=== PATIENT | male | born 1940 | race Caucasian/White ===

== ENCOUNTER 2017-02-15 10:10 | Inpatient (IN) | payer OTHER ==
[2017-02-15] MEDS ORDERED: NS 1/2 1000 ML IV 1,000 ML IV ONE (11:58)
[2017-02-15] MEDS: DUONEB 0.5 MG/3 MG NEB SCH ×4 (12:08→20:52)
[2017-02-15 12:09] VITALS: BMI 29.1
[2017-02-15] MEDS: NS 1/2 1000 ML IV 1,000 ML IV SCH (12:34)
[2017-02-15] MEDS: CIPRO IV 400 MG PREMIX* 400 MG/200 ML IV.SOLN. IV SCH ×2 (12:37→22:18)
[2017-02-15 12:52] LABS: BASOPHILS # (AUTO) 0.1 X10^3/uL (0.0-0.1); BASOPHILS % (AUTO) 1.1 % (0.2-1.0); EOSINOPHILS # (AUTO) 0.3 x10^3/uL (0.0-0.2); EOSINOPHILS % (AUTO) 5.1 % (0.9-2.9); HEMOGLOBIN 12.4 g/dL (13.5-18.0); LYMPHOCYTES # (AUTO) 1.2 X10^3/uL (1.3-2.9); LYMPHOCYTES % (AUTO) 20.8 % (21.0-51.0); MEAN CORPUSCULAR HEMOGLOBIN 31.1 pg (27.0-34.0); MEAN CORPUSCULAR HGB CONC 34.4 g/dL (33.0-35.0); MEAN CORPUSCULAR VOLUME 90.7 fL (80.0-100.0); MEAN PLATELET VOLUME 10.2 fL (7.4-11.0); MONOCYTES # (AUTO) 0.5 x10^3/uL (0.3-0.8); MONOCYTES % (AUTO) 8.8 % (0.0-13.0); NEUTROPHILS # (AUTO) 3.8 x10^3/uL (2.2-4.8); NEUTROPHILS % (AUTO) 64.2 % (42.0-75.0); PLATELET COUNT 163 X10^3/uL (150.0-450.0); RED BLOOD COUNT 3.97 X10^6/uL (4.7-6.0); RED CELL DISTRIBUTION WIDTH 14.3 % (11.6-16.5); WHITE BLOOD COUNT 5.9 X10^3/uL (3.6-10.0)
[2017-02-15 13:03] LABS: ALANINE AMINOTRANSFERASE 18 Units/L (12-78); ALBUMIN 3.4 g/dL (3.4-5.0); ALKALINE PHOSPHATASE 154 Units/L (46-116); ASPARTATE AMINO TRANSFERASE 17 Units/L (15-37); BLOOD UREA NITROGEN 33 mg/dL (7-18); CALCIUM 8.9 mg/dL (8.5-10.1); CARBON DIOXIDE 25.6 mmol/L (21-32); CHLORIDE 107 mmol/L (98-107); COR NA(FOR HYPERGLY) 141 mmol/L (136-145); CREATININE 1.64 mg/dL (0.70-1.30); MAGNESIUM 1.9 mg/dL (1.7-2.9); SODIUM 141 mmol/L (136-145); TOTAL PROTEIN 6.8 g/dL (6.4-8.2); eGFR BLACK RACES 53 (>60); eGFR NON BLACK RACES 44 (>60)
[2017-02-15] MEDS: ROBITUSSIN DM PO SCH ×3 (13:20→22:21)
[2017-02-15] MEDS ORDERED: NS 100 ML IV 100 ML IV ONE ×2 (13:23→21:44)
--- NOTE | 2017-02-15 13:23 | RAD ---
Examination: Chest, PA and lateral views History: AFib, cough, SOB Comparison reference: 06/01/2015 Findings: Continued cardiomegaly. Widening of the mediastinum consistent with portable projection and vascular dilatation. There is chronic scarring at the right base which may be related to old trauma; rib fracture deformities are seen. There is no acute consolidation, pneumothorax or large pleural ef fusion. The retrocardiac left base is partly obscured by the enlarged heart. Impression: Probably no acute disease. Stable cardiomegaly and chronic pleural-parenchymal scar carlos es, right lower chest. Standard PA and lateral views suggested when condition permits. Reported By:
[2017-02-15] MEDS: ZOSYN VIAL 4.5 GM IV SCH ×2 (13:25→15:14)
[2017-02-15] MEDS: ZOSYN VIAL 2.25 GM 2.25 GM in NS 100 ML IV 100 ML IV SCH ×2 (15:14→22:21)
[2017-02-15] MEDS: NORCO 7.5/325 MG TAB PO PRN ×2 (16:03→22:21)
--- NOTE | 2017-02-15 20:09 | DR.UPDATE ---
H&P Update History and Physical Update: WAS SEEN IN THE OFFICE TODAY. A H&P WAS COMPLETED PRIOR TO ADMISSION. PATIENT HAS BEEN SEEN AND EXAMINED WITH NO CHANGES NOTED. Changes noted: NO Yes with the following:
[2017-02-15] MEDS: TUSSIONEX PENNKINETIC SUSP PO PRN (21:00)
[2017-02-15] MEDS ORDERED: ZESTRIL TAB 20 MG ONE (21:37)
[2017-02-15] MEDS: ZESTRIL TAB 20 MG PO SCH ×2 (22:19→22:20)
[2017-02-15] MEDS: LASIX PO SCH (22:19)
[2017-02-15] MEDS: MICRO K EXTEN CAP 10 MEQ PO SCH (22:19)
[2017-02-15] MEDS: NORMODYNE TAB 100 MG PO SCH (22:21)
[2017-02-16] MEDS: NORCO 7.5/325 MG TAB PO PRN ×2 (01:45→21:35)
[2017-02-16] MEDS ORDERED: NS 1/2 1000 ML IV 1,000 ML IV ONE (02:40)
[2017-02-16] MEDS: ZOSYN VIAL 2.25 GM 2.25 GM in NS 100 ML IV 100 ML IV SCH ×4 (02:42→22:30)
[2017-02-16] MEDS: NS 1/2 1000 ML IV 1,000 ML IV SCH ×3 (02:42→18:15)
[2017-02-16 06:08] LABS: BASOPHILS # (AUTO) 0.1 X10^3/uL (0.0-0.1); BASOPHILS % (AUTO) 1.1 % (0.2-1.0); EOSINOPHILS # (AUTO) 0.3 x10^3/uL (0.0-0.2); EOSINOPHILS % (AUTO) 4.6 % (0.9-2.9); HEMATOCRIT 34.3 % (42.0-54.0); HEMOGLOBIN 11.7 g/dL (13.5-18.0); LYMPHOCYTES # (AUTO) 1.4 X10^3/uL (1.3-2.9); MEAN CORPUSCULAR HEMOGLOBIN 30.9 pg (27.0-34.0); MEAN CORPUSCULAR HGB CONC 34.2 g/dL (33.0-35.0); MEAN CORPUSCULAR VOLUME 90.5 fL (80.0-100.0); MEAN PLATELET VOLUME 9.9 fL (7.4-11.0); MONOCYTES # (AUTO) 0.6 x10^3/uL (0.3-0.8); MONOCYTES % (AUTO) 10.2 % (0.0-13.0); NEUTROPHILS # (AUTO) 3.7 x10^3/uL (2.2-4.8); NEUTROPHILS % (AUTO) 61.1 % (42.0-75.0); PLATELET COUNT 177 X10^3/uL (150.0-450.0); RED BLOOD COUNT 3.79 X10^6/uL (4.7-6.0); WHITE BLOOD COUNT 6.1 X10^3/uL (3.6-10.0)
[2017-02-16 06:29] LABS: ALANINE AMINOTRANSFERASE 17 Units/L (12-78); ALBUMIN 3.1 g/dL (3.4-5.0); ALKALINE PHOSPHATASE 149 Units/L (46-116); ASPARTATE AMINO TRANSFERASE 18 Units/L (15-37); BLOOD UREA NITROGEN 26 mg/dL (7-18); CALCIUM 8.4 mg/dL (8.5-10.1); CARBON DIOXIDE 26.6 mmol/L (21-32); CHLORIDE 106 mmol/L (98-107); COR CA(FOR HYPOALB) 9.1 mg/dL (8.5-10.1); CREATININE 1.45 mg/dL (0.70-1.30); SODIUM 141 mmol/L (136-145); TOTAL PROTEIN 6.5 g/dL (6.4-8.2); eGFR BLACK RACES > 60 (>60); eGFR NON BLACK RACES 50 (>60)
[2017-02-16] MEDS ORDERED: ZESTRIL TAB 20 MG ONE ×2 (08:14→21:17)
[2017-02-16] MEDS: CIPRO IV 400 MG PREMIX* 400 MG/200 ML IV.SOLN. IV SCH ×2 (08:30→21:33)
[2017-02-16] MEDS: AMARYL TAB 4 MG PO SCH (08:31)
[2017-02-16] MEDS: ROBITUSSIN DM PO SCH ×4 (08:31→21:34)
[2017-02-16] MEDS: ZESTRIL TAB 20 MG PO SCH ×2 (08:32→21:34)
[2017-02-16] MEDS: MICRO K EXTEN CAP 10 MEQ PO SCH ×2 (08:32→21:34)
[2017-02-16] MEDS: NORVASC TAB 5 MG PO SCH (08:32)
[2017-02-16] MEDS: ASPIRIN PO SCH (08:32)
[2017-02-16] MEDS: LASIX PO SCH ×2 (08:32→21:34)
[2017-02-16] MEDS: DUONEB 0.5 MG/3 MG NEB SCH ×4 (09:50→21:05)
[2017-02-16] MEDS: NORMODYNE TAB 100 MG PO SCH ×2 (10:25→21:34)
[2017-02-16] MEDS ORDERED: ASTELIN NASAL SPRAY ENOSTRIL ONE (13:51)
[2017-02-16] MEDS: FLONASE NASAL SPRAY ENOSTRIL SCH (13:55)
[2017-02-16] MEDS: ASTELIN NASAL SPRAY ENOSTRIL SCH ×2 (13:56→21:33)
--- NOTE | 2017-02-16 16:46 | CT ---
History: Headache and bloody nasal discharge. Study: CT sinus without contrast. Comparison: None available. Technique: Multiple contiguous axial images of the sinuses without contrast. Coronal/sagittal reforma ts were obtained. Findings: There is complete opacification of the right sphenoid sinus and left posterior ethmoidal air cells wi th internal hyperdense material. This may represent fungal sinusitis. There is bowing of the septum b etween the sphenoid sinuses, which may represent partial dehiscence. Otherwise, the paranasal sinuses are well-developed and aerated. There is a mild right nasal septum deviation. There is question of o bstruction of the right sphenoethmoidal recess. The ostiomeatal units, left sphenoethmoidal recess, a nd frontoethmoidal recesses are patent. The lamina papyracea appear intact. The orbits are unremarkab le. The visualized bones and surrounding soft tissues are unremarkable. Impression: Sinus disease as above. Reported By:
[2017-02-16] MEDS: TUSSIONEX PENNKINETIC SUSP PO PRN (21:00)
[2017-02-17 05:44] LABS: EOSINOPHILS # (AUTO) 0.3 x10^3/uL (0.0-0.2); EOSINOPHILS % (AUTO) 5.4 % (0.9-2.9); HEMOGLOBIN 12.8 g/dL (13.5-18.0); LYMPHOCYTES # (AUTO) 1.2 X10^3/uL (1.3-2.9); MEAN CORPUSCULAR VOLUME 90.1 fL (80.0-100.0); NEUTROPHILS # (AUTO) 3.9 x10^3/uL (2.2-4.8); RED CELL DISTRIBUTION WIDTH 13.8 % (11.6-16.5)
[2017-02-17 05:47] LABS: BASOPHILS # (AUTO) 0.1 X10^3/uL (0.0-0.1); BASOPHILS % (AUTO) 1.2 % (0.2-1.0); HEMATOCRIT 37.3 % (42.0-54.0); LYMPHOCYTES % (AUTO) 19.2 % (21.0-51.0); MEAN CORPUSCULAR HEMOGLOBIN 30.8 pg (27.0-34.0); MEAN CORPUSCULAR HGB CONC 34.2 g/dL (33.0-35.0); MEAN PLATELET VOLUME 10.1 fL (7.4-11.0); MONOCYTES # (AUTO) 0.5 x10^3/uL (0.3-0.8); MONOCYTES % (AUTO) 8.9 % (0.0-13.0); NEUTROPHILS % (AUTO) 65.3 % (42.0-75.0); PLATELET COUNT 186 X10^3/uL (150.0-450.0); RED BLOOD COUNT 4.14 X10^6/uL (4.7-6.0)
[2017-02-17 06:03] LABS: ALBUMIN 3.3 g/dL (3.4-5.0); CARBON DIOXIDE 30.2 mmol/L (21-32); COR CA(FOR HYPOALB) 9.6 mg/dL (8.5-10.1); CREATININE 1.58 mg/dL (0.70-1.30)
[2017-02-17] MEDS ORDERED: NS 1/2 1000 ML IV 1,000 ML IV ONE ×2 (06:22→17:34)
[2017-02-17] MEDS: ZOSYN VIAL 2.25 GM 2.25 GM in NS 100 ML IV 100 ML IV SCH ×3 (06:34→21:06)
[2017-02-17] MEDS: NS 1/2 1000 ML IV 1,000 ML IV SCH ×3 (06:34→21:11)
[2017-02-17] MEDS ORDERED: ZESTRIL TAB 20 MG ONE ×2 (09:08→20:50)
[2017-02-17] MEDS: CIPRO IV 400 MG PREMIX* 400 MG/200 ML IV.SOLN. IV SCH ×2 (09:13→21:04)
[2017-02-17] MEDS: AMARYL TAB 4 MG PO SCH (09:14)
[2017-02-17] MEDS: NORVASC TAB 5 MG PO SCH (09:14)
[2017-02-17] MEDS: ROBITUSSIN DM PO SCH ×4 (09:14→21:09)
[2017-02-17] MEDS: LASIX PO SCH ×2 (09:14→21:07)
[2017-02-17] MEDS: ASTELIN NASAL SPRAY ENOSTRIL SCH ×2 (09:14→21:10)
[2017-02-17] MEDS: ZESTRIL TAB 20 MG PO SCH ×2 (09:14→21:09)
[2017-02-17] MEDS: ASPIRIN PO SCH (09:14)
[2017-02-17] MEDS: MICRO K EXTEN CAP 10 MEQ PO SCH ×2 (09:14→21:08)
[2017-02-17] MEDS: FLONASE NASAL SPRAY ENOSTRIL SCH (09:15)
[2017-02-17] MEDS: DUONEB 0.5 MG/3 MG NEB SCH ×4 (09:51→20:28)
[2017-02-17] MEDS: NORMODYNE TAB 100 MG PO SCH ×2 (13:58→21:10)
[2017-02-17] MEDS: NORCO 7.5/325 MG TAB PO PRN ×2 (13:59→21:09)
[2017-02-17] MEDS ORDERED: CHLORASEPTIC SPRAY MT PRN (15:00)
[2017-02-18 05:19] LABS: BASOPHILS # (AUTO) 0.1 X10^3/uL (0.0-0.1); BASOPHILS % (AUTO) 0.9 % (0.2-1.0); EOSINOPHILS # (AUTO) 0.3 x10^3/uL (0.0-0.2); EOSINOPHILS % (AUTO) 5.7 % (0.9-2.9); HEMATOCRIT 35.1 % (42.0-54.0); LYMPHOCYTES # (AUTO) 1.2 X10^3/uL (1.3-2.9); MEAN CORPUSCULAR HEMOGLOBIN 31.1 pg (27.0-34.0); MEAN CORPUSCULAR VOLUME 91.4 fL (80.0-100.0); MEAN PLATELET VOLUME 10.6 fL (7.4-11.0); MONOCYTES # (AUTO) 0.6 x10^3/uL (0.3-0.8); MONOCYTES % (AUTO) 10.3 % (0.0-13.0); NEUTROPHILS # (AUTO) 3.8 x10^3/uL (2.2-4.8); NEUTROPHILS % (AUTO) 63.1 % (42.0-75.0); PLATELET COUNT 131 X10^3/uL (150.0-450.0); RED BLOOD COUNT 3.84 X10^6/uL (4.7-6.0); RED CELL DISTRIBUTION WIDTH 14.1 % (11.6-16.5)
[2017-02-18 05:24] LABS: CALCIUM 8.9 mg/dL (8.5-10.1); CARBON DIOXIDE 29.4 mmol/L (21-32); COR CA(FOR HYPOALB) 9.7 mg/dL (8.5-10.1); CREATININE 1.76 mg/dL (0.70-1.30); TOTAL PROTEIN 6.5 g/dL (6.4-8.2)
[2017-02-18] MEDS ORDERED: NS 1/2 1000 ML IV 1,000 ML IV ONE ×2 (05:28→20:29)
[2017-02-18] MEDS: NS 1/2 1000 ML IV 1,000 ML IV SCH ×3 (05:56→20:38)
[2017-02-18] MEDS: NORMODYNE TAB 100 MG PO SCH (05:56)
[2017-02-18] MEDS: ZOSYN VIAL 2.25 GM 2.25 GM in NS 100 ML IV 100 ML IV SCH ×2 (06:00→13:21)
[2017-02-18] MEDS: DUONEB 0.5 MG/3 MG NEB SCH ×4 (08:03→20:27)
[2017-02-18] MEDS: SNACK - Diabetic Appropriate PO SCH ×2 (08:03→20:38)
[2017-02-18] MEDS ORDERED: ZESTRIL TAB 20 MG ONE ×2 (08:11→20:28)
[2017-02-18] MEDS: NORVASC TAB 5 MG PO SCH (08:15)
[2017-02-18] MEDS: AMARYL TAB 4 MG PO SCH (08:16)
[2017-02-18] MEDS: ASPIRIN PO SCH (08:16)
[2017-02-18] MEDS: MICRO K EXTEN CAP 10 MEQ PO SCH ×2 (08:16→20:39)
[2017-02-18] MEDS: ROBITUSSIN DM PO SCH ×4 (08:16→20:40)
[2017-02-18] MEDS: LASIX PO SCH ×2 (08:16→20:40)
[2017-02-18] MEDS: ZESTRIL TAB 20 MG PO SCH ×2 (08:17→20:39)
[2017-02-18] MEDS: NORCO 7.5/325 MG TAB PO PRN ×2 (08:17→20:39)
--- NOTE | 2017-02-18 08:52 | RAD ---
Examination: Chest, PA and lateral views History: Cough, SOB, lung cancer Comparison reference: 02/15/2017 Findings: Mild cardiac prominence, unchanged. Pleural-parenchymal scarring right lower chest. There i s no evidence for pneumothorax, acute consolidation or large pleural effusion. Impression: No acute process identified. Chronic findings again noted right lower chest. Upper normal heart size. Reported By:
[2017-02-18] MEDS: ASTELIN NASAL SPRAY ENOSTRIL SCH ×2 (08:56→20:38)
[2017-02-18] MEDS: CIPRO IV 400 MG PREMIX* 400 MG/200 ML IV.SOLN. IV SCH (08:56)
[2017-02-18] MEDS: FLONASE NASAL SPRAY ENOSTRIL SCH (08:56)
--- NOTE | 2017-02-18 09:06 | PCM.PROG ---
Progress Note - Progress Note for Day of Date: 02/18/17 - Subjective Subjective: WAS ADMITTED FOR PNEUMONIA. OVER THE WEEKEND, WORKUP REVEALED SINUS DISEASE IN THE ETHMOID AND PARANASAL SINUSES. CT REPORTED THAT FINDINGS MAY REPRESENT FUNGAL SINUSITIS. TODAY, HE IS ALERT AND ORIENTED, LYING IN BED ON MORNING ROUNDS. HE IS NOTED WITH COMPLAINTS OF NON-PRODUCTIVE COUGH AND NASAL CONGESTION. ON EXAMINATION, LUNG SOUNDS ARE DIMINISHED. ABDOMEN IS ROUND, SOFT, AND NON-TENDER WITH NORMAL BOWEL SOUNDS NOTED IN ALL QUADRANTS. HE IS CURRENTLY RECEIVING A BREATHING TREATMENT. VITAL SIGNS THIS MORNING ARE 97.4- 55-18-92%-145/67. ABNORMAL LAB VALUES INCLUDE THE FOLLOWING: RBC 3.84, HGB 12.0 , HCT 35.1, BUN 24, CREATININE 1.76, GLUCOSE 140, ALK PHOS 126, ALBUMIN 3.0, A/ G RATIO 0.9. WE OBTAINED A PA/LAT CHEST XRAY THIS MORNING. RESULTS ARE PENDING. EMR REPORTS A DROP IN PULSE TO THE LOW 50S THROUGHOUT THE NIGHT. PATIENT IS CURRENTLY TAKING LABETALOL 200MG PO TID. WE WILL DISCONTINUE THIS AND START METOPROLOL XL 50MG DAILY. WE WILL ALSO START DIFLUCAN 200MG IV DAILY FOR CT FINDINGS OF FUNGAL SINUSITIS. OTHERWISE, WE WILL CONTINUE WITH CURRENT PLAN OF CARE TODAY. WE PLAN TO FOLLOW UP WITH AM LABS AND CONTINUE TO MONITOR PATIENT. - Past Medical Family Social History Past Med/Fam/Surg Hx: No changes since H&P Allergies: Allergies No Known Drug Allergies Allergy (Verified 02/15/17 10:37) - Review of Systems ROS: No change since H&P - Vital Signs and I&O's Vital Signs: Temperature 97.4 F Pulse Rate [Left Radial] 55 Pulse Rate 58 Respiratory Rate 18 Blood Pressure [Left Arm] 145/67 Blood Pressure [Right Arm] 138/65 Blood Pressure 156/70 O2 Sat by Pulse Oximetry 92 Intake and Output: Intake & Output 02/15/17 02/16/17 02/17/17 02/18/17 11:59 11:59 11:59 11:59 Intake Total 3128 4340 2540 Output Total 2019 5600 3050 Balance 1038 -5736 -043 - Physical Exam Oriented: Normal Eyes: Normal Ear: Normal Nose: Other (NASAL CONGESTION ) Throat: Normal Respiratory: Generalized, Diminished Cardiovascular: Normal : Normal Auscultation: Bowel Sounds: Normal Palpation: Normal Tenderness: Normal Skin: Normal Musculoskeletal: Normal Psychiatric: Normal Mood Description: Calm Affect: Normal Speech Pattern: Clear, Appropriate - Laboratory and Diagnostics Result Diagrams: 02/18/17 04:53 02/18/17 04:53 Labs: 02/15/17 13:38 Blood Blood Culture - Preliminary 02/15/17 12:30 Blood Blood Culture - Preliminary 02/15/17 12:51 Sputum - Expectorated Sputum Sputum Culture - Final Escherichia Coli 02/15/17 12:51 Sputum - Expectorated Sputum - Final Laboratory WBC 6.0 X10^3/uL (3.6-10.0) 02/18/17 04:53 RBC 3.84 X10^6/uL (4.7-6.0) L 02/18/17 04:53 Hgb 12.0 g/dL (13.5-18.0) L 02/18/17 04:53 Hct 35.1 % (42.0-54.0) L 02/18/17 04:53 MCV 91.4 fL (80.0-100.0) 02/18/17 04:53 MCH 31.1 pg (27.0-34.0) 02/18/17 04:53 MCHC 34.0 g/dL (33.0-35.0) 02/18/17 04:53 RDW 14.1 % (11.6-16.5) 02/18/17 04:53 Plt Count 131 X10^3/uL (150.0-450.0) L 02/18/17 04:53 MPV 10.6 fL (7.4-11.0) 02/18/17 04:53 Neut % 63.1 % (42.0-75.0) 02/18/17 04:53 Lymph % 20.0 % (21.0-51.0) L 02/18/17 04:53 [place] % 10.3 % (0.0-13.0) 02/18/17 04:53 Eos % 5.7 % (0.9-2.9) H 02/18/17 04:53 Baso % 0.9 % (0.2-1.0) 02/18/17 04:53 Neut # 3.8 x10^3/uL (2.2-4.8) 02/18/17 04:53 Lymph # 1.2 X10^3/uL (1.3-2.9) L 02/18/17 04:53 [place] # 0.6 x10^3/uL (0.3-0.8) 02/18/17 04:53 Eos # 0.3 x10^3/uL (0.0-0.2) H 02/18/17 04:53 Baso # 0.1 X10^3/uL (0.0-0.1) 02/18/17 04:53 Absolute Nucleated RBC 0.0 /100WBC 02/18/17 04:53 Sodium 140 mmol/L (136-145) 02/18/17 04:53 Corrected Sodium 141 mmol/L (136-145) 02/18/17 04:53 Potassium 4.7 mmol/L (3.5-5.1) 02/18/17 04:53 Chloride 103 mmol/L (98-107) 02/18/17 04:53 Carbon Dioxide 29.4 mmol/L (21-32) 02/18/17 04:53 BUN 24 mg/dL (7-18) H 02/18/17 04:53 Creatinine 1.76 mg/dL (0.70-1.30) H 02/18/17 04:53 Est GFR (MDRD) Af Amer 49 (>60) L 02/18/17 04:53 Est GFR (MDRD) Non-Af 40 (>60) L 02/18/17 04:53 Glucose 140 mg/dL (65-99) H 02/18/17 04:53 Calcium 8.9 mg/dL (8.5-10.1) 02/18/17 04:53 Corrected Calcium 9.7 mg/dL (8.5-10.1) 02/18/17 04:53 Magnesium 1.9 mg/dL (1.7-2.9) 02/15/17 12:30 Total Bilirubin 0.50 mg/dL (0.2-1.0) 02/18/17 04:53 AST 16 Units/L (15-37) 02/18/17 04:53 ALT 15 Units/L (12-78) 02/18/17 04:53 Alkaline Phosphatase 126 Units/L (46-116) H 02/18/17 04:53 Total Protein 6.5 g/dL (6.4-8.2) 02/18/17 04:53 Albumin 3.0 g/dL (3.4-5.0) L 02/18/17 04:53 Globulin 3.5 g/dL (2.5-4.5) 02/18/17 04:53 Albumin/Globulin Ratio 0.9 Ratio (1.1-2.1) L 02/18/17 04:53 - Plan (1) Acute fungal sinusitis Status: Acute Plan: DIFLUCAN 200MG IV DAILY, CONTINUE ZOSYN, CONTINUE CIPRO, CONTINUE ASTELIN , CONTINUE TO MONITOR (2) Bronchopneumonia Status: Acute Plan: CONTINUE PNEUMONIA PROTOCOL, CONTINUE ZOSYN, CONTINUE CIPRO, CONTINUE DUONEBS, CONTINUE SUPPLEMENTAL OXYGNE, CONTINUE TO MONITOR LABS AND CHEST XRAY
[2017-02-18] MEDS: TOPROL XL PO SCH (10:12)
[2017-02-18] MEDS: DIFLUCAN 200 MG IV PREMIX* 200 MG/100 ML BAG IV SCH (10:12)
[2017-02-18] MEDS ORDERED: ROCEPHIN 1 GM IV PREMIX 1 GM/50 ML IV.SOLN. IV ONE (16:00)
[2017-02-18] MEDS: ROCEPHIN 1 GM IV PREMIX 1 GM/50 ML IV.SOLN. IV SCH (16:37)
[2017-02-18] MEDS: TUSSIONEX PENNKINETIC SUSP PO PRN (20:40)
[2017-02-19] MEDS: NS 1/2 1000 ML IV 1,000 ML IV SCH (00:20)
[2017-02-19 05:17] LABS: BASOPHILS # (AUTO) 0.1 X10^3/uL (0.0-0.1); BASOPHILS % (AUTO) 1.4 % (0.2-1.0); EOSINOPHILS # (AUTO) 0.5 x10^3/uL (0.0-0.2); EOSINOPHILS % (AUTO) 7.2 % (0.9-2.9); HEMATOCRIT 36.2 % (42.0-54.0); HEMOGLOBIN 12.3 g/dL (13.5-18.0); LYMPHOCYTES # (AUTO) 1.4 X10^3/uL (1.3-2.9); LYMPHOCYTES % (AUTO) 20.8 % (21.0-51.0); MEAN CORPUSCULAR VOLUME 91.1 fL (80.0-100.0); MEAN PLATELET VOLUME 10.5 fL (7.4-11.0); MONOCYTES # (AUTO) 0.6 x10^3/uL (0.3-0.8); MONOCYTES % (AUTO) 8.9 % (0.0-13.0); NEUTROPHILS % (AUTO) 61.7 % (42.0-75.0); PLATELET COUNT 110 X10^3/uL (150.0-450.0); RED BLOOD COUNT 3.97 X10^6/uL (4.7-6.0); RED CELL DISTRIBUTION WIDTH 13.7 % (11.6-16.5); WHITE BLOOD COUNT 6.5 X10^3/uL (3.6-10.0)
[2017-02-19 05:25] LABS: ALBUMIN 3.2 g/dL (3.4-5.0); CALCIUM 9.1 mg/dL (8.5-10.1); CARBON DIOXIDE 31.4 mmol/L (21-32); COR CA(FOR HYPOALB) 9.7 mg/dL (8.5-10.1); CREATININE 1.83 mg/dL (0.70-1.30); TOTAL PROTEIN 6.8 g/dL (6.4-8.2)
[2017-02-19] MEDS ORDERED: ZESTRIL TAB 20 MG ONE ×2 (09:00→20:59)
[2017-02-19] MEDS: DIFLUCAN 200 MG IV PREMIX* 200 MG/100 ML BAG IV SCH (09:05)
[2017-02-19] MEDS: ASPIRIN PO SCH (09:06)
[2017-02-19] MEDS: ZESTRIL TAB 20 MG PO SCH ×2 (09:06→21:12)
[2017-02-19] MEDS: AMARYL TAB 4 MG PO SCH (09:06)
[2017-02-19] MEDS: LASIX PO SCH ×2 (09:06→21:12)
[2017-02-19] MEDS: NORVASC TAB 5 MG PO SCH (09:06)
[2017-02-19] MEDS: MICRO K EXTEN CAP 10 MEQ PO SCH ×2 (09:06→21:12)
[2017-02-19] MEDS: TOPROL XL PO SCH (09:06)
[2017-02-19] MEDS: FLONASE NASAL SPRAY ENOSTRIL SCH (09:07)
[2017-02-19] MEDS: ASTELIN NASAL SPRAY ENOSTRIL SCH ×2 (09:07→21:15)
[2017-02-19] MEDS: DUONEB 0.5 MG/3 MG NEB SCH ×4 (09:07→20:47)
[2017-02-19] MEDS: ROCEPHIN 1 GM IV PREMIX 1 GM/50 ML IV.SOLN. IV SCH (09:08)
[2017-02-19] MEDS: MUCINEX DM PO SCH ×2 (10:07→21:12)
[2017-02-19] MEDS: SOLU-Medrol 40 MG VIAL IVP SCH ×3 (10:08→21:12)
[2017-02-19] MEDS ORDERED: NS 1/2 1000 ML IV 0 ML IV ONE (10:37)
--- NOTE | 2017-02-19 11:25 | PCM.PROG ---
Progress Note - Progress Note for Day of Date: 02/19/17 - Subjective Subjective: WAS ADMITTED FOR PNEUMONIA. OVER THE WEEKEND, WORKUP REVEALED FUNGAL SINUS DISEASE IN THE ETHMOID AND PARANASAL SINUSES. TODAY, HE IS ALERT AND ORIENTED, LYING IN BED ON MORNING ROUNDS. HE CONTINUES WITH COMPLAINTS OF NON-PRODUCTIVE COUGH AND NASAL CONGESTION. ON EXAMINATION, LUNG SOUNDS ARE NOTED WITH SCATTERED WHEEZING BILATERALLY. ABDOMEN IS ROUND, SOFT, AND NON-TENDER WITH NORMAL BOWEL SOUNDS NOTED IN ALL QUADRANTS. HE IS CURRENTLY UTILIZING OXYGEN VIA NASAL CANNULA AT 2L/MIN. VITAL SIGNS THIS MORNING ARE 97.8- 65-20-93%-145/65. ABNORMAL LAB VALUES INCLUDE THE FOLLOWING: RBC 3.97, HGB 12.3 , HCT 36.2, BUN 26, CREATININE 1.83, GLUCOSE 119, ALK PHOS 124, ALBUMIN 3.2, A/ G RATIO 0.9. YESTERDAYS CHEST XRAY REPORTS NO ACUTE PROCESS IDENTIFIED. CHRONIC FINDINGS AGAIN NOTED IN RIGHT LOWER CHEST. UPPER NORMAL HEART SIZE. WE MADE CHANGES TO PATIENTS BLOOD PRESSURE MEDICATIONS YESTERDAY. THE CHANGES SEEM TO BE WORKING WELL FOR HIM. TODAY, WE WILL START MUCINEX DM 2 TABLETS EVERY 12 HOURS AND SOLU-MEDROL 80MG IV Q8H. OTHERWISE, WE WILL CONTINUE WITH CURRENT PLAN OF CARE TODAY. WE PLAN TO FOLLOW UP WITH AM LABS AND CONTINUE TO MONITOR PATIENT. - Past Medical Family Social History Past Med/Fam/Surg Hx: No changes since H&P Allergies: Allergies No Known Drug Allergies Allergy (Verified 02/15/17 10:37) - Review of Systems ROS: No change since H&P - Vital Signs and I&O's Vital Signs: Temperature 97.8 F Pulse Rate [Left Radial] 65 Pulse Rate 44 Respiratory Rate 20 Blood Pressure [Left Arm] 178/82 Blood Pressure [Right Arm] 138/65 Blood Pressure 156/70 O2 Sat by Pulse Oximetry 93 Intake and Output: Intake & Output 02/16/17 02/17/17 02/18/17 02/19/17 11:59 11:59 11:59 11:59 Intake Total 3128 4340 2540 2980 Output Total 2019 5600 3050 2740 Balance 1108 -1260 -510 240 - Physical Exam Oriented: Normal Eyes: Normal Ear: Normal Nose: Other (NASAL CONGESTION ) Throat: Normal Respiratory: Generalized, Diminished, Wheezes Cardiovascular: Normal : Normal Auscultation: Bowel Sounds: Normal Palpation: Normal Tenderness: Normal Skin: Normal Musculoskeletal: Normal Psychiatric: Normal Mood Description: Calm Affect: Normal Speech Pattern: Clear, Appropriate - Laboratory and Diagnostics Result Diagrams: 02/19/17 04:50 02/19/17 04:50 Labs: 02/15/17 13:38 Blood Blood Culture - Preliminary 02/15/17 12:30 Blood Blood Culture - Preliminary 02/15/17 12:51 Sputum - Expectorated Sputum Sputum Culture - Final Escherichia Coli 02/15/17 12:51 Sputum - Expectorated Sputum - Final Laboratory WBC 6.5 X10^3/uL (3.6-10.0) 02/19/17 04:50 RBC 3.97 X10^6/uL (4.7-6.0) L 02/19/17 04:50 Hgb 12.3 g/dL (13.5-18.0) L 02/19/17 04:50 Hct 36.2 % (42.0-54.0) L 02/19/17 04:50 MCV 91.1 fL (80.0-100.0) 02/19/17 04:50 MCH 31.0 pg (27.0-34.0) 02/19/17 04:50 MCHC 34.0 g/dL (33.0-35.0) 02/19/17 04:50 RDW 13.7 % (11.6-16.5) 02/19/17 04:50 Plt Count 110 X10^3/uL (150.0-450.0) L 02/19/17 04:50 MPV 10.5 fL (7.4-11.0) 02/19/17 04:50 Neut % 61.7 % (42.0-75.0) 02/19/17 04:50 Lymph % 20.8 % (21.0-51.0) L 02/19/17 04:50 [place] % 8.9 % (0.0-13.0) 02/19/17 04:50 Eos % 7.2 % (0.9-2.9) H 02/19/17 04:50 Baso % 1.4 % (0.2-1.0) H 02/19/17 04:50 Neut # 4.0 x10^3/uL (2.2-4.8) 02/19/17 04:50 Lymph # 1.4 X10^3/uL (1.3-2.9) 02/19/17 04:50 [place] # 0.6 x10^3/uL (0.3-0.8) 02/19/17 04:50 Eos # 0.5 x10^3/uL (0.0-0.2) H 02/19/17 04:50 Baso # 0.1 X10^3/uL (0.0-0.1) 02/19/17 04:50 Absolute Nucleated RBC 0.0 /100WBC 02/19/17 04:50 Sodium 140 mmol/L (136-145) 02/19/17 04:50 Corrected Sodium 140 mmol/L (136-145) 02/19/17 04:50 Potassium 4.6 mmol/L (3.5-5.1) 02/19/17 04:50 Chloride 103 mmol/L (98-107) 02/19/17 04:50 Carbon Dioxide 31.4 mmol/L (21-32) 02/19/17 04:50 BUN 26 mg/dL (7-18) H 02/19/17 04:50 Creatinine 1.83 mg/dL (0.70-1.30) H 02/19/17 04:50 Est GFR (MDRD) Af Amer 47 (>60) L 02/19/17 04:50 Est GFR (MDRD) Non-Af 39 (>60) L 02/19/17 04:50 Glucose 119 mg/dL (65-99) H 02/19/17 04:50 POC Glucose (mg/dL) 138 mg/dL (65-99) H 02/19/17 05:28 Calcium 9.1 mg/dL (8.5-10.1) 02/19/17 04:50 Corrected Calcium 9.7 mg/dL (8.5-10.1) 02/19/17 04:50 Magnesium 1.9 mg/dL (1.7-2.9) 02/15/17 12:30 Total Bilirubin 0.20 mg/dL (0.2-1.0) 02/19/17 04:50 AST 19 Units/L (15-37) 02/19/17 04:50 ALT 17 Units/L (12-78) 02/19/17 04:50 Alkaline Phosphatase 124 Units/L (46-116) H 02/19/17 04:50 Total Protein 6.8 g/dL (6.4-8.2) 02/19/17 04:50 Albumin 3.2 g/dL (3.4-5.0) L 02/19/17 04:50 Globulin 3.6 g/dL (2.5-4.5) 02/19/17 04:50 Albumin/Globulin Ratio 0.9 Ratio (1.1-2.1) L 02/19/17 04:50 - Plan (1) Acute fungal sinusitis Status: Acute Plan: DIFLUCAN 200MG IV DAILY, MUCINEX DM Q12H, CONTINUE ZOSYN, CONTINUE CIPRO, CONTINUE ASTELIN, CONTINUE TO MONITOR (2) Bronchopneumonia Status: Acute Plan: CONTINUE PNEUMONIA PROTOCOL, MUCINEX DM Q12H, SOLU-MEDROL 80MG IV Q8H, CONTINUE ZOSYN, CONTINUE CIPRO, CONTINUE DUONEBS, CONTINUE SUPPLEMENTAL OXYGNE, CONTINUE TO MONITOR LABS AND CHEST XRAY
[2017-02-19] MEDS: SNACK - Diabetic Appropriate PO SCH (21:13)
[2017-02-20] MEDS ORDERED: NS 1/2 1000 ML IV 1,000 ML IV ONE (05:06)
[2017-02-20 05:07] LABS: BASOPHILS % (AUTO) 0.1 % (0.2-1.0); HEMATOCRIT 36.7 % (42.0-54.0); HEMOGLOBIN 12.8 g/dL (13.5-18.0); LYMPHOCYTES # (AUTO) 0.5 X10^3/uL (1.3-2.9); LYMPHOCYTES % (AUTO) 4.7 % (21.0-51.0); MEAN CORPUSCULAR HGB CONC 34.9 g/dL (33.0-35.0); MEAN CORPUSCULAR VOLUME 88.8 fL (80.0-100.0); MEAN PLATELET VOLUME 9.9 fL (7.4-11.0); MONOCYTES # (AUTO) 0.1 x10^3/uL (0.3-0.8); MONOCYTES % (AUTO) 0.7 % (0.0-13.0); NEUTROPHILS # (AUTO) 10.6 x10^3/uL (2.2-4.8); NEUTROPHILS % (AUTO) 94.5 % (42.0-75.0); PLATELET COUNT 234 X10^3/uL (150.0-450.0); RED BLOOD COUNT 4.13 X10^6/uL (4.7-6.0); RED CELL DISTRIBUTION WIDTH 13.6 % (11.6-16.5); WHITE BLOOD COUNT 11.3 X10^3/uL (3.6-10.0)
[2017-02-20 05:27] LABS: BAND NEUTROPHILS % 3 % (0-10); PLATELET MORPHOLOGY COMMENT NORMAL (NORMAL)
[2017-02-20] MEDS: NS 1/2 1000 ML IV 1,000 ML IV SCH ×2 (05:30)
[2017-02-20] MEDS: SOLU-Medrol 40 MG VIAL IVP SCH (05:31)
[2017-02-20 06:35] LABS: ALANINE AMINOTRANSFERASE 20 Units/L (12-78); ALBUMIN 3.7 g/dL (3.4-5.0); ALKALINE PHOSPHATASE 143 Units/L (46-116); ASPARTATE AMINO TRANSFERASE 22 Units/L (15-37); BLOOD UREA NITROGEN 32 mg/dL (7-18); CALCIUM 9.2 mg/dL (8.5-10.1); CARBON DIOXIDE 24.5 mmol/L (21-32); CHLORIDE 100 mmol/L (98-107); COR NA(FOR HYPERGLY) 139 mmol/L (136-145); CREATININE 1.71 mg/dL (0.70-1.30); SODIUM 136 mmol/L (136-145); TOTAL PROTEIN 7.2 g/dL (6.4-8.2); eGFR BLACK RACES 50 (>60); eGFR NON BLACK RACES 42 (>60)
--- NOTE | 2017-02-20 07:13 | RAD ---
HISTORY: Cough, shortness of breath Study: Chest AP portable Comparison: 02/18/2017 Findings: The heart is enlarged. No congestive heart failure is noted. No acute alveolar infiltrates or pleural effusions are identified. The bony thorax is unremarkable with the exception of old healed rib fract ures on the right. IMPRESSION: Cardiomegaly without congestive heart failure No infiltrates Reported By:
[2017-02-20] MEDS ORDERED: ZESTRIL TAB 20 MG ONE (08:47)
[2017-02-20] MEDS: NORVASC TAB 5 MG PO SCH (08:51)
[2017-02-20] MEDS: AMARYL TAB 4 MG PO SCH (08:51)
[2017-02-20] MEDS: MUCINEX DM PO SCH (08:52)
[2017-02-20] MEDS: TOPROL XL PO SCH (08:53)
[2017-02-20] MEDS: ZESTRIL TAB 20 MG PO SCH (08:53)
[2017-02-20] MEDS: ASPIRIN PO SCH (08:53)
[2017-02-20] MEDS: LASIX PO SCH (08:53)
[2017-02-20] MEDS: MICRO K EXTEN CAP 10 MEQ PO SCH (08:53)
[2017-02-20] MEDS: DUONEB 0.5 MG/3 MG NEB SCH (09:10)
[2017-02-20] MEDS: ASTELIN NASAL SPRAY ENOSTRIL SCH (09:56)
[2017-02-20] MEDS: DIFLUCAN 200 MG IV PREMIX* 200 MG/100 ML BAG IV SCH (09:57)
[2017-02-20] MEDS: ROCEPHIN 1 GM IV PREMIX 1 GM/50 ML IV.SOLN. IV SCH (09:57)
[2017-02-20] MEDS: FLONASE NASAL SPRAY ENOSTRIL SCH (09:57)
[2017-02-20 13:05] VITALS: BP 111/46
== END 2017-02-20 13:21 | disposition home or self-care (01) | DRG 195 ==
LOC: UNDOADMIN 10:10 → ICU 10:10 → MED/SURG 02-17 14:05
PROVIDERS: ADMIT Internal Medicine; ATTEND Internal Medicine
DX: J18.0 Bronchopneumonia, unspecified organism (principal); J40 Bronchitis, not specified as acute or chronic; R50.9 Fever, unspecified; J32.2 Chronic ethmoidal sinusitis; E11.65 Type 2 diabetes mellitus with hyperglycemia
CPT/HCPCS: 36415; 70486; 71010; 71020; 80053; 83735; 85025; 87040; 87070; 87077; 87186; 87205; 93005; 94640; A4222; J0696; J0744; J1450; J2543; J2920; J7620

== ENCOUNTER 2019-01-27 09:05 | Observation (INO) ==
[2019-01-27 11:35] LABS: BASOPHILS # (AUTO) 0.1 X10^3/uL (0.0-0.1); BASOPHILS % (AUTO) 0.7 % (0.2-1.0); EOSINOPHILS # (AUTO) 0.3 x10^3/uL (0.0-0.2); EOSINOPHILS % (AUTO) 4.4 % (0.9-2.9); HEMATOCRIT 40.1 % (42.0-54.0); HEMOGLOBIN 13.4 g/dL (13.5-18.0); LYMPHOCYTES # (AUTO) 1.1 X10^3/uL (1.3-2.9); LYMPHOCYTES % (AUTO) 14.6 % (21.0-51.0); MEAN CORPUSCULAR HEMOGLOBIN 30.2 pg (27.0-34.0); MEAN CORPUSCULAR HGB CONC 33.4 g/dL (33.0-35.0); MEAN CORPUSCULAR VOLUME 90.6 fL (80.0-100.0); MEAN PLATELET VOLUME 9.5 fL (7.4-11.0); MONOCYTES # (AUTO) 0.5 x10^3/uL (0.3-0.8); MONOCYTES % (AUTO) 6.7 % (0.0-13.0); NEUTROPHILS # (AUTO) 5.6 x10^3/uL (2.2-4.8); NEUTROPHILS % (AUTO) 73.6 % (42.0-75.0); PLATELET COUNT 239 X10^3/uL (150.0-450.0); RED BLOOD COUNT 4.43 X10^6/uL (4.7-6.0); RED CELL DISTRIBUTION WIDTH 14.4 % (11.6-16.5); WHITE BLOOD COUNT 7.6 X10^3/uL (3.6-10.0)
--- NOTE | 2019-01-27 11:43 | RAD ---
History: Cough Study: PA and lateral chest Comparison: February 20, 2017 Findings: There is moderate cardiomegaly as before. There are old right posterior lateral rib fractures. There is slight elevation of the right hemidiaphragm as before with blunting of the costophrenic angle from apparent pulmonary fibrosis. There is no acute infiltrate or edema. Impression: Chronic moderate cardiomegaly. Old traumatic changes right thorax. Reported By:
[2019-01-27 11:45] LABS: ALANINE AMINOTRANSFERASE 12 Units/L (12-78); ALBUMIN 3.6 g/dL (3.4-5.0); ALKALINE PHOSPHATASE 149 Units/L (46-116); ASPARTATE AMINO TRANSFERASE 12 Units/L (15-37); BLOOD UREA NITROGEN 20 mg/dL (7-18); CALCIUM 9.2 mg/dL (8.5-10.1); CARBON DIOXIDE 28.7 mmol/L (21-32); CHLORIDE 103 mmol/L (98-107); COR NA(FOR HYPERGLY) 141 mmol/L (136-145); CREATININE 1.31 mg/dL (0.70-1.30); SODIUM 138 mmol/L (136-145); TOTAL PROTEIN 7.5 g/dL (6.4-8.2); eGFR NON BLACK RACES 56 (>60)
[2019-01-27] MEDS ORDERED: NS 1/2 1000 ML IV 1,000 ML IV ONE (12:07)
[2019-01-27] MEDS: ZOSYN VIAL 3.375 GRAMS 3.375 G in NS 100 ML IV + SPIKE MINIBAG* 100 ML IV SCH ×3 (12:31→21:27)
[2019-01-27] MEDS: ROBITUSSIN DM PO SCH ×4 (12:31→21:18)
[2019-01-27] MEDS: LEVAQUIN PREMIX IV 750 MG 750 MG/150 ML BAG IV SCH (12:31)
[2019-01-27] MEDS: NS 1/2 1000 ML IV 1,000 ML IV SCH (12:31)
[2019-01-27] MEDS: VSL#3 PO SCH (12:31)
[2019-01-27 12:58] VITALS: BMI 27.9
[2019-01-27] MEDS ORDERED: DUONEB 0.5 MG/3 MG NEB SCH (13:00)
[2019-01-27] MEDS: XOPENEX 1.25 MG/3 ML NEBULE NEB SCH (17:17)
--- NOTE | 2019-01-27 17:56 | DR.UPDATE ---
H&P Update History and Physical Update: History and Physical reviewed and patient examined. Changes noted: Yes with the following: WAS SEEN IN THE OFFICE TODAY FOR COMPLAINTS OF A PERSISTENT, PRODUCTIVE COUGH AND SHORTNESS OF BREATH. HE HAS TAKEN OVER THE COUNTER FLONASE AND MUCINEX WITH MINIMAL RESULTS. HE ALSO COMPLAINS OF ACHING ALL OVER AND FATIGUE. HE WAS ADMITTED FOR FURTHER EVALUATION AND TREATMENT OF BRONCHOPNEUMONIA. ON ADMISSION, WE WILL OBTAIN LABS, CHEST XRAY, BLOOD AND SPUTUM CULTURES. WE WILL START 1/2NS AT 75ML/HR, ZOSYN 3.375G IV TID, LEVAQUIN 750MG IV DAILY, AND RESPIRATORY TREATMENTS. OTHERWISE, WE PLAN TO FOLLOW UP WITH AM LABS AND CONTINUE TO MONITOR.
[2019-01-27] MEDS: PULMICORT NEB TX 0.5 MG NEB SCH (20:55)
[2019-01-28] MEDS: XOPENEX 1.25 MG/3 ML NEBULE NEB SCH ×4 (00:45→17:10)
[2019-01-28] MEDS ORDERED: NS 1/2 1000 ML IV 1,000 ML IV ONE ×2 (03:25→18:15)
[2019-01-28] MEDS: NS 1/2 1000 ML IV 1,000 ML IV SCH ×4 (04:10→18:17)
[2019-01-28] MEDS: ZOSYN VIAL 3.375 GRAMS 3.375 G in NS 100 ML IV + SPIKE MINIBAG* 100 ML IV SCH ×3 (05:10→22:00)
[2019-01-28 05:28] LABS: BASOPHILS # (AUTO) 0.1 X10^3/uL (0.0-0.1); BASOPHILS % (AUTO) 0.8 % (0.2-1.0); EOSINOPHILS # (AUTO) 0.2 x10^3/uL (0.0-0.2); EOSINOPHILS % (AUTO) 3.4 % (0.9-2.9); HEMATOCRIT 34.4 % (42.0-54.0); HEMOGLOBIN 11.5 g/dL (13.5-18.0); LYMPHOCYTES # (AUTO) 1.3 X10^3/uL (1.3-2.9); LYMPHOCYTES % (AUTO) 17.8 % (21.0-51.0); MEAN CORPUSCULAR HEMOGLOBIN 30.8 pg (27.0-34.0); MEAN CORPUSCULAR HGB CONC 33.5 g/dL (33.0-35.0); MEAN CORPUSCULAR VOLUME 91.9 fL (80.0-100.0); MONOCYTES # (AUTO) 0.7 x10^3/uL (0.3-0.8); MONOCYTES % (AUTO) 9.6 % (0.0-13.0); NEUTROPHILS # (AUTO) 4.8 x10^3/uL (2.2-4.8); NEUTROPHILS % (AUTO) 68.4 % (42.0-75.0); PLATELET COUNT 211 X10^3/uL (150.0-450.0); RED BLOOD COUNT 3.74 X10^6/uL (4.7-6.0); RED CELL DISTRIBUTION WIDTH 14.1 % (11.6-16.5)
[2019-01-28 05:49] LABS: ALANINE AMINOTRANSFERASE 10 Units/L (12-78); ALBUMIN 2.8 g/dL (3.4-5.0); ALKALINE PHOSPHATASE 119 Units/L (46-116); ASPARTATE AMINO TRANSFERASE 11 Units/L (15-37); BLOOD UREA NITROGEN 16 mg/dL (7-18); CALCIUM 8.4 mg/dL (8.5-10.1); CARBON DIOXIDE 26.7 mmol/L (21-32); CHLORIDE 105 mmol/L (98-107); COR CA(FOR HYPOALB) 9.4 mg/dL (8.5-10.1); COR NA(FOR HYPERGLY) 141 mmol/L (136-145); CREATININE 1.25 mg/dL (0.70-1.30); SODIUM 140 mmol/L (136-145); TOTAL PROTEIN 6.1 g/dL (6.4-8.2); eGFR NON BLACK RACES 60 (>60)
--- NOTE | 2019-01-28 06:21 | RAD ---
HISTORY: Shortness of breath Study: Chest AP portable Comparison: 01/27/2019 Findings: The heart remains enlarged. No congestive heart failure is noted. The jenelle are normal the aorta is calcified. The lungs are free of acute alveolar infiltrates although somewhat hypo inflated. No pleural effusions are identified. The bony thorax is unremarkable. IMPRESSION: Continued cardiomegaly without congestive heart failure Lungs remain hypo inflated but clear Reported By:
[2019-01-28] MEDS: LEVAQUIN PREMIX IV 750 MG 750 MG/150 ML BAG IV SCH ×2 (07:49→08:04)
[2019-01-28] MEDS: TUSSIONEX PENNKINETIC SUSP PO PRN ×2 (07:49→20:52)
[2019-01-28] MEDS: ROBITUSSIN DM PO SCH ×5 (07:50→20:52)
[2019-01-28] MEDS: VSL#3 PO SCH ×2 (07:50→08:04)
[2019-01-28] MEDS: PULMICORT NEB TX 0.5 MG NEB SCH ×2 (09:22→20:52)
[2019-01-28] MEDS ORDERED: TOPROL XL PO ONE (11:36)
[2019-01-28] MEDS ORDERED: ZESTRIL TAB 20 MG ONE (11:37)
[2019-01-28] MEDS: ZESTRIL TAB 20 MG PO SCH (11:39)
[2019-01-28] MEDS: XARELTO PO SCH (11:39)
[2019-01-28] MEDS: TOPROL XL PO SCH (11:39)
[2019-01-28] MEDS: AMARYL TAB 4 MG PO SCH ×2 (11:40→20:51)
[2019-01-28] MEDS: RESTORIL CAP 15 MG PO PRN (20:52)
[2019-01-28] MEDS: NORVASC TAB 10 MG PO SCH (20:52)
[2019-01-28] MEDS: SNACK - Diabetic Appropriate PO SCH (21:00)
--- NOTE | 2019-01-28 21:24 | PCM.PROG ---
Progress Note - Progress Note for Day of Date of Exam: 01/28/19 - Subjective Subjective: WAS ADMITTED FOR BRONCHOPNEUMONIA. TODAY, HE IS ALERT AND ORIENTED, LYING IN BED ON MORNING ROUNDS. HE CONTINUES WITH COMPLAINTS OF COUGH AND SHORTNESS OF BREATH. ON EXAMINATION, HEART IS REGULAR IN RATE AND RHYTHM. BILATERAL LUNGS ARE NOTED WITH SCATTERED WHEEZING. ABDOMEN IS ROUND, SOFT, AND NON-TENDER WITH NORMAL BOWEL SOUNDS NOTED IN ALL QUADRANTS. HIS VITALS THIS MORNING ARE: 98.7-76-18-94%-172/72. LABS WERE OBTAINED. ABNORMAL LAB VALUES INCLUDE THE FOLLOWING: RBC 3.74, HGB 11.5, HCT 34.4, GLUCOSE 136, CALCIUM 8.4, AST 11, ALT 10, ALK PHOS 119, TOTAL PROTEIN 6.1, ALBUMIN 2.8, INFLUENZA NEGATIVE. BLOOD AND SPUTUM CULTURES ARE PENDING. PRELIMINARY SPUTUM CULTURE REPORTS GROWTH OF GRAM NEGATIVE RODS. TODAYS CHEST XRAY REVEALED: Continued cardiomegaly without congestive heart failure. Lungs remain hypo inflated but clear. HE IS CURRENTLY RECEIVING 1/2NS AT 75ML/HR, LEVAQUIN 750MG IV DAILY, ZOSYN 3.375G IV TID, AND RESPIRATORY TREATMENTS. WE WILL CONTINUE WITH CURRENT PLAN OF CARE TODAY. OTHERWISE, WE PLAN TO FOLLOW UP WITH AM LABS AND CONTINUE TO MONITOR. - Past Medical Family Social History Past Med/Fam/Surg Hx: No changes since H&P Allergies: Allergies No Known Drug Allergies Allergy (Verified 02/15/17 10:37) - Review of Systems ROS: No change since H&P - Vital Signs and I&O's Vital Signs: Temperature 98.9 F Pulse Rate [Left Brachial] 61 Pulse Rate 60 Respiratory Rate 18 Blood Pressure [Left Arm] 143/65 Blood Pressure 156/70 O2 Sat by Pulse Oximetry 95 Intake and Output: Intake & Output 01/26/19 01/27/19 01/28/19 01/29/19 11:59 11:59 11:59 11:59 Intake Total 2199 / 2199 820 / 820 Output Total 1675 / 1675 1050 / 1050 Balance 524 / 524 -230 / -230 - Physical Exam Oriented: Normal Eyes: Normal Ear: Normal Nose: Normal Throat: Normal Respiratory: Generalized, Wheezes Cardiovascular: Normal : Normal Auscultation: Bowel Sounds: Normal Palpation: Normal Tenderness: Normal Skin: Normal Musculoskeletal: Normal Psychiatric: Normal Mood Description: Calm Affect: Normal Speech Pattern: Clear, Appropriate - Laboratory and Diagnostics Result Diagrams: 01/28/19 04:06 01/28/19 04:06 Labs: 01/27/19 12:00 Sputum - Expectorated Sputum Sputum Culture - Preliminary 01/27/19 12:00 Sputum - Expectorated Sputum - Final Laboratory WBC 7.0 X10^3/uL (3.6-10.0) 01/28/19 04:06 RBC 3.74 X10^6/uL (4.7-6.0) L 01/28/19 04:06 Hgb 11.5 g/dL (13.5-18.0) L 01/28/19 04:06 Hct 34.4 % (42.0-54.0) L 01/28/19 04:06 MCV 91.9 fL (80.0-100.0) 01/28/19 04:06 MCH 30.8 pg (27.0-34.0) 01/28/19 04:06 MCHC 33.5 g/dL (33.0-35.0) 01/28/19 04:06 RDW 14.1 % (11.6-16.5) 01/28/19 04:06 Plt Count 211 X10^3/uL (150.0-450.0) 01/28/19 04:06 MPV 10.0 fL (7.4-11.0) 01/28/19 04:06 Neut % (Auto) 68.4 % (42.0-75.0) 01/28/19 04:06 Lymph % (Auto) 17.8 % (21.0-51.0) L 01/28/19 04:06 [place] % (Auto) 9.6 % (0.0-13.0) 01/28/19 04:06 Eos % (Auto) 3.4 % (0.9-2.9) H 01/28/19 04:06 Baso % (Auto) 0.8 % (0.2-1.0) 01/28/19 04:06 Neut # (Auto) 4.8 x10^3/uL (2.2-4.8) 01/28/19 04:06 Lymph # (Auto) 1.3 X10^3/uL (1.3-2.9) 01/28/19 04:06 [place] # (Auto) 0.7 x10^3/uL (0.3-0.8) 01/28/19 04:06 Eos # (Auto) 0.2 x10^3/uL (0.0-0.2) 01/28/19 04:06 Baso # (Auto) 0.1 X10^3/uL (0.0-0.1) 01/28/19 04:06 Absolute Nucleated RBC 0.1 /100WBC 01/28/19 04:06 Sodium 140 mmol/L (136-145) 01/28/19 04:06 Corrected Sodium 141 mmol/L (136-145) 01/28/19 04:06 Potassium 3.8 mmol/L (3.5-5.1) 01/28/19 04:06 Chloride 105 mmol/L (98-107) 01/28/19 04:06 Carbon Dioxide 26.7 mmol/L (21-32) 01/28/19 04:06 BUN 16 mg/dL (7-18) 01/28/19 04:06 Creatinine 1.25 mg/dL (0.70-1.30) 01/28/19 04:06 Est GFR (MDRD) Af Amer > 60 (>60) 01/28/19 04:06 Est GFR (MDRD) Non-Af 60 (>60) 01/28/19 04:06 Glucose 136 mg/dL (65-99) H 01/28/19 04:06 POC Glucose (mg/dL) 94 mg/dL (65-99) 01/28/19 16:43 Calcium 8.4 mg/dL (8.5-10.1) L 01/28/19 04:06 Corrected Calcium 9.4 mg/dL (8.5-10.1) 01/28/19 04:06 Total Bilirubin 0.40 mg/dL (0.2-1.0) 01/28/19 04:06 AST 11 Units/L (15-37) L 01/28/19 04:06 ALT 10 Units/L (12-78) L 01/28/19 04:06 Alkaline Phosphatase 119 Units/L (46-116) H 01/28/19 04:06 Total Protein 6.1 g/dL (6.4-8.2) L 01/28/19 04:06 Albumin 2.8 g/dL (3.4-5.0) L 01/28/19 04:06 Globulin 3.3 g/dL (2.5-4.5) 01/28/19 04:06 Albumin/Globulin Ratio 0.8 Ratio (1.1-2.1) L 01/28/19 04:06 Influenza Type A (PCR) Negative (NEGATIVE) 01/27/19 18:05 Influenza Type B (PCR) Negative (NEGATIVE) 01/27/19 18:05 - Plan (1) Bronchopneumonia Status: Acute Plan: 1/2NS AT 75ML/HR, LEVAQUIN 750MG IV DAILY, ZOSYN 3.375G IV TID, AND RESPIRATORY TREATMENTS. MONITOR LABS AND CHEST XRAY
[2019-01-29] MEDS: XOPENEX 1.25 MG/3 ML NEBULE NEB SCH ×4 (00:40→16:54)
[2019-01-29] MEDS: NS 1/2 1000 ML IV 1,000 ML IV SCH ×3 (04:26→20:46)
[2019-01-29] MEDS: ZOSYN VIAL 3.375 GRAMS 3.375 G in NS 100 ML IV + SPIKE MINIBAG* 100 ML IV SCH ×3 (05:01→21:44)
[2019-01-29 06:36] LABS: BASOPHILS # (AUTO) 0.1 X10^3/uL (0.0-0.1); EOSINOPHILS # (AUTO) 0.3 x10^3/uL (0.0-0.2); EOSINOPHILS % (AUTO) 4.4 % (0.9-2.9); HEMOGLOBIN 12.4 g/dL (13.5-18.0); LYMPHOCYTES # (AUTO) 1.2 X10^3/uL (1.3-2.9); LYMPHOCYTES % (AUTO) 17.1 % (21.0-51.0); MEAN CORPUSCULAR HEMOGLOBIN 30.3 pg (27.0-34.0); MEAN CORPUSCULAR HGB CONC 33.5 g/dL (33.0-35.0); MEAN CORPUSCULAR VOLUME 90.3 fL (80.0-100.0); MEAN PLATELET VOLUME 9.1 fL (7.4-11.0); MONOCYTES # (AUTO) 0.7 x10^3/uL (0.3-0.8); MONOCYTES % (AUTO) 9.7 % (0.0-13.0); NEUTROPHILS # (AUTO) 4.6 x10^3/uL (2.2-4.8); NEUTROPHILS % (AUTO) 67.8 % (42.0-75.0); PLATELET COUNT 231 X10^3/uL (150.0-450.0); RED CELL DISTRIBUTION WIDTH 14.5 % (11.6-16.5); WHITE BLOOD COUNT 6.8 X10^3/uL (3.6-10.0)
[2019-01-29] MEDS ORDERED: NS 1/2 1000 ML IV 1,000 ML IV ONE ×2 (06:36→19:34)
[2019-01-29 06:51] LABS: ALANINE AMINOTRANSFERASE 10 Units/L (12-78); ALKALINE PHOSPHATASE 126 Units/L (46-116); ASPARTATE AMINO TRANSFERASE 12 Units/L (15-37); BLOOD UREA NITROGEN 13 mg/dL (7-18); CALCIUM 8.9 mg/dL (8.5-10.1); CARBON DIOXIDE 27.7 mmol/L (21-32); CHLORIDE 104 mmol/L (98-107); COR CA(FOR HYPOALB) 9.7 mg/dL (8.5-10.1); COR NA(FOR HYPERGLY) 142 mmol/L (136-145); CREATININE 1.29 mg/dL (0.70-1.30); SODIUM 141 mmol/L (136-145); TOTAL PROTEIN 6.6 g/dL (6.4-8.2); eGFR NON BLACK RACES 57 (>60)
--- NOTE | 2019-01-29 07:12 | RAD ---
HISTORY: Shortness of breath Study: Chest AP portable Comparison: 01/28/2019 Findings: The heart remains enlarged. No congestive heart failure is noted. The jenelle are normal. The aorta is calcified. The lungs remain hypo inflated but free of acute infiltrates. No definite pleural effusions are identified although a subpulmonic right pleural effusion could not be excluded. The bony thorax is unremarkable. IMPRESSION: No significant change from the prior examination Reported By:
[2019-01-29] MEDS ORDERED: TOPROL XL PO ONE (08:10)
[2019-01-29] MEDS ORDERED: ZESTRIL TAB 20 MG ONE (08:11)
[2019-01-29] MEDS: LEVAQUIN PREMIX IV 750 MG 750 MG/150 ML BAG IV SCH (08:30)
[2019-01-29] MEDS: AMARYL TAB 4 MG PO SCH ×2 (08:30→20:50)
[2019-01-29] MEDS: VSL#3 PO SCH (08:30)
[2019-01-29] MEDS: XARELTO PO SCH (08:30)
[2019-01-29] MEDS: TUSSIONEX PENNKINETIC SUSP PO PRN ×2 (08:31→20:48)
[2019-01-29] MEDS: ZESTRIL TAB 20 MG PO SCH (08:31)
[2019-01-29] MEDS: ROBITUSSIN DM PO SCH ×4 (08:31→20:46)
[2019-01-29] MEDS: TOPROL XL PO SCH (08:31)
[2019-01-29] MEDS: PULMICORT NEB TX 0.5 MG NEB SCH ×2 (09:00→21:12)
[2019-01-29] MEDS: HumuLIN R SUBCUT PRN (11:20)
[2019-01-29] MEDS: NORCO 5/325 MG TAB PO PRN (17:18)
[2019-01-29] MEDS ORDERED: SNACK - Diabetic Appropriate PO SCH (20:00)
[2019-01-29] MEDS: SNACK - Diabetic Appropriate PO SCH (20:46)
[2019-01-29] MEDS: NORVASC TAB 10 MG PO SCH (20:47)
[2019-01-29] MEDS: RESTORIL CAP 15 MG PO PRN (20:47)
[2019-01-30] MEDS: XOPENEX 1.25 MG/3 ML NEBULE NEB SCH ×2 (01:02→06:05)
[2019-01-30] MEDS: NORCO 5/325 MG TAB PO PRN ×2 (01:47→09:14)
[2019-01-30] MEDS: ZOSYN VIAL 3.375 GRAMS 3.375 G in NS 100 ML IV + SPIKE MINIBAG* 100 ML IV SCH (05:10)
[2019-01-30 06:37] LABS: BASOPHILS % (AUTO) 0.9 % (0.2-1.0); EOSINOPHILS # (AUTO) 0.4 x10^3/uL (0.0-0.2); EOSINOPHILS % (AUTO) 6.8 % (0.9-2.9); HEMATOCRIT 34.1 % (42.0-54.0); HEMOGLOBIN 11.6 g/dL (13.5-18.0); LYMPHOCYTES # (AUTO) 1.1 X10^3/uL (1.3-2.9); LYMPHOCYTES % (AUTO) 19.5 % (21.0-51.0); MEAN CORPUSCULAR HEMOGLOBIN 30.7 pg (27.0-34.0); MEAN CORPUSCULAR HGB CONC 33.9 g/dL (33.0-35.0); MEAN CORPUSCULAR VOLUME 90.5 fL (80.0-100.0); MEAN PLATELET VOLUME 9.2 fL (7.4-11.0); MONOCYTES # (AUTO) 0.6 x10^3/uL (0.3-0.8); MONOCYTES % (AUTO) 11.5 % (0.0-13.0); NEUTROPHILS # (AUTO) 3.4 x10^3/uL (2.2-4.8); NEUTROPHILS % (AUTO) 61.3 % (42.0-75.0); PLATELET COUNT 194 X10^3/uL (150.0-450.0); RED BLOOD COUNT 3.77 X10^6/uL (4.7-6.0); WHITE BLOOD COUNT 5.5 X10^3/uL (3.6-10.0)
[2019-01-30 06:49] LABS: ALANINE AMINOTRANSFERASE 71 Units/L (12-78); ALBUMIN 2.8 g/dL (3.4-5.0); ALKALINE PHOSPHATASE 270 Units/L (46-116); ASPARTATE AMINO TRANSFERASE 132 Units/L (15-37); BLOOD UREA NITROGEN 13 mg/dL (7-18); CALCIUM 8.8 mg/dL (8.5-10.1); CARBON DIOXIDE 28.9 mmol/L (21-32); CHLORIDE 105 mmol/L (98-107); COR CA(FOR HYPOALB) 9.8 mg/dL (8.5-10.1); CREATININE 1.27 mg/dL (0.70-1.30); SODIUM 141 mmol/L (136-145); TOTAL PROTEIN 6.2 g/dL (6.4-8.2); eGFR NON BLACK RACES 58 (>60)
--- NOTE | 2019-01-30 07:15 | RAD ---
History: Shortness of breath Study: Portable AP chest Comparison: January 29, 2019 Findings: There is unchanged moderate to severe cardiomegaly. There is mild vascular congestion. There is limited overall inspiration. There is no obvious pleural effusion. Impression: Unchanged moderately severe cardiomegaly with mild vascular congestion Reported By:
[2019-01-30] MEDS ORDERED: TOPROL XL PO ONE (08:32)
[2019-01-30] MEDS ORDERED: ZESTRIL TAB 20 MG ONE (08:33)
[2019-01-30] MEDS: PULMICORT NEB TX 0.5 MG NEB SCH (08:37)
[2019-01-30] MEDS: VSL#3 PO SCH (08:58)
[2019-01-30] MEDS: ZESTRIL TAB 20 MG PO SCH (08:59)
[2019-01-30] MEDS: ROBITUSSIN DM PO SCH (08:59)
[2019-01-30] MEDS: LEVAQUIN PREMIX IV 750 MG 750 MG/150 ML BAG IV SCH (08:59)
[2019-01-30] MEDS: TOPROL XL PO SCH (09:00)
[2019-01-30] MEDS: AMARYL TAB 4 MG PO SCH (09:00)
[2019-01-30] MEDS: XARELTO PO SCH (09:00)
[2019-01-30] MEDS: NS 1/2 1000 ML IV 1,000 ML IV SCH (10:20)
[2019-01-30] MEDS: HumuLIN R SUBCUT PRN (11:50)
[2019-01-30 13:19] VITALS: BP 175/78
--- NOTE | 2019-02-28 21:29 | PCM.PROG ---
Progress Note - Progress Note for Day of Date of Exam: 01/29/19 - Subjective Subjective: WAS ADMITTED FOR BRONCHOPNEUMONIA. TODAY, HE IS ALERT AND ORIENTED, LYING IN BED ON MORNING ROUNDS. HE CONTINUES WITH COMPLAINTS OF COUGH AND SHORTNESS OF BREATH. ON EXAMINATION, HEART IS REGULAR IN RATE AND RHYTHM. BILATERAL LUNGS ARE NOTED WITH SCATTERED WHEEZING. ABDOMEN IS ROUND, SOFT, AND NON-TENDER WITH NORMAL BOWEL SOUNDS NOTED IN ALL QUADRANTS. HIS VITALS THIS MORNING ARE: 98.6-82-20-97%-168/67. LABS WERE OBTAINED. ABNORMAL LAB VALUES INCLUDE THE FOLLOWING: RBC 4.10, HGB 12.4, HCT 37.0, GLUCOSE 140, AST 12, ALT 10, ALK PHOS 126, ALBUMIN 3.0. BLOOD AND SPUTUM CULTURES ARE PENDING. PRELIMINARY SPUTUM CULTURE REPORTS GROWTH OF GRAM NEGATIVE RODS. TODAYS CHEST XRAY REVEALED: No significant change from the prior examination. HE IS CURRENTLY RECEIVING 1/2NS AT 75ML/HR, LEVAQUIN 750MG IV DAILY, ZOSYN 3.375G IV TID, AND RESPIRATORY TREATMENTS. WE WILL CONTINUE WITH CURRENT PLAN OF CARE TODAY. OTHERWISE, WE PLAN TO FOLLOW UP WITH AM LABS AND CONTINUE TO MONITOR. - Past Medical Family Social History Past Med/Fam/Surg Hx: No changes since H&P Allergies: Allergies No Known Drug Allergies Allergy (Verified 02/15/17 10:37) - Review of Systems ROS: No change since H&P - Vital Signs and I&O's Vital Signs: Temperature 97.6 F Pulse Rate [Left Brachial] 68 Pulse Rate 63 Respiratory Rate 18 Blood Pressure [Left Arm] 175/78 Blood Pressure 156/70 O2 Sat by Pulse Oximetry 97 - Physical Exam Oriented: Normal Eyes: Normal Ear: Normal Nose: Normal Throat: Normal Respiratory: Generalized, Wheezes Cardiovascular: Normal : Normal Auscultation: Bowel Sounds: Normal Palpation: Normal Tenderness: Normal Skin: Normal Musculoskeletal: Normal Psychiatric: Normal Mood Description: Calm Affect: Normal Speech Pattern: Clear, Appropriate - Laboratory and Diagnostics Result Diagrams: 01/30/19 05:40 01/30/19 05:40 Labs: 01/27/19 11:25 Blood Blood Culture - Final 01/27/19 11:22 Blood Blood Culture - Final 01/27/19 12:00 Sputum - Expectorated Sputum Sputum Culture - Final Escherichia Coli Klebsiella Pneumoniae 01/27/19 12:00 Sputum - Expectorated Sputum - Final Laboratory WBC 5.5 X10^3/uL (3.6-10.0) 01/30/19 05:40 RBC 3.77 X10^6/uL (4.7-6.0) L 01/30/19 05:40 Hgb 11.6 g/dL (13.5-18.0) L 01/30/19 05:40 Hct 34.1 % (42.0-54.0) L 01/30/19 05:40 MCV 90.5 fL (80.0-100.0) 01/30/19 05:40 MCH 30.7 pg (27.0-34.0) 01/30/19 05:40 MCHC 33.9 g/dL (33.0-35.0) 01/30/19 05:40 RDW 14.0 % (11.6-16.5) 01/30/19 05:40 Plt Count 194 X10^3/uL (150.0-450.0) 01/30/19 05:40 MPV 9.2 fL (7.4-11.0) 01/30/19 05:40 Neut % (Auto) 61.3 % (42.0-75.0) 01/30/19 05:40 Lymph % (Auto) 19.5 % (21.0-51.0) L 01/30/19 05:40 [place] % (Auto) 11.5 % (0.0-13.0) 01/30/19 05:40 Eos % (Auto) 6.8 % (0.9-2.9) H 01/30/19 05:40 Baso % (Auto) 0.9 % (0.2-1.0) 01/30/19 05:40 Neut # (Auto) 3.4 x10^3/uL (2.2-4.8) 01/30/19 05:40 Lymph # (Auto) 1.1 X10^3/uL (1.3-2.9) L 01/30/19 05:40 [place] # (Auto) 0.6 x10^3/uL (0.3-0.8) 01/30/19 05:40 Eos # (Auto) 0.4 x10^3/uL (0.0-0.2) H 01/30/19 05:40 Baso # (Auto) 0.0 X10^3/uL (0.0-0.1) 01/30/19 05:40 Absolute Nucleated RBC 0.0 /100WBC 01/30/19 05:40 Sodium 141 mmol/L (136-145) 01/30/19 05:40 Corrected Sodium TNP 01/30/19 05:40 Potassium 4.1 mmol/L (3.5-5.1) 01/30/19 05:40 Chloride 105 mmol/L (98-107) 01/30/19 05:40 Carbon Dioxide 28.9 mmol/L (21-32) 01/30/19 05:40 BUN 13 mg/dL (7-18) 01/30/19 05:40 Creatinine 1.27 mg/dL (0.70-1.30) 01/30/19 05:40 Est GFR (MDRD) Af Amer > 60 (>60) 01/30/19 05:40 Est GFR (MDRD) Non-Af 58 (>60) L 01/30/19 05:40 Glucose 103 mg/dL (65-99) H 01/30/19 05:40 POC Glucose (mg/dL) 167 mg/dL (65-99) H 01/30/19 11:20 Calcium 8.8 mg/dL (8.5-10.1) 01/30/19 05:40 Corrected Calcium 9.8 mg/dL (8.5-10.1) 01/30/19 05:40 Total Bilirubin 0.50 mg/dL (0.2-1.0) 01/30/19 05:40 AST 132 Units/L (15-37) H 01/30/19 05:40 ALT 71 Units/L (12-78) 01/30/19 05:40 Alkaline Phosphatase 270 Units/L (46-116) H 01/30/19 05:40 Total Protein 6.2 g/dL (6.4-8.2) L 01/30/19 05:40 Albumin 2.8 g/dL (3.4-5.0) L 01/30/19 05:40 Globulin 3.4 g/dL (2.5-4.5) 01/30/19 05:40 Albumin/Globulin Ratio 0.8 Ratio (1.1-2.1) L 01/30/19 05:40 Influenza Type A (PCR) Negative (NEGATIVE) 01/27/19 18:05 Influenza Type B (PCR) Negative (NEGATIVE) 01/27/19 18:05 - Plan (1) Bronchopneumonia Status: Acute Plan: 1/2NS AT 75ML/HR, LEVAQUIN 750MG IV DAILY, ZOSYN 3.375G IV TID, AND RESPIRATORY TREATMENTS. MONITOR LABS AND CHEST XRAY
== END 2019-01-30 13:10 | disposition home or self-care (01) ==
LOC: MED/SURG
PROVIDERS: ADMIT Internal Medicine; ATTEND Internal Medicine
DX: Z79.899 Other long term (current) drug therapy; I10 Essential (primary) hypertension; J15.5 Pneumonia due to Escherichia coli; R06.02 Shortness of breath; J15.0 Pneumonia due to Klebsiella pneumoniae
CPT/HCPCS: 36415; 71010; 71020; 71045; 71046; 80053; 85025; 87040; 87070; 87077; 87186; 87205; 87502; 93005; 94640; 94669; 94760; 97161; 97165; 97535; A4222; G0378; J1815; J1956; J2543; J7050; J7620; J7626

== ENCOUNTER 2019-03-30 10:16 | Observation (INO) ==
[2019-03-30] MEDS ORDERED: NS 1/2 1000 ML IV 1,000 ML IV ONE (13:15)
[2019-03-30] MEDS: NS 1/2 1000 ML IV 1,000 ML IV SCH (13:26)
[2019-03-30] MEDS: ROBITUSSIN DM PO SCH ×3 (13:27→21:16)
[2019-03-30] MEDS: VSL#3 PO SCH (13:27)
[2019-03-30 13:36] LABS: BASOPHILS % (AUTO) 0.6 % (0.2-1.0); EOSINOPHILS # (AUTO) 0.1 x10^3/uL (0.0-0.2); EOSINOPHILS % (AUTO) 2.9 % (0.9-2.9); HEMATOCRIT 39.1 % (42.0-54.0); LYMPHOCYTES # (AUTO) 1.1 X10^3/uL (1.3-2.9); LYMPHOCYTES % (AUTO) 23.1 % (21.0-51.0); MEAN CORPUSCULAR HEMOGLOBIN 30.5 pg (27.0-34.0); MEAN CORPUSCULAR HGB CONC 33.4 g/dL (33.0-35.0); MEAN CORPUSCULAR VOLUME 91.3 fL (80.0-100.0); MEAN PLATELET VOLUME 9.5 fL (7.4-11.0); MONOCYTES # (AUTO) 0.3 x10^3/uL (0.3-0.8); MONOCYTES % (AUTO) 6.8 % (0.0-13.0); NEUTROPHILS # (AUTO) 3.2 x10^3/uL (2.2-4.8); NEUTROPHILS % (AUTO) 66.6 % (42.0-75.0); PLATELET COUNT 220 X10^3/uL (150.0-450.0); RED BLOOD COUNT 4.28 X10^6/uL (4.7-6.0); RED CELL DISTRIBUTION WIDTH 14.5 % (11.6-16.5); WHITE BLOOD COUNT 4.8 X10^3/uL (3.6-10.0)
[2019-03-30 13:55] VITALS: BMI 26.8
[2019-03-30 13:57] LABS: ALANINE AMINOTRANSFERASE 103 Units/L (12-78); ALBUMIN 3.4 g/dL (3.4-5.0); ALKALINE PHOSPHATASE 256 Units/L (46-116); ASPARTATE AMINO TRANSFERASE 20 Units/L (15-37); BLOOD UREA NITROGEN 19 mg/dL (7-18); CARBON DIOXIDE 29.9 mmol/L (21-32); CHLORIDE 103 mmol/L (98-107); COR NA(FOR HYPERGLY) 143 mmol/L (136-145); CREATININE 1.21 mg/dL (0.70-1.30); SODIUM 140 mmol/L (136-145); TOTAL PROTEIN 7.3 g/dL (6.4-8.2); eGFR NON BLACK RACES > 60 (>60)
[2019-03-30] MEDS ORDERED: SALINE 3% 15 ML NEB TX NEB ONE (14:24)
--- NOTE | 2019-03-30 14:32 | RAD ---
HISTORYCOUGH, PNEUMONIASTUDYCHEST, PA/LAT ADULTCOMPARISONChest film January 30, 2019.FINDINGSThe trachea is midline. The cardiac silhouette is enlarged but stable compared to January 30, 2019.. The lungs are clear without focal infiltrate or effusion. There is stable linear parenchymal scarring in the right mid to lower lung field. There is chronic elevation right hemidiaphragm with probable pleural scarring posteriorly and laterally on the right. The bony thorax is unremarkable.IMPRESSIONNo acute cardiopulmonary disease. Stable chest with chronic elevation right hemidiaphragm parenchymal scarring right lower lung field and cardiomegaly without change from prior film January 30, 2019.Electronically signed by: BRENDON TO (Mar 30, 2019 14:30:15)
[2019-03-30] MEDS: LEVAQUIN PREMIX IV 750 MG 750 MG/150 ML BAG IV SCH (15:22)
[2019-03-30] MEDS: ZOSYN VIAL 4.5 GRAMS 4.5 G in NS 100 ML IV + SPIKE MINIBAG* 100 ML IV SCH ×3 (15:25→21:14)
[2019-03-30] MEDS: XOPENEX 1.25 MG/3 ML NEBULE NEB SCH (18:04)
[2019-03-30] MEDS ORDERED: HumuLIN R SUBCUT PRN (20:46)
[2019-03-31] MEDS: XOPENEX 1.25 MG/3 ML NEBULE NEB SCH ×4 (00:49→17:23)
[2019-03-31] MEDS: NS 1/2 1000 ML IV 1,000 ML IV SCH ×3 (03:08→18:11)
[2019-03-31] MEDS ORDERED: NS 1/2 1000 ML IV 1,000 ML IV ONE ×2 (06:01→16:28)
[2019-03-31 06:25] LABS: BASOPHILS % (AUTO) 0.9 % (0.2-1.0); EOSINOPHILS # (AUTO) 0.2 x10^3/uL (0.0-0.2); EOSINOPHILS % (AUTO) 3.3 % (0.9-2.9); HEMATOCRIT 37.6 % (42.0-54.0); HEMOGLOBIN 12.6 g/dL (13.5-18.0); LYMPHOCYTES # (AUTO) 1.1 X10^3/uL (1.3-2.9); LYMPHOCYTES % (AUTO) 22.8 % (21.0-51.0); MEAN CORPUSCULAR HEMOGLOBIN 30.3 pg (27.0-34.0); MEAN CORPUSCULAR HGB CONC 33.6 g/dL (33.0-35.0); MEAN CORPUSCULAR VOLUME 90.4 fL (80.0-100.0); MEAN PLATELET VOLUME 8.6 fL (7.4-11.0); MONOCYTES # (AUTO) 0.4 x10^3/uL (0.3-0.8); MONOCYTES % (AUTO) 8.3 % (0.0-13.0); NEUTROPHILS % (AUTO) 64.7 % (42.0-75.0); PLATELET COUNT 209 X10^3/uL (150.0-450.0); RED BLOOD COUNT 4.16 X10^6/uL (4.7-6.0); RED CELL DISTRIBUTION WIDTH 14.6 % (11.6-16.5); WHITE BLOOD COUNT 4.7 X10^3/uL (3.6-10.0)
[2019-03-31] MEDS: ZOSYN VIAL 4.5 GRAMS 4.5 G in NS 100 ML IV + SPIKE MINIBAG* 100 ML IV SCH ×3 (06:28→21:04)
--- NOTE | 2019-03-31 06:29 | RAD ---
HISTORYShortness of breathSTUDYCHEST, 1 [id number]/30/2019FINDINGSThe heart is enlarged. No congestive heart failure is noted. The lungs are free of acute alveolar infiltrates. There is some stable scarring in the right lung. Chronic mild elevation of the right hemidiaphragm is again identified. No pleural effusions are identified. The bony thorax is unremarkable.IMPRESSIONNo significant change from the prior examinationElectronically signed by: ZULEIKA FELIZ (Mar 31, 2019 06:28:17)
[2019-03-31] MEDS: TUSSIONEX PENNKINETIC SUSP PO PRN ×2 (06:30→21:07)
[2019-03-31 06:36] LABS: ALANINE AMINOTRANSFERASE 79 Units/L (12-78); ALKALINE PHOSPHATASE 224 Units/L (46-116); ASPARTATE AMINO TRANSFERASE 19 Units/L (15-37); BLOOD UREA NITROGEN 16 mg/dL (7-18); CALCIUM 8.6 mg/dL (8.5-10.1); CARBON DIOXIDE 29.3 mmol/L (21-32); CHLORIDE 104 mmol/L (98-107); COR CA(FOR HYPOALB) 9.4 mg/dL (8.5-10.1); COR NA(FOR HYPERGLY) 143 mmol/L (136-145); CREATININE 1.18 mg/dL (0.70-1.30); SODIUM 142 mmol/L (136-145); TOTAL PROTEIN 6.7 g/dL (6.4-8.2); eGFR NON BLACK RACES > 60 (>60)
[2019-03-31] MEDS: LEVAQUIN PREMIX IV 750 MG 750 MG/150 ML BAG IV SCH (09:03)
[2019-03-31] MEDS: ROBITUSSIN DM PO SCH ×4 (10:11→21:07)
[2019-03-31] MEDS: VSL#3 PO SCH (10:11)
[2019-03-31] MEDS: NORVASC TAB 10 MG PO SCH (10:12)
[2019-03-31] MEDS: AMARYL TAB 4 MG PO SCH ×2 (10:12→21:06)
[2019-03-31] MEDS: TOPROL XL PO SCH (10:13)
[2019-03-31] MEDS: XARELTO PO SCH (10:13)
[2019-03-31] MEDS: ZESTRIL TAB 20 MG PO SCH (10:13)
--- NOTE | 2019-03-31 10:25 | US ---
HISTORYELEVATED LIVER ENZ, LIVER FAILURE Relevant Clinical InformationSTUDYUltrasound of the liverCOMPARISONNo priorsFINDINGSAlthough normal in size, the liver appears to display evidence of a heterogeneous pattern with diffuse fatty change. No focal mass is seen. Common bile duct measures 3.9 millimeters in diameter. Duplex and color Doppler studies reveal normal flow directions within the portal and hepatic veins.Gallbladder is surgically absent.The right kidney measures 10.4 centimeters in length. Cortical thickness is 1.0 centimeters. Resistive index is 0.8 which is elevated. There is a small cyst in the upper pole measuring about a centimeter in diameter.Pancreas, IVC and abdominal aorta are not well seen.IMPRESSIONNormal liver size with diffuse hepatic steatosis and heterogeneous appearance of the liver. No evidence of focal mass formation or ductal ectasia is seen.Surgically absent gallbladder.Pancreas not identified.Small simple cyst is seen in the upper pole right kidney. The resistive index of the right kidney is elevated at 0.8.Electronically signed by: TATIANA RODRIGES (Mar 31, 2019 10:24:11)
--- NOTE | 2019-03-31 11:21 | DR.UPDATE ---
H&P Update History and Physical Update: WAS SEEN IN THE OFFICE TODAY DUE TO COMPLAINTS OF A PRODUCTIVE COUGH AND SHORTNESS OF BREATH. HE ALSO REPORTS PRESSURE IN EARS AND CHEST CONGESTION. OUTPATIENT LABS ALSO REVEALSED ELEVATED LFTs. HE WAS ADMITTED FOR FURTHER EVALUATION AND TREATMENT. ON ADMISSION, WE WILL START THE PNEUMONIA PROTOCOL WITH IV ZOSYN, IV LEVAQUIN, RESPIRATORY TREATMENTS, AND SUPPLEMENTAL OXYGEN. WE WILL OBTAIN A LIVER US. OTHERWISE, WE WILL FOLLOW UP WITH AM LABS AND CHEST XRAY AND CONTINUE TO MONITOR. Changes noted: Yes with the following:
--- NOTE | 2019-03-31 15:24 | CT ---
HISTORYRIGHT SIDE PAIN, LIVER FAILURESTUDYCT abdomen and pelvis with contrastCOMPARISONNoneTECHNIQUEMultiple axial images of the abdomen and pelvis were obtained from the lung bases to the pubic symphysis after the administration of IV contrast. Dose reduction techniques including Automated Exposure Control (AEC) and adjustment of mA and kV were utilized.FINDINGSThe visualized portions of the lung bases are unremarkable . The liver, spleen, pancreas, kidneys, and adrenal glands are unremarkable in their CT appearance. Clips are noted in the gallbladder fossa consistent with prior cholecystectomy. Minimal haziness with mesentery is observed without significant lymphadenopathy. The changes may be on the basis of early mesenteric panniculitis. No bowel wall thickening or bowel dilatation is present. The colon is unremarkable. Specifically, there is no diverticulosis noted within the sigmoid colon. The urinary bladder is grossly unremarkable. The bony structures are grossly intact.IMPRESSIONSubtle mesenteric haziness is observed consistent with early changes of mesenteric panniculitis. No associated lymphadenopathy can be identified. Findings may be on the basis of history of prior treatment of non-Hodgkin's lymphoma. No acute abnormality of the abdomen or pelvis can be identified.Electronically signed by: FRED PADILLA (Mar 31, 2019 15:23:01)
[2019-03-31] MEDS ORDERED: SNACK - Diabetic Appropriate PO SCH (20:00)
[2019-03-31] MEDS: SNACK - Diabetic Appropriate PO SCH (21:03)
[2019-04-01] MEDS: XOPENEX 1.25 MG/3 ML NEBULE NEB SCH ×4 (00:40→16:56)
[2019-04-01] MEDS: NS 1/2 1000 ML IV 1,000 ML IV SCH (03:30)
[2019-04-01 05:37] LABS: ALANINE AMINOTRANSFERASE 60 Units/L (12-78); ALBUMIN 2.9 g/dL (3.4-5.0); ALKALINE PHOSPHATASE 194 Units/L (46-116); ASPARTATE AMINO TRANSFERASE 12 Units/L (15-37); BLOOD UREA NITROGEN 16 mg/dL (7-18); CALCIUM 8.9 mg/dL (8.5-10.1); CARBON DIOXIDE 29.3 mmol/L (21-32); CHLORIDE 103 mmol/L (98-107); COR CA(FOR HYPOALB) 9.8 mg/dL (8.5-10.1); COR NA(FOR HYPERGLY) 141 mmol/L (136-145); CREATININE 1.38 mg/dL (0.70-1.30); SODIUM 140 mmol/L (136-145); TOTAL PROTEIN 6.4 g/dL (6.4-8.2); eGFR NON BLACK RACES 53 (>60)
[2019-04-01 06:23] LABS: BASOPHILS % (AUTO) 0.3 % (0.2-1.0); EOSINOPHILS # (AUTO) 0.2 x10^3/uL (0.0-0.2); EOSINOPHILS % (AUTO) 3.5 % (0.9-2.9); HEMATOCRIT 36.4 % (42.0-54.0); HEMOGLOBIN 12.4 g/dL (13.5-18.0); LYMPHOCYTES # (AUTO) 0.6 X10^3/uL (1.3-2.9); LYMPHOCYTES % (AUTO) 11.4 % (21.0-51.0); MEAN CORPUSCULAR HEMOGLOBIN 30.8 pg (27.0-34.0); MEAN CORPUSCULAR HGB CONC 34.1 g/dL (33.0-35.0); MEAN CORPUSCULAR VOLUME 90.5 fL (80.0-100.0); MEAN PLATELET VOLUME 9.6 fL (7.4-11.0); MONOCYTES # (AUTO) 0.3 x10^3/uL (0.3-0.8); MONOCYTES % (AUTO) 6.3 % (0.0-13.0); NEUTROPHILS # (AUTO) 4.4 x10^3/uL (2.2-4.8); NEUTROPHILS % (AUTO) 78.5 % (42.0-75.0); PLATELET COUNT 201 X10^3/uL (150.0-450.0); RED BLOOD COUNT 4.02 X10^6/uL (4.7-6.0); RED CELL DISTRIBUTION WIDTH 14.2 % (11.6-16.5); WHITE BLOOD COUNT 5.6 X10^3/uL (3.6-10.0)
[2019-04-01] MEDS: ZOSYN VIAL 4.5 GRAMS 4.5 G in NS 100 ML IV + SPIKE MINIBAG* 100 ML IV SCH ×3 (06:39→21:11)
[2019-04-01] MEDS ORDERED: TOPROL XL PO ONE (07:32)
[2019-04-01] MEDS ORDERED: ZESTRIL TAB 20 MG ONE (07:33)
--- NOTE | 2019-04-01 08:14 | RAD ---
HISTORYsobSTUDYCHEST, 1 VIEWCOMPARISONDecember 2018TECHNIQUEPortable chestFINDINGSNo significant interval changes are identified. There is elevation of the right diaphragm with subjacent chronic pleural parenchymal scarring at the right costophrenic sulcus. The heart remains mildly enlarged. No evolving infiltrates, edema or pleural fluid collections identifiedIMPRESSIONStable examination with no evolving infiltrates. Chronic pleural parenchymal scarring identified at the right costophrenic sulcusStable cardiomegalyElectronically signed by: TONYA AVILSE (Apr 01, 2019 08:13:24)
[2019-04-01] MEDS: ROBITUSSIN DM PO SCH ×5 (08:21→21:18)
[2019-04-01] MEDS: VSL#3 PO SCH (08:21)
[2019-04-01] MEDS: ZESTRIL TAB 20 MG PO SCH (08:21)
[2019-04-01] MEDS: XARELTO PO SCH (08:21)
[2019-04-01] MEDS: NORVASC TAB 10 MG PO SCH (08:22)
[2019-04-01] MEDS: LEVAQUIN PREMIX IV 750 MG 750 MG/150 ML BAG IV SCH (08:22)
[2019-04-01] MEDS: TOPROL XL PO SCH (08:22)
[2019-04-01] MEDS: AMARYL TAB 4 MG PO SCH ×2 (08:22→21:11)
[2019-04-01] MEDS ORDERED: ZOFRAN INJ 4 MG VIAL IVP PRN (09:35)
--- NOTE | 2019-04-01 13:58 | PCM.PROG ---
Progress Note Progress Note for Day of Date of Exam: 04/01/19 Subjective Subjective: Patient seen at bedside, being treated for pneumonia and acute liver failure. He is currently on nasal canula 2L. CXR showed no evolving infiltrates. CTAP showed mesenteric paniculitis, U/S showed diffuse hepatic steatosis and heterogeneous appearance of liver. His ALT is trending down from 103 to 60. Cr slightly elevated 1.18 to 1.38, continue to monitor AM labs. Patient is currently on levaquin and zosyn. RN reported possible blood culture being positive, not noted in culture results yet, will follow up in the AM. Past Medical Family Social History Past Med/Fam/Surg Hx: No changes since H&P Allergies: Allergies No Known Drug Allergies Allergy (Verified 02/15/17 10:37) Review of Systems ROS: No change since H&P Vital Signs and I&O's Vital Signs: Temperature 98.6 F Pulse Rate [Left Brachial] 84 Pulse Rate 88 Respiratory Rate 18 Blood Pressure [Right Arm] 145/73 Blood Pressure [Left Arm] 162/74 Blood Pressure 156/70 O2 Sat by Pulse Oximetry 99 Intake and Output: Intake & Output 03/29/19 03/30/19 03/31/19 04/01/19 23:59 23:59 23:59 23:59 Intake Total 710 / 710 1020 / 1020 120 / 120 Balance 710 / 710 1020 / 1020 120 / 120 Physical Exam Oriented: Normal Eyes: Normal Ear: Normal Throat: Normal Respiratory: Wheezes and Rales Cardiovascular: Normal Auscultation: Bowel Sounds: Normal Tenderness: Normal Skin: Normal Musculoskeletal: Normal Psychiatric: Normal Mood Description: Calm Affect: Normal Speech Pattern: Clear and Appropriate Laboratory and Diagnostics Result Diagrams: 04/01/19 04:27 04/01/19 04:27 Labs: 03/30/19 13:14 Blood Blood Culture - Preliminary 03/30/19 14:30 Sputum - Expectorated Sputum Sputum Culture - Preliminary 03/30/19 14:30 Sputum - Expectorated Sputum - Final Laboratory WBC 5.6 X10^3/uL (3.6-10.0) 04/01/19 04:27 RBC 4.02 X10^6/uL (4.7-6.0) L 04/01/19 04:27 Hgb 12.4 g/dL (13.5-18.0) L 04/01/19 04:27 Hct 36.4 % (42.0-54.0) L 04/01/19 04:27 MCV 90.5 fL (80.0-100.0) 04/01/19 04:27 MCH 30.8 pg (27.0-34.0) 04/01/19 04:27 MCHC 34.1 g/dL (33.0-35.0) 04/01/19 04:27 RDW 14.2 % (11.6-16.5) 04/01/19 04:27 Plt Count 201 X10^3/uL (150.0-450.0) 04/01/19 04:27 MPV 9.6 fL (7.4-11.0) 04/01/19 04:27 Neut % (Auto) 78.5 % (42.0-75.0) H 04/01/19 04:27 Lymph % (Auto) 11.4 % (21.0-51.0) L 04/01/19 04:27 [place] % (Auto) 6.3 % (0.0-13.0) 04/01/19 04:27 Eos % (Auto) 3.5 % (0.9-2.9) H 04/01/19 04:27 Baso % (Auto) 0.3 % (0.2-1.0) 04/01/19 04:27 Neut # (Auto) 4.4 x10^3/uL (2.2-4.8) 04/01/19 04:27 Lymph # (Auto) 0.6 X10^3/uL (1.3-2.9) L 04/01/19 04:27 [place] # (Auto) 0.3 x10^3/uL (0.3-0.8) 04/01/19 04:27 Eos # (Auto) 0.2 x10^3/uL (0.0-0.2) 04/01/19 04:27 Baso # (Auto) 0.0 X10^3/uL (0.0-0.1) 04/01/19 04:27 Absolute Nucleated RBC 0.0 /100WBC 04/01/19 04:27 Sodium 140 mmol/L (136-145) 04/01/19 04:27 Corrected Sodium 141 mmol/L (136-145) 04/01/19 04:27 Potassium 4.7 mmol/L (3.5-5.1) 04/01/19 04:27 Chloride 103 mmol/L (98-107) 04/01/19 04:27 Carbon Dioxide 29.3 mmol/L (21-32) 04/01/19 04:27 BUN 16 mg/dL (7-18) 04/01/19 04:27 Creatinine 1.38 mg/dL (0.70-1.30) H 04/01/19 04:27 Est GFR (MDRD) Af Amer > 60 (>60) 04/01/19 04:27 Est GFR (MDRD) Non-Af 53 (>60) L 04/01/19 04:27 Glucose 150 mg/dL (65-99) H 04/01/19 04:27 POC Glucose (mg/dL) 138 mg/dL (65-99) H 04/01/19 11:05 Calcium 8.9 mg/dL (8.5-10.1) 04/01/19 04:27 Corrected Calcium 9.8 mg/dL (8.5-10.1) 04/01/19 04:27 Total Bilirubin 0.30 mg/dL (0.2-1.0) 04/01/19 04:27 AST 12 Units/L (15-37) L 04/01/19 04:27 ALT 60 Units/L (12-78) 04/01/19 04:27 Alkaline Phosphatase 194 Units/L (46-116) H 04/01/19 04:27 Total Protein 6.4 g/dL (6.4-8.2) 04/01/19 04:27 Albumin 2.9 g/dL (3.4-5.0) L 04/01/19 04:27 Globulin 3.5 g/dL (2.5-4.5) 04/01/19 04:27 Albumin/Globulin Ratio 0.8 Ratio (1.1-2.1) L 04/01/19 04:27 Plan (1) Pneumonia: Status: Acute Qualifiers: Pneumonia type: due to unspecified organism Lung location: unspecified part of lung Laterality: unspecified laterality Qualified Code(s): J18.9 - Pneumonia, unspecified organism Plan: pneumonia protocol, duonebs, IV abx (2) Acute liver failure: Status: Acute Qualifiers: Hepatic coma status: without hepatic coma Qualified Code(s): K72.00 - Acute and subacute hepatic failure without coma (3) ARF (acute renal failure): Status: Acute Qualifiers: Acute renal failure type: unspecified Qualified Code(s): N17.9 - Acute kidney failure, unspecified (4) Essential hypertension: Status: Chronic (5) Atrial fibrillation: Status: Chronic Qualifiers: Atrial fibrillation type: unspecified Qualified Code(s): I48.91 - Unspecified atrial fibrillation (6) Diabetes mellitus, type 2: Status: Chronic (7) Hyperlipidemia: Status: Chronic Qualifiers: Hyperlipidemia type: Mixed hyperlipidemia Qualified Code(s): E78.2 - Mixed hyperlipidemia
[2019-04-01] MEDS: TUSSIONEX PENNKINETIC SUSP PO PRN (21:17)
[2019-04-01] MEDS: SNACK - Diabetic Appropriate PO SCH (21:45)
[2019-04-02] MEDS: XOPENEX 1.25 MG/3 ML NEBULE NEB SCH ×3 (01:15→11:52)
[2019-04-02] MEDS ORDERED: NS 1/2 1000 ML IV 1,000 ML IV ONE (01:16)
[2019-04-02] MEDS: NS 1/2 1000 ML IV 1,000 ML IV SCH ×3 (01:21→11:10)
[2019-04-02] MEDS: ZOSYN VIAL 4.5 GRAMS 4.5 G in NS 100 ML IV + SPIKE MINIBAG* 100 ML IV SCH (06:10)
[2019-04-02 06:15] LABS: BASOPHILS % (AUTO) 0.7 % (0.2-1.0); EOSINOPHILS # (AUTO) 0.3 x10^3/uL (0.0-0.2); EOSINOPHILS % (AUTO) 6.1 % (0.9-2.9); HEMATOCRIT 38.7 % (42.0-54.0); HEMOGLOBIN 13.1 g/dL (13.5-18.0); LYMPHOCYTES # (AUTO) 1.1 X10^3/uL (1.3-2.9); LYMPHOCYTES % (AUTO) 21.6 % (21.0-51.0); MEAN CORPUSCULAR HEMOGLOBIN 30.7 pg (27.0-34.0); MEAN CORPUSCULAR HGB CONC 33.8 g/dL (33.0-35.0); MEAN CORPUSCULAR VOLUME 90.8 fL (80.0-100.0); MEAN PLATELET VOLUME 8.7 fL (7.4-11.0); MONOCYTES # (AUTO) 0.4 x10^3/uL (0.3-0.8); MONOCYTES % (AUTO) 7.5 % (0.0-13.0); NEUTROPHILS # (AUTO) 3.2 x10^3/uL (2.2-4.8); NEUTROPHILS % (AUTO) 64.1 % (42.0-75.0); PLATELET COUNT 248 X10^3/uL (150.0-450.0); RED BLOOD COUNT 4.27 X10^6/uL (4.7-6.0); RED CELL DISTRIBUTION WIDTH 14.6 % (11.6-16.5); WHITE BLOOD COUNT 5.1 X10^3/uL (3.6-10.0)
--- NOTE | 2019-04-02 06:21 | RAD ---
HISTORYShortness of breathSTUDYCHEST, 1 [id number]/01/2020FINDINGSThe heart is enlarged. No congestive heart failure is noted. The lungs are free of acute alveolar infiltrates. Chronic pleural parenchymal scarring is present right lung base and right lateral gordon thorax. No acute infiltrates. No pleural effusions are identified. Bony thorax is unremarkable.IMPRESSIONNo acute infiltrateCardiomegaly without congestive heart failureStable right basilar pleural parenchymal scarringElectronically signed by: ZULEIKA FELIZ (Apr 02, 2019 06:20:15)
[2019-04-02 06:24] LABS: ALANINE AMINOTRANSFERASE 56 Units/L (12-78); ALBUMIN 3.1 g/dL (3.4-5.0); ALKALINE PHOSPHATASE 198 Units/L (46-116); ASPARTATE AMINO TRANSFERASE 16 Units/L (15-37); BLOOD UREA NITROGEN 15 mg/dL (7-18); CALCIUM 9.1 mg/dL (8.5-10.1); CARBON DIOXIDE 28.9 mmol/L (21-32); CHLORIDE 104 mmol/L (98-107); COR CA(FOR HYPOALB) 9.8 mg/dL (8.5-10.1); COR NA(FOR HYPERGLY) 140 mmol/L (136-145); CREATININE 1.35 mg/dL (0.70-1.30); SODIUM 140 mmol/L (136-145); eGFR NON BLACK RACES 54 (>60)
[2019-04-02] MEDS ORDERED: TOPROL XL PO ONE (08:49)
[2019-04-02] MEDS ORDERED: ZESTRIL TAB 20 MG ONE (08:50)
[2019-04-02] MEDS: ROBITUSSIN DM PO SCH (09:03)
[2019-04-02] MEDS: LEVAQUIN PREMIX IV 750 MG 750 MG/150 ML BAG IV SCH (09:03)
[2019-04-02] MEDS: TUSSIONEX PENNKINETIC SUSP PO PRN (09:04)
[2019-04-02] MEDS: AMARYL TAB 4 MG PO SCH (09:04)
[2019-04-02] MEDS: XARELTO PO SCH (09:04)
[2019-04-02] MEDS: TOPROL XL PO SCH (09:05)
[2019-04-02] MEDS: NORVASC TAB 10 MG PO SCH (09:05)
[2019-04-02] MEDS: ZESTRIL TAB 20 MG PO SCH (09:05)
[2019-04-02] MEDS: VSL#3 PO SCH (09:05)
--- NOTE | 2019-04-02 10:04 | W.DIS.FURT ---
Summary of Discharge Discharge Summary of Date Date of Exam: 04/02/19 Admission Date Date of Admission: 03/30/19 Admission Diagnosis Patient Problems (Updated 04/02/19 @ 10:04 by Jack Alvarez) Klebsiella pneumonia (Acute) J15.0 ARF (acute renal failure) (Acute) N17.9 Acute liver failure (Acute) K72.00 Hospital Course: Pt is a 79 yo m admitted for pneumonia, acute liver failure, and acute renal anisa lure. He was receiving in the hospital Levaquin and Zosyn, sputum culture positive for Klebsiella pneumonia susceptible to Levaquin and Rx Levaquin x 5 days sent to pharmacy. Blood culture initially positive 04/02, but was determined to be contaminant. Liver enzymes elevated on initial labs that trended down to within normal limits. CTAP showed mesenteric paniculitis, U/S showed diffuse hepatic steatosis and heterogeneous appearance of liver, would recommend follow up with GI outpatient. No history of alcohol or drug use. Hepatitis panel pending, can follow results outpt. Cr trended down. Pt vitals stable with significant improvement of symptoms and not requiring supplemental oxygen. Discharged with instructions to follow up with pcp in 1 week. Vital Signs: Vital Signs (72 hours) 03/30/19 12:45 03/30/19 14:24 03/30/19 14:31 Temperature 97.6 F Pulse Rate 70 70 Pulse Rate [Left Brachial] 73 Respiratory Rate 18 Blood Pressure 156/70 Blood Pressure [Left Arm] 164/76 Blood Pressure [Right Arm] O2 Sat by Pulse Oximetry 97 98 98 03/30/19 16:00 03/30/19 18:04 03/30/19 20:00 Temperature 97.4 F L 98.1 F Pulse Rate 70 Pulse Rate [Left Brachial] 78 71 Respiratory Rate 18 20 Blood Pressure Blood Pressure [Left Arm] 175/85 162/74 Blood Pressure [Right Arm] O2 Sat by Pulse Oximetry 98 100 98 03/31/19 00:00 03/31/19 04:00 03/31/19 08:00 Temperature 97.6 F 98.3 F 98.0 F Pulse Rate Pulse Rate [Left Brachial] 78 75 75 Respiratory Rate 20 18 18 Blood Pressure Blood Pressure [Left Arm] Blood Pressure [Right Arm] 174/78 148/73 144/68 O2 Sat by Pulse Oximetry 93 L 97 99 03/31/19 12:00 03/31/19 12:09 03/31/19 16:00 Temperature 97.8 F 97.9 F Pulse Rate 74 Pulse Rate [Left Brachial] 76 79 Respiratory Rate 18 20 Blood Pressure Blood Pressure [Left Arm] Blood Pressure [Right Arm] 158/82 185/87 O2 Sat by Pulse Oximetry 99 98 99 03/31/19 17:23 03/31/19 20:00 03/31/19 23:45 Temperature 98.0 F 97.9 F Pulse Rate 70 Pulse Rate [Left Brachial] 72 76 Respiratory Rate 20 22 Blood Pressure Blood Pressure [Left Arm] Blood Pressure [Right Arm] 160/69 167/75 O2 Sat by Pulse Oximetry 98 97 98 04/01/19 01:01 04/01/19 04:00 04/01/19 05:31 Temperature 98.1 F Pulse Rate 72 76 Pulse Rate [Left Brachial] 74 Respiratory Rate 20 Blood Pressure Blood Pressure [Left Arm] Blood Pressure [Right Arm] 158/74 O2 Sat by Pulse Oximetry 98 97 99 04/01/19 08:00 04/01/19 12:00 04/01/19 12:11 Temperature 98.3 F 98.6 F Pulse Rate 88 Pulse Rate [Left Brachial] 80 84 Respiratory Rate 18 18 Blood Pressure Blood Pressure [Left Arm] Blood Pressure [Right Arm] 166/76 145/73 O2 Sat by Pulse Oximetry 99 98 99 04/01/19 16:00 04/01/19 20:00 04/02/19 00:00 Temperature 98.8 F 98.4 F 98.3 F Pulse Rate Pulse Rate [Left Brachial] 75 74 73 Respiratory Rate 18 20 18 Blood Pressure Blood Pressure [Left Arm] Blood Pressure [Right Arm] 137/68 137/65 156/68 O2 Sat by Pulse Oximetry 98 99 97 04/02/19 04:00 Temperature 97.8 F Pulse Rate Pulse Rate [Left Brachial] 73 Respiratory Rate 18 Blood Pressure Blood Pressure [Left Arm] Blood Pressure [Right Arm] 161/76 O2 Sat by Pulse Oximetry 97 Labs: Laboratory Last Values WBC 5.1 X10^3/uL (3.6-10.0) 04/02/19 05:31 RBC 4.27 X10^6/uL (4.7-6.0) L 04/02/19 05:31 Hgb 13.1 g/dL (13.5-18.0) L 04/02/19 05:31 Hct 38.7 % (42.0-54.0) L 04/02/19 05:31 MCV 90.8 fL (80.0-100.0) 04/02/19 05:31 MCH 30.7 pg (27.0-34.0) 04/02/19 05:31 MCHC 33.8 g/dL (33.0-35.0) 04/02/19 05:31 RDW 14.6 % (11.6-16.5) 04/02/19 05:31 Plt Count 248 X10^3/uL (150.0-450.0) 04/02/19 05:31 MPV 8.7 fL (7.4-11.0) 04/02/19 05:31 Neut % (Auto) 64.1 % (42.0-75.0) 04/02/19 05:31 Lymph % (Auto) 21.6 % (21.0-51.0) 04/02/19 05:31 [place] % (Auto) 7.5 % (0.0-13.0) 04/02/19 05:31 Eos % (Auto) 6.1 % (0.9-2.9) H 04/02/19 05:31 Baso % (Auto) 0.7 % (0.2-1.0) 04/02/19 05:31 Neut # (Auto) 3.2 x10^3/uL (2.2-4.8) 04/02/19 05:31 Lymph # (Auto) 1.1 X10^3/uL (1.3-2.9) L 04/02/19 05:31 [place] # (Auto) 0.4 x10^3/uL (0.3-0.8) 04/02/19 05:31 Eos # (Auto) 0.3 x10^3/uL (0.0-0.2) H 04/02/19 05:31 Baso # (Auto) 0.0 X10^3/uL (0.0-0.1) 04/02/19 05:31 Absolute Nucleated RBC 0.0 /100WBC 04/02/19 05:31 Sodium 140 mmol/L (136-145) 04/02/19 05:31 Corrected Sodium 140 mmol/L (136-145) 04/02/19 05:31 Potassium 4.4 mmol/L (3.5-5.1) 04/02/19 05:31 Chloride 104 mmol/L (98-107) 04/02/19 05:31 Carbon Dioxide 28.9 mmol/L (21-32) 04/02/19 05:31 BUN 15 mg/dL (7-18) 04/02/19 05:31 Creatinine 1.35 mg/dL (0.70-1.30) H 04/02/19 05:31 Est GFR (MDRD) Af Amer > 60 (>60) 04/02/19 05:31 Est GFR (MDRD) Non-Af 54 (>60) L 04/02/19 05:31 Glucose 119 mg/dL (65-99) H 04/02/19 05:31 POC Glucose (mg/dL) 120 mg/dL (65-99) H 04/02/19 05:59 Calcium 9.1 mg/dL (8.5-10.1) 04/02/19 05:31 Corrected Calcium 9.8 mg/dL (8.5-10.1) 04/02/19 05:31 Total Bilirubin 0.20 mg/dL (0.2-1.0) 04/02/19 05:31 AST 16 Units/L (15-37) 04/02/19 05:31 ALT 56 Units/L (12-78) 04/02/19 05:31 Alkaline Phosphatase 198 Units/L (46-116) H 04/02/19 05:31 Total Protein 7.0 g/dL (6.4-8.2) 04/02/19 05:31 Albumin 3.1 g/dL (3.4-5.0) L 04/02/19 05:31 Globulin 3.9 g/dL (2.5-4.5) 04/02/19 05:31 Albumin/Globulin Ratio 0.8 Ratio (1.1-2.1) L 04/02/19 05:31 Reason For Visit: PNEUMONIA, LIVER FAILURE Discharge Date Discharge Date: 04/02/19 Discharge Diagnosis All Active Problems (Updated 04/02/19 @ 10:04 by Jack Alvarez) Klebsiella pneumonia (Acute) ARF (acute renal failure) (Acute) Acute liver failure (Acute) Essential hypertension (Chronic) Atrial fibrillation (Chronic) Diabetes mellitus, type 2 (Chronic) Hyperlipidemia (Chronic) Stented coronary artery (Chronic) CAD (coronary artery disease) (Chronic) Lymphoma (Chronic) Pneumonia (Acute) Shortness of breath (Acute) Acute fungal sinusitis (Acute) Bronchopneumonia (Acute) Bronchopneumonia (Acute) Plan of Treatment: Continue with present treatment and follow up plan. Pt is to keep follow up appointment as instructed and take medications as ordered. Discharge Medications Discharge Medications: No Known Drug Allergies Allergy (Verified 02/15/17 10:37) New Prescriptions levofloxacin [Levaquin] 750 mg PO Q24H 5 Days #5 tab 04/02/19 [Rx] Discharge Disposition Discharge Disposition: Home
[2019-04-02 13:08] VITALS: BP 144/62
--- NOTE | 2019-04-05 21:44 | PCM.PROG ---
Progress Note - Progress Note for Day of Date of Exam: 03/31/19 - Subjective Subjective: WAS ADMITTED FOR TREATMENT OF PNEUMONIA AND LIVER FAILURE. TODAY, HE IS ALERT AND ORIENTED, LYING IN BED ON MORNING ROUNDS. HE CONTINUES WITH COMPLAINTS OF COUGH AND SHORTNESS OF BREATH. HE ALSO REPORTS DIFFUSE ABDOMINAL PAIN. ON EXAMINATION, HEART IS REGULAR IN RATE AND RHYTHM. BILATERAL LUNGS ARE NOTED WITH SCATTERED WHEEZING THROUGHOUT. ABDOMEN IS ROUND, SOFT, AND NOTED WITH DIFFUSE TENDERNESS. NORMAL BOWEL SOUNDS ARE NOTED IN ALL QUADRANTS. HIS VITALS THIS MORNING ARE: 98.0-75-18-99%-144/68. LABS WERE OBTAINED. ABNORMAL LAB VALUES INCLUDE THE FOLLOWING: RBC 4.16, HGB 12.6, HCT 37.6, GLUCOSE 127, ALT 79, ALK PHOS 224, ALBUMIN 3.0. BLOOD AND SPUTUM CULTURES ARE PENDING. TODAYS CHEST XRAY REVEALED: NO SIGNIFICANT CHANGE FROM THE PRIOR EXAMINATION. LIVER ULTRASOUND WAS OBTAINED THIS MORNING AND REVEALED: Normal liver size with diffuse hepatic steatosis and heterogeneous appearance of the liver. No evidence of focal mass or ductal ectasia is seen. Surgically absent gallbladder. Pancreas not identified. Small simple cyst is seen in the upper pole right kidney. The resistive index of the right kidney is elevated at 0.8. HE IS CURRENTLY RECEIVING IV FLUIDS, IV LEVAQUIN, IV ZOSYN, RESPIRATORY TX, AND SUPPLEMENTAL OXYGEN. WE WILL CONTINUE WITH CURRENT PLAN OF CARE TODAY. OTHERWISE, WE PLAN TO FOLLOW UP WITH AM LABS AND CONTINUE TO MONITOR. - Past Medical Family Social History Past Med/Fam/Surg Hx: No changes since H&P Allergies: Allergies No Known Drug Allergies Allergy (Verified 02/15/17 10:37) - Review of Systems ROS: No change since H&P - Vital Signs and I&O's Vital Signs: Temperature 98 F Pulse Rate [Left Brachial] 74 Pulse Rate 72 Respiratory Rate 18 Blood Pressure [Right Arm] 144/62 Blood Pressure [Left Arm] 162/74 Blood Pressure 156/70 O2 Sat by Pulse Oximetry 97 - Physical Exam Oriented: Normal Eyes: Normal Ear: Normal Throat: Normal Respiratory: Wheezes Cardiovascular: Normal Auscultation: Bowel Sounds: Normal Palpation: Normal Tenderness: Normal Skin: Normal Musculoskeletal: Normal Psychiatric: Normal Mood Description: Calm Affect: Normal Speech Pattern: Clear, Appropriate - Laboratory and Diagnostics Result Diagrams: 04/02/19 05:31 04/02/19 05:31 Labs: 03/30/19 13:14 Blood Blood Culture - Final 04/01/19 15:32 Blood Blood Culture - Preliminary 04/01/19 14:45 Blood Blood Culture - Preliminary 03/30/19 13:25 Blood Blood Culture - Final 03/30/19 14:30 Sputum - Expectorated Sputum Sputum Culture - Final Klebsiella Pneumoniae 03/30/19 14:30 Sputum - Expectorated Sputum - Final Laboratory WBC 5.1 X10^3/uL (3.6-10.0) 04/02/19 05:31 RBC 4.27 X10^6/uL (4.7-6.0) L 04/02/19 05:31 Hgb 13.1 g/dL (13.5-18.0) L 04/02/19 05:31 Hct 38.7 % (42.0-54.0) L 04/02/19 05:31 MCV 90.8 fL (80.0-100.0) 04/02/19 05:31 MCH 30.7 pg (27.0-34.0) 04/02/19 05:31 MCHC 33.8 g/dL (33.0-35.0) 04/02/19 05:31 RDW 14.6 % (11.6-16.5) 04/02/19 05:31 Plt Count 248 X10^3/uL (150.0-450.0) 04/02/19 05:31 MPV 8.7 fL (7.4-11.0) 04/02/19 05:31 Neut % (Auto) 64.1 % (42.0-75.0) 04/02/19 05:31 Lymph % (Auto) 21.6 % (21.0-51.0) 04/02/19 05:31 Barton % (Auto) 7.5 % (0.0-13.0) 04/02/19 05:31 Eos % (Auto) 6.1 % (0.9-2.9) H 04/02/19 05:31 Baso % (Auto) 0.7 % (0.2-1.0) 04/02/19 05:31 Neut # (Auto) 3.2 x10^3/uL (2.2-4.8) 04/02/19 05:31 Lymph # (Auto) 1.1 X10^3/uL (1.3-2.9) L 04/02/19 05:31 Barton # (Auto) 0.4 x10^3/uL (0.3-0.8) 04/02/19 05:31 Eos # (Auto) 0.3 x10^3/uL (0.0-0.2) H 04/02/19 05:31 Baso # (Auto) 0.0 X10^3/uL (0.0-0.1) 04/02/19 05:31 Absolute Nucleated RBC 0.0 /100WBC 04/02/19 05:31 Sodium 140 mmol/L (136-145) 04/02/19 05:31 Corrected Sodium 140 mmol/L (136-145) 04/02/19 05:31 Potassium 4.4 mmol/L (3.5-5.1) 04/02/19 05:31 Chloride 104 mmol/L (98-107) 04/02/19 05:31 Carbon Dioxide 28.9 mmol/L (21-32) 04/02/19 05:31 BUN 15 mg/dL (7-18) 04/02/19 05:31 Creatinine 1.35 mg/dL (0.70-1.30) H 04/02/19 05:31 Est GFR (MDRD) Af Amer > 60 (>60) 04/02/19 05:31 Est GFR (MDRD) Non-Af 54 (>60) L 04/02/19 05:31 Glucose 119 mg/dL (65-99) H 04/02/19 05:31 POC Glucose (mg/dL) 165 mg/dL (65-99) H 04/02/19 11:21 Calcium 9.1 mg/dL (8.5-10.1) 04/02/19 05:31 Corrected Calcium 9.8 mg/dL (8.5-10.1) 04/02/19 05:31 Total Bilirubin 0.20 mg/dL (0.2-1.0) 04/02/19 05:31 AST 16 Units/L (15-37) 04/02/19 05:31 ALT 56 Units/L (12-78) 04/02/19 05:31 Alkaline Phosphatase 198 Units/L (46-116) H 04/02/19 05:31 Total Protein 7.0 g/dL (6.4-8.2) 04/02/19 05:31 Albumin 3.1 g/dL (3.4-5.0) L 04/02/19 05:31 Globulin 3.9 g/dL (2.5-4.5) 04/02/19 05:31 Albumin/Globulin Ratio 0.8 Ratio (1.1-2.1) L 04/02/19 05:31 - Plan (1) Pneumonia Status: Acute Qualifiers: Pneumonia type: due to unspecified organism Laterality: unspecified l aterality Lung location: unspecified part of lung Qualified Code(s): J18.9 - Pneumonia, unspecified organism Plan: pneumonia protocol, duonebs, IV abx (2) Acute liver failure Status: Acute Qualifiers: Hepatic coma status: without hepatic coma Plan: OBTAIN ABDOMEN/PELVIS CT THIS AM, CONTINUE TO MONITOR (3) Shortness of breath Status: Acute
[2019-04-06 06:43] LABS: HEPATITIS B SURFACE ANTIGEN Negative (Negative)
== END 2019-04-02 13:29 | disposition home or self-care (01) ==
LOC: MED/SURG
PROVIDERS: ADMIT Internal Medicine; ATTEND Internal Medicine
DX: R74.8 Abnormal levels of other serum enzymes; I48.91 Unspecified atrial fibrillation; K72.00 Acute and subacute hepatic failure without coma; I10 Essential (primary) hypertension; N17.8 Other acute kidney failure; J15.0 Pneumonia due to Klebsiella pneumoniae; R06.02 Shortness of breath; E78.2 Mixed hyperlipidemia; E11.65 Type 2 diabetes mellitus with hyperglycemia
CPT/HCPCS: 36415; 71010; 71020; 71045; 71046; 74177; 76705; 80053; 80074; 85025; 87040; 87070; 87077; 87186; 87205; 94640; 94669; 94760; 97161; A4222; G0378; J1815; J1956; J2405; J2543; J7050

== ENCOUNTER 2022-10-30 09:24 | Inpatient (IN) ==
[2022-10-30 11:36] VITALS: BMI 29.1
[2022-10-30] MEDS: NS 1,000 ML IV 1,000 ML IV SCH ×2 (11:54→23:29)
--- NOTE | 2022-10-30 11:56 | EKG ---
Test Reason : EXERTIONAL SHORTNESS OF BREATH, SYNCOPE Blood Pressure : */* mmHG Vent. Rate : 63 BPM Atrial Rate : 300 BPM P-R Int : * ms QRS Dur : 142 ms QT Int : 462 ms P-R-T Axes : * 20 135 degrees QTc Int : 472 ms Ventricular-paced rhythm Abnormal ECG When compared with ECG of 26-AUG-2022 11:20, No significant change was found Baseline rhythm atrial flutter Confirmed by Abraham De La Rosa ([id number]) on 10/31/2022 8:26:33 AM Referred By: Confirmed By: Abraham De La Rosa
[2022-10-30 12:05] LABS: BASOPHILS % (AUTO) 1.2 % (0.2-1.0); EOSINOPHILS # (AUTO) 0.1 x10^3/uL (0.0-0.2); EOSINOPHILS % (AUTO) 2.3 % (0.9-2.9); HEMATOCRIT 28.4 % (42.0-54.0); HEMOGLOBIN 9.5 g/dL (13.5-18.0); LYMPHOCYTES # (AUTO) 0.8 X10^3/uL (1.3-2.9); LYMPHOCYTES % (AUTO) 21.2 % (21.0-51.0); MEAN CORPUSCULAR HEMOGLOBIN 29.8 pg (27.0-34.0); MEAN CORPUSCULAR HGB CONC 33.6 g/dL (33.0-35.0); MEAN CORPUSCULAR VOLUME 88.7 fL (80.0-100.0); MEAN PLATELET VOLUME 8.9 fL (7.4-11.0); MONOCYTES # (AUTO) 0.4 x10^3/uL (0.3-0.8); MONOCYTES % (AUTO) 10.8 % (0.0-13.0); NEUTROPHILS # (AUTO) 2.6 x10^3/uL (2.2-4.8); NEUTROPHILS % (AUTO) 64.5 % (42.0-75.0); PLATELET COUNT 184 X10^3/uL (150.0-450.0); RED CELL DISTRIBUTION WIDTH 15.9 % (11.6-16.5)
[2022-10-30 12:10] LABS: CALCIUM 8.6 mg/dL (8.5-10.1); CARBON DIOXIDE 30.2 mmol/L (21-32); CREATININE 1.54 mg/dL (0.70-1.30); POTASSIUM 4.6 mmol/L (3.5-5.1)
[2022-10-30 12:24] LABS: ALBUMIN 3.2 g/dL (3.4-5.0); COR CA(FOR HYPOALB) 9.2 mg/dL (8.5-10.1)
[2022-10-30] MEDS: LOVENOX INJ 40 MG SYR SC SCH (13:19)
--- NOTE | 2022-10-30 15:14 | EKG ---
Test Reason : EXERTIONAL SHORTNESS OF BREATH, SYNCOPE Blood Pressure : */* mmHG Vent. Rate : 61 BPM Atrial Rate : 288 BPM P-R Int : * ms QRS Dur : 166 ms QT Int : 500 ms P-R-T Axes : * 26 119 degrees QTc Int : 503 ms Ventricular-paced rhythm Abnormal ECG When compared with ECG of 30-OCT-2022 11:41, (Unconfirmed) Vent. rate has decreased BY 2 BPM Underlying rhythm atrial flutter. Confirmed by Abraham De La Rosa ([id number]) on 10/31/2022 8:26:16 AM Referred By: Confirmed By: Abraham De La Rosa
--- NOTE | 2022-10-30 15:26 | RAD ---
HISTORYSOB, SYNCOPESTUDYCHEST, 1 VIEWCOMPARISONChest x-ray 08/26/2022FINDINGSThe heart is enlarged and stable. The pulmonary vasculature appears within normal limits. Mild atherosclerotic calcifications aortic arch. Low lung volumes. No pneumothorax, pleural effusion, or focal consolidation. No acute cardiopulmonary process.IMPRESSIONNo acute cardiopulmonary findings .Electronically signed by: Pascual Foy (Oct 30, 2022 15:18:59)
--- NOTE | 2022-10-30 20:13 | EKG ---
Test Reason : Syncope, Exertional SOB Blood Pressure : */* mmHG Vent. Rate : 86 BPM Atrial Rate : 82 BPM P-R Int : * ms QRS Dur : 162 ms QT Int : 436 ms P-R-T Axes : * 37 136 degrees QTc Int : 521 ms Ventricular-paced rhythm Abnormal ECG When compared with ECG of 30-OCT-2022 14:55, (Unconfirmed) Vent. rate has increased BY 25 BPM Confirmed by Abraham De La Rosa ([id number]) on 10/31/2022 8:25:46 AM Referred By: Confirmed By: Abraham De La Rosa
[2022-10-30] MEDS ORDERED: NORCO 5/325 MG TAB PO PRN (23:11)
[2022-10-31] MEDS ORDERED: VISTARIL PO PRN (00:03)
[2022-10-31] MEDS: NS 1,000 ML IV 1,000 ML IV SCH ×3 (02:08→16:18)
[2022-10-31 05:40] LABS: BASOPHILS # (AUTO) 0.1 X10^3/uL (0.0-0.1); EOSINOPHILS # (AUTO) 0.1 x10^3/uL (0.0-0.2); EOSINOPHILS % (AUTO) 1.3 % (0.9-2.9); HEMOGLOBIN 9.5 g/dL (13.5-18.0); LYMPHOCYTES % (AUTO) 15.4 % (21.0-51.0); MEAN CORPUSCULAR HEMOGLOBIN 29.9 pg (27.0-34.0); MEAN CORPUSCULAR HGB CONC 33.9 g/dL (33.0-35.0); MEAN CORPUSCULAR VOLUME 88.2 fL (80.0-100.0); MONOCYTES # (AUTO) 0.6 x10^3/uL (0.3-0.8); MONOCYTES % (AUTO) 8.9 % (0.0-13.0); NEUTROPHILS # (AUTO) 4.6 x10^3/uL (2.2-4.8); NEUTROPHILS % (AUTO) 73.4 % (42.0-75.0); PLATELET COUNT 227 X10^3/uL (150.0-450.0); RED BLOOD COUNT 3.18 X10^6/uL (4.7-6.0); WHITE BLOOD COUNT 6.3 X10^3/uL (3.6-10.0)
[2022-10-31 05:47] LABS: CALCIUM 8.3 mg/dL (8.5-10.1); CARBON DIOXIDE 28.5 mmol/L (21-32); CREATININE 1.46 mg/dL (0.70-1.30); POTASSIUM 4.7 mmol/L (3.5-5.1)
--- NOTE | 2022-10-31 06:14 | RAD ---
HISTORYSOB, SYNCOPESTUDYCHEST, 1 [id number]/01/2023FINDINGSThe cardiomediastinal silhouette is stable given positional changes. Similar bilateral opacities which may reflect chronic changes or airspace disease. Mild elevation of the right hemidiaphragm. No pneumothorax. The bony thorax appears intact.IMPRESSIONSimilar chest without definite acute change.Electronically signed by: ZULEIKA FELIZ (Oct 31, 2022 06:13:23)
[2022-10-31 06:16] LABS: COR CA(FOR HYPOALB) 9.1 mg/dL (8.5-10.1); TOTAL PROTEIN 5.8 g/dL (6.4-8.2)
[2022-10-31] MEDS: LOVENOX INJ 40 MG SYR SC SCH (08:41)
[2022-10-31] MEDS ORDERED: ANTIVERT TAB 25 MG PO PRN (09:02)
[2022-10-31] MEDS ORDERED: GLUCOPHAGE ONE (09:33)
[2022-10-31] MEDS ORDERED: ZESTRIL TAB 20 MG ONE (09:33)
[2022-10-31] MEDS: NORVASC TAB 10 MG PO SCH (09:38)
[2022-10-31] MEDS: CARDURA PO SCH (09:38)
[2022-10-31] MEDS: MICRO K EXTEN CAP 10 MEQ PO SCH (09:38)
[2022-10-31] MEDS: GLUCOPHAGE PO SCH (09:38)
[2022-10-31] MEDS: TOPROL XL PO SCH (09:39)
[2022-10-31] MEDS: ZESTRIL TAB 20 MG PO SCH (09:39)
--- NOTE | 2022-10-31 10:49 | DR.UPDATE ---
H&P Update Prescription drug monitoring program results: PDMP reviewed and no concerns identified H&P Reviewed: Yes Any changes to H&P?: Yes Changes noted:: WAS ADMITTED TO THE HOSPITAL A DIRECT ADMISSION FOR FURTHER EVALUATION AND TREATMENT OF SHORTNESS OF BREATH, DIZZINESS, AND NEAR SYNCOPY. ADDITIONALLY, HE COMPLAINS OF FATIGUE AND OCCASIONAL ABDOMINAL PAIN. HE REPORTS THAT HIS SYMPTOMS HAVE BEEN PRESENT FOR THE PAST TWO MONTHS, BUT HAVE BEEN WORSE SINCE YESTERDAY. HE DENIES FEVER OR PRESENCE OF BLOOD IN THE STOOL. HE WAS NOTED TO HAVE AN UNSTEADY GAIT AND LABORED BREATHING WHILE WALKING FROM THE LOBBY TO THE EXAM ROOM IN THE OFFICE. HIS PMH INCLUDES: CARDIAC ARRHYTHMIA, HTN, ATRIAL FIBRILLATION, WATCHMAN, RIGHT LUNG CANCER, PULMONARY HTN, ARTHRITIS, DM II. SURGICAL HISTORY INCLUDES: PACEMAKER, CARDIAC STENTS, APPENDECTOMY, TONSILLECTOMY, RIGHT LOBECTOMY. ON ARRIVAL TO THE HOSPITAL, VITALS WERE: 97.9-66-21-95%-146/67. LABS WERE OBTAINED. WBC 4.0, RBC 3.20, HGB 9.5 (WAS 12.4 IN JULY), HCT 28.4, PLT COUNT 184, SODIUM 141, POTASSIUM 4.6, CHLORIDE 106, BUN 18, CREATININE 1.54, GLUCOSE 165, CALCIUM 8.6, AST 13, ALT 12, ALK PHOS 87, BNP 170, TOTAL PROTEIN 6.0, TROPONIN 12.3. A CHEST XRAY WAS OBTAINED AND REVEALED: The heart is enlarged and stable. The pulmonary vasculature appears within normal limits. Mild atherosclerotic calcifications aortic arch. Low lung volumes. No pneumothorax, pleural effusion, or focal consolidation. No acute cardiopulmonary process. EKG WAS OBTAINED AND REVEALED: A VENTRICULAR PACED RHYTHM WITH HR 63 BPM, BASELINE RHYTHM ATRIAL FLUTTER. AN ECHO WAS OBTAINED AND REVEALED AN EJECTION FRACTION OF 60% AND SEVERE PULMONARY HTN. RVSP WAS 78mmHg. HE WAS STARTED ON NORMAL SALINE AT 75 ML/HR AND LOVENOX 40MG SC DAILY. HIS HOME MEDICATIONS OF NORVASC, ASPIRIN, CARDURA, LASIX, AMARYL, NORCO, ZESTRIL, ANTIVERT, GLUCOPHAGE, TOPROL XL, AND POTASSIUM CHLORIDE WERE RESUMED. FOLLOWING ADMISSION, PATIENTS OXYGEN SATURATIONS WERE 86-93% ON ROOM AIR. HE WAS PLACED ON OXYGEN VIAL NASAL CANNULA AT 2 LPM. SATURATIONS THEN INCREASED TO THE UPPER 90s. WE WILL OBTAIN A BRAIN CT DUE TO SEVERE DIZZINESS, AND WEAKNESS. WE WILL OBTAIN AN ABDOMEN CT WITH CONTRAST AND A CHEST CT WITH CONTRAST DUE TO HIS RECENT DROP IN HEMOGLOBIN, SHORTNESS OF BREATH, AND HYPOXIA. 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 OTHERWISE, WE WILL FOLLOW UP WITH AM LABS AND CONTINUE TO MONITOR. TIME SPENT ON CLINICAL ASSESSMENT, REVIEWING LABS AND IMAGING, DECISION MAKING, AND DOCUMENTATION GREATER THAN 75 MINUTES. Patient was examined?: Yes
[2022-10-31 11:46] LABS: BILIRUBIN,URINE NEGATIVE (NEGATIVE); BLOOD/HEMOGLOBIN,URINE NEGATIVE (NEGATIVE); GLUCOSE, URINE NEGATIVE (NEGATIVE); KETONES,URINE NEGATIVE (NEGATIVE); LEUKOCYTE ESTERASE ,URINE NEGATIVE (NEGATIVE); NITRITES,URINE NEGATIVE (NEGATIVE); PROTEIN,URINE 1+ (NEGATIVE); UROBILINOGEN,URINE NORMAL (NORMAL)
[2022-10-31 12:01] LABS: APPEARANCE,URINE CLEAR (CLEAR); BACTERIA,URINE TRACE /HPF (NEGATIVE); COLOR,URINE PALE YELLOW (YELLOW); RBC,URINE NONE SEEN /HPF (0-3); SQUAMOUS EPITHELIAL CELL,UR RARE /HPF (NEGATIVE)
[2022-10-31] MEDS ORDERED: READI-CAT 2 ONE (14:22)
[2022-10-31] MEDS ORDERED: NS 100 ML IV 100 ML ONE (17:06)
[2022-10-31] MEDS ORDERED: OMNIPAQUE 350 mg/mL 100 mL BTL 100 ML ONE (17:06)
--- NOTE | 2022-10-31 19:31 | CT ---
HISTORYDIZZINESS, NEAR SYNCOPE, UNSTEADY GAITSTUDYBRAIN W/O CONCOMPARISONNoneTECHNIQUEMult iple axial images of the head without contrast. Dose reduction techniques including Automated Exposure Control (AEC) and adjustment of mA and kV were utilized.Contrast: NoneFINDINGSBRAIN PARENCHYMA: No acute hemorrhage, infarct, mass, or mass effect.Diane-white differentiation is maintained.Scattered white matter chronic small vessel ischemic changes.VENTRICLES/EXTRA-AXIAL SPACES: Unremarkable size and configuration. No hydrocephalus or extra-axial fluid collections.EXTRACRANIAL STRUCTURES:Unremarkable bones and soft tissues. The right sphenoid is completely opacified. There is fluid or mucus in the left sphenoid. There is complete opacification of 1 of the left posterior ethmoid air cells. The paranasal sinuses are otherwise clear. Mastoid air cells and middle ear cavities are clear.IMPRESSION1. No acute intracranial abnormality. 2. Generalized atrophy and small vessel ischemic disease. 3. Right sphenoid, left posterior ethmoid and mild left sphenoid sinusitis.Electronically signed by: Sergio Tan (Oct 31, 2022 19:29:22)
[2022-10-31] MEDS: LASIX PO SCH (21:16)
[2022-10-31] MEDS: AMARYL TAB 4 MG PO SCH (21:16)
[2022-10-31] MEDS: SNACK - Diabetic Appropriate PO SCH (21:16)
[2022-11-01 05:08] LABS: BASOPHILS % (AUTO) 1.2 % (0.2-1.0); EOSINOPHILS # (AUTO) 0.1 x10^3/uL (0.0-0.2); HEMATOCRIT 26.7 % (42.0-54.0); LYMPHOCYTES # (AUTO) 0.7 X10^3/uL (1.3-2.9); LYMPHOCYTES % (AUTO) 18.2 % (21.0-51.0); MEAN CORPUSCULAR HEMOGLOBIN 29.9 pg (27.0-34.0); MEAN CORPUSCULAR HGB CONC 33.9 g/dL (33.0-35.0); MEAN CORPUSCULAR VOLUME 88.4 fL (80.0-100.0); MEAN PLATELET VOLUME 8.7 fL (7.4-11.0); MONOCYTES # (AUTO) 0.5 x10^3/uL (0.3-0.8); MONOCYTES % (AUTO) 13.4 % (0.0-13.0); NEUTROPHILS # (AUTO) 2.3 x10^3/uL (2.2-4.8); NEUTROPHILS % (AUTO) 63.2 % (42.0-75.0); PLATELET COUNT 222 X10^3/uL (150.0-450.0); RED BLOOD COUNT 3.02 X10^6/uL (4.7-6.0); RED CELL DISTRIBUTION WIDTH 15.9 % (11.6-16.5); WHITE BLOOD COUNT 3.7 X10^3/uL (3.6-10.0)
[2022-11-01 05:24] LABS: ALANINE AMINOTRANSFERASE 8 Units/L (12-78); ALBUMIN 2.9 g/dL (3.4-5.0); ALKALINE PHOSPHATASE 84 Units/L (46-116); ASPARTATE AMINO TRANSFERASE 9 Units/L (15-37); BLOOD UREA NITROGEN 14 mg/dL (7-18); CALCIUM 7.9 mg/dL (8.5-10.1); CARBON DIOXIDE 30.4 mmol/L (21-32); CHLORIDE 104 mmol/L (98-107); COR CA(FOR HYPOALB) 8.8 mg/dL (8.5-10.1); COR NA(FOR HYPERGLY) 139 mmol/L (136-145); GLUCOSE 134 mg/dL (65-99); POTASSIUM 4.1 mmol/L (3.5-5.1); SODIUM 138 mmol/L (136-145); TOTAL PROTEIN 5.6 g/dL (6.4-8.2); eGFR NON BLACK RACES > 60 (>60)
[2022-11-01] MEDS: NS 1,000 ML IV 1,000 ML IV SCH (06:13)
[2022-11-01] MEDS ORDERED: ASPIRIN PO SCH (09:00)
--- NOTE | 2022-11-01 09:06 | CT ---
HISTORYANEMIA, ABDOMINAL PAINSTUDYABDOMEN WITH CONCOMPARISONnoneTECHNIQUEAxial images through the abdomen were performed after the administration of oral and intravenous contrast. CT scan was performed following ALARA (As low as Reasonably Achievable).Coronal and Sagittal reformatted images were performed.FINDINGSThe lung bases demonstrate bilateral trace effusions. There is some ground-glass radiopacities,there is fluid along the fissure in the left.There are old right-sided rib fractures,there are heavy coronary artery calcifications there is a metallic wire projecting in the right ventricle.The liver demonstrate no focal lesion,s the spleen is no enlarge, the pancreas demonstrate a 2 by 0.8 centimeters no nenhancing area in the body. There is no intrahepatic or extrahepatic biliary dilatation, the pancreatic duct is nondilated,patient is status post cholecystectomy. . There is a left lateral limb adrenal nodule measuring approximately 2,2 centimeters, there is a small nodule in the right adrenal gland measuring 1 centimeter. No retroperitoneal masses, there is a right renal cyst there are bilateral normal enhancing kidneys without evidence of hydronephrosis. No Abnormal dilated small bowel loops,no dominant areas of colitis in the included imagesThere are some surgical clips in the lower pelvis in the left.Bone windows there is osteopenia. There is an old compression fracture of L3 vertebral body,there is fusion along the anterior longitudinal ligament of the thoracic vertebral bodies.IMPRESSIONNo acute changes.Bilateral small pleural effusions with ground-glass radiopacities and perihilar infiltrate could represent pulmonary edemaNon enhancing pancreatic lesion in the body measuring 2 by 0.8 centimeters, it could represent and unilocular cysts nonspecific follow-up in 6 months can be performed to confirm stability.Electronically signed by: Amparo Yañez (Nov 01, 2022 09:04:59)
--- NOTE | 2022-11-01 09:28 | CT ---
HISTORYSHORTNESS OF BREATHSTUDYCHEST WITH CONCOMPARISONNone availableTECHNIQUEAxial images through the chest were performed after the administration of intravenous contrast. CT scan was performed following ALARA (As low as Reasonably Achievable).Coronal and Sagittal reformatted images were performed.FINDINGSThe thyroid gland is no significant enlarged. There is normal enhancement of the great vessels. There is no evidence of axillary adenopathy. There are left paratracheal lymph node measuring in short axis 1 centimeter. The ascending aorta measures approximately 3.9 centimeters, there are small bilateral pleural effusionsNo pericardial effusions, there is mild cardiomegaly with calcification of the coronary arteriesThere is a wire projecting in the right ventricle. There is a left adrenal nodule 2.5 centimeters and in the right measuring approximately 1 centimeter.There is a focal non enhancing 2centimeter lesion in the body of the pancreas. The stomach is not distended.Lung windows. There is fluid along the fissures, there are some ground-glass radiopacities and vascular cephalization consistent with pulmonary edema. There is no evidence of dominant lung nodules or masses.Bone windows no evidence of aggressive bone lesions, there are old right-sided posterior rib fractures. There is fusion along the anterior longitudinal ligament.IMPRESSIONSmall bilateral effusions with fluid along the fissures and ground-glass radiopacities with cephalization consistent with pulmonary edemaBilateral adrenal nodules.2 centimeter nonenhancing pancreatic body lesion, it could represent a cyst follow with MRI or a follow with CT in 6 months can be performed.Electronically signed by: Amparo Yañez (Nov 01, 2022 09:26:55)
[2022-11-01] MEDS: ZESTRIL TAB 20 MG PO SCH ×2 (10:02→15:21)
[2022-11-01] MEDS: TOPROL XL PO SCH ×2 (10:02→15:21)
[2022-11-01] MEDS: MICRO K EXTEN CAP 10 MEQ PO SCH ×2 (10:03→15:22)
[2022-11-01] MEDS: NORVASC TAB 10 MG PO SCH ×2 (10:03→15:21)
[2022-11-01] MEDS: LOVENOX INJ 40 MG SYR SC SCH (10:03)
[2022-11-01] MEDS: AMARYL TAB 4 MG PO SCH ×2 (10:04→20:44)
[2022-11-01] MEDS: GLUCOPHAGE PO SCH (10:04)
[2022-11-01] MEDS: LASIX PO SCH (10:04)
[2022-11-01] MEDS: CARDURA PO SCH ×2 (10:04→15:22)
[2022-11-01] MEDS: LASIX IVP SCH ×2 (10:49→17:14)
[2022-11-01 10:57] LABS: ABG BASE EXCESS 3.1 mmol/L (-2.0-2.0); ABG HCO3 28.5 mmol/L (22-26)
--- NOTE | 2022-11-01 11:25 | PCM.PROG ---
Progress Note - Progress Note for Day of Date of Exam: 10/31/22 - Subjective Subjective: IS CURRENTLY OBSERVATION STATUS FOR TREATMENT OF NEAR SYNCOPE, ANEMIA, DYSPNEA, HYPOXIA, AND DIZZINESS. HE ALSO COMPLAINS OF INTERMITTENT ABDOMINAL CRAMPING. HIS MEDICAL HX INCLUDES: CARDIAC ARRHYTHMIA, HTN, ATRIAL FIBRILLATION, WATCHMAN, HX OF RIGHT LUNG CANCER, PULMONARY HTN, ARTHRITIS, DM II. SURGICAL HISTORY INCLUDES: PACEMAKER, CARDIAC STENTS, APPENDECTOMY, TONSILLECTOMY, RIGHT LOBECTOMY. PATIENT REPORTS THAT HIS SYMPTOMS INITALY STARTED TWO MONTHS AGO, BUT HAVE WORSENED OVER THE PAST FEW DAYS. SINCE ADMISSION, HE HAS BEEN UTILIZING OXYGEN VIA NASAL CANNULA AT 4 LPM. WHEN OXYGEN IS REMOVED, HIS SATURATIONS DECREASE TO THE UPPER 80s, BUT WHEN OXYGEN IS PLACED BACK ON HIM, SATURATIONS INCREASE TO 96-67%. TODAY, HE IS ALERT AND ORIENTED, SITTING UP IN BED ON MORNING ROUNDS. HE CONTINUES TO COMPLAIN OF WEAKNESS AND SHORTNESS OF BREATH. HE ALSO REPORTS OCCASIONAL DIZZINESS. HE IS UNSTEADY ON ABMULATION AND REQUIRES ASSISTANCE. ON EXAMINATION, HEART IS REGULAR IN RATE AND RHYTHM. BILATERAL LUNGS ARE NOTED WITH DIMINISHED LUNG SOUNDS THROUGHOUT. ABDOMEN IS ROUND, SOFT, AND NON-TENDER WITH NORMAL BOWEL SOUNDS NOTED IN ALL QUADRANTS. GOOD RANGE OF MOTION NOTED TO UPPER AND LOWER EXTREMITIES. NO EDEMA NOTED. HIS VITALS THIS MORNING ARE: 97.7-60-23-97%-175/77. LABS WERE OBTAINED. WBC 6.3, HGB 9.5, HCT 28.0, PLT COUNT 227, SODIUM 142, POTASSIUM 4.7, CHLORIDE 107, BUN 19, CREATININE 1.46, GLUCOSE 184, CALCIUM 8.3, IRON 45, TIBC 263, TRANSFERRIN 198, FERRITIN 30, AST 12, ALT 9, ALK PHOS 92, BNP 211, TOTAL PROTEIN 5.8, ALBUMIN 3.0, VITAMIN B12 328, FOLATE 18.3. AN ECHO WAS OBTAINED ON ADMISSION AND REVEALED: AN ECHO WAS OBTAINED AND REVEALED AN EJECTION FRACTION OF 60% AND SEVERE PULMONARY HTN. RVSP WAS 78mmHg. A CHEST XRAY WAS OBTAINED TODAY AND REVEALED: The cardiomediastinal silhouette is stable given positional changes. Similar bilateral opacities which may reflect chronic changes or airspace disease. Mild elevation of the right hemidiaphragm. No pneumothorax. The bony thorax appears intact. HE IS CURRENTLY RECEIVING NORMAL SALINE AT 75 ML/HR AND LOVENOX 40MG SC DAILY. HIS HOME MEDICATIONS OF NORVASC, ASPIRIN, CARDURA, LASIX, AMARYL, NORCO, ZESTRIL, ANTIVERT, GLUCOPHAGE, TOPROL XL, AND POTASSIUM CHLORIDE WERE RESUMED. WE WILL OBTAIN AN ABDOMEN CT WITH CONTRAST AND A CHEST CT WITH CONTRAST DUE TO HIS RECENT DROP IN HEMOGLOBIN, SHORTNESS OF BREATH, AND HYPOXIA. 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 OTHERWISE, WE WILL FOLLOW UP WITH AM LABS AND CONTINUE TO MONITOR. TIME SPENT ON CLINICAL ASSESSMENT, REVIEWING LABS AND IMAGING, DECISION MAKING, AND DOCUMENTATION GREATER THAN 45 MINUTES. - Past Medical Family Social History Past Med/Fam/Surg Hx: No changes since H&P Allergies: Allergies No Known Drug Allergies Allergy (Verified 02/15/17 10:37) - Review of Systems ROS: No change since H&P - Vital Signs and I&O's Vital Signs: Vital Signs Temperature 98.3 F Temperature 97.7 F Pulse Rate 79 Pulse Rate 66 Pulse Rate 61 Pulse Rate 66 Pulse Rate 66 Respiratory Rate 26 Respiratory Rate 32 Respiratory Rate 27 Respiratory Rate 37 Respiratory Rate 24 Blood Pressure 186/83 Blood Pressure 168/74 Blood Pressure 168/74 Blood Pressure 172/76 Blood Pressure 172/72 Blood Pressure 161/74 O2 Sat by Pulse Oximetry 89 O2 Sat by Pulse Oximetry 95 O2 Sat by Pulse Oximetry 87 O2 Sat by Pulse Oximetry 97 O2 Sat by Pulse Oximetry 97 O2 Sat by Pulse Oximetry 98 Intake and Output: Intake & Output 10/29/22 10/30/22 10/31/22 11/01/22 11:59 11:59 11:59 11:59 Intake Total 1600 / 1600 2155 / 2155 Output Total 2074 / 2074 2725 / 2725 Balance -475 / -475 -570 / -570 - Physical Exam Oriented: Normal Eyes: Normal Ear: Normal Nose: Normal Throat: Normal Respiratory: Diminished Cardiovascular: Normal : Normal Auscultation: Bowel Sounds: Normal Palpation: Normal Tenderness: Diffuse, Mild (INTERMITTENT ). negative: Rebound, Guarding, Rigidity Skin: Normal Musculoskeletal: Normal Psychiatric: Normal Mood Description: Calm Affect: Normal Speech Pattern: Clear, Appropriate - Laboratory and Diagnostics Result Diagrams: 11/01/22 04:34 11/01/22 04:34 Labs: Laboratory WBC 3.7 X10^3/uL (3.6-10.0) 08/03/23 04:34 RBC 3.02 X10^6/uL (4.7-6.0) L 11/01/22 04:34 Hgb 9.0 g/dL (13.5-18.0) L 11/01/22 04:34 Hct 26.7 % (42.0-54.0) L 11/01/22 04:34 MCV 88.4 fL (80.0-100.0) 11/01/22 04:34 MCH 29.9 pg (27.0-34.0) 11/01/22 04:34 MCHC 33.9 g/dL (33.0-35.0) 11/01/22 04:34 RDW 15.9 % (11.6-16.5) 11/01/22 04:34 Plt Count 222 X10^3/uL (150.0-450.0) 11/01/22 04:34 MPV 8.7 fL (7.4-11.0) 11/01/22 04:34 Neut % (Auto) 63.2 % (42.0-75.0) 11/01/22 04:34 Lymph % (Auto) 18.2 % (21.0-51.0) L 11/01/22 04:34 [place] % (Auto) 13.4 % (0.0-13.0) H 11/01/22 04:34 Eos % (Auto) 4.0 % (0.9-2.9) H 11/01/22 04:34 Baso % (Auto) 1.2 % (0.2-1.0) H 11/01/22 04:34 Neut # (Auto) 2.3 x10^3/uL (2.2-4.8) 11/01/22 04:34 Lymph # (Auto) 0.7 X10^3/uL (1.3-2.9) L 11/01/22 04:34 [place] # (Auto) 0.5 x10^3/uL (0.3-0.8) 11/01/22 04:34 Eos # (Auto) 0.1 x10^3/uL (0.0-0.2) 11/01/22 04:34 Baso # (Auto) 0.0 X10^3/uL (0.0-0.1) 11/01/22 04:34 Absolute Nucleated RBC 0.1 /100WBC 11/01/22 04:34 D-Dimer 1.06 ug/ml (0.0-0.57) H 10/31/22 04:43 Sample Site [facility] 11/01/22 10:49 ABG pH 7.400 (7.35-7.45) 11/01/22 10:49 ABG pCO2 46.0 mmHg (35.0-45.0) H 11/01/22 10:49 ABG pO2 50.0 mmHg (80.0-100.0) L 11/01/22 10:49 ABG HCO3 28.5 mmol/L (22-26) H 11/01/22 10:49 ABG O2 Saturation 85.0 % (90-100) L 11/01/22 10:49 ABG Base Excess 3.1 mmol/L (-2.0-2.0) H 11/01/22 10:49 Tj Test N/a 11/01/22 10:49 A-a Gradient 42.0 mmHg 11/01/22 10:49 FiO2 21.0 11/01/22 10:49 Blood Gas Comments Pt ronan well elj 11/01/22 10:49 Sodium 138 mmol/L (136-145) 11/01/22 04:34 Corrected Sodium 139 mmol/L (136-145) 11/01/22 04:34 Potassium 4.1 mmol/L (3.5-5.1) 11/01/22 04:34 Chloride 104 mmol/L (98-107) 11/01/22 04:34 Carbon Dioxide 30.4 mmol/L (21-32) 11/01/22 04:34 BUN 14 mg/dL (7-18) 11/01/22 04:34 Creatinine 1.20 mg/dL (0.70-1.30) 11/01/22 04:34 Est GFR (MDRD) Af Amer > 60 (>60) 11/01/22 04:34 Est GFR (MDRD) Non-Af > 60 (>60) 11/01/22 04:34 Glucose 134 mg/dL (65-99) H 11/01/22 04:34 POC Glucose (mg/dL) 132 mg/dL (65-99) H 11/01/22 04:47 Calcium 7.9 mg/dL (8.5-10.1) L 11/01/22 04:34 Corrected Calcium 8.8 mg/dL (8.5-10.1) 11/01/22 04:34 Iron 45 ug/dL (50-175) L 10/31/22 04:43 TIBC 263 ug/dL (250-450) 10/31/22 04:43 Transferrin 198 mg/dL (202-364) L 10/31/22 04:43 Ferritin 30 ng/mL (26-388) 10/31/22 04:43 Total Bilirubin 0.40 mg/dL (0.2-1.0) 11/01/22 04:34 AST 9 Units/L (15-37) L 11/01/22 04:34 ALT 8 Units/L (12-78) L 11/01/22 04:34 Alkaline Phosphatase 84 Units/L (46-116) 11/01/22 04:34 Troponin I High Sens 13.8 ng/L (4.0-60.0) 10/30/22 19:35 C-Reactive Protein 20.20 mg/L (0-3.0) H 11/01/22 04:34 B-Natriuretic Peptide 324 pg/mL (0-79) H 11/01/22 04:34 Total Protein 5.6 g/dL (6.4-8.2) L 11/01/22 04:34 Albumin 2.9 g/dL (3.4-5.0) L 11/01/22 04:34 Globulin 2.7 g/dL (2.5-4.5) 11/01/22 04:34 Albumin/Globulin Ratio 1.1 Ratio (1.1-2.1) 11/01/22 04:34 Vitamin B12 328 pg/mL (193-986) 10/31/22 04:43 Folate 18.3 ng/mL (>8.6) 10/31/22 04:43 Specimen Type Clean catch urine 10/31/22 11:32 Urine Color Pale yellow (YELLOW) 10/31/22 11:32 Urine Appearance Clear (CLEAR) 10/31/22 11:32 Urine pH 7.0 (5.0 - 8.0) 10/31/22 11:32 Ur Specific [place] 1.015 (1.000-1.030) 10/31/22 11:32 Urine Protein 1+ (NEGATIVE) 10/31/22 11:32 Urine Glucose (UA) Negative (NEGATIVE) 10/31/22 11:32 Urine Ketones Negative (NEGATIVE) 10/31/22 11:32 Urine Blood Negative (NEGATIVE) 10/31/22 11:32 Urine Nitrite Negative (NEGATIVE) 10/31/22 11:32 Urine Bilirubin Negative (NEGATIVE) 10/31/22 11:32 Urine Urobilinogen Normal (NORMAL) 10/31/22 11:32 Ur Leukocyte Esterase Negative (NEGATIVE) 10/31/22 11:32 Urine RBC None seen /HPF (0-3) 10/31/22 11:32 Urine WBC None seen /HPF (0-5) 10/31/22 11:32 Ur Squamous Epith Cells Rare /HPF (NEGATIVE) 10/31/22 11:32 Urine Bacteria Trace /HPF (NEGATIVE) 10/31/22 11:32 Ur Culture Indicated? No/not indicated 10/31/22 11:32 - Plan (1) Hypoxia Status: Acute Plan: SUPPLEMENTAL OXYGEN, OBTAIN CHEST CT AND ABDOMEN CT, NORMAL SALINE AT 75 ML/HR AND LOVENOX 40MG SC DAILY. HIS HOME MEDICATIONS OF NORVASC, ASPIRIN, CARDURA, LASIX, AMARYL, NORCO, ZESTRIL, ANTIVERT, GLUCOPHAGE, TOPROL XL, AND POTASSIUM CHLORIDE WERE RESUMED. (2) Shortness of breath Status: Acute (3) Anemia Status: Chronic Qualifiers: Anemia type: iron deficiency Iron deficiency anemia type: chronic blood loss Qualified Code(s): D50.0 - Iron deficiency anemia secondary to blood loss (chronic) Plan: CONSULT GI (4) Near syncope Status: Acute (5) Pulmonary HTN Status: Acute (6) HTN (hypertension) Status: Chronic Qualifiers: Hypertension type: primary hypertension Qualified Code(s): I10 - Essential (primary) hypertension Plan: CONTINUE NORVASC, ZESTRIL, AND TOPROL XL (7) DM II (diabetes mellitus, type II), controlled Status: Chronic Qualifiers: Diabetes mellitus custodial insulin use: with custodial use Diabetes mellitus complication status: without complication Qualified Code(s): E11.9 - Type 2 diabetes mellitus without complications; Z79.4 - detention (current) use of insulin Plan: OTBS ACHS, HUMULIN R SLIDING SCALE, (8) Atrial fibrillation Status: Chronic Qualifiers: Atrial fibrillation type: unspecified Plan: PRESENCE OF PACEMAKER, CONTINUE TOPROL
[2022-11-01] MEDS ORDERED: NS 1,000 ML IV 1,000 ML ONE (12:28)
--- NOTE | 2022-11-01 12:31 | PCM.PROG ---
Progress Note - Progress Note for Day of Date of Exam: 11/01/22 - Subjective Subjective: IS CURRENTLY OBSERVATION STATUS FOR TREATMENT OF NEAR SYNCOPE, ANEMIA, DYSPNEA, HYPOXIA, AND DIZZINESS. HE ALSO COMPLAINS OF INTERMITTENT ABDOMINAL CRAMPING. HIS MEDICAL HX INCLUDES: CARDIAC ARRHYTHMIA, HTN, ATRIAL FIBRILLATION, WATCHMAN, HX OF RIGHT LUNG CANCER, PULMONARY HTN, ARTHRITIS, DM II. SURGICAL HISTORY INCLUDES: PACEMAKER, CARDIAC STENTS, APPENDECTOMY, TONSILLECTOMY, RIGHT LOBECTOMY. PATIENT REPORTS THAT HIS SYMPTOMS INITALY STARTED TWO MONTHS AGO, BUT HAVE WORSENED OVER THE PAST FEW DAYS. SINCE ADMISSION, HE HAS BEEN UTILIZING OXYGEN VIA NASAL CANNULA AT 4 LPM. WHEN OXYGEN IS REMOVED, HIS SATURATIONS DECREASE TO 85%, BUT WHEN OXYGEN IS PLACED BACK ON HIM, SATURATIONS INCREASE TO 95-98%. TODAY, HE IS ALERT AND ORIENTED, SITTING UP IN BED ON MORNING ROUNDS. HE CONTINUES TO COMPLAIN OF WEAKNESS AND OCCASIONAL SHORTNESS OF BREATH. HE ALSO REPORTS OCCASIONAL DIZZINESS. HE IS UNSTEADY ON ABMULATION AND REQUIRES ASSISTANCE. ON EXAMINATION, HEART IS REGULAR IN RATE AND RHYTHM. BILATERAL LUNGS ARE NOTED WITH DIMINISHED LUNG SOUNDS THROUGHOUT. ABDOMEN IS ROUND, SOFT, AND NON-TENDER WITH NORMAL BOWEL SOUNDS NOTED IN ALL QUADRANTS. GOOD RANGE OF MOTION NOTED TO UPPER AND LOWER EXTREMITIES. NO EDEMA NOTED. HIS VITALS THIS MORNING ARE: 98.3-66-24-97%-172/72. LABS WERE OBTAINED. WBC 3.7, RBC 3.02, HGB 9.0, HCT 26.7, PLT COUNT 222, SODIUM 138, POTASSIUM 4.1, CHLORIDE 104, CARBON DIOXIDE 30.4, BUN 14, CREATININE 1.20, GLUCOSE 134, CALCIUM 7.9, AST 9, ALT 8, ALK PHOS 84, CRP 20.20, BNP 324, TOTAL PROTEIN 5.6, ALBUMIN 2.9, TOTAL PROTEIN 5.6, ALBUMIN 2.9. AN ECHO WAS OBTAINED ON ADMISSION AND REVEALED AN EJECTION FRACTION OF 60% AND SEVERE PULMONARY HTN. RVSP WAS 78mmHg. A CHEST CT AND ABDOMEN CT WITH CONTRAST WAS OBTAINED AND REVEALED: No acute changes. Bilateral small pleural effusions with ground-glass radiopacities and perihilar infiltrate could represent pulmonary edema. Non enhancing pancreatic lesion in the body measuring 2 by 0.8 centimeters, it could represent and unilocular cysts nonspecific follow-up in 6 months can be performed to confirm stability. The bony thorax appears intact. A BRAIN CT WAS OBTAINED AND REVEALED: 1. No acute intracranial abnormality. 2. Generalized atrophy and small vessel ischemic disease. 3. Right sphenoid, left posterior ethmoid and mild left sphenoid sinusitis. HE IS CURRENTLY RECEIVING NORMAL SALINE AT 75 ML/HR AND LOVENOX 40MG SC DAILY. HIS HOME MEDICATIONS OF NORVASC, ASPIRIN, CARDURA, LASIX, AMARYL, NORCO, ZESTRIL, ANTIVERT, GLUCOPHAGE, TOPROL XL, AND POTASSIUM CHLORIDE WERE RESUMED. WE WILL DISCONTINUE HIS IV FLUIDS AND CHANGE HIS LASIX TO 20MG IV BID. WE WILL ADD SILDENAFIL 50MG BID FOR TX OF PULMONARY HTN. WE HAVE CONSULTED AND HE PLANS FOR AN ENDOSCOPY TODAY. WE ARE IN AGREEMENT WITH PLANS. OTHERWISE, WE WILL FOLLOW UP WITH AM LABS AND CONTINUE TO MONITOR. TIME SPENT ON CLINICAL ASSESSMENT, REVIEWING LABS AND IMAGING, DECISION MAKING, AND DOCUMENTATION GREATER THAN 45 MINUTES. - Past Medical Family Social History Past Med/Fam/Surg Hx: No changes since H&P Allergies: Allergies No Known Drug Allergies Allergy (Verified 02/15/17 10:37) - Review of Systems ROS: No change since H&P - Vital Signs and I&O's Vital Signs: Vital Signs Temperature 98.3 F Pulse Rate 79 Pulse Rate 66 Pulse Rate 61 Pulse Rate 66 Respiratory Rate 26 Respiratory Rate 32 Respiratory Rate 27 Respiratory Rate 37 Blood Pressure 186/83 Blood Pressure 168/74 Blood Pressure 168/74 Blood Pressure 172/76 Blood Pressure 172/72 O2 Sat by Pulse Oximetry 89 O2 Sat by Pulse Oximetry 95 O2 Sat by Pulse Oximetry 87 O2 Sat by Pulse Oximetry 97 O2 Sat by Pulse Oximetry 97 Intake and Output: Intake & Output 10/30/22 10/31/22 11/01/22 11/02/22 11:59 11:59 11:59 11:59 Intake Total 1600 / 1600 2155 / 2155 Output Total 2074 / 2074 2725 / 2725 Balance -475 / -475 -570 / -570 - Physical Exam Oriented: Normal Eyes: Normal Ear: Normal Nose: Normal Throat: Normal Respiratory: Diminished Cardiovascular: Normal : Normal Auscultation: Bowel Sounds: Normal Palpation: Normal Tenderness: Diffuse, Mild (INTERMITTENT ). negative: Rebound, Guarding, Rigidity Skin: Normal Musculoskeletal: Normal Psychiatric: Normal Mood Description: Calm Affect: Normal Speech Pattern: Clear, Appropriate - Laboratory and Diagnostics Result Diagrams: 11/01/22 04:34 11/01/22 04:34 Labs: Laboratory WBC 3.7 X10^3/uL (3.6-10.0) 11/01/22 04:34 RBC 3.02 X10^6/uL (4.7-6.0) L 11/01/22 04:34 Hgb 9.0 g/dL (13.5-18.0) L 11/01/22 04:34 Hct 26.7 % (42.0-54.0) L 11/01/22 04:34 MCV 88.4 fL (80.0-100.0) 11/01/22 04:34 MCH 29.9 pg (27.0-34.0) 11/01/22 04:34 MCHC 33.9 g/dL (33.0-35.0) 11/01/22 04:34 RDW 15.9 % (11.6-16.5) 11/01/22 04:34 Plt Count 222 X10^3/uL (150.0-450.0) 11/01/22 04:34 MPV 8.7 fL (7.4-11.0) 11/01/22 04:34 Neut % (Auto) 63.2 % (42.0-75.0) 11/01/22 04:34 Lymph % (Auto) 18.2 % (21.0-51.0) L 11/01/22 04:34 [place] % (Auto) 13.4 % (0.0-13.0) H 11/01/22 04:34 Eos % (Auto) 4.0 % (0.9-2.9) H 11/01/22 04:34 Baso % (Auto) 1.2 % (0.2-1.0) H 11/01/22 04:34 Neut # (Auto) 2.3 x10^3/uL (2.2-4.8) 11/01/22 04:34 Lymph # (Auto) 0.7 X10^3/uL (1.3-2.9) L 11/01/22 04:34 [place] # (Auto) 0.5 x10^3/uL (0.3-0.8) 11/01/22 04:34 Eos # (Auto) 0.1 x10^3/uL (0.0-0.2) 11/01/22 04:34 Baso # (Auto) 0.0 X10^3/uL (0.0-0.1) 11/01/22 04:34 Absolute Nucleated RBC 0.1 /100WBC 11/01/22 04:34 D-Dimer 1.06 ug/ml (0.0-0.57) H 10/31/22 04:43 Sample Site [facility] 11/01/22 10:49 ABG pH 7.400 (7.35-7.45) 11/01/22 10:49 ABG pCO2 46.0 mmHg (35.0-45.0) H 11/01/22 10:49 ABG pO2 50.0 mmHg (80.0-100.0) L 11/01/22 10:49 ABG HCO3 28.5 mmol/L (22-26) H 11/01/22 10:49 ABG O2 Saturation 85.0 % (90-100) L 11/01/22 10:49 ABG Base Excess 3.1 mmol/L (-2.0-2.0) H 11/01/22 10:49 Tj Test N/a 11/01/22 10:49 A-a Gradient 42.0 mmHg 11/01/22 10:49 FiO2 21.0 11/01/22 10:49 Blood Gas Comments Pt ronan well elj 11/01/22 10:49 Sodium 138 mmol/L (136-145) 11/01/22 04:34 Corrected Sodium 139 mmol/L (136-145) 11/01/22 04:34 Potassium 4.1 mmol/L (3.5-5.1) 11/01/22 04:34 Chloride 104 mmol/L (98-107) 11/01/22 04:34 Carbon Dioxide 30.4 mmol/L (21-32) 11/01/22 04:34 BUN 14 mg/dL (7-18) 11/01/22 04:34 Creatinine 1.20 mg/dL (0.70-1.30) 11/01/22 04:34 Est GFR (MDRD) Af Amer > 60 (>60) 11/01/22 04:34 Est GFR (MDRD) Non-Af > 60 (>60) 11/01/22 04:34 Glucose 134 mg/dL (65-99) H 11/01/22 04:34 POC Glucose (mg/dL) 99 mg/dL (65-99) 11/01/22 11:54 Calcium 7.9 mg/dL (8.5-10.1) L 11/01/22 04:34 Corrected Calcium 8.8 mg/dL (8.5-10.1) 11/01/22 04:34 Iron 45 ug/dL (50-175) L 10/31/22 04:43 TIBC 263 ug/dL (250-450) 10/31/22 04:43 Transferrin 198 mg/dL (202-364) L 10/31/22 04:43 Ferritin 30 ng/mL (26-388) 10/31/22 04:43 Total Bilirubin 0.40 mg/dL (0.2-1.0) 11/01/22 04:34 AST 9 Units/L (15-37) L 11/01/22 04:34 ALT 8 Units/L (12-78) L 11/01/22 04:34 Alkaline Phosphatase 84 Units/L (46-116) 11/01/22 04:34 Troponin I High Sens 13.8 ng/L (4.0-60.0) 10/30/22 19:35 C-Reactive Protein 20.20 mg/L (0-3.0) H 11/01/22 04:34 B-Natriuretic Peptide 324 pg/mL (0-79) H 11/01/22 04:34 Total Protein 5.6 g/dL (6.4-8.2) L 11/01/22 04:34 Albumin 2.9 g/dL (3.4-5.0) L 11/01/22 04:34 Globulin 2.7 g/dL (2.5-4.5) 11/01/22 04:34 Albumin/Globulin Ratio 1.1 Ratio (1.1-2.1) 11/01/22 04:34 Vitamin B12 328 pg/mL (193-986) 10/31/22 04:43 Folate 18.3 ng/mL (>8.6) 10/31/22 04:43 Specimen Type Clean catch urine 10/31/22 11:32 Urine Color Pale yellow (YELLOW) 10/31/22 11:32 Urine Appearance Clear (CLEAR) 10/31/22 11:32 Urine pH 7.0 (5.0 - 8.0) 10/31/22 11:32 Ur Specific [place] 1.015 (1.000-1.030) 10/31/22 11:32 Urine Protein 1+ (NEGATIVE) 10/31/22 11:32 Urine Glucose (UA) Negative (NEGATIVE) 10/31/22 11:32 Urine Ketones Negative (NEGATIVE) 10/31/22 11:32 Urine Blood Negative (NEGATIVE) 10/31/22 11:32 Urine Nitrite Negative (NEGATIVE) 10/31/22 11:32 Urine Bilirubin Negative (NEGATIVE) 10/31/22 11:32 Urine Urobilinogen Normal (NORMAL) 10/31/22 11:32 Ur Leukocyte Esterase Negative (NEGATIVE) 10/31/22 11:32 Urine RBC None seen /HPF (0-3) 10/31/22 11:32 Urine WBC None seen /HPF (0-5) 10/31/22 11:32 Ur Squamous Epith Cells Rare /HPF (NEGATIVE) 10/31/22 11:32 Urine Bacteria Trace /HPF (NEGATIVE) 10/31/22 11:32 Ur Culture Indicated? No/not indicated 10/31/22 11:32 - Plan (1) Pleural effusion Status: Acute Plan: SUPPLEMENTAL OXYGEN, SALINE LOCK, LASIX 20MG IV BID, AND LOVENOX 40MG SC DAILY. HIS HOME MEDICATIONS OF NORVASC, ASPIRIN, CARDURA, LASIX, AMARYL, NORCO, ZESTRIL, ANTIVERT, GLUCOPHAGE, TOPROL XL, AND POTASSIUM CHLORIDE WERE RESUMED. (2) Hypoxia Status: Acute Plan: CONTINUE SUPPLEMENTAL O2 (3) Shortness of breath Status: Acute (4) Anemia Status: Chronic Qualifiers: Anemia type: iron deficiency Iron deficiency anemia type: chronic blood l oss Qualified Code(s): D50.0 - Iron deficiency anemia secondary to blood loss (chronic) Plan: CONSULT GI (5) Near syncope Status: Acute (6) Pulmonary HTN Status: Acute (7) HTN (hypertension) Status: Chronic Qualifiers: Hypertension type: primary hypertension Qualified Code(s): I10 - Essential (primary) hypertension Plan: CONTINUE NORVASC, ZESTRIL, AND TOPROL XL (8) DM II (diabetes mellitus, type II), controlled Status: Chronic Qualifiers: Diabetes mellitus halfway insulin use: with halfway use Diabetes mellitus complication status: without complication Qualified Code(s): E11.9 - Type 2 diabetes mellitus without complications; 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
[2022-11-01] MEDS ORDERED: DIPRIVAN VIAL 20 ML ONE (12:38)
[2022-11-01] MEDS ORDERED: ZESTRIL TAB 20 MG ONE (15:18)
[2022-11-01] MEDS ORDERED: OMNIPAQUE 350 mg/mL 100 mL BTL 100 ML ONE (15:40)
--- NOTE | 2022-11-01 16:47 | CT ---
HISTORYPLEURAL EFFUSION, HYPOXIA, ANEMIA. Evaluate pulmonary embolus. Indeterminate findings identified on the recent contrasted chest CT, not a CTA.STUDYCTA CHESTCOMPARISONChest radiograph 10/31/2022, CT chest 10/31/2022TECHNIQUEMultiple CT axial images of the chest were obtained with IV contrast. Coronal and sagittal images were reconstructed. 3D reconstructions using axial MIPS imaging was performed and reviewed. Dose reduction techniques included Automated Exposure Control (AEC) and adjustment of mA and kV.Stenoses are measured using NASCET criteria.FINDINGSPulmonary arteries are identified to segmental branches. There are no pulmonary emboli.Cardiomegaly is stable.Atherosclerotic calcification is present in the coronary arteries. Left atrial exclusion device is noted.The pulmonary artery and aorta have a normal caliber. No mediastinal mass or significant lymphadenopathy.The thyroid has a normal size and configuration. No axillary mass or significant axillary lymphadenopathy is identified.Small bilateral effusions are present, unchanged from yesterday. The appearance of the lungs are stable when compared yesterday suggesting pulmonary edema.Upper abdomen unchanged from yesterday.Degenerative changes are present in the spine.IMPRESSION1. No pulmonary emboliElectronically signed by: Laci Mtz (Nov 01, 2022 16:45:53)
[2022-11-01] MEDS: SNACK - Diabetic Appropriate PO SCH (20:44)
[2022-11-01] MEDS: REVATIO PO SCH (20:45)
[2022-11-02 05:05] LABS: BASOPHILS # (AUTO) 0.1 X10^3/uL (0.0-0.1); BASOPHILS % (AUTO) 1.5 % (0.2-1.0); EOSINOPHILS # (AUTO) 0.3 x10^3/uL (0.0-0.2); EOSINOPHILS % (AUTO) 6.5 % (0.9-2.9); HEMATOCRIT 28.5 % (42.0-54.0); HEMOGLOBIN 9.6 g/dL (13.5-18.0); LYMPHOCYTES # (AUTO) 0.8 X10^3/uL (1.3-2.9); LYMPHOCYTES % (AUTO) 19.8 % (21.0-51.0); MEAN CORPUSCULAR HEMOGLOBIN 29.9 pg (27.0-34.0); MEAN CORPUSCULAR HGB CONC 33.9 g/dL (33.0-35.0); MEAN CORPUSCULAR VOLUME 88.4 fL (80.0-100.0); MEAN PLATELET VOLUME 8.6 fL (7.4-11.0); MONOCYTES # (AUTO) 0.6 x10^3/uL (0.3-0.8); MONOCYTES % (AUTO) 14.1 % (0.0-13.0); NEUTROPHILS # (AUTO) 2.4 x10^3/uL (2.2-4.8); NEUTROPHILS % (AUTO) 58.1 % (42.0-75.0); PLATELET COUNT 212 X10^3/uL (150.0-450.0); RED BLOOD COUNT 3.22 X10^6/uL (4.7-6.0); RED CELL DISTRIBUTION WIDTH 15.9 % (11.6-16.5); WHITE BLOOD COUNT 4.1 X10^3/uL (3.6-10.0)
[2022-11-02 05:17] LABS: ALANINE AMINOTRANSFERASE 6 Units/L (12-78); ALBUMIN 2.9 g/dL (3.4-5.0); ALKALINE PHOSPHATASE 81 Units/L (46-116); ASPARTATE AMINO TRANSFERASE 10 Units/L (15-37); BLOOD UREA NITROGEN 13 mg/dL (7-18); CALCIUM 8.2 mg/dL (8.5-10.1); CARBON DIOXIDE 33.7 mmol/L (21-32); CHLORIDE 103 mmol/L (98-107); COR CA(FOR HYPOALB) 9.1 mg/dL (8.5-10.1); COR NA(FOR HYPERGLY) 141 mmol/L (136-145); CREATININE 1.13 mg/dL (0.70-1.30); GLUCOSE 128 mg/dL (65-99); POTASSIUM 4.1 mmol/L (3.5-5.1); SODIUM 140 mmol/L (136-145); TOTAL PROTEIN 5.6 g/dL (6.4-8.2); eGFR NON BLACK RACES > 60 (>60)
--- NOTE | 2022-11-02 06:05 | RAD ---
HISTORYSOB Relevant Clinical InformationSTUDYCHEST, 1 [id number] trachea is midline. The cardiac silhouette is mildly enlarged.. Patchy bilateral opacities unchanged. N. The bony thorax is unremarkable.IMPRESSIONMild cardiomegalyBilateral patchy opacities which may represent acute or chronic changes..Electronically signed by: Wander Wilder (Nov 02, 2022 06:04:03)
[2022-11-02] MEDS ORDERED: GLUCOPHAGE ONE (08:54)
[2022-11-02] MEDS ORDERED: ZESTRIL TAB 20 MG ONE (08:54)
[2022-11-02] MEDS: MICRO K EXTEN CAP 10 MEQ PO SCH (08:59)
[2022-11-02] MEDS: LASIX IVP SCH ×2 (08:59→16:56)
[2022-11-02] MEDS: AMARYL TAB 4 MG PO SCH ×2 (09:00→21:00)
[2022-11-02] MEDS: ZESTRIL TAB 20 MG PO SCH (09:01)
[2022-11-02] MEDS: NORVASC TAB 10 MG PO SCH (09:01)
[2022-11-02] MEDS: TOPROL XL PO SCH (09:01)
[2022-11-02] MEDS: REVATIO PO SCH ×2 (09:02→20:59)
[2022-11-02] MEDS: CARDURA PO SCH (09:02)
[2022-11-02] MEDS: GLUCOPHAGE PO SCH (09:10)
[2022-11-02] MEDS: PROTONIX INJ 40 MG VIAL IVP SCH ×2 (10:15→21:00)
--- NOTE | 2022-11-02 10:39 | PCM.PROG ---
Progress Note - Progress Note for Day of Date of Exam: 11/02/22 - Subjective Subjective: IS CURRENTLY OBSERVATION STATUS FOR TREATMENT OF PLEURAL EFFUSIONS, NEAR SYNCOPE, ANEMIA, DYSPNEA, HYPOXIA, AND DIZZINESS. HE ALSO COMPLAINS OF INTERMITTENT ABDOMINAL CRAMPING. HIS MEDICAL HX INCLUDES: CARDIAC ARRHYTHMIA, HTN, ATRIAL FIBRILLATION, WATCHMAN, HX OF RIGHT LUNG CANCER, P ULMONARY HTN, ARTHRITIS, DM II. SURGICAL HISTORY INCLUDES: PACEMAKER, CARDIAC STENTS, APPENDECTOMY, TONSILLECTOMY, RIGHT LOBECTOMY. PATIENT REPORTS THAT HIS SYMPTOMS INITALY STARTED TWO MONTHS AGO, BUT HAVE WORSENED OVER THE PAST FEW DAYS. SINCE ADMISSION, HE HAS BEEN UTILIZING OXYGEN VIA NASAL CANNULA AT 4 LPM. WHEN OXYGEN IS REMOVED, HIS SATURATIONS DECREASE TO 85%, BUT WHEN OXYGEN IS PLACED BACK ON HIM, SATURATIONS INCREASE TO 95-98%. TODAY, HE IS ALERT AND ORIENTED, SITTING UP IN BED ON MORNING ROUNDS. HE CONTINUES TO COMPLAIN OF WEAKNESS AND OCCASIONAL SHORTNESS OF BREATH. HE IS UNSTEADY ON ABMULATION AND REQUIRES ASSISTANCE. ON EXAMINATION, HEART IS REGULAR IN RATE AND RHYTHM. BILATERAL LUNGS ARE NOTED WITH DIMINISHED LUNG SOUNDS THROUGHOUT. ABDOMEN IS ROUND, SOFT, AND NON-TENDER WITH NORMAL BOWEL SOUNDS NOTED IN ALL QUADRANTS. GOOD RANGE OF MOTION NOTED TO UPPER AND LOWER EXTREMITIES. NO EDEMA NOTED. HIS VITALS THIS MORNING ARE: 97.9-60-21-97%-158/71. LABS WERE OBTAINED. WBC 4.1, RBC 3.22, HGB 9.6, HCT 28.5, PLT COUNT 212, SODIUM 140, POTASSIUM 4.1, CARBON DIOXIDE 33.7, BUN 13, CREATININE 1.13, GLUCOSE 128, CALCIUM 8.2, AST 10, ALT 6, ALK PHOS 81, BNP 289, TOTAL PROTEIN 5.6, ALBUMIN 2.9. ABG WAS OBTAINED ON ROOM AIR YESTERDAY AND REVEALED: PH 7.400, PC02 46, P02 50, HC03 28.5, 02 SAT 85, BASE EXCESS 3.1, FI02 21.0. STOOLS ARE NEGATIVE FOR OCCULT BLOOD. AN ECHO WAS OBTAINED ON ADMISSION AND REVEALED AN EJECTION FRACTION OF 60% AND SEVERE PULMONARY HTN. RVSP WAS 78mmHg. A CHEST CTA WAS OBTAINED YESTERDAY TO RULE OUT PULMONARY EMBOLISM AND WAS NEGATIVE. HE HAD AN EGD BY YESTERDAY. EGD REVEALED ULCERATED POLYPS AT CARDIA OF THE STOMACH, ANTRAL GASTRITIS, AND DISTAL ESOPHAGITIS. BIPOSIES WERE TAKEN. HE IS CURRENTLY RECEIVING LOVENOX 40MG SC DAILY, SILDENAFIL 50MG BID, LASIX 20MG IV BID, AND HIS HOME MEDICATIONS OF NORVASC, ASPIRIN, CARDURA, AMARYL, NORCO, ZESTRIL, ANTIVERT, GLUCOPHAGE, TOPROL XL, AND POTASSIUM CHLORIDE WERE RESUMED. WE WILL HOLD HIS LOVENOX AND ASPIRIN. WE WILL ADD PANTOPRAZOLE 40MG BID. OTHERWISE, WE WILL FOLLOW UP WITH AM LABS AND CONTINUE TO MONITOR. TIME SPENT ON CLINICAL ASSESSMENT, REVIEWING LABS AND IMAGING, DECISION MAKING, AND DOCUMENTATION GREATER THAN 45 MINUTES. - Past Medical Family Social History Past Med/Fam/Surg Hx: No changes since H&P Allergies: Allergies No Known Drug Allergies Allergy (Verified 02/15/17 10:37) - Review of Systems ROS: No change since H&P - Vital Signs and I&O's Vital Signs: Vital Signs Temperature 97.9 F Temperature 97.2 F Pulse Rate 74 Pulse Rate 62 Pulse Rate 61 Pulse Rate 62 Pulse Rate 60 Pulse Rate 60 Pulse Rate 60 Pulse Rate 62 Pulse Rate 64 Respiratory Rate 32 Respiratory Rate 30 Respiratory Rate 30 Respiratory Rate 26 Respiratory Rate 21 Respiratory Rate 21 Respiratory Rate 33 Respiratory Rate 16 Respiratory Rate 21 Blood Pressure 155/67 Blood Pressure 156/63 Blood Pressure 148/67 Blood Pressure 152/67 Blood Pressure 156/67 Blood Pressure 158/71 Blood Pressure 170/74 Blood Pressure 154/65 Blood Pressure 135/64 O2 Sat by Pulse Oximetry 98 O2 Sat by Pulse Oximetry 96 O2 Sat by Pulse Oximetry 99 O2 Sat by Pulse Oximetry 99 O2 Sat by Pulse Oximetry 98 O2 Sat by Pulse Oximetry 97 O2 Sat by Pulse Oximetry 96 O2 Sat by Pulse Oximetry 100 O2 Sat by Pulse Oximetry 98 Intake and Output: Intake & Output 10/30/22 10/31/22 11/01/22 11/02/22 11:59 11:59 11:59 11:59 Intake Total 1600 / 1600 2155 / 2155 1200 / 1200 Output Total 2074 / 2074 2725 / 2725 3610 / 3610 Balance -475 / -475 -570 / -570 -2410 / -2410 - Physical Exam Oriented: Normal Eyes: Normal Ear: Normal Nose: Normal Throat: Normal Respiratory: Diminished Cardiovascular: Normal : Normal Auscultation: Bowel Sounds: Normal Palpation: Normal Tenderness: Diffuse, Mild (INTERMITTENT ). negative: Rebound, Guarding, Rigidity Skin: Normal Musculoskeletal: Normal Psychiatric: Normal Mood Description: Calm Affect: Normal Speech Pattern: Clear, Appropriate - Laboratory and Diagnostics Result Diagrams: 11/02/22 04:26 11/02/22 04:26 Labs: 11/01/22 13:55 Sputum - Expectorated Sputum Sputum Culture - Preliminary 11/01/22 13:55 Sputum - Expectorated Sputum - Final Laboratory WBC 4.1 X10^3/uL (3.6-10.0) 11/02/22 04: RBC 3.22 X10^6/uL (4.7-6.0) L 11/02/22 04:26 Hgb 9.6 g/dL (13.5-18.0) L 11/02/22 04:26 Hct 28.5 % (42.0-54.0) L 11/02/22 04:26 MCV 88.4 fL (80.0-100.0) 11/02/22 04:26 MCH 29.9 pg (27.0-34.0) 11/02/22 04:26 MCHC 33.9 g/dL (33.0-35.0) 11/02/22 04: RDW 15.9 % (11.6-16.5) 11/02/22 04:26 Plt Count 212 X10^3/uL (150.0-450.0) 11/02/22 04:26 MPV 8.6 fL (7.4-11.0) 11/02/22 04:26 Neut % (Auto) 58.1 % (42.0-75.0) 11/02/22 04:26 Lymph % (Auto) 19.8 % (21.0-51.0) L 11/02/22 04:26 [place] % (Auto) 14.1 % (0.0-13.0) H 11/02/22 04:26 Eos % (Auto) 6.5 % (0.9-2.9) H 11/02/22 04:26 Baso % (Auto) 1.5 % (0.2-1.0) H 11/02/22 04:26 Neut # (Auto) 2.4 x10^3/uL (2.2-4.8) 11/02/22 04:26 Lymph # (Auto) 0.8 X10^3/uL (1.3-2.9) L 11/02/22 04:26 [place] # (Auto) 0.6 x10^3/uL (0.3-0.8) 11/02/22 04:26 Eos # (Auto) 0.3 x10^3/uL (0.0-0.2) H 11/02/22 04:26 Baso # (Auto) 0.1 X10^3/uL (0.0-0.1) 11/02/22 04:26 Absolute Nucleated RBC 0.1 /100WBC 11/02/22 04:26 D-Dimer 1.06 ug/ml (0.0-0.57) H 10/31/22 04:43 Sample Site [facility] 11/01/22 10:49 ABG pH 7.400 (7.35-7.45) 11/01/22 10:49 ABG pCO2 46.0 mmHg (35.0-45.0) H 11/01/22 10:49 ABG pO2 50.0 mmHg (80.0-100.0) L 11/01/22 10:49 ABG HCO3 28.5 mmol/L (22-26) H 11/01/22 10:49 ABG O2 Saturation 85.0 % (90-100) L 11/01/22 10:49 ABG Base Excess 3.1 mmol/L (-2.0-2.0) H 11/01/22 10:49 Tj Test N/a 11/01/22 10:49 A-a Gradient 42.0 mmHg 11/01/22 10:49 FiO2 21.0 11/01/22 10:49 Blood Gas Comments Pt ronan well elj 11/01/22 10:49 Sodium 140 mmol/L (136-145) 11/02/22 04:26 Corrected Sodium 141 mmol/L (136-145) 11/02/22 04:26 Potassium 4.1 mmol/L (3.5-5.1) 11/02/22 04:26 Chloride 103 mmol/L (98-107) 11/02/22 04:26 Carbon Dioxide 33.7 mmol/L (21-32) H 11/02/22 04:26 BUN 13 mg/dL (7-18) 11/02/22 04:26 Creatinine 1.13 mg/dL (0.70-1.30) 11/02/22 04:26 Est GFR (MDRD) Af Amer > 60 (>60) 11/02/22 04:26 Est GFR (MDRD) Non-Af > 60 (>60) 11/02/22 04:26 Glucose 128 mg/dL (65-99) H 11/02/22 04:26 POC Glucose (mg/dL) 124 mg/dL (65-99) H 11/02/22 05:42 Calcium 8.2 mg/dL (8.5-10.1) L 11/02/22 04:26 Corrected Calcium 9.1 mg/dL (8.5-10.1) 11/02/22 04:26 Iron 45 ug/dL (50-175) L 10/31/22 04:43 TIBC 263 ug/dL (250-450) 10/31/22 04:43 Transferrin 198 mg/dL (202-364) L 10/31/22 04:43 Ferritin 30 ng/mL (26-388) 10/31/22 04:43 Total Bilirubin 0.30 mg/dL (0.2-1.0) 11/02/22 04:26 AST 10 Units/L (15-37) L 11/02/22 04:26 ALT 6 Units/L (12-78) L 11/02/22 04:26 Alkaline Phosphatase 81 Units/L (46-116) 11/02/22 04:26 Troponin I High Sens 13.8 ng/L (4.0-60.0) 10/30/22 19:35 C-Reactive Protein 20.20 mg/L (0-3.0) H 11/01/22 04:34 B-Natriuretic Peptide 289 pg/mL (0-79) H 11/02/22 04:26 Total Protein 5.6 g/dL (6.4-8.2) L 11/02/22 04:26 Albumin 2.9 g/dL (3.4-5.0) L 11/02/22 04:26 Globulin 2.7 g/dL (2.5-4.5) 11/02/22 04:26 Albumin/Globulin Ratio 1.1 Ratio (1.1-2.1) 11/02/22 04:26 Vitamin B12 328 pg/mL (193-986) 10/31/22 04:43 Folate 18.3 ng/mL (>8.6) 10/31/22 04:43 Specimen Type Clean catch urine 10/31/22 11:32 Urine Color Pale yellow (YELLOW) 10/31/22 11:32 Urine Appearance Clear (CLEAR) 10/31/22 11:32 Urine pH 7.0 (5.0 - 8.0) 10/31/22 11:32 Ur Specific [place] 1.015 (1.000-1.030) 10/31/22 11:32 Urine Protein 1+ (NEGATIVE) 10/31/22 11:32 Urine Glucose (UA) Negative (NEGATIVE) 10/31/22 11:32 Urine Ketones Negative (NEGATIVE) 10/31/22 11:32 Urine Blood Negative (NEGATIVE) 10/31/22 11:32 Urine Nitrite Negative (NEGATIVE) 10/31/22 11:32 Urine Bilirubin Negative (NEGATIVE) 10/31/22 11:32 Urine Urobilinogen Normal (NORMAL) 10/31/22 11:32 Ur Leukocyte Esterase Negative (NEGATIVE) 10/31/22 11:32 Urine RBC None seen /HPF (0-3) 10/31/22 11:32 Urine WBC None seen /HPF (0-5) 10/31/22 11:32 Ur Squamous Epith Cells Rare /HPF (NEGATIVE) 10/31/22 11:32 Urine Bacteria Trace /HPF (NEGATIVE) 10/31/22 11:32 Ur Culture Indicated? No/not indicated 10/31/22 11:32 Stl Occult Blood (IFOB) Negative (NEGATIVE) 11/01/22 18:42 - Plan (1) Pleural effusion Status: Acute Plan: SUPPLEMENTAL OXYGEN, SALINE LOCK, LASIX 20MG IV BID, SILDENAFIL 50MG BID, AND LOVENOX 40MG SC DAILY. HIS HOME MEDICATIONS OF NORVASC, ASPIRIN, CARDURA, LASIX, AMARYL, NORCO, ZESTRIL, ANTIVERT, GLUCOPHAGE, TOPROL XL, AND POTASSIUM CHLORIDE WERE RESUMED. (2) Hypoxia Status: Acute Plan: CONTINUE SUPPLEMENTAL O2 (3) Shortness of breath Status: Acute (4) Anemia Status: Chronic Qualifiers: Anemia type: iron deficiency Iron deficiency anemia type: chronic blood loss Qualified Code(s): D50.0 - Iron deficiency anemia secondary to blood loss (chronic) Plan: CONSULT GI (5) Near syncope Status: Acute (6) Pulmonary HTN Status: Acute (7) HTN (hypertension) Status: Chronic Qualifiers: Hypertension type: primary hypertension Qualified Code(s): I10 - Essential (primary) hypertension Plan: CONTINUE NORVASC, ZESTRIL, AND TOPROL XL (8) DM II (diabetes mellitus, type II), controlled Status: Chronic Qualifiers: 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
[2022-11-02] MEDS: SNACK - Diabetic Appropriate PO SCH (20:00)
[2022-11-03 05:24] LABS: BASOPHILS # (AUTO) 0.1 X10^3/uL (0.0-0.1); BASOPHILS % (AUTO) 1.1 % (0.2-1.0); EOSINOPHILS # (AUTO) 0.2 x10^3/uL (0.0-0.2); EOSINOPHILS % (AUTO) 5.2 % (0.9-2.9); HEMATOCRIT 29.2 % (42.0-54.0); HEMOGLOBIN 9.8 g/dL (13.5-18.0); LYMPHOCYTES % (AUTO) 20.8 % (21.0-51.0); MEAN CORPUSCULAR HEMOGLOBIN 29.4 pg (27.0-34.0); MEAN CORPUSCULAR HGB CONC 33.7 g/dL (33.0-35.0); MEAN CORPUSCULAR VOLUME 87.3 fL (80.0-100.0); MEAN PLATELET VOLUME 8.8 fL (7.4-11.0); MONOCYTES # (AUTO) 0.6 x10^3/uL (0.3-0.8); MONOCYTES % (AUTO) 12.7 % (0.0-13.0); NEUTROPHILS # (AUTO) 2.8 x10^3/uL (2.2-4.8); NEUTROPHILS % (AUTO) 60.2 % (42.0-75.0); PLATELET COUNT 230 X10^3/uL (150.0-450.0); RED BLOOD COUNT 3.34 X10^6/uL (4.7-6.0); RED CELL DISTRIBUTION WIDTH 15.8 % (11.6-16.5); WHITE BLOOD COUNT 4.7 X10^3/uL (3.6-10.0)
[2022-11-03 05:32] LABS: ALANINE AMINOTRANSFERASE 8 Units/L (12-78); ALKALINE PHOSPHATASE 88 Units/L (46-116); ASPARTATE AMINO TRANSFERASE 14 Units/L (15-37); BLOOD UREA NITROGEN 15 mg/dL (7-18); CALCIUM 8.4 mg/dL (8.5-10.1); CARBON DIOXIDE 33.4 mmol/L (21-32); CHLORIDE 101 mmol/L (98-107); COR CA(FOR HYPOALB) 9.2 mg/dL (8.5-10.1); COR NA(FOR HYPERGLY) 138 mmol/L (136-145); CREATININE 1.35 mg/dL (0.70-1.30); GLUCOSE 157 mg/dL (65-99); POTASSIUM 4.5 mmol/L (3.5-5.1); SODIUM 137 mmol/L (136-145); TOTAL PROTEIN 5.9 g/dL (6.4-8.2); eGFR NON BLACK RACES 54 (>60)
[2022-11-03] MEDS ORDERED: ZESTRIL TAB 20 MG ONE (08:05)
[2022-11-03] MEDS: LASIX IVP SCH ×2 (08:36→17:19)
[2022-11-03] MEDS: REVATIO PO SCH ×2 (08:36→20:20)
[2022-11-03] MEDS: PROTONIX INJ 40 MG VIAL IVP SCH ×2 (08:36→20:20)
[2022-11-03] MEDS: AMARYL TAB 4 MG PO SCH ×2 (08:37→20:20)
[2022-11-03] MEDS: CARDURA PO SCH (08:37)
[2022-11-03] MEDS: MICRO K EXTEN CAP 10 MEQ PO SCH (08:38)
[2022-11-03] MEDS: NORVASC TAB 10 MG PO SCH (08:38)
[2022-11-03] MEDS: ZESTRIL TAB 20 MG PO SCH (08:38)
[2022-11-03] MEDS: TOPROL XL PO SCH (08:38)
[2022-11-03] MEDS: GLUCOPHAGE PO SCH (08:40)
--- NOTE | 2022-11-03 09:46 | RAD ---
HISTORYSOB, lung cancerSTUDYAP chestCOMPARISONAugust 2022FINDINGSMild stable cardiomegaly. Similar extent and distribution of bilateral interstitial prominence without evidence for airspace consolidation or developing pleural effusion.IMPRESSIONNo change in appearance of the chest since 1 day prior.Electronically signed by: ELLIOTT KHANNA (Nov 03, 2022 09:45:13)
--- NOTE | 2022-11-03 10:30 | PCM.PROG ---
Progress Note - Progress Note for Day of Date of Exam: 11/03/22 - Subjective Subjective: IS CURRENTLY OBSERVATION STATUS FOR TREATMENT OF PLEURAL EFFUSIONS, NEAR SYNCOPE, ANEMIA, DYSPNEA, HYPOXIA, AND DIZZINESS. HIS MEDICAL HX INCLUDES: CARDIAC ARRHYTHMIA, HTN, ATRIAL FIBRILLATION, WATCHMAN, HX OF RIGHT LUNG CANCER, PULMONARY HTN, ARTHRITIS, DM II. SURGICAL HISTORY INCLUDES: PACEMAKER, CARDIAC STENTS, APPENDECTOMY, TONSILLECTOMY, RIGHT LOBECTOMY. SINCE ADMISSION, HE HAS BEEN UTILIZING OXYGEN VIA NASAL CANNULA AT 4 LPM. WHEN OXYGEN IS REMOVED, HIS SATURATIONS DECREASE TO 85%, BUT WHEN OXYGEN IS PLACED BACK ON HIM, SATURATIONS INCREASE TO 95-98%. TODAY, HE IS ALERT AND ORIENTED, SITTING UP IN BED ON MORNING ROUNDS. HE CONTINUES TO COMPLAIN OF WEAKNESS AND OCCASIONAL SHORTNESS OF BREATH. HE IS UNSTEADY ON ABMULATION AND REQUIRES ASSISTANCE. ON EXAMINATION, HEART IS REGULAR IN RATE AND RHYTHM. BILATERAL LUNGS ARE NOTED WITH DIMINISHED LUNG SOUNDS THROUGHOUT. ABDOMEN IS ROUND, SOFT, AND NON-TENDER WITH NORMAL BOWEL SOUNDS NOTED IN ALL QUADRANTS. GOOD RANGE OF MOTION NOTED TO UPPER AND LOWER EXTREMITIES. NO EDEMA NOTED. HIS VITALS THIS MORNING ARE: 97.8-60-20-9 5%-138/64. LABS WERE OBTAINED. WBC 4.7, RBC 3.34, HGB 9.8, HCT 29.2, PLT COUNT 230, SODIUM 137, POTASSIUM 4.5, CHLORIDE 101, CARBON DIOXIDE 33.4, BUN 15, CREATININE 1.35, GLUCOSE 157, CALCIUM 8.4, AST 14, ALT 8, ALK PHOS 88, BNP 134, TOTAL PROTEIN 5.9, ALBUMIN 3.0. STOOLS ARE NEGATIVE FOR OCCULT BLOOD. AN ECHO WAS OBTAINED ON ADMISSION AND REVEALED AN EJECTION FRACTION OF 60% AND SEVERE PULMONARY HTN. RVSP WAS 78mmHg. A CHEST XRAY WAS OBTAINED YESTERDAY AND REVEALED: Mild stable cardiomegaly. Similar extent and distribution of bilateral interstitial prominence without evidence for airspace consolidation or developing pleural effusion. HE HAD AN EGD BY ON SATURDAY. EGD REVEALED ULCERATED POLYPS AT CARDIA OF THE STOMACH, ANTRAL GASTRITIS, AND DISTAL ESOPHAGITIS. BIPOSIES WERE TAKEN. HE IS CURRENTLY RECEIVING PROTONIX 40MG IV BID, SILDENAFIL 50MG BID, LASIX 20MG IV BID, AND HIS HOME MEDICATIONS OF NORVASC, CARDURA, AMARYL, NORCO, ZESTRIL, ANTIVERT, GLUCOPHAGE, TOPROL XL, AND POTASSIUM CHLORIDE WERE RESUMED. TODAY, WE WILL ADD HEMOCYTE PLUS 1 CAPSULE DAILY. OTHERWISE, WE WILL FOLLOW UP WITH AM LABS AND CONTINUE TO MONITOR. TIME SPENT ON CLINICAL ASSESSMENT, REVIEWING LABS AND IMAGING, DECISION MAKING, AND DOCUMENTATION GREATER THAN 45 MINUTES. - Past Medical Family Social History Past Med/Fam/Surg Hx: No changes since H&P Allergies: Allergies No Known Drug Allergies Allergy (Verified 02/15/17 10:37) - Review of Systems ROS: No change since H&P - Vital Signs and I&O's Vital Signs: Vital Signs Temperature 97.8 F Pulse Rate 62 Pulse Rate 60 Pulse Rate 61 Pulse Rate 61 Pulse Rate 60 Pulse Rate 63 Pulse Rate 60 Respiratory Rate 21 Respiratory Rate 20 Respiratory Rate 24 Respiratory Rate 17 Respiratory Rate 18 Respiratory Rate 14 Respiratory Rate 20 Blood Pressure 154/69 Blood Pressure 138/64 Blood Pressure 164/70 Blood Pressure 138/63 Blood Pressure 127/60 Blood Pressure 160/71 Blood Pressure 139/65 O2 Sat by Pulse Oximetry 98 O2 Sat by Pulse Oximetry 95 O2 Sat by Pulse Oximetry 100 O2 Sat by Pulse Oximetry 98 O2 Sat by Pulse Oximetry 95 O2 Sat by Pulse Oximetry 100 O2 Sat by Pulse Oximetry 99 Intake and Output: Intake & Output 10/31/22 11/01/22 11/02/22 11/03/22 11:59 11:59 11:59 11:59 Intake Total 1600 / 1600 2155 / 2155 1200 / 1200 514 / 514 Output Total 2075 / 2075 2725 / 2725 3610 / 3610 2250 / 2250 Balance -475 / -475 -570 / -570 -2410 / -2410 -1736 / -1736 - Physical Exam Oriented: Normal Eyes: Normal Ear: Normal Nose: Normal Throat: Normal Respiratory: Diminished Cardiovascular: Normal : Normal Auscultation: Bowel Sounds: Normal Palpation: Normal Tenderness: Diffuse, Mild (INTERMITTENT ). negative: Rebound, Guarding, Rigidity Skin: Normal Musculoskeletal: Normal Psychiatric: Normal Mood Description: Calm Affect: Normal Speech Pattern: Clear, Appropriate - Laboratory and Diagnostics Result Diagrams: 11/03/22 04:40 11/03/22 04:40 Labs: 11/01/22 13:55 Sputum - Expectorated Sputum Sputum Culture - Preliminary 11/01/22 13:55 Sputum - Expectorated Sputum - Final Laboratory WBC 4.7 X10^3/uL (3.6-10.0) 11/03/22 04:40 RBC 3.34 X10^6/uL (4.7-6.0) L 11/03/22 04:40 Hgb 9.8 g/dL (13.5-18.0) L 11/03/22 04:40 Hct 29.2 % (42.0-54.0) L 11/03/22 04:40 MCV 87.3 fL (80.0-100.0) 11/03/22 04:40 MCH 29.4 pg (27.0-34.0) 11/03/22 04:40 MCHC 33.7 g/dL (33.0-35.0) 11/03/22 04:40 RDW 15.8 % (11.6-16.5) 11/03/22 04:40 Plt Count 230 X10^3/uL (150.0-450.0) 11/03/22 04:40 MPV 8.8 fL (7.4-11.0) 11/03/22 04:40 Neut % (Auto) 60.2 % (42.0-75.0) 11/03/22 04:40 Lymph % (Auto) 20.8 % (21.0-51.0) L 11/03/22 04:40 [place] % (Auto) 12.7 % (0.0-13.0) 11/03/22 04:40 Eos % (Auto) 5.2 % (0.9-2.9) H 11/03/22 04:40 Baso % (Auto) 1.1 % (0.2-1.0) H 11/03/22 04:40 Neut # (Auto) 2.8 x10^3/uL (2.2-4.8) 11/03/22 04:40 Lymph # (Auto) 1.0 X10^3/uL (1.3-2.9) L 11/03/22 04:40 [place] # (Auto) 0.6 x10^3/uL (0.3-0.8) 11/03/22 04:40 Eos # (Auto) 0.2 x10^3/uL (0.0-0.2) 11/03/22 04:40 Baso # (Auto) 0.1 X10^3/uL (0.0-0.1) 11/03/22 04:40 Absolute Nucleated RBC 0.1 /100WBC 11/03/22 04:40 D-Dimer 1.06 ug/ml (0.0-0.57) H 10/31/22 04:43 Sample Site [facility] 11/01/22 10:49 ABG pH 7.400 (7.35-7.45) 11/01/22 10:49 ABG pCO2 46.0 mmHg (35.0-45.0) H 11/01/22 10:49 ABG pO2 50.0 mmHg (80.0-100.0) L 11/01/22 10:49 ABG HCO3 28.5 mmol/L (22-26) H 11/01/22 10:49 ABG O2 Saturation 85.0 % (90-100) L 11/01/22 10:49 ABG Base Excess 3.1 mmol/L (-2.0-2.0) H 11/01/22 10:49 Tj Test N/a 11/01/22 10:49 A-a Gradient 42.0 mmHg 11/01/22 10:49 FiO2 21.0 11/01/22 10:49 Blood Gas Comments Pt ronan well elj 11/01/22 10:49 Sodium 137 mmol/L (136-145) 11/03/22 04:40 Corrected Sodium 138 mmol/L (136-145) 11/03/22 04:40 Potassium 4.5 mmol/L (3.5-5.1) 11/03/22 04:40 Chloride 101 mmol/L (98-107) 11/03/22 04:40 Carbon Dioxide 33.4 mmol/L (21-32) H 11/03/22 04:40 BUN 15 mg/dL (7-18) 11/03/22 04:40 Creatinine 1.35 mg/dL (0.70-1.30) H 11/03/22 04:40 Est GFR (MDRD) Af Amer > 60 (>60) 11/03/22 04:40 Est GFR (MDRD) Non-Af 54 (>60) L 11/03/22 04:40 Glucose 157 mg/dL (65-99) H 11/03/22 04:40 POC Glucose (mg/dL) 176 mg/dL (65-99) H 11/03/22 05:16 Calcium 8.4 mg/dL (8.5-10.1) L 11/03/22 04:40 Corrected Calcium 9.2 mg/dL (8.5-10.1) 11/03/22 04:40 Iron 45 ug/dL (50-175) L 10/31/22 04:43 TIBC 263 ug/dL (250-450) 10/31/22 04:43 Transferrin 198 mg/dL (202-364) L 10/31/22 04:43 Ferritin 30 ng/mL (26-388) 10/31/22 04:43 Total Bilirubin 0.30 mg/dL (0.2-1.0) 11/03/22 04:40 AST 14 Units/L (15-37) L 11/03/22 04:40 ALT 8 Units/L (12-78) L 11/03/22 04:40 Alkaline Phosphatase 88 Units/L (46-116) 11/03/22 04:40 Troponin I High Sens 13.8 ng/L (4.0-60.0) 10/30/22 19:35 C-Reactive Protein 20.20 mg/L (0-3.0) H 11/01/22 04:34 B-Natriuretic Peptide 134 pg/mL (0-79) H 11/03/22 04:40 Total Protein 5.9 g/dL (6.4-8.2) L 11/03/22 04:40 Albumin 3.0 g/dL (3.4-5.0) L 11/03/22 04:40 Globulin 2.9 g/dL (2.5-4.5) 11/03/22 04:40 Albumin/Globulin Ratio 1.0 Ratio (1.1-2.1) L 11/03/22 04:40 Vitamin B12 328 pg/mL (193-986) 10/31/22 04:43 Folate 18.3 ng/mL (>8.6) 10/31/22 04:43 Specimen Type Clean catch urine 10/31/22 11:32 Urine Color Pale yellow (YELLOW) 10/31/22 11:32 Urine Appearance Clear (CLEAR) 10/31/22 11:32 Urine pH 7.0 (5.0 - 8.0) 10/31/22 11:32 Ur Specific [place] 1.015 (1.000-1.030) 10/31/22 11:32 Urine Protein 1+ (NEGATIVE) 10/31/22 11:32 Urine Glucose (UA) Negative (NEGATIVE) 10/31/22 11:32 Urine Ketones Negative (NEGATIVE) 10/31/22 11:32 Urine Blood Negative (NEGATIVE) 10/31/22 11:32 Urine Nitrite Negative (NEGATIVE) 10/31/22 11:32 Urine Bilirubin Negative (NEGATIVE) 10/31/22 11:32 Urine Urobilinogen Normal (NORMAL) 10/31/22 11:32 Ur Leukocyte Esterase Negative (NEGATIVE) 10/31/22 11:32 Urine RBC None seen /HPF (0-3) 10/31/22 11:32 Urine WBC None seen /HPF (0-5) 10/31/22 11:32 Ur Squamous Epith Cells Rare /HPF (NEGATIVE) 10/31/22 11:32 Urine Bacteria Trace /HPF (NEGATIVE) 10/31/22 11:32 Ur Culture Indicated? No/not indicated 10/31/22 11:32 Stl Occult Blood (IFOB) Negative (NEGATIVE) 11/01/22 18:42 - Plan (1) Pleural effusion Status: Acute Plan: SUPPLEMENTAL OXYGEN, SALINE LOCK, LASIX 20MG IV BID, SILDENAFIL 50MG BID, PROTONIX 40MG IV BID, HEMOCYTE PLUS 1 CAPSULE DAILY. HIS HOME MEDICATIONS OF NORVASC, CARDURA, LASIX, AMARYL, NORCO, ZESTRIL, ANTIVERT, GLUCOPHAGE, TOPROL XL, AND POTASSIUM CHLORIDE WERE RESUMED. (2) Hypoxia Status: Acute Plan: CONTINUE SUPPLEMENTAL O2 (3) Shortness of breath Status: Acute (4) Anemia Status: Chronic Qualifiers: Anemia type: iron deficiency Iron deficiency anemia type: chronic blood loss Qualified Code(s): D50.0 - Iron deficiency anemia secondary to blood loss (chronic) Plan: CONSULT GI (5) Near syncope Status: Acute (6) Pulmonary HTN Status: Acute (7) HTN (hypertension) Status: Chronic Qualifiers: Hypertension type: primary hypertension Qualified Code(s): I10 - Essential (primary) hypertension Plan: CONTINUE NORVASC, ZESTRIL, AND TOPROL XL (8) DM II (diabetes mellitus, type II), controlled Status: Chronic Qualifiers: Diabetes mellitus retirement insulin use: with retirement use Diabetes mellitus complication status: without complication Qualified Code(s): E11.9 - Type 2 diabetes mellitus without complications; Z79.4 - nursing home (current) use of insulin Plan: OTBS ACHS, HUMULIN R SLIDING SCALE, (9) Atrial fibrillation Status: Chronic Qualifiers: Atrial fibrillation type: unspecified Plan: PRESENCE OF PACEMAKER, CONTINUE TOPROL
[2022-11-03] MEDS: HEMOCYTE-PLUS PO SCH (11:23)
[2022-11-03] MEDS: SNACK - Diabetic Appropriate PO SCH (20:20)
[2022-11-04 05:01] VITALS: TEMP 98.1
[2022-11-04 05:03] LABS: BASOPHILS % (AUTO) 0.2 % (0.2-1.0); EOSINOPHILS # (AUTO) 0.2 x10^3/uL (0.0-0.2); EOSINOPHILS % (AUTO) 5.3 % (0.9-2.9); HEMATOCRIT 29.5 % (42.0-54.0); HEMOGLOBIN 10.2 g/dL (13.5-18.0); LYMPHOCYTES # (AUTO) 0.8 X10^3/uL (1.3-2.9); LYMPHOCYTES % (AUTO) 17.8 % (21.0-51.0); MEAN CORPUSCULAR HEMOGLOBIN 30.2 pg (27.0-34.0); MEAN CORPUSCULAR HGB CONC 34.5 g/dL (33.0-35.0); MEAN CORPUSCULAR VOLUME 87.6 fL (80.0-100.0); MEAN PLATELET VOLUME 9.1 fL (7.4-11.0); MONOCYTES # (AUTO) 0.6 x10^3/uL (0.3-0.8); MONOCYTES % (AUTO) 13.1 % (0.0-13.0); NEUTROPHILS # (AUTO) 2.8 x10^3/uL (2.2-4.8); NEUTROPHILS % (AUTO) 63.6 % (42.0-75.0); PLATELET COUNT 242 X10^3/uL (150.0-450.0); RED BLOOD COUNT 3.37 X10^6/uL (4.7-6.0); RED CELL DISTRIBUTION WIDTH 15.9 % (11.6-16.5); WHITE BLOOD COUNT 4.4 X10^3/uL (3.6-10.0)
[2022-11-04 05:14] LABS: ALANINE AMINOTRANSFERASE 6 Units/L (12-78); ALBUMIN 2.9 g/dL (3.4-5.0); ALKALINE PHOSPHATASE 92 Units/L (46-116); ASPARTATE AMINO TRANSFERASE 12 Units/L (15-37); BLOOD UREA NITROGEN 19 mg/dL (7-18); CALCIUM 8.2 mg/dL (8.5-10.1); CARBON DIOXIDE 33.7 mmol/L (21-32); CHLORIDE 101 mmol/L (98-107); COR CA(FOR HYPOALB) 9.1 mg/dL (8.5-10.1); COR NA(FOR HYPERGLY) 140 mmol/L (136-145); CREATININE 1.37 mg/dL (0.70-1.30); GLUCOSE 143 mg/dL (65-99); POTASSIUM 4.2 mmol/L (3.5-5.1); SODIUM 139 mmol/L (136-145); TOTAL PROTEIN 6.1 g/dL (6.4-8.2); eGFR NON BLACK RACES 53 (>60)
--- NOTE | 2022-11-04 08:34 | RAD ---
HISTORYSOBSTUDYAP chestCOMPARISONAugust 2022FINDINGSSimilar appearance of cardiomegaly and indistinct infiltrates. There is no evidence for interval improvement or progression of parenchymal abnormalities. The pleural spaces remain well defined.IMPRESSIONNo change.Electronically signed by: ELLIOTT KHANNA (Nov 04, 2022 08:33:22)
[2022-11-04] MEDS ORDERED: ZESTRIL TAB 20 MG ONE (09:09)
[2022-11-04] MEDS: GLUCOPHAGE PO SCH (09:13)
[2022-11-04] MEDS: LASIX IVP SCH (09:24)
[2022-11-04] MEDS: PROTONIX INJ 40 MG VIAL IVP SCH (09:24)
[2022-11-04] MEDS: HEMOCYTE-PLUS PO SCH (09:25)
[2022-11-04] MEDS: AMARYL TAB 4 MG PO SCH (09:25)
[2022-11-04] MEDS: ZESTRIL TAB 20 MG PO SCH (09:25)
[2022-11-04] MEDS: CARDURA PO SCH (09:25)
[2022-11-04] MEDS: TOPROL XL PO SCH (09:25)
[2022-11-04] MEDS: MICRO K EXTEN CAP 10 MEQ PO SCH (09:25)
[2022-11-04] MEDS: REVATIO PO SCH (09:25)
[2022-11-04] MEDS: NORVASC TAB 10 MG PO SCH (09:26)
[2022-11-04 12:29] VITALS: BP 144/64; PULSE 61; RESP 21; O2SAT 98
== END 2022-11-04 14:20 | disposition home health service (06) | DRG 188 ==
LOC: ICU
PROVIDERS: ADMIT Internal Medicine; ATTEND Internal Medicine
DX: R79.82 Elevated C-reactive protein (CRP); Z79.4 Long term (current) use of insulin; Z90.2 Acquired absence of lung [part of]; B95.3 Streptococcus pneumoniae as the cause of diseases classified elsewhere; Z85.118 Personal history of other malignant neoplasm of bronchus and lung; I48.91 Unspecified atrial fibrillation; Z85.820 Personal history of malignant melanoma of skin; Z79.01 Long term (current) use of anticoagulants; K20.80 Other esophagitis without bleeding; R53.1 Weakness; Z95.0 Presence of cardiac pacemaker; K86.89 Other specified diseases of pancreas; D50.0 Iron deficiency anemia secondary to blood loss (chronic); E11.65 Type 2 diabetes mellitus with hyperglycemia; R55 Syncope and collapse; I27.20 Pulmonary hypertension, unspecified; R94.31 Abnormal electrocardiogram [ECG] [EKG]; I10 Essential (primary) hypertension; K31.7 Polyp of stomach and duodenum; K29.00 Acute gastritis without bleeding; R09.02 Hypoxemia; J90 Pleural effusion, not elsewhere classified; R26.81 Unsteadiness on feet; R42 Dizziness and giddiness; R10.84 Generalized abdominal pain

== ENCOUNTER 2023-08-12 11:19 | Inpatient (IN) ==
[2023-08-12 13:27] LABS: BASOPHILS % (AUTO) 0.3 % (0.2-1.0); EOSINOPHILS % (AUTO) 0.1 % (0.9-2.9); HEMATOCRIT 26.2 % (42.0-54.0); HEMOGLOBIN 8.7 g/dL (13.5-18.0); LYMPHOCYTES # (AUTO) 0.3 X10^3/uL (1.3-2.9); LYMPHOCYTES % (AUTO) 6.1 % (21.0-51.0); MEAN CORPUSCULAR HEMOGLOBIN 31.6 pg (27.0-34.0); MEAN CORPUSCULAR HGB CONC 33.2 g/dL (33.0-35.0); MEAN CORPUSCULAR VOLUME 95.1 fL (80.0-100.0); MONOCYTES # (AUTO) 0.5 x10^3/uL (0.3-0.8); MONOCYTES % (AUTO) 10.3 % (0.0-13.0); NEUTROPHILS # (AUTO) 4.2 x10^3/uL (2.2-4.8); NEUTROPHILS % (AUTO) 83.2 % (42.0-75.0); PLATELET COUNT 171 X10^3/uL (150.0-450.0); RED BLOOD COUNT 2.75 X10^6/uL (4.7-6.0); RED CELL DISTRIBUTION WIDTH 15.2 % (11.6-16.5); WHITE BLOOD COUNT 5.1 X10^3/uL (3.6-10.0)
[2023-08-12 13:42] LABS: ALBUMIN 2.8 g/dL (3.4-5.0); CALCIUM 8.8 mg/dL (8.5-10.1); CARBON DIOXIDE 35.3 mmol/L (21-32); COR CA(FOR HYPOALB) 9.8 mg/dL (8.5-10.1); CREATININE 1.81 mg/dL (0.70-1.30); POTASSIUM 4.4 mmol/L (3.5-5.1); TOTAL PROTEIN 6.7 g/dL (6.4-8.2)
--- NOTE | 2023-08-12 14:46 | RAD ---
EXAM:CHEST, 1 VIEWHISTORY:SOB, COUGH;COMPARISON:03/14/2023TECHNIQUE:Sin gle chest radiographFINDINGS:Cardiomediastinal silhouette is stable with cardiomegaly and interstitial perihilar edema noted which is slightly worsened. Right hemidiaphragm elevation with adjacent scarring. Old right rib fracture deformities noted again.IMPRESSION:1. Cardiomegaly with mild pulmonary edema pattern.THIS IS AN ELECTRONICALLY VERIFIED FINAL REPORT08/12/2023 2:43 PM - Electronically signed by Clovis Mesa MD
[2023-08-12] MEDS: DUONEB 0.5 MG/3 MG (3 mL) NEB SCH (14:48)
[2023-08-12] MEDS: PULMICORT NEB TX 0.5 MG NEB SCH (14:49)
[2023-08-12] MEDS ORDERED: NS 1,000 ML IV 1,000 ML IV SCH (15:00)
[2023-08-12] MEDS ORDERED: ZITHROMAX INJ 500 MG VIAL IV ONE (15:13)
[2023-08-12] MEDS: ROCEPHIN VIAL 1 GRAM 1 G in NS 100 ML IV 100 ML IV SCH (15:25)
--- NOTE | 2023-08-12 15:51 | EKG ---
Test Reason : sob Blood Pressure : */* mmHG Vent. Rate : 96 BPM Atrial Rate : 96 BPM P-R Int : * ms QRS Dur : 140 ms QT Int : 390 ms P-R-T Axes : * 14 148 degrees QTc Int : 492 ms Ventricular-paced rhythm Abnormal ECG When compared with ECG of 30-OCT-2022 20:01, Vent. rate has increased BY 10 BPM Confirmed by Martin Palumbo MD ([id number]) on 08/13/2023 7:49:24 AM Referred By: Confirmed By: Martin Palumbo MD
[2023-08-12] MEDS: ZITHROMAX INJ 500 MG VIAL 500 MG in NS 250 ML IV 250 ML IV SCH (16:23)
[2023-08-12] MEDS: LASIX IVP ONE (16:26)
[2023-08-12] MEDS: LOVENOX INJ 30 MG SYR SC SCH (16:27)
[2023-08-12] MEDS: NS 250 ML IV 250 ML IV ONE (16:28)
[2023-08-12] MEDS: NORCO 5/325 MG TAB PO PRN (17:28)
[2023-08-12] MEDS: PROTONIX TAB 40 MG PO SCH (20:30)
[2023-08-12] MEDS: REVATIO PO SCH (20:30)
[2023-08-12] MEDS: NovoLIN R (or HumuLIN R) SC PRN (20:30)
[2023-08-13 06:36] LABS: BASOPHILS % (AUTO) 0.9 % (0.2-1.0); HEMATOCRIT 26.4 % (42.0-54.0); LYMPHOCYTES # (AUTO) 0.5 X10^3/uL (1.3-2.9); LYMPHOCYTES % (AUTO) 11.2 % (21.0-51.0); MEAN CORPUSCULAR HEMOGLOBIN 32.6 pg (27.0-34.0); MEAN CORPUSCULAR HGB CONC 34.3 g/dL (33.0-35.0); MEAN PLATELET VOLUME 8.9 fL (7.4-11.0); MONOCYTES # (AUTO) 0.8 x10^3/uL (0.3-0.8); MONOCYTES % (AUTO) 15.8 % (0.0-13.0); NEUTROPHILS # (AUTO) 3.5 x10^3/uL (2.2-4.8); NEUTROPHILS % (AUTO) 71.1 % (42.0-75.0); PLATELET COUNT 207 X10^3/uL (150.0-450.0); RED BLOOD COUNT 2.78 X10^6/uL (4.7-6.0); RED CELL DISTRIBUTION WIDTH 15.4 % (11.6-16.5); WHITE BLOOD COUNT 4.9 X10^3/uL (3.6-10.0)
[2023-08-13 06:42] LABS: ALANINE AMINOTRANSFERASE 9 Units/L (12-78); ALBUMIN 2.8 g/dL (3.4-5.0); ALKALINE PHOSPHATASE 122 Units/L (46-116); ASPARTATE AMINO TRANSFERASE 20 Units/L (15-37); BLOOD UREA NITROGEN 24 mg/dL (7-18); CALCIUM 8.9 mg/dL (8.5-10.1); CARBON DIOXIDE 38.5 mmol/L (21-32); CHLORIDE 101 mmol/L (98-107); COR CA(FOR HYPOALB) 9.9 mg/dL (8.5-10.1); CREATININE 1.51 mg/dL (0.70-1.30); GLUCOSE 70 mg/dL (65-99); POTASSIUM 4.4 mmol/L (3.5-5.1); SODIUM 142 mmol/L (136-145); TOTAL PROTEIN 6.6 g/dL (6.4-8.2); eGFR NON BLACK RACES 47 (>60)
[2023-08-13] MEDS: NORVASC TAB 10 MG PO SCH (08:32)
[2023-08-13] MEDS: CARDURA PO SCH (08:32)
[2023-08-13] MEDS: ASPIRIN EC 81 MG PO SCH (08:32)
[2023-08-13] MEDS: TESSALON PERLES PO SCH (09:33)
[2023-08-13] MEDS: TOPROL XL PO SCH (09:33)
[2023-08-13] MEDS: ROBITUSSIN DM PO SCH (09:33)
--- NOTE | 2023-08-13 10:17 | RAD ---
EXAM: CHEST, 1 VIEW HISTORY: SOB, PULM. EDEMA; COMPARISON: Prior study or studies were utilized for comparison during interpretation with the most relevant brown ed 08/12/2023 TECHNIQUE: CHEST, 1 VIEW FINDINGS: Chest: Lines and tubes: None Mediastinum: Cardiomegaly. Pulmonary vessels: There is pulmonary vascular congestion. Lung mackenzie: Patchy opacities are seen Pleura: No effusion. No pneumothorax. Bones and soft tissues: No acute osseous or soft tissue abnormality. IMPRESSION: 1. Heart failure with pulmonary edema versus pneumonia without significant change from yesterday THIS IS AN ELECTRONICALLY VERIFIED FINAL REPORT 08/13/2023 10:14 AM - Electronically signed by Brian Mclean MD
--- NOTE | 2023-08-13 10:18 | DR.H&P ---
H&P History & Physical for Day of: H&P Date: 08/13/23 Chief Complaint Chief Complaint: sob, cough Allergies Allergies Allergy/AdvReac Type Severity Reaction Status Date / Time No Known Drug Allergies Allergy Verified 03/11/23 12:16 History of Present Illness History of Present Illness: Mr Lieberman is a 83y/o male with a PMH of NHL of right lung s/o lobectomy, CHF, DM, HTN, pulmonary HTN and recent findings of melanoma in the lung. Patient had a PET scan and was found to have a spot that's consistent with melanoma. He is scheduled to see cardiothoracic surgeon soon. 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 He presented with worsening dyspnea and cough that has been present for a few days. He does use chronic O2 at home 3L. He was directly admitted from PCP office for further management. Initial work-up included labs: CBC, CMP, BNP, troponin, EKG and CXR. WBC 4.9 BUN/Cr: 24/1.51 CXR showed: cardiomegaly and pulmonary edema COVID panel: negative Sputum Cx: gram (-) rods Patient was admitted on med-surg, started on IV antibiotics and bronchodilators. He remained on 3L NC. He was also given IV lasix. He is currently feeling slightly better. He continues to have productive cough. Plan: Will repeat CXR, continue IV antibiotics and bronchodilators. Add cough medicine prn. Follow pending cultures. Resume home medications. Patient takes [place] at home but states current dose is not helping with chest wall pain, incr ease to 7.5/325 mg q6 hrs prn. Replace electrolytes as per protocol. Monitor AM labs/imaging. Past Medical History Past Medical History: Arthritis, CHF, Diabetes and Hypertension Additional Medical History: Non-Hodgkins Lymphoma of Right Lung Past Surgical History Surgical History: Appendectomy, Cholecystectomy, Ortho Surgery and Tonsillectomy Additional Surgical History: Spinal Fusion, Lobectomy of Right Upper and Partial Right Lower Lobes, Adenoidectomy, Cardiac Ablation, Cardiac Stent x1 Family History Family Medical History: Diabetes Mellitus and Sudden Cardiac Social History Does patient currently use any type of tobacco product: No Have you used tobacco products in the last 12 months: No Type of Tobacco Use: None Alcohol Use: None Drug Use: None Medications Home Medications: Home Medications Medication Instructions Recorded Confirmed Type amlodipine 10 mg tablet 10 mg PO DAILY 01/27/19 08/12/23 History glimepiride 4 mg tablet 4 mg PO BID 01/27/19 08/12/23 History doxazosin 2 mg tablet 2 mg PO QDAY 10/30/22 08/12/23 History furosemide 20 mg tablet 20 mg PO BID 10/30/22 08/12/23 History metoprolol succinate 25 mg 25 mg PO QDAY 10/30/22 08/13/23 History tablet,extended release 24 hr potassium chloride 10 mEq 10 meq PO QDAY 10/30/22 08/12/23 History tablet,extended release B [id number] 106 mg 1 tab PO QDAY 08/12/23 08/12/23 History iron-1 mg tablet (Hematinic Plus Vit/Minerals) aspirin 81 mg tablet,delayed 81 mg PO DAILY 08/12/23 08/12/23 History release sildenafil 50 mg tablet 50 mg PO BID 08/12/23 08/12/23 History Labs 08/13/23 05:25 08/13/23 05:25 Labs: 08/12/23 13:27 Sputum - Expectorated Sputum Sputum Culture - Preliminary 08/12/23 13:27 Sputum - Expectorated Sputum - Final Laboratory WBC 4.9 X10^3/uL (3.6-10.0) 08/13/23 05:25 RBC 2.78 X10^6/uL (4.7-6.0) L 08/13/23 05:25 Hgb 9.0 g/dL (13.5-18.0) L 08/13/23 05:25 Hct 26.4 % (42.0-54.0) L 08/13/23 05:25 MCV 95.0 fL (80.0-100.0) 08/13/23 05:25 MCH 32.6 pg (27.0-34.0) 08/13/23 05:25 MCHC 34.3 g/dL (33.0-35.0) 08/13/23 05:25 RDW 15.4 % (11.6-16.5) 08/13/23 05:25 Plt Count 207 X10^3/uL (150.0-450.0) 08/13/23 05:25 MPV 8.9 fL (7.4-11.0) 08/13/23 05:25 Neut % (Auto) 71.1 % (42.0-75.0) 08/13/23 05:25 Lymph % (Auto) 11.2 % (21.0-51.0) L 08/13/23 05:25 [place] % (Auto) 15.8 % (0.0-13.0) H 08/13/23 05:25 Eos % (Auto) 1.0 % (0.9-2.9) 08/13/23 05:25 Baso % (Auto) 0.9 % (0.2-1.0) 08/13/23 05:25 Neut # (Auto) 3.5 x10^3/uL (2.2-4.8) 08/13/23 05:25 Lymph # (Auto) 0.5 X10^3/uL (1.3-2.9) L 08/13/23 05:25 [place] # (Auto) 0.8 x10^3/uL (0.3-0.8) 08/13/23 05:25 Eos # (Auto) 0.0 x10^3/uL (0.0-0.2) 08/13/23 05:25 Baso # (Auto) 0.0 X10^3/uL (0.0-0.1) 08/13/23 05:25 Absolute Nucleated RBC 0.0 /100WBC 08/13/23 05:25 Sodium 142 mmol/L (136-145) 08/13/23 05:25 Corrected Sodium TNP 08/13/23 05:25 Potassium 4.4 mmol/L (3.5-5.1) 08/13/23 05:25 Chloride 101 mmol/L (98-107) 08/13/23 05:25 Carbon Dioxide 38.5 mmol/L (21-32) H 08/13/23 05:25 BUN 24 mg/dL (7-18) H 08/13/23 05:25 Creatinine 1.51 mg/dL (0.70-1.30) H 08/13/23 05:25 Est GFR (MDRD) Af Amer 57 (>60) L 08/13/23 05:25 Est GFR (MDRD) Non-Af 47 (>60) L 08/13/23 05:25 Glucose 70 mg/dL (65-99) 08/13/23 05:25 POC Glucose (mg/dL) 72 mg/dL (65-99) 08/13/23 05:51 Calcium 8.9 mg/dL (8.5-10.1) 08/13/23 05:25 Corrected Calcium 9.9 mg/dL (8.5-10.1) 08/13/23 05:25 Total Bilirubin 0.40 mg/dL (0.2-1.0) 08/13/23 05:25 AST 20 Units/L (15-37) 08/13/23 05:25 ALT 9 Units/L (12-78) L 08/13/23 05:25 Alkaline Phosphatase 122 Units/L (46-116) H 08/13/23 05:25 Troponin I High Sens 32.4 ng/L (4.0-60.0) 08/12/23 13:18 B-Natriuretic Peptide 166 pg/mL (0-79) H 08/12/23 13:18 Total Protein 6.6 g/dL (6.4-8.2) 08/13/23 05:25 Albumin 2.8 g/dL (3.4-5.0) L 08/13/23 05:25 Globulin 3.8 g/dL (2.5-4.5) 08/13/23 05:25 Albumin/Globulin Ratio 0.7 Ratio (1.1-2.1) L 08/13/23 05:25 SARS-CoV-2 (PCR) Negative (NEGATIVE) 08/12/23 15:38 Influenza Type A (PCR) Negative (NEGATIVE) 08/12/23 15:38 Influenza Type B (PCR) Negative (NEGATIVE) 08/12/23 15:38 RSV (PCR) Negative (NEGATIVE) 08/12/23 15:38 Review of Systems Constitutional: Weakness Eyes: No Symptoms Reported ENT: No Symptoms Reported Respiratory: Cough, Shortness of Breath, SOB with Excertion and Sputum Cardiovascular: No Symptoms Reported Gastrointestinal: No Symptoms Reported Genitourinary: No Symptoms Reported Musculoskeletal: No Symptoms Reported Skin: No Symptoms Reported Neurological: No Symptoms Reported Physical Exam Vital Signs: Vital Signs Temperature 98.2 F Pulse Rate [Left Radial] 60 Pulse Rate 60 Respiratory Rate 18 Respiratory Rate 18 Respiratory Rate 18 Blood Pressure [Right Arm] 164/74 O2 Sat by Pulse Oximetry 96 O2 Sat by Pulse Oximetry 98 Oriented: Normal Eyes: Normal Throat: Normal Respiratory: Rhonchi Throughout and Rales Throughout Cardiovascular: Normal Auscultation: Bowel Sounds: Normal Palpation: Normal Tenderness: Normal Skin: Decreased [place] Musculoskeletal: Normal Psychiatric: Normal Mood Description: Calm Affect: Normal Speech Pattern: Clear and Appropriate Review H&P Reviewed: Yes Patient was examined?: Yes
[2023-08-13] MEDS: LASIX IVP SCH (10:44)
[2023-08-13] MEDS: NORCO 7.5/325 MG TAB PO PRN (14:27)
[2023-08-13 20:24] VITALS: BMI 24.7
[2023-08-14 06:02] LABS: BASOPHILS % (AUTO) 0.6 % (0.2-1.0); EOSINOPHILS # (AUTO) 0.1 x10^3/uL (0.0-0.2); EOSINOPHILS % (AUTO) 2.8 % (0.9-2.9); HEMOGLOBIN 8.8 g/dL (13.5-18.0); LYMPHOCYTES # (AUTO) 0.5 X10^3/uL (1.3-2.9); LYMPHOCYTES % (AUTO) 11.2 % (21.0-51.0); MEAN CORPUSCULAR HEMOGLOBIN 31.8 pg (27.0-34.0); MEAN CORPUSCULAR HGB CONC 33.6 g/dL (33.0-35.0); MEAN CORPUSCULAR VOLUME 94.6 fL (80.0-100.0); MEAN PLATELET VOLUME 8.6 fL (7.4-11.0); MONOCYTES # (AUTO) 0.6 x10^3/uL (0.3-0.8); MONOCYTES % (AUTO) 12.7 % (0.0-13.0); NEUTROPHILS # (AUTO) 3.5 x10^3/uL (2.2-4.8); NEUTROPHILS % (AUTO) 72.7 % (42.0-75.0); PLATELET COUNT 212 X10^3/uL (150.0-450.0); RED BLOOD COUNT 2.75 X10^6/uL (4.7-6.0); RED CELL DISTRIBUTION WIDTH 14.8 % (11.6-16.5); WHITE BLOOD COUNT 4.9 X10^3/uL (3.6-10.0)
[2023-08-14 06:15] LABS: ALBUMIN 2.5 g/dL (3.4-5.0); CALCIUM 8.7 mg/dL (8.5-10.1); CARBON DIOXIDE 34.7 mmol/L (21-32); COR CA(FOR HYPOALB) 9.9 mg/dL (8.5-10.1); CREATININE 1.57 mg/dL (0.70-1.30); POTASSIUM 4.2 mmol/L (3.5-5.1); TOTAL PROTEIN 6.5 g/dL (6.4-8.2)
--- NOTE | 2023-08-14 09:27 | PCM.PROG ---
Progress Note Progress Note for Day of Date of Exam: 08/14/23 Subjective Subjective: Patient seen at bedside, no acute events overnight. He reports productive cough. Denies any fever or chills. His appetite is better. He is currently admitted for pneumonia and CHF exacerbation. AIT showed parainfluenza. Sputum Cx is showing gram (-) rods. He is currently on IV antibiotics and lasix. He remains on 3L NC. Labs/imaging reviewed -WBC 4.9 Hgb 8.8 BUN/Cr: 27/1.57 -CXR: CHF vs pneumonia -Sputum Cx: gram(-) rods -AIT: parainfluenza Plan: Continue IV antibiotics, repeat CXR. Add steroids, continue bronchodilators and smart vest. Follow pending cultures. Continue IV lasix. Continue home medications. Replace electrolytes prn. Monitor AM labs/imaging. Past Medical Family Social History Allergies: Allergies No Known Drug Allergies Allergy (Verified 03/11/23 12:16) Vital Signs and I&O's Vital Signs: Vital Signs Temperature 98.0 F Temperature 98.0 F Pulse Rate [Left Radial] 61 Pulse Rate [Left Radial] 60 Pulse Rate 60 Respiratory Rate 20 Respiratory Rate 23 Respiratory Rate 20 Blood Pressure [Right Arm] 181/75 Blood Pressure [Right Arm] 177/71 O2 Sat by Pulse Oximetry 92 O2 Sat by Pulse Oximetry 96 O2 Sat by Pulse Oximetry 95 Intake and Output: Intake & Output 08/11/23 08/12/23 08/13/23 08/14/23 23:59 23:59 23:59 23:59 Intake Total 785 / 785 1380 / 1380 120 / 120 Output Total 600 / 600 1030 / 1030 400 / 400 Balance 185 / 185 350 / 350 -280 / -280 Physical Exam Oriented: Normal Eyes: Normal Throat: Normal Respiratory: Generalized, Wheezes, Rales and Rhonchi Cardiovascular: Normal Auscultation: Bowel Sounds: Normal Palpation: Normal Tenderness: Normal Skin: Decreased [place] Musculoskeletal: Normal Psychiatric: Normal Mood Description: Calm Affect: Normal Speech Pattern: Appropriate Laboratory and Diagnostics 08/14/23 05:30 08/14/23 05:30 Labs: 08/12/23 13:27 Sputum - Expectorated Sputum Sputum Culture - Preliminary 08/12/23 13:27 Sputum - Expectorated Sputum - Final Laboratory WBC 4.9 X10^3/uL (3.6-10.0) 08/14/23 05:30 RBC 2.75 X10^6/uL (4.7-6.0) L 08/14/23 05:30 Hgb 8.8 g/dL (13.5-18.0) L 08/14/23 05:30 Hct 26.0 % (42.0-54.0) L 08/14/23 05:30 MCV 94.6 fL (80.0-100.0) 08/14/23 05:30 MCH 31.8 pg (27.0-34.0) 08/14/23 05:30 MCHC 33.6 g/dL (33.0-35.0) 08/14/23 05:30 RDW 14.8 % (11.6-16.5) 08/14/23 05:30 Plt Count 212 X10^3/uL (150.0-450.0) 08/14/23 05:30 MPV 8.6 fL (7.4-11.0) 08/14/23 05:30 Neut % (Auto) 72.7 % (42.0-75.0) 08/14/23 05:30 Lymph % (Auto) 11.2 % (21.0-51.0) L 08/14/23 05:30 [place] % (Auto) 12.7 % (0.0-13.0) 08/14/23 05:30 Eos % (Auto) 2.8 % (0.9-2.9) 08/14/23 05:30 Baso % (Auto) 0.6 % (0.2-1.0) 08/14/23 05:30 Neut # (Auto) 3.5 x10^3/uL (2.2-4.8) 08/14/23 05:30 Lymph # (Auto) 0.5 X10^3/uL (1.3-2.9) L 08/14/23 05:30 [place] # (Auto) 0.6 x10^3/uL (0.3-0.8) 08/14/23 05:30 Eos # (Auto) 0.1 x10^3/uL (0.0-0.2) 08/14/23 05:30 Baso # (Auto) 0.0 X10^3/uL (0.0-0.1) 08/14/23 05:30 Absolute Nucleated RBC 0.0 /100WBC 08/14/23 05:30 Sodium 139 mmol/L (136-145) 08/14/23 05:30 Corrected Sodium 140 mmol/L (136-145) 08/14/23 05:30 Potassium 4.2 mmol/L (3.5-5.1) 08/14/23 05:30 Chloride 101 mmol/L (98-107) 08/14/23 05:30 Carbon Dioxide 34.7 mmol/L (21-32) H 08/14/23 05:30 BUN 27 mg/dL (7-18) H 08/14/23 05:30 Creatinine 1.57 mg/dL (0.70-1.30) H 08/14/23 05:30 Est GFR (MDRD) Af Amer 55 (>60) L 08/14/23 05:30 Est GFR (MDRD) Non-Af 45 (>60) L 08/14/23 05:30 Glucose 129 mg/dL (65-99) H 08/14/23 05:30 POC Glucose (mg/dL) 114 mg/dL (65-99) H 08/14/23 05:23 Calcium 8.7 mg/dL (8.5-10.1) 08/14/23 05:30 Corrected Calcium 9.9 mg/dL (8.5-10.1) 08/14/23 05:30 Total Bilirubin 0.30 mg/dL (0.2-1.0) 08/14/23 05:30 AST 21 Units/L (15-37) 08/14/23 05:30 ALT 9 Units/L (12-78) L 08/14/23 05:30 Alkaline Phosphatase 123 Units/L (46-116) H 08/14/23 05:30 Troponin I High Sens 32.4 ng/L (4.0-60.0) 08/12/23 13:18 B-Natriuretic Peptide 166 pg/mL (0-79) H 08/12/23 13:18 Total Protein 6.5 g/dL (6.4-8.2) 08/14/23 05:30 Albumin 2.5 g/dL (3.4-5.0) L 08/14/23 05:30 Globulin 4.0 g/dL (2.5-4.5) 08/14/23 05:30 Albumin/Globulin Ratio 0.6 Ratio (1.1-2.1) L 08/14/23 05:30 SARS-CoV-2 (PCR) Negative (NEGATIVE) 08/12/23 15:38 Influenza Type A (PCR) Negative (NEGATIVE) 08/12/23 15:38 Influenza Type B (PCR) Negative (NEGATIVE) 08/12/23 15:38 RSV (PCR) Negative (NEGATIVE) 08/12/23 15:38 Resp Viral Panel (PCR) See scanned report 08/12/23 13:27 Plan (1) Parainfluenza: Status: Acute (2) CHF exacerbation: Status: Acute Qualifiers: Heart failure type: unspecified Qualified Code(s): I50.9 - Heart failure, unspecified (3) Pneumonia: Status: Acute Qualifiers: Laterality: unspecified laterality Lung location: unspecified part of lung Pneumonia type: due to unspecified organism Qualified Code(s): J18.9 - Pneumonia, unspecified organism (4) Anemia: Status: Chronic Qualifiers: Anemia type: iron deficiency Iron deficiency anemia type: chronic blood loss Qualified Code(s): D50.0 - Iron deficiency anemia secondary to blood loss (chronic) (5) Pulmonary HTN: Status: Acute (6) Chronic respiratory failure: Status: Acute Qualifiers: Respiratory failure complication: hypoxia Qualified Code(s): J96.11 - Chronic respiratory failure with hypoxia (7) Lymphoma: Status: Chronic Qualifiers: Lymphoma site: unspecified region Lymphoma type: non-Hodgkin Non- Hodgkin lymphoma type: unspecified type Qualified Code(s): C85.90 - Non-Hodgkin lymphoma, unspecified, unspecified site (8) CAD (coronary artery disease): Status: Chronic Qualifiers: Associated angina: unspecified whether angina present Coronary Disease- Associated Artery/Lesion type: [place] artery [place] vs. transplanted heart: [place] heart Qualified Code(s): I25.10 - Atherosclerotic heart disease of [place] coronary artery without angina pectoris
[2023-08-14] MEDS: SOLU-Medrol 125 MG VIAL IVP SCH (09:59)
--- NOTE | 2023-08-14 12:52 | RAD ---
EXAM:CHEST, 1 VIEWHISTORY:Shortness of breath and pulmonary edemaCOMPARISON:None available.FINDINGS:The trachea is midline. The cardiac silhouette is enlarged with a tortuous thoracic aorta. Prominent pulmonary vascular changes are observed with a increased interstitial lung disease that appear somewhat improved when compared to prior examination.. The bony thorax is unremarkable.IMPRESSION:Persistent but improving changes of CHF.THIS IS AN ELECTRONICALLY VERIFIED FINAL REPORT08/14/2023 12:27 PM - Electronically signed by Medardo Lowery MD
[2023-08-15 05:28] LABS: BASOPHILS % (AUTO) 0 % (0.2-1.0); HEMATOCRIT 25.9 % (42.0-54.0); HEMOGLOBIN 8.7 g/dL (13.5-18.0); LYMPHOCYTES # (AUTO) 0.2 X10^3/uL (1.3-2.9); LYMPHOCYTES % (AUTO) 2.9 % (21.0-51.0); MEAN CORPUSCULAR HEMOGLOBIN 31.8 pg (27.0-34.0); MEAN CORPUSCULAR HGB CONC 33.7 g/dL (33.0-35.0); MEAN CORPUSCULAR VOLUME 94.2 fL (80.0-100.0); MEAN PLATELET VOLUME 8.8 fL (7.4-11.0); MONOCYTES # (AUTO) 0.1 x10^3/uL (0.3-0.8); MONOCYTES % (AUTO) 1.3 % (0.0-13.0); NEUTROPHILS # (AUTO) 5.6 x10^3/uL (2.2-4.8); NEUTROPHILS % (AUTO) 95.8 % (42.0-75.0); PLATELET COUNT 217 X10^3/uL (150.0-450.0); RED BLOOD COUNT 2.75 X10^6/uL (4.7-6.0); RED CELL DISTRIBUTION WIDTH 14.6 % (11.6-16.5); WHITE BLOOD COUNT 5.9 X10^3/uL (3.6-10.0)
[2023-08-15 05:41] LABS: CALCIUM 8.8 mg/dL (8.5-10.1); CARBON DIOXIDE 36.4 mmol/L (21-32); CREATININE 1.59 mg/dL (0.70-1.30); POTASSIUM 4.2 mmol/L (3.5-5.1)
[2023-08-15 05:51] LABS: BAND NEUTROPHILS % 1 % (0-10); PLATELET MORPHOLOGY COMMENT NORMAL (NORMAL)
[2023-08-15] MEDS ORDERED: CONSULT PHARMACY - ANTIBIOTIC XX SCH (10:00)
--- NOTE | 2023-08-15 10:47 | PCM.PROG ---
Progress Note Progress Note for Day of Date of Exam: 08/15/23 Subjective Subjective: Patient is a 83 year old male admitted for pneumonia and CHF exacerbation. This morning he is resting in bed. No acute events overnight. He continues to report productive cough. Reports some improvement in his breathing. Denies any fever or chills. AIT showed parainfluenza. Sputum Cx is showing E coli, ESBL. He is currently on IV antibiotics and lasix. He remains on 3L NC (BL). Labs/imaging reviewed -WBC 5.9, Hgb 8.7, Plt 217, Na 136, K 4.2, Creatinine 1.59, Glucose 209 -CXR: this morning pending -Sputum Cx: E coli ESBL -AIT: parainfluenza Plan: Change IV antibiotics to Invanz, repeat CXR. Continue steroids, bronchodilators and smart vest. Continue IV lasix and home medications. Replace electrolytes prn. Otherwise, continue with current treatment plan. Continue to closely monitor and follow up AM labs/imaging. Past Medical Family Social History Allergies: Allergies No Known Drug Allergies Allergy (Verified 03/11/23 12:16) Review of Systems ROS changes noted: see HPI Vital Signs and I&O's Vital Signs: Vital Signs Temperature 97.2 F Temperature 97.9 F Pulse Rate [Left Radial] 61 Pulse Rate [Left Radial] 62 Pulse Rate 59 Respiratory Rate 20 Respiratory Rate 20 Respiratory Rate 20 Blood Pressure [Right Arm] 168/74 Blood Pressure [Right Arm] 168/73 O2 Sat by Pulse Oximetry 98 O2 Sat by Pulse Oximetry 97 O2 Sat by Pulse Oximetry 96 Intake and Output: Intake & Output 08/12/23 08/13/23 08/14/23 08/15/23 23:59 23:59 23:59 23:59 Intake Total 785 / 785 1380 / 1380 2065 / 2065 120 / 120 Output Total 600 / 600 1030 / 1030 1250 / 1250 300 / 300 Balance 185 / 185 350 / 350 815 / 815 -180 / -180 Physical Exam Oriented: Normal Eyes: Normal Throat: Normal Respiratory: Generalized, Wheezes, Rales and Rhonchi Cardiovascular: Normal Auscultation: Bowel Sounds: Normal Tenderness: Normal Skin: Decreased [place] Musculoskeletal: Normal Psychiatric: Normal Mood Description: Calm Affect: Normal Speech Pattern: Appropriate Laboratory and Diagnostics 08/15/23 04:45 08/15/23 04:45 Labs: 08/12/23 13:27 Sputum - Expectorated Sputum Sputum Culture - Final Escherichia Coli Esbl 08/12/23 13:27 Sputum - Expectorated Sputum - Final Laboratory WBC 5.9 X10^3/uL (3.6-10.0) 08/15/23 04:45 RBC 2.75 X10^6/uL (4.7-6.0) L 08/15/23 04:45 Hgb 8.7 g/dL (13.5-18.0) L 08/15/23 04:45 Hct 25.9 % (42.0-54.0) L 08/15/23 04:45 MCV 94.2 fL (80.0-100.0) 08/15/23 04:45 MCH 31.8 pg (27.0-34.0) 08/15/23 04:45 MCHC 33.7 g/dL (33.0-35.0) 08/15/23 04:45 RDW 14.6 % (11.6-16.5) 08/15/23 04:45 Plt Count 217 X10^3/uL (150.0-450.0) 08/15/23 04:45 Plt Count Comment Adequate (ADEQUATE) 08/15/23 04:45 MPV 8.8 fL (7.4-11.0) 08/15/23 04:45 Neut % (Auto) 95.8 % (42.0-75.0) H 08/15/23 04:45 Lymph % (Auto) 2.9 % (21.0-51.0) L 08/15/23 04:45 [place] % (Auto) 1.3 % (0.0-13.0) 08/15/23 04:45 Eos % (Auto) 0.0 % (0.9-2.9) L 08/15/23 04:45 Baso % (Auto) 0 % (0.2-1.0) L 08/15/23 04:45 Neut # (Auto) 5.6 x10^3/uL (2.2-4.8) H 08/15/23 04:45 Lymph # (Auto) 0.2 X10^3/uL (1.3-2.9) L 08/15/23 04:45 [place] # (Auto) 0.1 x10^3/uL (0.3-0.8) L 08/15/23 04:45 Eos # (Auto) 0.0 x10^3/uL (0.0-0.2) 08/15/23 04:45 Baso # (Auto) 0.0 X10^3/uL (0.0-0.1) 08/15/23 04:45 Absolute Nucleated RBC 0.1 /100WBC 08/15/23 04:45 Total Counted 100 08/15/23 04:45 Neutrophils % (Manual) 94 % (39-76) H 08/15/23 04:45 Band Neutrophils % 1 % (0-10) 08/15/23 04:45 Lymphocytes % (Manual) 4 % (13-43) L 08/15/23 04:45 Monocytes % (Manual) 1 % (4-9) L 08/15/23 04:45 Plt Morphology Comment Normal (NORMAL) 08/15/23 04:45 RBC Morphology Normal (NORMAL) 08/15/23 04:45 Sodium 136 mmol/L (136-145) 08/15/23 04:45 Corrected Sodium 139 mmol/L (136-145) 08/15/23 04:45 Potassium 4.2 mmol/L (3.5-5.1) 08/15/23 04:45 Chloride 98 mmol/L (98-107) 08/15/23 04:45 Carbon Dioxide 36.4 mmol/L (21-32) H 08/15/23 04:45 BUN 34 mg/dL (7-18) H 08/15/23 04:45 Creatinine 1.59 mg/dL (0.70-1.30) H 08/15/23 04:45 Est GFR (MDRD) Af Amer 54 (>60) L 08/15/23 04:45 Est GFR (MDRD) Non-Af 45 (>60) L 08/15/23 04:45 Glucose 209 mg/dL (65-99) H 08/15/23 04:45 POC Glucose (mg/dL) 220 mg/dL (65-99) H 08/15/23 05:05 Calcium 8.8 mg/dL (8.5-10.1) 08/15/23 04:45 Corrected Calcium 9.9 mg/dL (8.5-10.1) 08/14/23 05:30 Total Bilirubin 0.30 mg/dL (0.2-1.0) 08/14/23 05:30 AST 21 Units/L (15-37) 08/14/23 05:30 ALT 9 Units/L (12-78) L 08/14/23 05:30 Alkaline Phosphatase 123 Units/L (46-116) H 08/14/23 05:30 Troponin I High Sens 32.4 ng/L (4.0-60.0) 08/12/23 13:18 B-Natriuretic Peptide 166 pg/mL (0-79) H 08/12/23 13:18 Total Protein 6.5 g/dL (6.4-8.2) 08/14/23 05:30 Albumin 2.5 g/dL (3.4-5.0) L 08/14/23 05:30 Globulin 4.0 g/dL (2.5-4.5) 08/14/23 05:30 Albumin/Globulin Ratio 0.6 Ratio (1.1-2.1) L 08/14/23 05:30 SARS-CoV-2 (PCR) Negative (NEGATIVE) 08/12/23 15:38 Influenza Type A (PCR) Negative (NEGATIVE) 08/12/23 15:38 Influenza Type B (PCR) Negative (NEGATIVE) 08/12/23 15:38 RSV (PCR) Negative (NEGATIVE) 08/12/23 15:38 Resp Viral Panel (PCR) See scanned report 08/12/23 13:27 Plan (1) Parainfluenza: Status: Acute (2) CHF exacerbation: Status: Acute Qualifiers: Heart failure type: unspecified Qualified Code(s): I50.9 - Heart failure, unspecified (3) Pneumonia: Status: Acute Qualifiers: Pneumonia type: due to unspecified organism Laterality: unspecified laterality Lung location: unspecified part of lung Qualified Code(s): J18.9 - Pneumonia, unspecified organism (4) Anemia: Status: Chronic Qualifiers: Anemia type: iron deficiency Iron deficiency anemia type: chronic blood loss Qualified Code(s): D50.0 - Iron deficiency anemia secondary to blood loss (chronic) (5) Pulmonary HTN: Status: Acute (6) Chronic respiratory failure: Status: Acute Qualifiers: Respiratory failure complication: hypoxia Qualified Code(s): J96.11 - Chronic respiratory failure with hypoxia (7) Lymphoma: Status: Chronic Qualifiers: Lymphoma type: non-Hodgkin Non-Hodgkin lymphoma type: unspecified type Lymphoma site: unspecified region Qualified Code(s): C85.90 - Non-Hodgkin lymphoma, unspecified, unspecified site (8) CAD (coronary artery disease): Status: Chronic Qualifiers: Coronary Disease-Associated Artery/Lesion type: [place] artery [place] vs. transplanted heart: [place] heart Associated angina: unspecified whether angina present Qualified Code(s): I25.10 - Atherosclerotic heart disease of [place] coronary artery without angina pectoris
[2023-08-15] MEDS: INVanz INJ 1 GRAM VIAL 1 G in NS 100 ML IV 100 ML IV SCH (11:18)
--- NOTE | 2023-08-15 13:40 | RAD ---
EXAM: CHEST x-ray, 1 VIEW HISTORY: PNEUMONIA; PT STATES HE HAS A SPOT ON THE UPPER LEFT LUNG - COMPARISON: X-ray 08/14/2023 and CTA chest 03/11/2023 FINDINGS: Persistent vague left upper lobe density is seen. It appears chronic and is likely loculated pleural fluid as seen on a CT chest of 03/11/2023. Right-sided rib deformities are seen associated with prior fractures or surgery. There is elevation of the right hemidiaphragm, a chronic appearance. There is likely CHF and there could be mild pulmonary edema, similar to yesterday. Left CP angle is excluded on this study. No pneumothorax is seen IMPRESSION: Appearance of the chest is unchanged since previous day. THIS IS AN ELECTRONICALLY VERIFIED FINAL REPORT 08/15/2023 1:36 PM - Electronically signed by Nacho Harris MD
[2023-08-16 05:54] LABS: BASOPHILS % (AUTO) 0.3 % (0.2-1.0); HEMATOCRIT 27.1 % (42.0-54.0); LYMPHOCYTES # (AUTO) 0.1 X10^3/uL (1.3-2.9); LYMPHOCYTES % (AUTO) 0.9 % (21.0-51.0); MEAN CORPUSCULAR HEMOGLOBIN 31.6 pg (27.0-34.0); MEAN CORPUSCULAR HGB CONC 33.3 g/dL (33.0-35.0); MONOCYTES # (AUTO) 0.2 x10^3/uL (0.3-0.8); MONOCYTES % (AUTO) 1.4 % (0.0-13.0); NEUTROPHILS # (AUTO) 12.8 x10^3/uL (2.2-4.8); NEUTROPHILS % (AUTO) 97.4 % (42.0-75.0); PLATELET COUNT 265 X10^3/uL (150.0-450.0); RED BLOOD COUNT 2.85 X10^6/uL (4.7-6.0); RED CELL DISTRIBUTION WIDTH 15.1 % (11.6-16.5); WHITE BLOOD COUNT 13.2 X10^3/uL (3.6-10.0)
[2023-08-16 06:12] LABS: ALBUMIN 2.9 g/dL (3.4-5.0); CALCIUM 9.5 mg/dL (8.5-10.1); CARBON DIOXIDE 36.1 mmol/L (21-32); COR CA(FOR HYPOALB) 10.4 mg/dL (8.5-10.1); CREATININE 2.41 mg/dL (0.70-1.30); POTASSIUM 5.3 mmol/L (3.5-5.1); TOTAL PROTEIN 6.8 g/dL (6.4-8.2)
[2023-08-16 06:32] LABS: BAND NEUTROPHILS % 5 % (0-10); PLATELET MORPHOLOGY COMMENT NORMAL (NORMAL)
[2023-08-16] MEDS: INVanz INJ 1 GRAM VIAL 0.5 G in NS 50 ML IV 50 ML IV SCH (08:31)
--- NOTE | 2023-08-16 09:38 | PCM.PROG ---
Progress Note Progress Note for Day of Date of Exam: 08/16/23 Subjective Subjective: Patient is a 83 year old male admitted for pneumonia and CHF exacerbation. He is in bed this morning on exam. No acute events overnight. He continues to report productive cough and weight gain along with shortness of breath. Denies any fever or chills. AIT showed parainfluenza. Sputum Cx is showing E coli, ESBL. He is currently on IV antibiotics and lasix. He remains on 3L NC (BL). Labs/imaging reviewed -WBC 13.2, Hgb 9, Plt 265, Na 135, K 5.3, Creatinine 1.59>2.41, Glucose 300 -CXR: this morning pending -Sputum Cx: E coli ESBL -AIT: parainfluenza Plan: Pt is currently on IV antibiotics to Invanz, repeat CXR. Continue steroids, bronchodilators and smart vest. Possible fluid overload from CHF exacerbation, will increase IV lasix to 40mg BID. Monitor renal function. Home medications have been resumed. Replace electrolytes prn. Otherwise, continue with current treatment plan. Continue to closely monitor and follow up AM labs/imaging. Past Medical Family Social History Allergies: Allergies No Known Drug Allergies Allergy (Verified 03/11/23 12:16) Review of Systems ROS changes noted: see HPI Vital Signs and I&O's Vital Signs: Vital Signs Temperature 97.8 F Temperature 97.8 F Pulse Rate [Left Radial] 80 Pulse Rate [Left Radial] 65 Pulse Rate 66 Respiratory Rate 22 Respiratory Rate 20 Blood Pressure [Right Arm] 154/70 Blood Pressure [Right Arm] 152/66 O2 Sat by Pulse Oximetry 98 O2 Sat by Pulse Oximetry 97 O2 Sat by Pulse Oximetry 97 Intake and Output: Intake & Output 08/13/23 08/14/23 08/15/23 08/16/23 23:59 23:59 23:59 23:59 Intake Total 1380 / 1380 2065 / 2065 1773 / 1773 Output Total 1030 / 1030 1250 / 1250 950 / 950 100 / 100 Balance 350 / 350 815 / 815 823 / 823 -90 / -90 Physical Exam Oriented: Normal Eyes: Normal Throat: Normal Respiratory: Generalized, Rales and Rhonchi Cardiovascular: Normal Auscultation: Bowel Sounds: Normal Tenderness: Normal Skin: Decreased Turgur Musculoskeletal: Normal Psychiatric: Normal Mood Description: Calm Affect: Normal Speech Pattern: Appropriate Laboratory and Diagnostics 08/16/23 05:35 08/16/23 05:35 Labs: 08/12/23 13:27 Sputum - Expectorated Sputum Sputum Culture - Final Escherichia Coli Esbl 08/12/23 13:27 Sputum - Expectorated Sputum - Final Laboratory WBC 13.2 X10^3/uL (3.6-10.0) H 08/16/23 05:35 RBC 2.85 X10^6/uL (4.7-6.0) L 08/16/23 05:35 Hgb 9.0 g/dL (13.5-18.0) L 08/16/23 05:35 Hct 27.1 % (42.0-54.0) L 08/16/23 05:35 MCV 95.0 fL (80.0-100.0) 08/16/23 05:35 MCH 31.6 pg (27.0-34.0) 08/16/23 05:35 MCHC 33.3 g/dL (33.0-35.0) 08/16/23 05:35 RDW 15.1 % (11.6-16.5) 08/16/23 05:35 Plt Count 265 X10^3/uL (150.0-450.0) 08/16/23 05:35 Plt Count Comment Adequate (ADEQUATE) 08/16/23 05:35 MPV 9.0 fL (7.4-11.0) 08/16/23 05:35 Neut % (Auto) 97.4 % (42.0-75.0) H 08/16/23 05:35 Lymph % (Auto) 0.9 % (21.0-51.0) L 08/16/23 05:35 [place] % (Auto) 1.4 % (0.0-13.0) 08/16/23 05:35 Eos % (Auto) 0.0 % (0.9-2.9) L 08/16/23 05:35 Baso % (Auto) 0.3 % (0.2-1.0) 08/16/23 05:35 Neut # (Auto) 12.8 x10^3/uL (2.2-4.8) H 08/16/23 05:35 Lymph # (Auto) 0.1 X10^3/uL (1.3-2.9) L 08/16/23 05:35 [place] # (Auto) 0.2 x10^3/uL (0.3-0.8) L 08/16/23 05:35 Eos # (Auto) 0.0 x10^3/uL (0.0-0.2) 08/16/23 05:35 Baso # (Auto) 0.0 X10^3/uL (0.0-0.1) 08/16/23 05:35 Absolute Nucleated RBC 0.0 /100WBC 08/16/23 05:35 Total Counted 100 08/16/23 05:35 Neutrophils % (Manual) 92 % (39-76) H 08/16/23 05:35 Band Neutrophils % 5 % (0-10) 08/16/23 05:35 Lymphocytes % (Manual) 3 % (13-43) L 08/16/23 05:35 Monocytes % (Manual) 1 % (4-9) L 08/15/23 04:45 Plt Morphology Comment Normal (NORMAL) 08/16/23 05:35 RBC Morphology Normal (NORMAL) 08/16/23 05:35 Sodium 135 mmol/L (136-145) L 08/16/23 05:35 Corrected Sodium 140 mmol/L (136-145) 08/16/23 05:35 Potassium 5.3 mmol/L (3.5-5.1) H 08/16/23 05:35 Chloride 96 mmol/L (98-107) L 08/16/23 05:35 Carbon Dioxide 36.1 mmol/L (21-32) H 08/16/23 05:35 BUN 56 mg/dL (7-18) H 08/16/23 05:35 Creatinine 2.41 mg/dL (0.70-1.30) H 08/16/23 05:35 Est GFR (MDRD) Af Amer 33 (>60) L 08/16/23 05:35 Est GFR (MDRD) Non-Af 28 (>60) L 08/16/23 05:35 Glucose 300 mg/dL (65-99) H 08/16/23 05:35 POC Glucose (mg/dL) 314 mg/dL (65-99) H 08/16/23 05:13 Calcium 9.5 mg/dL (8.5-10.1) 08/16/23 05:35 Corrected Calcium 10.4 mg/dL (8.5-10.1) H 08/16/23 05:35 Total Bilirubin 0.20 mg/dL (0.2-1.0) 08/16/23 05:35 AST 20 Units/L (15-37) 08/16/23 05:35 ALT 17 Units/L (12-78) 08/16/23 05:35 Alkaline Phosphatase 144 Units/L (46-116) H 08/16/23 05:35 Troponin I High Sens 32.4 ng/L (4.0-60.0) 08/12/23 13:18 B-Natriuretic Peptide 166 pg/mL (0-79) H 08/12/23 13:18 Total Protein 6.8 g/dL (6.4-8.2) 08/16/23 05:35 Albumin 2.9 g/dL (3.4-5.0) L 08/16/23 05:35 Globulin 3.9 g/dL (2.5-4.5) 08/16/23 05:35 Albumin/Globulin Ratio 0.7 Ratio (1.1-2.1) L 08/16/23 05:35 SARS-CoV-2 (PCR) Negative (NEGATIVE) 08/12/23 15:38 Influenza Type A (PCR) Negative (NEGATIVE) 08/12/23 15:38 Influenza Type B (PCR) Negative (NEGATIVE) 08/12/23 15:38 RSV (PCR) Negative (NEGATIVE) 08/12/23 15:38 Resp Viral Panel (PCR) See scanned report 08/12/23 13:27 Plan (1) Parainfluenza: Status: Acute (2) CHF exacerbation: Status: Acute Qualifiers: Heart failure type: unspecified Qualified Code(s): I50.9 - Heart failure, unspecified (3) Pneumonia: Status: Acute Qualifiers: Pneumonia type: due to unspecified organism Laterality: unspecified laterality Lung location: unspecified part of lung Qualified Code(s): J18.9 - Pneumonia, unspecified organism (4) Anemia: Status: Chronic Qualifiers: Anemia type: iron deficiency Iron deficiency anemia type: chronic blood loss Qualified Code(s): D50.0 - Iron deficiency anemia secondary to blood loss (chronic) (5) Pulmonary HTN: Status: Acute (6) Chronic respiratory failure: Status: Acute Qualifiers: Respiratory failure complication: hypoxia Qualified Code(s): J96.11 - Chronic respiratory failure with hypoxia (7) Lymphoma: Status: Chronic Qualifiers: Lymphoma type: non-Hodgkin Non-Hodgkin lymphoma type: unspecified type Lymphoma site: unspecified region Qualified Code(s): C85.90 - Non-Hodgkin lymphoma, unspecified, unspecified site (8) CAD (coronary artery disease): Status: Chronic Qualifiers: Coronary Disease-Associated Artery/Lesion type: [place] artery [place] vs. transplanted heart: robinson heart Associated angina: unspecified whether angina present Qualified Code(s): I25.10 - Atherosclerotic heart disease of robinson coronary artery without angina pectoris
[2023-08-16 09:42] LABS: RETICULOCYTE % 1.28 % (0.8-2.2)
[2023-08-16 09:58] LABS: IRON 47 ug/dL (50-175)
--- NOTE | 2023-08-16 11:01 | RAD ---
EXAM:CHEST, 1 VIEWHISTORY:PNEUMOTHORAX;COMPARISON:No relevant prior studies were available for comparison at the time of interpretation.TECHNIQUE:CHEST, 1 VIEWFINDINGS:Chest:Lines and tubes: NoneMediastinum: Cardiomegaly.Pulmonary vessels: There is pulmonary vascular congestion.Lung mackenzie: Patchy bilateral airspace opacities are notedPleura: There may be a small right pneumothoraxBones and soft tissues: No acute osseous or soft tissue abnormality.IMPRESSION:1. Possible small right pneumothorax2. Persistent findings consistent with pneumonia versus heart failureTHIS IS AN ELECTRONICALLY VERIFIED FINAL REPORT08/16/2023 10:57 AM - Electronically signed by Brian Mclean MD
[2023-08-16] MEDS: LASIX IVP SCH (21:04)
[2023-08-17 05:14] LABS: BASOPHILS % (AUTO) 0.1 % (0.2-1.0); EOSINOPHILS % (AUTO) 0.1 % (0.9-2.9); HEMATOCRIT 25.6 % (42.0-54.0); HEMOGLOBIN 8.4 g/dL (13.5-18.0); LYMPHOCYTES # (AUTO) 0.3 X10^3/uL (1.3-2.9); LYMPHOCYTES % (AUTO) 2.2 % (21.0-51.0); MEAN CORPUSCULAR HGB CONC 32.9 g/dL (33.0-35.0); MEAN CORPUSCULAR VOLUME 94.2 fL (80.0-100.0); MEAN PLATELET VOLUME 9.3 fL (7.4-11.0); MONOCYTES # (AUTO) 0.3 x10^3/uL (0.3-0.8); MONOCYTES % (AUTO) 2.6 % (0.0-13.0); NEUTROPHILS # (AUTO) 12.4 x10^3/uL (2.2-4.8); PLATELET COUNT 268 X10^3/uL (150.0-450.0); RED BLOOD COUNT 2.72 X10^6/uL (4.7-6.0); RED CELL DISTRIBUTION WIDTH 14.9 % (11.6-16.5); WHITE BLOOD COUNT 13.1 X10^3/uL (3.6-10.0)
[2023-08-17 05:36] LABS: ALBUMIN 2.7 g/dL (3.4-5.0); CALCIUM 9.5 mg/dL (8.5-10.1); CARBON DIOXIDE 37.9 mmol/L (21-32); COR CA(FOR HYPOALB) 10.5 mg/dL (8.5-10.1); CREATININE 2.5 mg/dL (0.70-1.30); POTASSIUM 5.3 mmol/L (3.5-5.1); TOTAL PROTEIN 6.5 g/dL (6.4-8.2)
[2023-08-17 05:49] LABS: PLATELET MORPHOLOGY COMMENT NORMAL (NORMAL)
--- NOTE | 2023-08-17 08:53 | RAD ---
EXAM:AP chestHISTORY:Pneumonia SOBCOMPARISON:08/16/2023FINDINGS:Similar cardiomegaly with slight improvement in the bilateral infiltrates in the left lung. No new abnormality is identified. A definite pneumothorax is not identified.IMPRESSION:Improving infiltrate/pneumonia left lung with no new abnormality or definite pneumothorax identified. See above.THIS IS AN ELECTRONICALLY VERIFIED FINAL REPORT08/17/2023 8:49 AM - Electronically signed by Rivas Arenas MD
[2023-08-17] MEDS: TUSSIONEX PENNKINETIC SUSP PO PRN (09:18)
[2023-08-17] MEDS: COLACE CAP 100 MG PO SCH (20:15)
[2023-08-17] MEDS: MIRALAX POWDER (1 DOSE 17 G) PO SCH (20:16)
[2023-08-18 06:10] LABS: BASOPHILS % (AUTO) 0 % (0.2-1.0); HEMATOCRIT 24.8 % (42.0-54.0); HEMOGLOBIN 8.4 g/dL (13.5-18.0); LYMPHOCYTES # (AUTO) 0.2 X10^3/uL (1.3-2.9); LYMPHOCYTES % (AUTO) 1.6 % (21.0-51.0); MEAN CORPUSCULAR HEMOGLOBIN 31.9 pg (27.0-34.0); MEAN CORPUSCULAR HGB CONC 33.7 g/dL (33.0-35.0); MEAN CORPUSCULAR VOLUME 94.6 fL (80.0-100.0); MEAN PLATELET VOLUME 10.5 fL (7.4-11.0); MONOCYTES # (AUTO) 0.1 x10^3/uL (0.3-0.8); MONOCYTES % (AUTO) 1.3 % (0.0-13.0); NEUTROPHILS # (AUTO) 9.9 x10^3/uL (2.2-4.8); NEUTROPHILS % (AUTO) 97.1 % (42.0-75.0); PLATELET COUNT 164 X10^3/uL (150.0-450.0); RED BLOOD COUNT 2.62 X10^6/uL (4.7-6.0); RED CELL DISTRIBUTION WIDTH 15.2 % (11.6-16.5); WHITE BLOOD COUNT 10.2 X10^3/uL (3.6-10.0)
[2023-08-18 06:19] LABS: ALBUMIN 2.7 g/dL (3.4-5.0); CALCIUM 9.4 mg/dL (8.5-10.1); CARBON DIOXIDE 36.8 mmol/L (21-32); COR CA(FOR HYPOALB) 10.4 mg/dL (8.5-10.1); CREATININE 2.51 mg/dL (0.70-1.30); TOTAL PROTEIN 6.3 g/dL (6.4-8.2)
[2023-08-18 06:22] LABS: POTASSIUM 5.6 mmol/L (3.5-5.1)
[2023-08-18 06:38] LABS: PLATELET MORPHOLOGY COMMENT NORMAL (NORMAL)
--- NOTE | 2023-08-18 06:53 | RAD ---
EXAM:AP chestHISTORY:PneumoniaCOMPARISON: 024FINDINGS:Similar cardiomegaly and stable infiltrates. There is no definite improvement or new abnormality noted. Equivocal increase in infiltrate in the left lower lung. No complicating extrapulmonary air/pneumothorax identified.IMPRESSION:Persistent cardiomegaly and pneumonia. See above.THIS IS AN ELECTRONICALLY VERIFIED FINAL REPORT08/18/2023 6:50 AM - Electronically signed by Rivas Arenas MD
[2023-08-18] MEDS: NS 1,000 ML IV 1,000 ML IV SCH (09:21)
[2023-08-18] MEDS: LASIX IVP SCH (09:23)
[2023-08-19 05:39] LABS: BASOPHILS % (AUTO) 0.2 % (0.2-1.0); EOSINOPHILS % (AUTO) 0.1 % (0.9-2.9); HEMATOCRIT 25.3 % (42.0-54.0); HEMOGLOBIN 8.5 g/dL (13.5-18.0); LYMPHOCYTES # (AUTO) 0.1 X10^3/uL (1.3-2.9); LYMPHOCYTES % (AUTO) 1.3 % (21.0-51.0); MEAN CORPUSCULAR HGB CONC 33.9 g/dL (33.0-35.0); MEAN CORPUSCULAR VOLUME 94.5 fL (80.0-100.0); MEAN PLATELET VOLUME 9.2 fL (7.4-11.0); MONOCYTES # (AUTO) 0.2 x10^3/uL (0.3-0.8); MONOCYTES % (AUTO) 1.7 % (0.0-13.0); NEUTROPHILS # (AUTO) 9.2 x10^3/uL (2.2-4.8); NEUTROPHILS % (AUTO) 96.7 % (42.0-75.0); PLATELET COUNT 272 X10^3/uL (150.0-450.0); RED BLOOD COUNT 2.67 X10^6/uL (4.7-6.0); RED CELL DISTRIBUTION WIDTH 15.4 % (11.6-16.5); WHITE BLOOD COUNT 9.5 X10^3/uL (3.6-10.0)
[2023-08-19 05:56] LABS: ALBUMIN 2.7 g/dL (3.4-5.0); CALCIUM 9.2 mg/dL (8.5-10.1); COR CA(FOR HYPOALB) 10.2 mg/dL (8.5-10.1); CREATININE 2.41 mg/dL (0.70-1.30); TOTAL PROTEIN 6.3 g/dL (6.4-8.2)
[2023-08-19 06:02] LABS: POTASSIUM 5.6 mmol/L (3.5-5.1)
[2023-08-19 06:16] LABS: BAND NEUTROPHILS % 1 % (0-10)
[2023-08-19 06:17] LABS: PLATELET MORPHOLOGY COMMENT NORMAL (NORMAL)
--- NOTE | 2023-08-19 10:32 | PCM.PROG ---
Progress Note Progress Note for Day of Date of Exam: 08/19/23 Subjective Subjective: The patient is lying in bed comfortably this morning. He states that he is feeling about the same as he did yesterday. He has coarse breath sounds more so on the right and he states that it is harder to breathe on the right side of his chest but this is the side that he has had a lobectomy on for a history of non-Hodgkin's lymphoma in the past. Currently he is being treated for pneumonia secondary to ESBL E. coli and is receiving Invanz for that. He has a good RAMONA of 0.5. 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 He is supposed to see his cardiovascular thoracic surgeon this which is 3 days from now. We will hopefully tr genesis him on the hospital over the next couple of days so he will miss his appointment. I am going to order a chest x-ray on him this morning and we will follow-up with the results to see if his pneumonia and/or congestive heart failure exacerbation is improving. Past Medical Family Social History Allergies: Allergies No Known Drug Allergies Allergy (Verified 03/11/23 12:16) Review of Systems ROS: No change since H&P Vital Signs and I&O's Vital Signs: Vital Signs Temperature 98.3 F Temperature 97.8 F Pulse Rate [Left Radial] 82 Pulse Rate [Left Radial] 60 Pulse Rate 80 Respiratory Rate 22 Respiratory Rate 20 Blood Pressure [Right Arm] 178/79 Blood Pressure [Right Arm] 148/69 O2 Sat by Pulse Oximetry 99 O2 Sat by Pulse Oximetry 94 O2 Sat by Pulse Oximetry 99 Intake and Output: Intake & Output 08/16/23 08/17/23 08/18/23 08/19/23 11:59 11:59 11:59 11:59 Intake Total 1663 / 1663 1420 / 1420 380 / 380 2175 / 2175 Output Total 750 / 750 1850 / 1850 400 / 400 2250 / 2250 Balance 913 / 913 -430 / -430 -20 / -20 - / -75 Physical Exam Oriented: Normal Eyes: Normal Throat: Normal Respiratory: Generalized, Rales and Rhonchi Cardiovascular: Normal Auscultation: Bowel Sounds: Normal Tenderness: Normal Skin: Decreased Turgur Musculoskeletal: Normal Psychiatric: Normal Mood Description: Calm Affect: Normal Speech Pattern: Appropriate Laboratory and Diagnostics 08/19/23 05:04 08/19/23 05:04 Labs: 08/12/23 13:27 Sputum - Expectorated Sputum Sputum Culture - Final Escherichia Coli Esbl 08/12/23 13:27 Sputum - Expectorated Sputum - Final Laboratory WBC 9.5 X10^3/uL (3.6-10.0) 08/19/23 05:04 RBC 2.67 X10^6/uL (4.7-6.0) L 08/19/23 05:04 Hgb 8.5 g/dL (13.5-18.0) L 08/19/23 05:04 Hct 25.3 % (42.0-54.0) L 08/19/23 05:04 MCV 94.5 fL (80.0-100.0) 08/19/23 05:04 MCH 32.0 pg (27.0-34.0) 08/19/23 05:04 MCHC 33.9 g/dL (33.0-35.0) 08/19/23 05:04 RDW 15.4 % (11.6-16.5) 08/19/23 05:04 Plt Count 272 X10^3/uL (150.0-450.0) 08/19/23 05:04 Plt Count Comment Adequate (ADEQUATE) 08/19/23 05:04 MPV 9.2 fL (7.4-11.0) 08/19/23 05:04 Neut % (Auto) 96.7 % (42.0-75.0) H 08/19/23 05:04 Lymph % (Auto) 1.3 % (21.0-51.0) L 08/19/23 05:04 [place] % (Auto) 1.7 % (0.0-13.0) 08/19/23 05:04 Eos % (Auto) 0.1 % (0.9-2.9) L 08/19/23 05:04 Baso % (Auto) 0.2 % (0.2-1.0) 08/19/23 05:04 Neut # (Auto) 9.2 x10^3/uL (2.2-4.8) H 08/19/23 05:04 Lymph # (Auto) 0.1 X10^3/uL (1.3-2.9) L 08/19/23 05:04 [place] # (Auto) 0.2 x10^3/uL (0.3-0.8) L 08/19/23 05:04 Eos # (Auto) 0.0 x10^3/uL (0.0-0.2) 08/19/23 05:04 Baso # (Auto) 0.0 X10^3/uL (0.0-0.1) 08/19/23 05:04 Absolute Nucleated RBC 0.2 /100WBC 08/19/23 05:04 Total Counted 100 08/19/23 05:04 Neutrophils % (Manual) 96 % (39-76) H 08/19/23 05:04 Band Neutrophils % 1 % (0-10) 08/19/23 05:04 Lymphocytes % (Manual) 1 % (13-43) L 08/19/23 05:04 Monocytes % (Manual) 2 % (4-9) L 08/19/23 05:04 Plt Morphology Comment Normal (NORMAL) 08/19/23 05:04 RBC Morphology Normal (NORMAL) 08/19/23 05:04 Absolute Retic 0.0367 10^6/uL 08/16/23 05:35 Percent Retic 1.28 % (0.8-2.2) 08/16/23 05:35 Sodium 134 mmol/L (136-145) L 08/19/23 05:04 Corrected Sodium 137 mmol/L (136-145) 08/19/23 05:04 Potassium 5.6 mmol/L (3.5-5.1) H 08/19/23 05:04 Chloride 97 mmol/L (98-107) L 08/19/23 05:04 Carbon Dioxide 37.0 mmol/L (21-32) H 08/19/23 05:04 BUN 93 mg/dL (7-18) H 08/19/23 05:04 Creatinine 2.41 mg/dL (0.70-1.30) H 08/19/23 05:04 Est GFR (MDRD) Af Amer 33 (>60) L 08/19/23 05:04 Est GFR (MDRD) Non-Af 28 (>60) L 08/19/23 05:04 Glucose 235 mg/dL (65-99) H 08/19/23 05:04 POC Glucose (mg/dL) 226 mg/dL (65-99) H 08/19/23 05:38 Calcium 9.2 mg/dL (8.5-10.1) 08/19/23 05:04 Corrected Calcium 10.2 mg/dL (8.5-10.1) H 08/19/23 05:04 Iron 47 ug/dL (50-175) L 08/16/23 05:35 Ferritin 188 ng/mL (26-388) 08/16/23 05:35 Total Bilirubin 0.30 mg/dL (0.2-1.0) 08/19/23 05:04 AST 19 Units/L (15-37) 08/19/23 05:04 ALT 27 Units/L (12-78) 08/19/23 05:04 Alkaline Phosphatase 129 Units/L (46-116) H 08/19/23 05:04 Troponin I High Sens 32.4 ng/L (4.0-60.0) 08/12/23 13:18 B-Natriuretic Peptide 165 pg/mL (0-79) H 08/19/23 05:04 Total Protein 6.3 g/dL (6.4-8.2) L 08/19/23 05:04 Albumin 2.7 g/dL (3.4-5.0) L 08/19/23 05:04 Globulin 3.6 g/dL (2.5-4.5) 08/19/23 05:04 Albumin/Globulin Ratio 0.8 Ratio (1.1-2.1) L 08/19/23 05:04 Vitamin B12 917 pg/mL (193-986) 08/16/23 05:35 SARS-CoV-2 (PCR) Negative (NEGATIVE) 08/12/23 15:38 Influenza Type A (PCR) Negative (NEGATIVE) 08/12/23 15:38 Influenza Type B (PCR) Negative (NEGATIVE) 08/12/23 15:38 RSV (PCR) Negative (NEGATIVE) 08/12/23 15:38 Resp Viral Panel (PCR) See scanned report 08/12/23 13:27 Plan (1) Parainfluenza: Status: Acute (2) CHF exacerbation: Status: Acute Qualifiers: Heart failure type: unspecified Qualified Code(s): I50.9 - Heart failure, unspecified (3) Pneumonia: Status: Acute Qualifiers: Pneumonia type: due to unspecified organism Laterality: unspecified laterality Lung location: unspecified part of lung Qualified Code(s): J18.9 - Pneumonia, unspecified organism (4) Anemia: Status: Chronic Qualifiers: Anemia type: iron deficiency Iron deficiency anemia type: chronic blood loss Qualified Code(s): D50.0 - Iron deficiency anemia secondary to blood loss (chronic) (5) Pulmonary HTN: Status: Acute (6) Chronic respiratory failure: Status: Acute Qualifiers: Respiratory failure complication: hypoxia Qualified Code(s): J96.11 - Chronic respiratory failure with hypoxia (7) Lymphoma: Status: Chronic Qualifiers: Lymphoma type: non-Hodgkin Non-Hodgkin lymphoma type: unspecified type Lymphoma site: unspecified region Qualified Code(s): C85.90 - Non-Hodgkin l ymphoma, unspecified, unspecified site (8) CAD (coronary artery disease): Status: Chronic Qualifiers: Coronary Disease-Associated Artery/Lesion type: [place] artery [place] vs. transplanted heart: [place] heart Associated angina: unspecified whether angina present Qualified Code(s): I25.10 - Atherosclerotic heart disease of [place] coronary artery without angina pectoris
--- NOTE | 2023-08-19 10:40 | RAD ---
EXAM:CHEST, 1 VIEWHISTORY:PNEUMONIA;COMPARISON:No relevant prior studies were available for comparison at the time of interpretation.TECHNIQUE:CHEST, 1 VIEWFINDINGS:Chest:Lines and tubes: NoneMediastinum: Cardiomegaly.Pulmonary vessels: Pulmonary vasculature is obscured.Lung mackenzie: Patchy opacities are seenPleura: No effusion. No pneumothorax.Bones and soft tissues: No acute osseous or soft tissue abnormality.IMPRESSION:1. No significant change to airspace opacities compared to yesterdayTHIS IS AN ELECTRONICALLY VERIFIED FINAL REPORT08/19/2023 10:37 AM - Electronically signed by Brian Mclean MD
--- NOTE | 2023-08-20 06:00 | RAD ---
EXAM:CHEST, 1 VIEWHISTORY:PNEUMONIA; DM, ARRHYTHMIA, PACEMAKER, HTN, NON HODGKINS, LUNG CA SX: APPY, KATIE, ORTHO, PARTIAL LOBECTOMYCOMPARISON:08/19/2023FINDINGS:T he trachea is midline. The cardiac silhouette is moderately enlarged.. There are patchy parenchymal opacities within the lungs bilaterally. No pleural effusion or pneumothorax.. The bony thorax is unremarkable.IMPRESSION:Cardiomegaly with patchy bilateral parenchymal opacities unchanged from 08/19/2023THIS IS AN ELECTRONICALLY VERIFIED FINAL REPORT08/20/2023 5:57 AM - Electronically signed by Wander Wilder MD
[2023-08-20 06:15] LABS: BASOPHILS % (AUTO) 0.2 % (0.2-1.0); HEMATOCRIT 25.1 % (42.0-54.0); HEMOGLOBIN 8.4 g/dL (13.5-18.0); LYMPHOCYTES # (AUTO) 0.1 X10^3/uL (1.3-2.9); LYMPHOCYTES % (AUTO) 1.2 % (21.0-51.0); MEAN CORPUSCULAR HEMOGLOBIN 31.9 pg (27.0-34.0); MEAN CORPUSCULAR HGB CONC 33.6 g/dL (33.0-35.0); MEAN CORPUSCULAR VOLUME 94.9 fL (80.0-100.0); MEAN PLATELET VOLUME 10.2 fL (7.4-11.0); MONOCYTES # (AUTO) 0.2 x10^3/uL (0.3-0.8); NEUTROPHILS # (AUTO) 9.6 x10^3/uL (2.2-4.8); NEUTROPHILS % (AUTO) 96.6 % (42.0-75.0); PLATELET COUNT 221 X10^3/uL (150.0-450.0); RED BLOOD COUNT 2.65 X10^6/uL (4.7-6.0); RED CELL DISTRIBUTION WIDTH 15.3 % (11.6-16.5)
[2023-08-20 06:41] LABS: ALBUMIN 2.6 g/dL (3.4-5.0); CALCIUM 8.9 mg/dL (8.5-10.1); CARBON DIOXIDE 36.8 mmol/L (21-32); CREATININE 2.1 mg/dL (0.70-1.30); POTASSIUM 5.3 mmol/L (3.5-5.1)
[2023-08-20 06:49] LABS: PLATELET MORPHOLOGY COMMENT NORMAL (NORMAL)
--- NOTE | 2023-08-20 15:50 | DR.UPDATE ---
H&P Update Prescription drug monitoring program results: PDMP was not reviewed H&P Reviewed: Yes Any changes to H&P?: No Patient was examined?: Yes Vital Signs: Temp Pulse Pulse Resp BP Pulse Ox O2 Del Method 08/20/23 12:00 97.8 F 82 18 150/65 97 Room Air 08/20/23 09:21 Nasal Cannula 08/20/23 09:04 87 98 08/20/23 09:04 Room Air 08/20/23 08:00 97.9 F 82 22 164/70 96 Room Air 08/20/23 04:00 97.5 F L 83 20 163/70 95 Room Air 08/20/23 00:00 96.8 F L 66 20 164/71 98 Room Air 08/19/23 19:00 Nasal Cannula 08/19/23 21:07 19 08/19/23 20:27 80 100 08/19/23 20:27 Nasal Cannula 08/19/23 20:07 20 08/19/23 20:00 97.6 F 82 20 163/71 100 Room Air 08/19/23 16:00 98.0 F 82 18 167/70 97 Nasal Cannula 08/19/23 12:00 98.3 F 62 18 137/62 99 Nasal Cannula 08/19/23 09:13 Nasal Cannula 08/19/23 09:14 80 99 08/19/23 09:13 Nasal Cannula 08/19/23 08:00 98.3 F 82 22 178/79 94 L Nasal Cannula 08/18/23 20:55 Nasal Cannula 08/19/23 04:00 97.8 F 60 20 148/69 99 Nasal Cannula 08/19/23 00:00 97.5 F L 60 20 151/67 99 Nasal Cannula 08/18/23 20:00 97.5 F L 61 20 148/67 98 Nasal Cannula 08/18/23 19:00 Nasal Cannula 08/18/23 16:00 97.5 F L 61 20 146/67 99 Nasal Cannula 08/18/23 12:00 97.4 F L 61 20 136/62 98 Nasal Cannula 08/18/23 10:22 22 08/18/23 09:22 22 08/18/23 08:20 Nasal Cannula 08/18/23 07:00 Nasal Cannula 08/18/23 07:46 97.8 F 69 22 160/70 97 Nasal Cannula 08/18/23 05:52 62 99 08/18/23 04:00 97.8 F 61 20 152/68 97 Nasal Cannula 08/18/23 04:00 97.8 F 61 20 152/68 97 Nasal Cannula 08/17/23 23:44 98 F 63 20 152/67 98 Nasal Cannula 08/17/23 21:00 71 97 08/17/23 21:00 Nasal Cannula 08/17/23 20:00 98.2 F 69 20 152/69 99 Nasal Cannula 08/17/23 19:00 Nasal Cannula 08/17/23 16:00 97.6 F 63 20 143/65 98 Nasal Cannula O2 Flow Rate FiO2 08/20/23 12:00 08/20/23 09:21 3 08/20/23 09:04 08/20/23 09:04 3 32 08/20/23 08:00 08/20/23 04:00 08/20/23 00:00 08/19/23 19:00 3 08/19/23 21:07 08/19/23 20:27 08/19/23 20:27 3 32 08/19/23 20:07 08/19/23 20:00 08/19/23 16:00 3 08/19/23 12:00 3 08/19/23 09:13 3 08/19/23 09:14 08/19/23 09:13 3 32 08/19/23 08:00 3 08/18/23 20:55 3 32 08/19/23 04:00 3 08/19/23 00:00 3 08/18/23 20:00 3 08/18/23 19:00 3 08/18/23 16:00 3 08/18/23 12:00 3 08/18/23 10:22 08/18/23 09:22 08/18/23 08:20 3 32 08/18/23 07:00 3 08/18/23 07:46 3 08/18/23 05:52 08/18/23 04:00 3 08/18/23 04:00 3 08/17/23 23:44 3 08/17/23 21:00 08/17/23 21:00 3 32 08/17/23 20:00 3 08/17/23 19:00 3 08/17/23 16:00 3 Procedures (ALL) - Central Line Placement PCM.CLCO: written consent Time out performed: Yes Patient placed pm monitor/pulse ox: Yes prep: mask, gown, gloves, other Centrial line prep: chlorhexidine scrub, sterile drapes applied Local anesthsia used: lidocane 1% Ultrasound used for placement: Yes (right basilic id'd and cannulation visualized) Central line lumen ininserted: double (5.5fr arrow pressure picc. ) Post procedure: good blood return, all ports aspirated, flushed,capped, sterile dressing applied Post procedure xray: tip oc catheter in good position (axillary termination. multiple attempts, but jugular termination. Pt requires abx for only 7 days) Patient tolerated procedure: Yes Complications: none, catheter malposition (unable to advance to SVC. Axillary termination. no other complications. Pt ronan proc well.)
--- NOTE | 2023-08-20 16:03 | RAD ---
PROCEDURE: Chest X-ray 1 View.HISTORY: PICC line placement.TECHNIQUE: AP view.COMPARISON: 08/20/2023.TECHNICAL QUALITY: Satisfactory.FINDINGS:PICC line tip in the right subclavian vein.Unchanged mild cardiomegaly.Mediastinum and hilar regions show no masses or lymphadenopathy.Normal central vascularity.Mild consolidation right lower lung and left mid lung mackenzie consistent with pneumonia. No pleural fluid.No acute bony abnormality.IMPRESSION:1. Right PICC line tip in the right subclavian vein.2. Unchanged cardiomegaly.3. Unchanged bilateral pneumonia.THIS IS AN ELECTRONICALLY VERIFIED FINAL REPORT08/20/2023 4:00 PM - Electronically signed by Wilfred Mccord MD
--- NOTE | 2023-08-20 17:37 | PCM.PROG ---
Progress Note Progress Note for Day of Date of Exam: 08/20/23 Subjective Subjective: The patient is lying in bed comfortably this morning. He states that he is feeling better since I saw him yesterday. He is being treated for ESBL E. coli pneumonia. He is receiving IV Invanz as no oral antibiotics will work against this. I will go ahead and get him set up for PICC line today so we can continue IV Invanz at 500 mg IV daily secondary to his chronic kidney disease. We are planning on discharging the patient home tomorrow so he can see his surgeon for the neuroendocrine tumors that he has and these new lung masses that are found. We want to make sure that he gets to that appointment as to not delay any surgical intervention that he may need. Patient's hemoglobin is 8.4 this morning which is stable from the last several days. The patient's potassium remains elevated at 5.3 which is has been for the last several days as well. His creatinine is improved this morning at 2.10 which is down from 2.41 yesterday. He does seem to be responding to the IV Invanz so we will continue this for the next day and give him a dose tomorrow before he is hopefully discharged home. We will continue current treatment at this time. The patient's chest x-ray still shows unchanged bilateral patchy infiltrates. Past Medical Family Social History Allergies: Allergies No Known Drug Allergies Allergy (Verified 03/11/23 12:16) Review of Systems ROS: No change since H&P Vital Signs and I&O's Vital Signs: Vital Signs Temperature 97.8 F Temperature 97.8 F Pulse Rate [Left Radial] 94 Pulse Rate [Left Radial] 82 Respiratory Rate 20 Respiratory Rate 20 Respiratory Rate 18 Blood Pressure [Left Arm] 131/60 Blood Pressure [Right Arm] 150/65 O2 Sat by Pulse Oximetry 96 O2 Sat by Pulse Oximetry 97 Intake and Output: Intake & Output 08/18/23 08/19/23 08/20/23 08/21/23 11:59 11:59 11:59 11:59 Intake Total 380 / 380 2175 / 2175 1629 / 1629 1381 / 1381 Output Total 400 / 400 2250 / 2250 2600 / 2600 800 / 800 Balance -20 / -20 -75 / -75 -971 / -971 581 / 581 Physical Exam Oriented: Normal Eyes: Normal Throat: Normal Respiratory: Generalized, Rales and Rhonchi Cardiovascular: Normal Auscultation: Bowel Sounds: Normal Tenderness: Normal Skin: Decreased [place] Musculoskeletal: Normal Psychiatric: Normal Mood Description: Calm Affect: Normal Speech Pattern: Appropriate Laboratory and Diagnostics 08/20/23 05:46 08/20/23 05:46 Labs: 08/12/23 13:27 Sputum - Expectorated Sputum Sputum Culture - Final Escherichia Coli Esbl 08/12/23 13:27 Sputum - Expectorated Sputum - Final Laboratory WBC 10.0 X10^3/uL (3.6-10.0) 08/20/23 05:46 RBC 2.65 X10^6/uL (4.7-6.0) L 08/20/23 05:46 Hgb 8.4 g/dL (13.5-18.0) L 08/20/23 05:46 Hct 25.1 % (42.0-54.0) L 08/20/23 05:46 MCV 94.9 fL (80.0-100.0) 08/20/23 05:46 MCH 31.9 pg (27.0-34.0) 08/20/23 05:46 MCHC 33.6 g/dL (33.0-35.0) 08/20/23 05:46 RDW 15.3 % (11.6-16.5) 08/20/23 05:46 Plt Count 221 X10^3/uL (150.0-450.0) 08/20/23 05:46 Plt Count Comment Adequate (ADEQUATE) 08/20/23 05:46 MPV 10.2 fL (7.4-11.0) 08/20/23 05:46 Neut % (Auto) 96.6 % (42.0-75.0) H 08/20/23 05:46 Lymph % (Auto) 1.2 % (21.0-51.0) L 08/20/23 05:46 [place] % (Auto) 2.0 % (0.0-13.0) 08/20/23 05:46 Eos % (Auto) 0.0 % (0.9-2.9) L 08/20/23 05:46 Baso % (Auto) 0.2 % (0.2-1.0) 08/20/23 05:46 Neut # (Auto) 9.6 x10^3/uL (2.2-4.8) H 08/20/23 05:46 Lymph # (Auto) 0.1 X10^3/uL (1.3-2.9) L 08/20/23 05:46 [place] # (Auto) 0.2 x10^3/uL (0.3-0.8) L 08/20/23 05:46 Eos # (Auto) 0.0 x10^3/uL (0.0-0.2) 08/20/23 05:46 Baso # (Auto) 0.0 X10^3/uL (0.0-0.1) 08/20/23 05:46 Absolute Nucleated RBC 0.1 /100WBC 08/20/23 05:46 Total Counted 100 08/20/23 05:46 Neutrophils % (Manual) 96 % (39-76) H 08/20/23 05:46 Band Neutrophils % 1 % (0-10) 08/19/23 05:04 Lymphocytes % (Manual) 4 % (13-43) L 08/20/23 05:46 Monocytes % (Manual) 2 % (4-9) L 08/19/23 05:04 Plt Morphology Comment Normal (NORMAL) 08/20/23 05:46 RBC Morphology Normal (NORMAL) 08/20/23 05:46 Absolute Retic 0.0367 10^6/uL 08/16/23 05:35 Percent Retic 1.28 % (0.8-2.2) 08/16/23 05:35 Sodium 137 mmol/L (136-145) 08/20/23 05:46 Corrected Sodium 141 mmol/L (136-145) 08/20/23 05:46 Potassium 5.3 mmol/L (3.5-5.1) H 08/20/23 05:46 Chloride 100 mmol/L (98-107) 08/20/23 05:46 Carbon Dioxide 36.8 mmol/L (21-32) H 08/20/23 05:46 BUN 83 mg/dL (7-18) H 08/20/23 05:46 Creatinine 2.10 mg/dL (0.70-1.30) H 08/20/23 05:46 Est GFR (MDRD) Af Amer 39 (>60) L 08/20/23 05:46 Est GFR (MDRD) Non-Af 32 (>60) L 08/20/23 05:46 Glucose 258 mg/dL (65-99) H 08/20/23 05:46 POC Glucose (mg/dL) 235 mg/dL (65-99) H 08/20/23 16:26 Calcium 8.9 mg/dL (8.5-10.1) 08/20/23 05:46 Corrected Calcium 10.0 mg/dL (8.5-10.1) 08/20/23 05:46 Iron 47 ug/dL (50-175) L 08/16/23 05:35 Ferritin 188 ng/mL (26-388) 08/16/23 05:35 Total Bilirubin 0.30 mg/dL (0.2-1.0) 08/20/23 05:46 AST 21 Units/L (15-37) 08/20/23 05:46 ALT 31 Units/L (12-78) 08/20/23 05:46 Alkaline Phosphatase 121 Units/L (46-116) H 08/20/23 05:46 Troponin I High Sens 32.4 ng/L (4.0-60.0) 08/12/23 13:18 B-Natriuretic Peptide 165 pg/mL (0-79) H 08/19/23 05:04 Total Protein 6.0 g/dL (6.4-8.2) L 08/20/23 05:46 Albumin 2.6 g/dL (3.4-5.0) L 08/20/23 05:46 Globulin 3.4 g/dL (2.5-4.5) 08/20/23 05:46 Albumin/Globulin Ratio 0.8 Ratio (1.1-2.1) L 08/20/23 05:46 Vitamin B12 917 pg/mL (193-986) 08/16/23 05:35 SARS-CoV-2 (PCR) Negative (NEGATIVE) 08/12/23 15:38 Influenza Type A (PCR) Negative (NEGATIVE) 08/12/23 15:38 Influenza Type B (PCR) Negative (NEGATIVE) 08/12/23 15:38 RSV (PCR) Negative (NEGATIVE) 08/12/23 15:38 Resp Viral Panel (PCR) See scanned report 08/12/23 13:27 Radiology Reviewed: Yes Plan (1) Parainfluenza: Status: Acute (2) CHF exacerbation: Status: Acute Qualifiers: Heart failure type: unspecified Qualified Code(s): I50.9 - Heart failure, unspecified (3) Pneumonia: Status: Acute Qualifiers: Pneumonia type: due to unspecified organism Laterality: unspecified laterality Lung location: unspecified part of lung Qualified Code(s): J18.9 - Pneumonia, unspecified organism Narrative Support Text: Patient has bilateral pneumonia secondary to ESBL E. coli. Plan: The ESBL E. coli from the patient's sputum shows that he is sensitive to Invanz. We are renally dosing him at 500 mg IV daily. He initially received 1000 mg IV daily however that caused a decrease in his creatinine but now his creatinine is improving and coming back down. (4) Anemia: Status: Chronic Qualifiers: Anemia type: iron deficiency Iron deficiency anemia type: chronic blood loss Qualified Code(s): D50.0 - Iron deficiency anemia secondary to blood loss (chronic) (5) Pulmonary HTN: Status: Acute (6) Chronic respiratory failure: Status: Acute Qualifiers: Respiratory failure complication: hypoxia Qualified Code(s): J96.11 - Chronic respiratory failure with hypoxia (7) Lymphoma: Status: Chronic Qualifiers: Lymphoma type: non-Hodgkin Non-Hodgkin lymphoma type: unspecified type Lymphoma site: unspecified region Qualified Code(s): C85.90 - Non-Hodgkin lymphoma, unspecified, unspecified site (8) CAD (coronary artery disease): Status: Chronic Qualifiers: Coronary Disease-Associated Artery/Lesion type: cahto artery [place] vs. transplanted heart: cahto heart Associated angina: unspecified whether angina present Qualified Code(s): I25.10 - Atherosclerotic heart disease of cahto coronary artery without angina pectoris (9) Neuroendocrine tumor: Status: Acute Plan: The patient will follow up with his courier and surgeon upon discharge, which we hope will be tomorrow. The patient has an appointment this with his surgeon to evaluate for possible surgical resection of the lung tumors.
[2023-08-21 06:11] LABS: BASOPHILS % (AUTO) 0.3 % (0.2-1.0); HEMATOCRIT 25.3 % (42.0-54.0); HEMOGLOBIN 8.5 g/dL (13.5-18.0); LYMPHOCYTES # (AUTO) 0.2 X10^3/uL (1.3-2.9); LYMPHOCYTES % (AUTO) 1.6 % (21.0-51.0); MEAN CORPUSCULAR HEMOGLOBIN 31.6 pg (27.0-34.0); MEAN CORPUSCULAR HGB CONC 33.5 g/dL (33.0-35.0); MEAN CORPUSCULAR VOLUME 94.2 fL (80.0-100.0); MEAN PLATELET VOLUME 9.7 fL (7.4-11.0); MONOCYTES # (AUTO) 0.2 x10^3/uL (0.3-0.8); NEUTROPHILS # (AUTO) 9.9 x10^3/uL (2.2-4.8); NEUTROPHILS % (AUTO) 96.1 % (42.0-75.0); PLATELET COUNT 234 X10^3/uL (150.0-450.0); RED BLOOD COUNT 2.69 X10^6/uL (4.7-6.0); RED CELL DISTRIBUTION WIDTH 15.4 % (11.6-16.5); WHITE BLOOD COUNT 10.3 X10^3/uL (3.6-10.0)
[2023-08-21 06:26] LABS: ALBUMIN 2.7 g/dL (3.4-5.0); CARBON DIOXIDE 37.1 mmol/L (21-32); CREATININE 2.01 mg/dL (0.70-1.30); POTASSIUM 5.2 mmol/L (3.5-5.1)
[2023-08-21 06:31] LABS: PLATELET MORPHOLOGY COMMENT NORMAL (NORMAL)
[2023-08-21] MEDS ORDERED: ZITHROMAX INJ 500 MG VIAL IV ONE (08:28)
[2023-08-21 10:31] VITALS: RESP 18
--- NOTE | 2023-08-21 11:56 | PCM.DCPLAN ---
DISCHARGE SUMMARY Admission Date Date of Admission: 08/12/23 Discharge Date Discharge Date: 08/21/23 Admission Diagnoses (1) Parainfluenza: Status: Acute (2) CHF exacerbation: Status: Acute (3) Pneumonia: Status: Acute (4) Anemia: Status: Chronic (5) Pulmonary HTN: Status: Acute (6) Chronic respiratory failure: Status: Acute (7) Lymphoma: Status: Chronic (8) CAD (coronary artery disease): Status: Chronic (9) Neuroendocrine tumor: Status: Acute (10) Bilateral pneumonia due to Escherichia coli: Status: Acute (11) DM II (diabetes mellitus, type II), controlled: Status: Chronic (12) HTN (hypertension): Status: Chronic Discharge Diagnoses Discharge Diagnosis: 1. Bilateral pneumonia secondary to ESBL E. coli 2. Parainfluenza 3. CHF exacerbation 4. Anemia 5. History of neuroendocrine tumors 6. Lymphoma 7. Coronary artery disease 8. History lymphoma 9. Diabetes mellitus type 2 10. Chronic anemia 11. Chronic respiratory failure 12. Hypertension 13. Chronic kidney disease stage IIIb 14. Anorexia Discharge Medications Discharge Medications: Home Medication List B [id number] 106 mg iron-1 mg tablet (Hematinic Plus Vit/Minerals) 1 tab PO QDAY 08/12/23 [History] aspirin 81 mg tablet,delayed release 81 mg PO DAILY 08/12/23 [History] sildenafil 50 mg tablet 50 mg PO BID 08/12/23 [History] ertapenem 1 gram solution for injection 0.5 g IV QDAY #7 ea 08/21/23 [Rx] megestrol 40 mg tablet 40 mg PO BID #60 tabs 08/21/23 [Rx] methylprednisolone 4 mg tablets in a dose pack (Medrol (Ollie)) See Rx Instructions .Route .COMPLEX #1 ea 08/21/23 [Rx] Prescriptions: ertapenem Miguel Tapia megestrol Miguel Tapia methylprednisolone [Medrol (Ollie)] Miguel Tapia Hospital Course Vital Signs: Vital Signs Temperature 97.4 F Temperature 97.1 F Temperature 96.8 F Pulse Rate [Left Radial] 83 Pulse Rate [Left Radial] 70 Pulse Rate 80 Respiratory Rate 18 Respiratory Rate 20 Respiratory Rate 20 Respiratory Rate 20 Blood Pressure [Right Arm] 160/70 Blood Pressure [Right Arm] 154/67 O2 Sat by Pulse Oximetry 98 O2 Sat by Pulse Oximetry 95 O2 Sat by Pulse Oximetry 96 Latest Lab Results: Laboratory Last Values WBC 10.3 X10^3/uL (3.6-10.0) H 08/21/23 05:44 RBC 2.69 X10^6/uL (4.7-6.0) L 08/21/23 05:44 Hgb 8.5 g/dL (13.5-18.0) L 08/21/23 05:44 Hct 25.3 % (42.0-54.0) L 08/21/23 05:44 MCV 94.2 fL (80.0-100.0) 08/21/23 05:44 MCH 31.6 pg (27.0-34.0) 08/21/23 05:44 MCHC 33.5 g/dL (33.0-35.0) 08/21/23 05:44 RDW 15.4 % (11.6-16.5) 08/21/23 05:44 Plt Count 234 X10^3/uL (150.0-450.0) 08/21/23 05:44 Plt Count Comment Adequate (ADEQUATE) 08/21/23 05:44 MPV 9.7 fL (7.4-11.0) 08/21/23 05:44 Neut % (Auto) 96.1 % (42.0-75.0) H 08/21/23 05:44 Lymph % (Auto) 1.6 % (21.0-51.0) L 08/21/23 05:44 [place] % (Auto) 2.0 % (0.0-13.0) 08/21/23 05:44 Eos % (Auto) 0.0 % (0.9-2.9) L 08/21/23 05:44 Baso % (Auto) 0.3 % (0.2-1.0) 08/21/23 05:44 Neut # (Auto) 9.9 x10^3/uL (2.2-4.8) H 08/21/23 05:44 Lymph # (Auto) 0.2 X10^3/uL (1.3-2.9) L 08/21/23 05:44 [place] # (Auto) 0.2 x10^3/uL (0.3-0.8) L 08/21/23 05:44 Eos # (Auto) 0.0 x10^3/uL (0.0-0.2) 08/21/23 05:44 Baso # (Auto) 0.0 X10^3/uL (0.0-0.1) 08/21/23 05:44 Absolute Nucleated RBC 0.1 /100WBC 08/21/23 05:44 Total Counted 100 08/21/23 05:44 Neutrophils % (Manual) 97 % (39-76) H 08/21/23 05:44 Band Neutrophils % 1 % (0-10) 08/19/23 05:04 Lymphocytes % (Manual) 3 % (13-43) L 08/21/23 05:44 Monocytes % (Manual) 2 % (4-9) L 08/19/23 05:04 Plt Morphology Comment Normal (NORMAL) 08/21/23 05:44 RBC Morphology Normal (NORMAL) 08/21/23 05:44 Absolute Retic 0.0367 10^6/uL 08/16/23 05:35 Percent Retic 1.28 % (0.8-2.2) 08/16/23 05:35 Sodium 135 mmol/L (136-145) L 08/21/23 05:44 Corrected Sodium 138 mmol/L (136-145) 08/21/23 05:44 Potassium 5.2 mmol/L (3.5-5.1) H 08/21/23 05:44 Chloride 97 mmol/L (98-107) L 08/21/23 05:44 Carbon Dioxide 37.1 mmol/L (21-32) H 08/21/23 05:44 BUN 85 mg/dL (7-18) H 08/21/23 05:44 Creatinine 2.01 mg/dL (0.70-1.30) H 08/21/23 05:44 Est GFR (MDRD) Af Amer 41 (>60) L 08/21/23 05:44 Est GFR (MDRD) Non-Af 34 (>60) L 08/21/23 05:44 Glucose 223 mg/dL (65-99) H 08/21/23 05:44 POC Glucose (mg/dL) 237 mg/dL (65-99) H 08/21/23 11:05 Calcium 9.0 mg/dL (8.5-10.1) 08/21/23 05:44 Corrected Calcium 10.0 mg/dL (8.5-10.1) 08/21/23 05:44 Iron 47 ug/dL (50-175) L 08/16/23 05:35 Ferritin 188 ng/mL (26-388) 08/16/23 05:35 Total Bilirubin 0.40 mg/dL (0.2-1.0) 08/21/23 05:44 AST 23 Units/L (15-37) 08/21/23 05:44 ALT 32 Units/L (12-78) 08/21/23 05:44 Alkaline Phosphatase 124 Units/L (46-116) H 08/21/23 05:44 Troponin I High Sens 32.4 ng/L (4.0-60.0) 08/12/23 13:18 B-Natriuretic Peptide 165 pg/mL (0-79) H 08/19/23 05:04 Total Protein 6.0 g/dL (6.4-8.2) L 08/21/23 05:44 Albumin 2.7 g/dL (3.4-5.0) L 08/21/23 05:44 Globulin 3.3 g/dL (2.5-4.5) 08/21/23 05:44 Albumin/Globulin Ratio 0.8 Ratio (1.1-2.1) L 08/21/23 05:44 Vitamin B12 917 pg/mL (193-986) 08/16/23 05:35 SARS-CoV-2 (PCR) Negative (NEGATIVE) 08/12/23 15:38 Influenza Type A (PCR) Negative (NEGATIVE) 08/12/23 15:38 Influenza Type B (PCR) Negative (NEGATIVE) 08/12/23 15:38 RSV (PCR) Negative (NEGATIVE) 08/12/23 15:38 Resp Viral Panel (PCR) See scanned report 08/12/23 13:27 Hospital Course: Mr Lieberman is a 83y/o male with a PMH of NHL of right lung s/o lobectomy, CHF, DM, HTN, pulmonary HTN and recent findings of melanoma in the lung. Patient had a PET scan and was found to have a spot that's consistent with melanoma. He is scheduled to see cardiothoracic surgeon soon. 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 He presented with worsening dyspnea and cough that has been present for a few days. He does use chronic O2 at home 3L. He was directly admitted from PCP office for further management. The patient slightly improved some over the first few days and the sputum culture came back and it showed that he had ESBL E. coli. At his current antibiotics that he was on was changed to IV Invanz 1 g IV nightly. There was a drop in his kidney function that was noticed a day or 2 later and we changing to Invanz 500 mg IV daily. Th ereafter his kidney function started to improve and the patient was improving daily with his respiratory status. 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 He would greatly like to keep that appointment because of that related to go ahead and have a PICC line placed so we could continue IV Invanz for the ESBL E. coli bilateral pneumonia that he has. He has already been arranged with home health care and they will be going to his house starting on 08/21/2023 or either the following day in order to show them how to start administering the antibiotics IV daily. Patient does have someone that lives near them who is a nurse and works for home health care and that could help them with IV antibiotic administration for the next 1 week. We are doing this so the patient can make sure he keeps his appointments with his other physicians that are treating his cancer. He will be following up with his primary care physician in the next 7 to 10 days for hospital follow-up. Patient will resume his regular home medications as before and we are adding Invanz 500 mg IV daily for 1 week and is renally dosed for his underlying chronic kidney disease. He also will receive Megace 40 mg p.o. twice daily since he has a poor appetite now and we will also give him a Medrol Dosepak to taper down on the IV Solu-Medrol he has been receiving here in the hospital. He follows in the range on his estimated GFR of chronic kidney disease stage IIIb. His estimated GFR has been been improving daily since we renally dosed Invanz and I think that it will continue to get back to his baseline over the next several days. The patient will be discharged in stable condition.
[2023-08-21 12:53] VITALS: BP 141/63; PULSE 60; TEMP 97.5; O2SAT 95
== END 2023-08-21 12:40 | disposition home health service (06) | DRG 178 ==
LOC: MED/SURG
PROVIDERS: ADMIT Internal Medicine; ATTEND Internal Medicine
DX: J15.5 Pneumonia due to Escherichia coli; J10.08 Influenza due to other identified influenza virus with other specified pneumonia; R06.02 Shortness of breath; I25.10 Atherosclerotic heart disease of native coronary artery without angina pectoris; J96.11 Chronic respiratory failure with hypoxia; N28.9 Disorder of kidney and ureter, unspecified; N18.32 Chronic kidney disease, stage 3b; R26.2 Difficulty in walking, not elsewhere classified; E34.8 Other specified endocrine disorders; I50.9 Heart failure, unspecified; E11.22 Type 2 diabetes mellitus with diabetic chronic kidney disease; I13.0 Hypertensive heart and chronic kidney disease with heart failure and stage 1 through stage 4 chronic kidney disease, or unspecified chronic kidney disease; C85.90 Non-Hodgkin lymphoma, unspecified, unspecified site; D50.0 Iron deficiency anemia secondary to blood loss (chronic); Z20.822 Contact with and (suspected) exposure to COVID-19; I87.2 Venous insufficiency (chronic) (peripheral)

== ENCOUNTER 2023-08-22 18:04 | Inpatient (IN) ==
--- NOTE | 2023-08-22 18:10 | DR.EXTPAIN ---
HPI Time seen Time Seen by Provider: 08/22/23 18:18 Complaint/Symptoms Chief Complaint Doctor Comments: 83-year-old male brought in by EMS for evaluation. Patient was discharged from the hospital yesterday, following a 10- day stay. Patient presents with increasing weakness since discharge. Patient with a distant history of non-Hodgkin's lymphoma, status post lobectomy. 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 He was treated here for E. coli pneumonia, discharged on IV antibiotic regimen. Patient saw his heme/onc physician today, had blood work which showed a hemoglobin of 8.5 (which it was yesterday). Patient reports being stuck on the commode earlier today, too weak to get off. Having generalized weakness. Denies fever or chills. Does have a cough, slightly productive. Patient is on home O2. Denies nausea, vomiting or diarrhea. Has not urinated well today, despite taking diuretics. Patient does have edema of both lower extremities. Patient admits to poor appetite, was recently started on Megace. Nurses notes reviewed Nurses Notes Review: Yes Source History Provided: Patient Mode of arrival Mode of Arrival: EMS PMH PMH Past Medical History: Arthritis, CHF, Diabetes and Hypertension Past Surgical History: Yes Surgical History: Appendectomy, Cholecystectomy, Ortho Surgery and Tonsillectomy Family History Family Medical History: Diabetes Mellitus and Sudden Cardiac Social History Does patient currently use any type of tobacco product: No Alcohol Use: None Do you use any recreational Drugs:: No ROS Review of Systems Constitutional: No Symptoms Reported Eyes: No Symptoms Reported ENTM: No Symptoms Reported Respiratoy: Moist Cough Cardiovascular: No Symptoms Reported Gastrointestinal/Abdominal: No Symptoms Reported Genitourinary: See HPI Neurological: Weakness Musculoskeletal: No Symptoms Reported Integumentary: No Symptoms Reported Hematologic/Lymphatic: No Symptoms Reported All Other Systems: Reviewed and Negative PE Vital Signs Vitals: Vital Signs Temperature 98.3 F Pulse Rate 74 Pulse Rate 86 Pulse Rate 92 Pulse Rate 93 Pulse Rate 92 Respiratory Rate 20 Blood Pressure 172/74 Blood Pressure 167/74 Blood Pressure 168/71 O2 Sat by Pulse Oximetry 100 O2 Sat by Pulse Oximetry 100 O2 Sat by Pulse Oximetry 100 O2 Sat by Pulse Oximetry 100 O2 Sat by Pulse Oximetry 100 General General Appearance: Alert, In No Apparent Distress and Cachectic Eyes Eye exam: PERRL and EOMI ENT ENT Exam: Mucous Membranes Moist Neck Neck Exam: Normal Inspection Respiratory Respiratory Exam: Other (Bilateral inspiratory rhonchi); negative Accessory Muscle Use or Respiratory Distress Abdominal Exam Abdominal Exam: Normal Bowel Sounds and Soft; negative Tenderness Extremities Extremities Exam: Edema (3+ bilateral lower exts) Neurological Neurological Exam: Alert, Oriented X3 and CN II-XII Intact; negative Motor Sensory Deficit Skin Skin Exam: Warm and Dry COURSE Treatment Treatment: 83-year-old male, discharged in the hospital yesterday after a 10-day admission. 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 Patient returned today with increasing weakness. Workup initiated. Patient given IV fluids. 1943 -labs show anemia to be present, 8.3. White count mildly elevated 13.2. Has 95% neutrophils with that. Chemistries show increased BUN at 87, increased creatinine 2.23. All the studies without change compared to his labs done in the hospital recently. Chest x-ray shows cardiomegaly be present with some mild right pleural effusion, has some scattered increased markings bilaterally. Patient with generalized weakness, inability to take care of himself at home. Will present to the on- call physician regarding admission. Patient probably deserves eventual admiss ion to a usp/rehab center/hospice center. Dr. Cruz on [facility], accepts admission, with transfer to Dr. Tapia tomorrow, as he recently had the patient in the hospital for an extended visit. ROR Labs Reviewed 08/22/23 18:30 08/22/23 18:30 Laboratory: WBC 13.2 X10^3/uL (3.6-10.0) H 08/22/23 18:30 RBC 2.65 X10^6/uL (4.7-6.0) L 08/22/23 18:30 Hgb 8.3 g/dL (13.5-18.0) L 08/22/23 18:30 Hct 25.3 % (42.0-54.0) L 08/22/23 18:30 MCV 95.6 fL (80.0-100.0) 08/22/23 18:30 MCH 31.2 pg (27.0-34.0) 08/22/23 18:30 MCHC 32.6 g/dL (33.0-35.0) L 08/22/23 18:30 RDW 15.6 % (11.6-16.5) 08/22/23 18:30 Plt Count 178 X10^3/uL (150.0-450.0) 08/22/23 18:30 Plt Count Comment Adequate (ADEQUATE) 08/22/23 18:30 MPV 10.6 fL (7.4-11.0) 08/22/23 18:30 Neut % (Auto) 93.4 % (42.0-75.0) H 08/22/23 18:30 Lymph % (Auto) 1.8 % (21.0-51.0) L 08/22/23 18:30 [place] % (Auto) 4.8 % (0.0-13.0) 08/22/23 18:30 Eos % (Auto) 0.0 % (0.9-2.9) L 08/22/23 18:30 Baso % (Auto) 0 % (0.2-1.0) L 08/22/23 18:30 Neut # (Auto) 12.3 x10^3/uL (2.2-4.8) H 08/22/23 18:30 Lymph # (Auto) 0.2 X10^3/uL (1.3-2.9) L 08/22/23 18:30 [place] # (Auto) 0.6 x10^3/uL (0.3-0.8) 08/22/23 18:30 Eos # (Auto) 0.0 x10^3/uL (0.0-0.2) 08/22/23 18:30 Baso # (Auto) 0.0 X10^3/uL (0.0-0.1) 08/22/23 18:30 Absolute Nucleated RBC 0.1 /100WBC 08/22/23 18:30 Total Counted 100 08/22/23 18:30 Neutrophils % (Manual) 95 % (39-76) H 08/22/23 18:30 Lymphocytes % (Manual) 5 % (13-43) L 08/22/23 18:30 Plt Morphology Comment Normal (NORMAL) 08/22/23 18:30 RBC Morphology Normal (NORMAL) 08/22/23 18:30 Sodium 136 mmol/L (136-145) 08/22/23 18:30 Corrected Sodium 138 mmol/L (136-145) 08/22/23 18:30 Potassium 5.3 mmol/L (3.5-5.1) H 08/22/23 18:30 Chloride 99 mmol/L (98-107) 08/22/23 18:30 Carbon Dioxide 39.7 mmol/L (21-32) H 08/22/23 18:30 BUN 87 mg/dL (7-18) H 08/22/23 18:30 Creatinine 2.23 mg/dL (0.70-1.30) H 08/22/23 18:30 Est GFR (MDRD) Af Amer 36 (>60) L 08/22/23 18:30 Est GFR (MDRD) Non-Af 30 (>60) L 08/22/23 18:30 Glucose 201 mg/dL (65-99) H 08/22/23 18:30 Lactic Acid 0.9 mmol/L (0.4-2.0) 08/22/23 18:30 Calcium 9.0 mg/dL (8.5-10.1) 08/22/23 18:30 Corrected Calcium 10.0 mg/dL (8.5-10.1) 08/22/23 18:30 Magnesium 2.5 mg/dL (2.0-2.9) 08/22/23 18:30 Total Bilirubin 0.50 mg/dL (0.2-1.0) 08/22/23 18:30 AST 33 Units/L (15-37) 08/22/23 18:30 ALT 38 Units/L (12-78) 08/22/23 18:30 Alkaline Phosphatase 112 Units/L (46-116) 08/22/23 18:30 Total Protein 5.9 g/dL (6.4-8.2) L 08/22/23 18:30 Albumin 2.8 g/dL (3.4-5.0) L 08/22/23 18:30 Globulin 3.1 g/dL (2.5-4.5) 08/22/23 18:30 Albumin/Globulin Ratio 0.9 Ratio (1.1-2.1) L 08/22/23 18:30 Lipase 8 Units/L (16-77) L 08/22/23 18:30 Specimen Type Catherized urine 08/22/23 18:02 Urine Color Yellow (YELLOW) 08/22/23 18:02 Urine Appearance Clear (CLEAR) 08/22/23 18:02 Urine pH 5.0 (5.0 - 8.0) 08/22/23 18:02 Ur Specific [place] 1.015 (1.000-1.030) 08/22/23 18:02 Urine Protein 2+ (NEGATIVE) 08/22/23 18:02 Urine Glucose (UA) Negative (NEGATIVE) 08/22/23 18:02 Urine Ketones Negative (NEGATIVE) 08/22/23 18:02 Urine Blood 5+ (NEGATIVE) 08/22/23 18:02 Urine Nitrite Negative (NEGATIVE) 08/22/23 18:02 Urine Bilirubin Negative (NEGATIVE) 08/22/23 18:02 Urine Urobilinogen Normal (NORMAL) 08/22/23 18:02 Ur Leukocyte Esterase Negative (NEGATIVE) 08/22/23 18:02 Urine RBC 10-20 /HPF (0-3) A 08/22/23 18:02 Urine WBC 0-2 /HPF (0-5) 08/22/23 18:02 Ur Squamous Epith Cells Rare /HPF (NEGATIVE) 08/22/23 18:02 Urine Bacteria Negative /HPF (NEGATIVE) 08/22/23 18:02 Ur Culture Indicated? No/not indicated 08/22/23 18:02 Opioid Opioid Risk Tool Age ([place] box if 16-45): No History of Preadolescent Sexual Abuse: No Total: 0 Total Score Risk Category: Low Risk Copyright: Avila predicting aberrant behaviors Discharge Plan Diagnosis Discharge Problem: Generalized weakness, Carcinoma, lung Discharge Plan Patient Disposition: 09 ADMITTED INPATIENT Condition: Stable Prescriptions: No Action potassium chloride 10 mEq tablet extended release 10 meq PO QDAY furosemide 20 mg tablet 20 mg PO BID metoprolol succinate 25 mg tablet extended release 24 hr 25 mg PO QDAY doxazosin 2 mg tablet 2 mg PO QDAY pantoprazole 40 mg Tablet,Delayed Release (Dr/Ec) 40 mg PO BID Qty: 60 3RF Rx Instructions: TAKE ONE TABLET TWICE A DAY sildenafil 50 mg tablet 50 mg PO BID aspirin 81 mg Tablet,Delayed Release (Dr/Ec) 81 mg PO DAILY Hematinic Plus Vit/Minerals 106 mg iron- 1 mg tablet 1 tab PO QDAY megestrol 40 mg Tablet 40 mg PO BID Qty: 60 0RF methylprednisolone [Medrol (Ollie)] 4 mg Tablets,Dose Pack See Rx Instructions .ROUTE .COMPLEX Qty: 1 0RF Rx Instructions: orally per package directions ertapenem 1 gram Recon Soln 0.5 g IV QDAY Qty: 7 0RF amlodipine 10 mg tablet 10 mg PO DAILY Patient Comments: TAKE 1 TABLET BY MOUTH ONCE DAILY glimepiride 4 mg tablet 4 mg PO BID budesonide 0.5 mg/2 mL suspension for nebulization 1 ea NEB BIDRESP Qty: 50 1RF levalbuterol HCl 1.25 mg/3 mL Solution For Nebulization 1.25 mg NEB Q6RESP Qty: 60 1RF Rx Instructions: INHALE ONE TREATMENT THREE TIMES A DAY X 10 DAYS, THEN NEEDED Health Concerns: Post Hospitalization: new medications and changes needed to prevent readmission or further decline. Pt educated and given instructions on all concerns. Plan of Treatment: Continue with present treatment and follow up plan. Pt is to keep follow up a ppointment as instructed and take medications as ordered. Orders to Discharge Patient Discharge Orders: Transfer (Routine); Ordered 08/22/23 Ordered By: Syd Mccoy Follow ups/Referrals Follow ups/Referrals: NFD,None [Primary Care Provider] - 3 days
[2023-08-22] MEDS: DUONEB 0.5 MG/3 MG (3 mL) NEB ONE ×2 (18:22→18:29)
[2023-08-22] MEDS: LR 1,000 ML IV 1,000 ML IV SCH (18:26)
[2023-08-22 18:38] LABS: BILIRUBIN,URINE NEGATIVE (NEGATIVE); BLOOD/HEMOGLOBIN,URINE 5+ (NEGATIVE); GLUCOSE, URINE NEGATIVE (NEGATIVE); KETONES,URINE NEGATIVE (NEGATIVE); LEUKOCYTE ESTERASE ,URINE NEGATIVE (NEGATIVE); NITRITES,URINE NEGATIVE (NEGATIVE); PROTEIN,URINE 2+ (NEGATIVE); UROBILINOGEN,URINE NORMAL (NORMAL)
[2023-08-22 18:40] LABS: APPEARANCE,URINE CLEAR (CLEAR); COLOR,URINE YELLOW (YELLOW)
[2023-08-22 18:58] LABS: BASOPHILS % (AUTO) 0 % (0.2-1.0); NEUTROPHILS # (AUTO) 12.3 x10^3/uL (2.2-4.8); WHITE BLOOD COUNT 13.2 X10^3/uL (3.6-10.0)
[2023-08-22 19:01] LABS: BACTERIA,URINE NEGATIVE /HPF (NEGATIVE); SQUAMOUS EPITHELIAL CELL,UR RARE /HPF (NEGATIVE)
[2023-08-22 19:03] LABS: HEMATOCRIT 25.3 % (42.0-54.0); HEMOGLOBIN 8.3 g/dL (13.5-18.0); LYMPHOCYTES # (AUTO) 0.2 X10^3/uL (1.3-2.9); LYMPHOCYTES % (AUTO) 1.8 % (21.0-51.0); MEAN CORPUSCULAR HEMOGLOBIN 31.2 pg (27.0-34.0); MEAN CORPUSCULAR HGB CONC 32.6 g/dL (33.0-35.0); MEAN CORPUSCULAR VOLUME 95.6 fL (80.0-100.0); MEAN PLATELET VOLUME 10.6 fL (7.4-11.0); MONOCYTES # (AUTO) 0.6 x10^3/uL (0.3-0.8); MONOCYTES % (AUTO) 4.8 % (0.0-13.0); NEUTROPHILS % (AUTO) 93.4 % (42.0-75.0); PLATELET COUNT 178 X10^3/uL (150.0-450.0); RED BLOOD COUNT 2.65 X10^6/uL (4.7-6.0); RED CELL DISTRIBUTION WIDTH 15.6 % (11.6-16.5)
[2023-08-22 19:11] LABS: ALBUMIN 2.8 g/dL (3.4-5.0); CARBON DIOXIDE 39.7 mmol/L (21-32); CREATININE 2.23 mg/dL (0.70-1.30); MAGNESIUM 2.5 mg/dL (2.0-2.9); TOTAL PROTEIN 5.9 g/dL (6.4-8.2)
[2023-08-22 19:14] LABS: POTASSIUM 5.3 mmol/L (3.5-5.1)
[2023-08-22 19:21] LABS: PLATELET MORPHOLOGY COMMENT NORMAL (NORMAL)
--- NOTE | 2023-08-22 19:48 | RAD ---
EXAM:CHEST, 1 VIEWHISTORY:c/o increasing weakness. was discharged from here yesterday.;COMPARISON:August 20, 2023TECHNIQUE:Chest radiographic imaging, AP portable projection, 1 imageFINDINGS:Mild cardiomegaly.Increased interstitial markings bilaterally; [id number].Small right pleural effusion.No pneumothorax.No acute osseous abnormality.Right PICC in place.IMPRESSION:No significant interval acute cardiopulmonary changes.THIS IS AN ELECTRONICALLY VERIFIED FINAL REPORT08/22/2023 7:44 PM - Electronically signed by Raheem Arteaga MD
[2023-08-22] MEDS ORDERED: LR 1,000 ML IV 1,000 ML IV SCH (20:58)
[2023-08-22] MEDS ORDERED: CONSULT PHARMACY - POTASSIUM & MAGNESIUM XX SCH (20:58)
[2023-08-22] MEDS: PULMICORT NEB TX 0.5 MG NEB SCH (21:38)
[2023-08-22] MEDS: AMARYL TAB 4 MG PO SCH (22:14)
[2023-08-22] MEDS: LASIX PO SCH (22:14)
[2023-08-22] MEDS: PROTONIX TAB 40 MG PO SCH (22:15)
[2023-08-22] MEDS: REVATIO PO SCH (22:38)
[2023-08-22 23:23] VITALS: BMI 27.1
[2023-08-22] MEDS: SNACK - Diabetic Appropriate PO SCH (23:29)
[2023-08-23] MEDS: XOPENEX 1.25 MG/3 ML NEBULE NEB SCH ×2 (00:59→06:51)
[2023-08-23] MEDS: ULTRAM PO PRN (01:13)
[2023-08-23 05:29] LABS: BASOPHILS # (AUTO) 0.1 X10^3/uL (0.0-0.1); BASOPHILS % (AUTO) 0.5 % (0.2-1.0); EOSINOPHILS % (AUTO) 0.1 % (0.9-2.9); HEMATOCRIT 23.9 % (42.0-54.0); HEMOGLOBIN 7.9 g/dL (13.5-18.0); LYMPHOCYTES # (AUTO) 0.4 X10^3/uL (1.3-2.9); LYMPHOCYTES % (AUTO) 3.1 % (21.0-51.0); MEAN CORPUSCULAR HEMOGLOBIN 31.3 pg (27.0-34.0); MEAN CORPUSCULAR HGB CONC 32.9 g/dL (33.0-35.0); MEAN PLATELET VOLUME 9.8 fL (7.4-11.0); MONOCYTES # (AUTO) 0.7 x10^3/uL (0.3-0.8); MONOCYTES % (AUTO) 5.1 % (0.0-13.0); NEUTROPHILS # (AUTO) 13.2 x10^3/uL (2.2-4.8); NEUTROPHILS % (AUTO) 91.2 % (42.0-75.0); PLATELET COUNT 193 X10^3/uL (150.0-450.0); RED BLOOD COUNT 2.52 X10^6/uL (4.7-6.0); RED CELL DISTRIBUTION WIDTH 15.9 % (11.6-16.5); WHITE BLOOD COUNT 14.5 X10^3/uL (3.6-10.0)
[2023-08-23 05:40] LABS: ALANINE AMINOTRANSFERASE 31 Units/L (12-78); ALBUMIN 2.5 g/dL (3.4-5.0); ALKALINE PHOSPHATASE 93 Units/L (46-116); ASPARTATE AMINO TRANSFERASE 25 Units/L (15-37); BLOOD UREA NITROGEN 72 mg/dL (7-18); CALCIUM 8.8 mg/dL (8.5-10.1); CARBON DIOXIDE 40.5 mmol/L (21-32); CHLORIDE 102 mmol/L (98-107); CREATININE 1.82 mg/dL (0.70-1.30); POTASSIUM 4.2 mmol/L (3.5-5.1); SODIUM 140 mmol/L (136-145); TOTAL PROTEIN 5.4 g/dL (6.4-8.2); eGFR NON BLACK RACES 38 (>60)
[2023-08-23 05:50] LABS: GLUCOSE 46 mg/dL (65-99)
[2023-08-23 05:55] LABS: BAND NEUTROPHILS % 2 % (0-10); PLATELET MORPHOLOGY COMMENT NORMAL (NORMAL)
[2023-08-23] MEDS: D50W ABBOJECT SYR IV ONE (06:21)
[2023-08-23] MEDS: CARDURA PO SCH (08:32)
[2023-08-23] MEDS: HEMOCYTE-PLUS PO SCH (08:32)
[2023-08-23] MEDS: INVanz INJ 1 GRAM VIAL 0.5 G in NS 50 ML IV 50 ML IV SCH (08:32)
[2023-08-23] MEDS: NORVASC TAB 10 MG PO SCH (08:32)
[2023-08-23] MEDS: TOPROL XL PO SCH (08:32)
[2023-08-23] MEDS: ASPIRIN EC 81 MG PO SCH (08:32)
[2023-08-23] MEDS: MICRO K EXTEN CAP 10 MEQ PO SCH (08:32)
[2023-08-23] MEDS: PULMICORT NEB TX 0.5 MG NEB ONE (08:41)
[2023-08-23] MEDS: XOPENEX 1.25 MG/3 ML NEBULE NEB ONE ×2 (08:41)
[2023-08-23] MEDS ORDERED: INVanz INJ 1 GRAM VIAL IV SCH (09:00)
[2023-08-23] MEDS: INFeD or DEXFERRUM 25 MG in NS 100 ML IV 100 ML IV ONE (10:20)
[2023-08-23] MEDS: INFeD or DEXFERRUM 975 MG in NS 500 ML IV 500 ML IV ONE (12:28)
--- NOTE | 2023-08-23 14:54 | DR.H&P ---
H&P History & Physical for Day of: H&P Date: 08/23/23 Chief Complaint Chief Complaint: Increasing weakness History of Present Illness History of Present Illness: This is a pleasant 83-year-old white male who had just recently been in the [facility] for 10 days. During this time, he was treated for ESBL E. coli pneumonia. We had set him up with a PICC line the day before discharge, 08/21/2023. We arranged for him to receive Invanz at home for the next week because he wanted to ensure he kept his hematology/onco logy appointment on 08/22/2023. He was adamant that he go to that appointment because of his distant history of non-Hodgkin's lymphoma and partial right lung lobectomy. 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 After the patient got home, he saw his community chest officer/oncologist the following day. They did some lab work only and told him that he was anemic, which we already knew. He recommended that the patient receive iron; however, he was not able to receive any since he had to come back into the hospital for increasing weakness. He sat on the toilet yesterday to use the bathroom and could not get up. His called EMS, and they brought him to the [facility] emergency department for further evaluation and treatment. His chest x-ray was unchanged from the previous ones earlier in the week. He still has bilateral pneumonia. His white blood cell count slowly increased over the last few days to just over 14,000. His hemoglobin has also dropped from 8.5 last week to 7.9 this morning. His BUN and creatinine have improved since last week. Last night, he had an episode of hypoglycemia and, received 50% dextrose IV. We decided to stop his glimepiride at this time, and we will continue to do routine blood checks. I told the patient we would do an iron infusion since his iron level was low when I checked it last week, and hopefully, we will help correct his underlying anemia. I will speak to him about longterm placement, given his worsening medical condition and increasing weakness. His is a small lady and under 100 pounds, and she is not able to help him. In the meantime, we will continue his IV Invanz, Jessie, and do his iron infusion today. Repeat routine labs and recheck a chest x-ray tomorrow morning. Past Medical History Past Medical History: Arthritis, CHF, Diabetes and Hypertension Additional Medical History: Non-Hodgkins Lymphoma of Right Lung Past Surgical History Surgical History: Cholecystectomy and Tonsillectomy Additional Surgical History: Spinal Fusion, Lobectomy of Right Upper and Partial Right Lower Lobes, Adenoidectomy, Cardiac Ablation, Cardiac Stent x1 Family History Family Medical History: Diabetes Mellitus Social History Does patient currently use any type of tobacco product: No Type of Tobacco Use: None Does any household member use tobacco: No Alcohol Use: Other Drug Use: None Medications Home Medications: Home Medications Medication Instructions Recorded Confirmed Type amlodipine 10 mg tablet 10 mg PO DAILY 01/27/19 08/22/23 History glimepiride 4 mg tablet 4 mg PO BID 01/27/19 08/22/23 History doxazosin 2 mg tablet 2 mg PO QDAY 10/30/22 08/22/23 History furosemide 20 mg tablet 20 mg PO BID 10/30/22 08/22/23 History metoprolol succinate 25 mg 25 mg PO QDAY 10/30/22 08/22/23 History tablet,extended release 24 hr potassium chloride 10 mEq 10 meq PO QDAY 10/30/22 08/22/23 History tablet,extended release B [id number]-[id number]-Fe-FA 106 mg 1 tab PO QDAY 08/12/23 08/22/23 History iron-1 mg tablet (Hematinic Plus Vit/Minerals) aspirin 81 mg tablet,delayed 81 mg PO DAILY 08/12/23 08/22/23 History release sildenafil 50 mg tablet 50 mg PO BID 08/12/23 08/22/23 History Allergies Allergies Allergy/AdvReac Type Severity Reaction Status Date / Time No Known Drug Allergies Allergy Verified 08/22/23 18:26 Labs 08/23/23 04:50 08/23/23 05:55 Labs: 08/22/23 22:28 Sputum - Expectorated Sputum - Final Laboratory WBC 14.5 X10^3/uL (3.6-10.0) H 08/23/23 04:50 RBC 2.52 X10^6/uL (4.7-6.0) L 08/23/23 04:50 Hgb 7.9 g/dL (13.5-18.0) L 08/23/23 04:50 Hct 23.9 % (42.0-54.0) L 08/23/23 04:50 MCV 95.0 fL (80.0-100.0) 08/23/23 04:50 MCH 31.3 pg (27.0-34.0) 08/23/23 04:50 MCHC 32.9 g/dL (33.0-35.0) L 08/23/23 04:50 RDW 15.9 % (11.6-16.5) 08/23/23 04:50 Plt Count 193 X10^3/uL (150.0-450.0) 08/23/23 04:50 Plt Count Comment Adequate (ADEQUATE) 08/23/23 04:50 MPV 9.8 fL (7.4-11.0) 08/23/23 04:50 Neut % (Auto) 91.2 % (42.0-75.0) H 08/23/23 04:50 Lymph % (Auto) 3.1 % (21.0-51.0) L 08/23/23 04:50 [place] % (Auto) 5.1 % (0.0-13.0) 08/23/23 04:50 Eos % (Auto) 0.1 % (0.9-2.9) L 08/23/23 04:50 Baso % (Auto) 0.5 % (0.2-1.0) 08/23/23 04:50 Neut # (Auto) 13.2 x10^3/uL (2.2-4.8) H 08/23/23 04:50 Lymph # (Auto) 0.4 X10^3/uL (1.3-2.9) L 08/23/23 04:50 [place] # (Auto) 0.7 x10^3/uL (0.3-0.8) 08/23/23 04:50 Eos # (Auto) 0.0 x10^3/uL (0.0-0.2) 08/23/23 04:50 Baso # (Auto) 0.1 X10^3/uL (0.0-0.1) 08/23/23 04:50 Absolute Nucleated RBC 0.0 /100WBC 08/23/23 04:50 Total Counted 100 08/23/23 04:50 Neutrophils % (Manual) 91 % (39-76) H 08/23/23 04:50 Band Neutrophils % 2 % (0-10) 08/23/23 04:50 Lymphocytes % (Manual) 3 % (13-43) L 08/23/23 04:50 Monocytes % (Manual) 3 % (4-9) L 08/23/23 04:50 Eosinophils % (Manual) 1 % (0-6) 08/23/23 04:50 Plt Morphology Comment Normal (NORMAL) 08/23/23 04:50 RBC Morphology Normal (NORMAL) 08/23/23 04:50 Sodium 140 mmol/L (136-145) 08/23/23 04:50 Corrected Sodium TNP 08/23/23 04:50 Potassium 4.2 mmol/L (3.5-5.1) 08/23/23 04:50 Chloride 102 mmol/L (98-107) 08/23/23 04:50 Carbon Dioxide 40.5 mmol/L (21-32) H 08/23/23 04:50 BUN 72 mg/dL (7-18) H 08/23/23 04:50 Creatinine 1.82 mg/dL (0.70-1.30) H 08/23/23 04:50 Est GFR (MDRD) Af Amer 46 (>60) L 08/23/23 04:50 Est GFR (MDRD) Non-Af 38 (>60) L 08/23/23 04:50 Glucose 47 mg/dL (65-99) L* 08/23/23 05:55 POC Glucose (mg/dL) 129 mg/dL (65-99) H 08/23/23 11:00 Lactic Acid 0.9 mmol/L (0.4-2.0) 08/22/23 18:30 Calcium 8.8 mg/dL (8.5-10.1) 08/23/23 04:50 Corrected Calcium 10.0 mg/dL (8.5-10.1) 08/23/23 04:50 Magnesium 2.5 mg/dL (2.0-2.9) 08/22/23 18:30 Total Bilirubin 0.50 mg/dL (0.2-1.0) 08/23/23 04:50 AST 25 Units/L (15-37) 08/23/23 04:50 ALT 31 Units/L (12-78) 08/23/23 04:50 Alkaline Phosphatase 93 Units/L (46-116) 08/23/23 04:50 Total Protein 5.4 g/dL (6.4-8.2) L 08/23/23 04:50 Albumin 2.5 g/dL (3.4-5.0) L 08/23/23 04:50 Globulin 2.9 g/dL (2.5-4.5) 08/23/23 04:50 Albumin/Globulin Ratio 0.9 Ratio (1.1-2.1) L 08/23/23 04:50 Lipase 8 Units/L (16-77) L 08/22/23 18:30 Specimen Type Catherized urine 08/22/23 18:02 Urine Color Yellow (YELLOW) 08/22/23 18:02 Urine Appearance Clear (CLEAR) 08/22/23 18:02 Urine pH 5.0 (5.0 - 8.0) 08/22/23 18:02 Ur Specific [place] 1.015 (1.000-1.030) 08/22/23 18:02 Urine Protein 2+ (NEGATIVE) 08/22/23 18:02 Urine Glucose (UA) Negative (NEGATIVE) 08/22/23 18:02 Urine Ketones Negative (NEGATIVE) 08/22/23 18: Urine Blood 5+ (NEGATIVE) 08/22/23 18:02 Urine Nitrite Negative (NEGATIVE) 08/22/23 18:02 Urine Bilirubin Negative (NEGATIVE) 08/22/23 18:02 Urine Urobilinogen Normal (NORMAL) 08/22/23 18:02 Ur Leukocyte Esterase Negative (NEGATIVE) 08/22/23 18:02 Urine RBC 10-20 /HPF (0-3) A 08/22/23 18:02 Urine WBC 0-2 /HPF (0-5) 08/22/23 18:02 Ur Squamous Epith Cells Rare /HPF (NEGATIVE) 08/22/23 18:02 Urine Bacteria Negative /HPF (NEGATIVE) 08/22/23 18:02 Ur Culture Indicated? No/not indicated 08/22/23 18:02 Review of Systems Constitutional: Weakness and Malaise; denies Fever, Chills or Sweats Eyes: No Symptoms Reported ENT: No Symptoms Reported Respiratory: Cough, Shortness of Breath, SOB with Excertion and Sputum; denies Pleuritic Pain Cardiovascular: denies Chest Pain Gastrointestinal: No Symptoms Reported Genitourinary: No Symptoms Reported Musculoskeletal: No Symptoms Reported Skin: No Symptoms Reported Neurological: No Symptoms Reported Physical Exam Vital Signs: Vital Signs Temperature 97.2 F Temperature 97.5 F Pulse Rate [Bilateral Radial] 72 Pulse Rate [Bilateral Radial] 71 Pulse Rate 72 Respiratory Rate 18 Respiratory Rate 18 Respiratory Rate 18 Blood Pressure [Left Arm] 148/68 Blood Pressure [Left Arm] 157/67 O2 Sat by Pulse Oximetry 99 O2 Sat by Pulse Oximetry 96 O2 Sat by Pulse Oximetry 99 Oriented: Normal, Time, Person and Place Eyes: Normal Ear: Normal Nose: Normal Throat: Normal Respiratory: Rhonchi Throughout Cardiovascular: Normal : Normal Auscultation: Bowel Sounds: Normal Palpation: Normal Tenderness: Normal Skin: Normal Musculoskeletal: Normal Psychiatric: Normal Mood Description: Calm Affect: Normal Speech Pattern: Appropriate Assessment/Plan (1) Bilateral pneumonia due to Escherichia coli: Qualifiers: Lung location: lower lobe of lung Qualified Code(s): J15.5 - Pneumonia due to Escherichia coli Status: Acute Plan: Continue Invanz 500 mg IV daily, daily chest x-rays and daily labs. (2) Generalized weakness: Status: Acute Plan: We will continue to treat the patient's pneumonia and start him on iron infusions secondary to his iron deficiency anemia. I will discuss longterm placement with the patient on morning rounds tomorrow. (3) Carcinoma, lung: Status: Acute Plan: Treatment per hematology/oncology. (4) Neuroendocrine tumor: Status: Acute Plan: Treatment per hematology/oncology. (5) Chronic respiratory failure: Qualifiers: Respiratory failure complication: hypoxia Qualified Code(s): J96.11 - Chronic respiratory failure with hypoxia Status: Acute Plan: DuoNeb treatment every 6 hours, IV Invanz for bilateral ESBL E. coli pneumonia. 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 Recheck CBC tomorrow. (7) DM II (diabetes mellitus, type II), controlled: Qualifiers: Diabetes mellitus prison insulin use: with prison use Diabetes mellitus complication status: without complication Qualified Code(s): E11.9 - Type 2 diabetes mellitus without complications; Z79.4 - jail (current) use of insulin Status: Chronic Plan: We are holding the patient's glimepiride since he had a hypoglycemic episode this morning. If we need to covering with a sliding scale regular insulin if his blood sugar trends back up we will. (8) CHF (congestive heart failure): Qualifiers: Heart failure type: unspecified Heart failure chronicity: acute Qualified Code(s): I50.9 - Heart failure, unspecified Status: Acute Plan: We will diurese the patient if needed. We will plan on checking daily BNPs and chest x-rays. (9) Pulmonary hypertension, moderate to severe: Status: Chronic Plan: Continue sildenafil 50 mg twice daily. (10) Atrial fibrillation: Qualifiers: Atrial fibrillation type: unspecified Status: Chronic Plan: Continue metoprolol 25 mg daily. (11) CAD (coronary artery disease): Qualifiers: Coronary Disease-Associated Artery/Lesion type: [place] artery [place] vs. transplanted heart: [place] heart Associated angina: unspecified whether angina present Qualified Code(s): I25.10 - Atherosclerotic heart disease of [place] coronary artery without angina pectoris Status: Chronic (12) History of non-Hodgkin's lymphoma: Status: Acute Plan: Monitor by his community chest officer/oncologist. (13) Essential hypertension: Status: Chronic Plan: We will continue the patient's metoprolol extended release 25 mg daily and resume his amlodipine if needed. However, I want to try to find a better antihypertensive for him if needed his a.m. blood pain would worsen his history of congestive heart failure. (14) Hypoglycemic episode in patient with diabetes mellitus: Status: Acute Plan: Discontinue glimepiride for now and we will cover the patient with sliding scale regular insulin in case his blood sugar trends up. (15) Hyperkalemia: Narrative Support Text: The patient's potassium has gone from 5.3 down to 4.2 this morning. Status: Acute Plan: His hyperkalemia has now resolved. He has a history of mild hyperkalemia. We will follow his daily potassium levels on his CMPs. (16) Chronic kidney disease, stage 3b: Narrative Support Text: The patient's BUN and creatinine levels are improving since that shot up to over 2 last week after he received 1 g of Invanz but after we decreased the dose to 500 mg IV daily he has been steadily improving daily with his creatinine levels. Status: Acute Plan: We will make sure we renally dose all of his medications. Review H&P Reviewed: Yes Patient was examined?: Yes
[2023-08-23] MEDS: SNACK - Diabetic Appropriate PO SCH (21:02)
[2023-08-24 06:22] LABS: BASOPHILS % (AUTO) 0.3 % (0.2-1.0); EOSINOPHILS % (AUTO) 0.3 % (0.9-2.9); HEMATOCRIT 22.3 % (42.0-54.0); HEMOGLOBIN 7.6 g/dL (13.5-18.0); LYMPHOCYTES # (AUTO) 0.4 X10^3/uL (1.3-2.9); LYMPHOCYTES % (AUTO) 3.5 % (21.0-51.0); MEAN CORPUSCULAR HEMOGLOBIN 33.2 pg (27.0-34.0); MEAN CORPUSCULAR HGB CONC 34.2 g/dL (33.0-35.0); MEAN PLATELET VOLUME 9.8 fL (7.4-11.0); MONOCYTES # (AUTO) 0.5 x10^3/uL (0.3-0.8); MONOCYTES % (AUTO) 4.8 % (0.0-13.0); NEUTROPHILS # (AUTO) 9.7 x10^3/uL (2.2-4.8); NEUTROPHILS % (AUTO) 91.1 % (42.0-75.0); PLATELET COUNT 159 X10^3/uL (150.0-450.0); RED CELL DISTRIBUTION WIDTH 15.7 % (11.6-16.5); WHITE BLOOD COUNT 10.6 X10^3/uL (3.6-10.0)
[2023-08-24 06:33] LABS: ALANINE AMINOTRANSFERASE 27 Units/L (12-78); ALBUMIN 2.2 g/dL (3.4-5.0); ALKALINE PHOSPHATASE 90 Units/L (46-116); BLOOD UREA NITROGEN 46 mg/dL (7-18); CALCIUM 8.3 mg/dL (8.5-10.1); CARBON DIOXIDE 39.8 mmol/L (21-32); CHLORIDE 105 mmol/L (98-107); COR CA(FOR HYPOALB) 9.7 mg/dL (8.5-10.1); CREATININE 1.56 mg/dL (0.70-1.30); GLUCOSE 66 mg/dL (65-99); MAGNESIUM 2.4 mg/dL (2.0-2.9); POTASSIUM 4.2 mmol/L (3.5-5.1); SODIUM 142 mmol/L (136-145); TOTAL PROTEIN 5.2 g/dL (6.4-8.2); eGFR NON BLACK RACES 46 (>60)
[2023-08-24 06:54] LABS: ASPARTATE AMINO TRANSFERASE 25 Units/L (15-37)
[2023-08-24 06:58] LABS: PLATELET MORPHOLOGY COMMENT NORMAL (NORMAL)
--- NOTE | 2023-08-24 09:22 | RAD ---
EXAM:CHEST, 1 VIEWHISTORY:BIBASILAR ESBL, E. COLI. PNEUMONIA; HX: CVA, HTN, EMPHYSEMA, DMCOMPARISON:08/22/2023FINDINGS:New airspace opacity in the left lung could be pneumonia.Previously seen pneumonia or atelectasis in the right lung base has improved.There may be a small right effusion. This was probably present on the prior study.Cardiomegaly is present. Atherosclerotic calcifications are present in the aorta. Widened mediastinum is unchanged, probably a combination portable technique and body habitus.The bones are unremarkable.A right peripherally inserted central catheter is present with the tip in the expected location of the right brachiocephalic vein.IMPRESSION:1. New left lung pneumonia2. Improved right lung pneumonia or atelectasisTHIS IS AN ELECTRONICALLY VERIFIED FINAL REPORT08/24/2023 9:19 AM - Electronically signed by Laci Mtz MD
[2023-08-24] MEDS: ZYVOX 600MG IV 600 MG/300 ML BAG IV SCH (12:12)
[2023-08-24] MEDS: ALBUMIN HUMAN 25%- 100 ML 100 ML IV SCH (12:12)
--- NOTE | 2023-08-24 19:49 | PCM.PROG ---
Progress Note Progress Note for Day of Date of Exam: 08/24/23 Subjective Subjective: The patient states he feels worse this morning. He feels like he is a lot more congested in his chest. Exam reveals he has coarse diffuse rhonchi anteriorly and posteriorly. He states that the mucus feels like it is very thick in his chest. We will consult respiratory to see if they can place a smart vest only to help break up some of his mucus so he can expectorate it more easily. Muscle will give him some IV albumin because of his history of congestive heart failure and his generalized edema. I am also going to start him on IV linezolid to make sure that we are not missing an underlying MRSA infection somewhere. Past Medical Family Social History Allergies: Allergies No Known Drug Allergies Allergy (Verified 08/22/23 18:26) Review of Systems ROS: No change since H&P Vital Signs and I&O's Vital Signs: Vital Signs Temperature 98.2 F Temperature 98.0 F Pulse Rate [Bilateral Radial] 63 Pulse Rate [Bilateral Radial] 62 Respiratory Rate 16 Respiratory Rate 16 Blood Pressure [Left Arm] 152/70 Blood Pressure [Left Arm] 165/70 O2 Sat by Pulse Oximetry 95 O2 Sat by Pulse Oximetry 91 Intake and Output: Intake & Output 08/22/23 08/23/23 08/24/23 08/25/23 11:59 11:59 11:59 11:59 Intake Total 1297 / 1297 3033 / 3033 1550 / 1550 Output Total 1360 / 1360 2550 / 2550 900 / 900 Balance -63 / -63 483 / 483 650 / 650 Physical Exam Oriented: Normal, Time, Person and Place Eyes: Normal Ear: Normal Nose: Normal Throat: Normal Cardiovascular: Normal : Normal Auscultation: Bowel Sounds: Normal Tenderness: Normal Skin: Normal Musculoskeletal: Normal Psychiatric: Normal Mood Description: Calm Affect: Normal Speech Pattern: Clear and Appropriate Laboratory and Diagnostics 08/24/23 05:28 08/24/23 05:28 Labs: 08/22/23 18:40 Blood Blood Culture - Preliminary 08/22/23 18:30 Blood Blood Culture - Preliminary 08/22/23 22:28 Sputum - Expectorated Sputum Sputum Culture - Preliminary 08/22/23 22:28 Sputum - Expectorated Sputum - Final Laboratory WBC 10.6 X10^3/uL (3.6-10.0) H 08/24/23 05:28 RBC 2.30 X10^6/uL (4.7-6.0) L 08/24/23 05:28 Hgb 7.6 g/dL (13.5-18.0) L 08/24/23 05:28 Hct 22.3 % (42.0-54.0) L 08/24/23 05:28 MCV 97.0 fL (80.0-100.0) 08/24/23 05:28 MCH 33.2 pg (27.0-34.0) 08/24/23 05:28 MCHC 34.2 g/dL (33.0-35.0) 08/24/23 05:28 RDW 15.7 % (11.6-16.5) 08/24/23 05:28 Plt Count 159 X10^3/uL (150.0-450.0) 08/24/23 05:28 Plt Count Comment Adequate (ADEQUATE) 08/24/23 05:28 MPV 9.8 fL (7.4-11.0) 08/24/23 05:28 Neut % (Auto) 91.1 % (42.0-75.0) H 08/24/23 05:28 Lymph % (Auto) 3.5 % (21.0-51.0) L 08/24/23 05:28 [place] % (Auto) 4.8 % (0.0-13.0) 08/24/23 05:28 Eos % (Auto) 0.3 % (0.9-2.9) L 08/24/23 05:28 Baso % (Auto) 0.3 % (0.2-1.0) 08/24/23 05:28 Neut # (Auto) 9.7 x10^3/uL (2.2-4.8) H 08/24/23 05:28 Lymph # (Auto) 0.4 X10^3/uL (1.3-2.9) L 08/24/23 05:28 [place] # (Auto) 0.5 x10^3/uL (0.3-0.8) 08/24/23 05:28 Eos # (Auto) 0.0 x10^3/uL (0.0-0.2) 08/24/23 05:28 Baso # (Auto) 0.0 X10^3/uL (0.0-0.1) 08/24/23 05:28 Absolute Nucleated RBC 0.0 /100WBC 08/24/23 05:28 Total Counted 100 08/24/23 05:28 Neutrophils % (Manual) 93 % (39-76) H 08/24/23 05:28 Band Neutrophils % 2 % (0-10) 08/23/23 04:50 Lymphocytes % (Manual) 4 % (13-43) L 08/24/23 05:28 Monocytes % (Manual) 3 % (4-9) L 08/24/23 05:28 Eosinophils % (Manual) 1 % (0-6) 08/23/23 04:50 Plt Morphology Comment Normal (NORMAL) 08/24/23 05:28 RBC Morphology Normal (NORMAL) 08/24/23 05:28 Sodium 142 mmol/L (136-145) 08/24/23 05:28 Corrected Sodium TNP 08/24/23 05:28 Potassium 4.2 mmol/L (3.5-5.1) 08/24/23 05:28 Chloride 105 mmol/L (98-107) 08/24/23 05:28 Carbon Dioxide 39.8 mmol/L (21-32) H 08/24/23 05:28 BUN 46 mg/dL (7-18) H 08/24/23 05:28 Creatinine 1.56 mg/dL (0.70-1.30) H 08/24/23 05:28 Est GFR (MDRD) Af Amer 55 (>60) L 08/24/23 05:28 Est GFR (MDRD) Non-Af 46 (>60) L 08/24/23 05:28 Glucose 66 mg/dL (65-99) 08/24/23 05:28 POC Glucose (mg/dL) 134 mg/dL (65-99) H 08/24/23 16:55 Lactic Acid 0.9 mmol/L (0.4-2.0) 08/22/23 18:30 Calcium 8.3 mg/dL (8.5-10.1) L 08/24/23 05:28 Corrected Calcium 9.7 mg/dL (8.5-10.1) 08/24/23 05:28 Magnesium 2.4 mg/dL (2.0-2.9) 08/24/23 05:28 Total Bilirubin 0.50 mg/dL (0.2-1.0) 08/24/23 05:28 AST 25 Units/L (15-37) 08/24/23 05:28 ALT 27 Units/L (12-78) 08/24/23 05:28 Alkaline Phosphatase 90 Units/L (46-116) 08/24/23 05:28 B-Natriuretic Peptide 172 pg/mL (0-79) H 08/24/23 05:28 Total Protein 5.2 g/dL (6.4-8.2) L 08/24/23 05:28 Albumin 2.2 g/dL (3.4-5.0) L 08/24/23 05:28 Globulin 3.0 g/dL (2.5-4.5) 08/24/23 05:28 Albumin/Globulin Ratio 0.7 Ratio (1.1-2.1) L 08/24/23 05:28 Lipase 8 Units/L (16-77) L 08/22/23 18:30 Specimen Type Catherized urine 08/22/23 18:02 Urine Color Yellow (YELLOW) 08/22/23 18:02 Urine Appearance Clear (CLEAR) 08/22/23 18:02 Urine pH 5.0 (5.0 - 8.0) 08/22/23 18:02 Ur Specific [place] 1.015 (1.000-1.030) 08/22/23 18:02 Urine Protein 2+ (NEGATIVE) 08/22/23 18:02 Urine Glucose (UA) Negative (NEGATIVE) 08/22/23 18:02 Urine Ketones Negative (NEGATIVE) 08/22/23 18:02 Urine Blood 5+ (NEGATIVE) 08/22/23 18:02 Urine Nitrite Negative (NEGATIVE) 08/22/23 18:02 Urine Bilirubin Negative (NEGATIVE) 08/22/23 18:02 Urine Urobilinogen Normal (NORMAL) 08/22/23 18:02 Ur Leukocyte Esterase Negative (NEGATIVE) 08/22/23 18:02 Urine RBC 10-20 /HPF (0-3) A 08/22/23 18:02 Urine WBC 0-2 /HPF (0-5) 08/22/23 18:02 Ur Squamous Epith Cells Rare /HPF (NEGATIVE) 08/22/23 18:02 Urine Bacteria Negative /HPF (NEGATIVE) 08/22/23 18:02 Ur Culture Indicated? No/not indicated 08/22/23 18:02 Plan (1) Bilateral pneumonia due to Escherichia coli: Status: Acute Qualifiers: Lung location: lower lobe of lung Qualified Code(s): J15.5 - Pneumonia due to Escherichia coli Plan: Continue Invanz 500 mg IV daily, daily chest x-rays and daily labs. I will add linezolid 600 mg IV twice daily empirically cover the patient for possible underlying MRSA infection. I am also going to check a sputum AIT on him today. (2) Generalized weakness: Status: Acute Plan: We will continue to treat the patient's pneumonia and start him on iron infusions secondary to his iron deficiency anemia. I will discuss detention placement with the patient on morning rounds tomorrow. (3) Carcinoma, lung: Status: Acute Plan: Treatment per hematology/oncology. (4) Neuroendocrine tumor: Status: Acute Plan: Treatment per hematology/oncology. (5) Chronic respiratory failure: Status: Acute Qualifiers: Respiratory failure complication: hypoxia Qualified Code(s): J96.11 - Chronic respiratory failure with hypoxia Plan: DuoNeb treatment every 6 hours, IV Invanz for bilateral ESBL E. coli pneumonia. (6) Anemia: Status: Chronic Qualifiers: Anemia type: iron deficiency Iron deficiency anemia type: chronic blood loss Qualified Code(s): D50.0 - Iron deficiency anemia secondary to blood loss (chronic) Plan: Iron infusion today. Recheck CBC tomorrow. 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 If we need to covering with a sliding scale regular insul in if his blood sugar trends back up we will. (8) CHF (congestive heart failure): Status: Acute Qualifiers: Heart failure type: unspecified Heart failure chronicity: acute Qualified Code(s): I50.9 - Heart failure, unspecified Plan: We will diurese the patient if needed. We will plan on checking daily BNPs and chest x-rays. (9) Pulmonary hypertension, moderate to severe: Status: Chronic Plan: Continue sildenafil 50 mg twice daily. (10) Atrial fibrillation: Status: Chronic Qualifiers: Atrial fibrillation type: unspecified Plan: Continue metoprolol 25 mg daily. (11) CAD (coronary artery disease): Status: Chronic Qualifiers: Coronary Disease-Associated Artery/Lesion type: [place] artery [place] vs. 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 (13) Essential hypertension: Status: Chronic Plan: We will continue the patient's metoprolol extended release 25 mg daily and resume his amlodipine if needed. However, I want to try to find a better antihypertensive for him if needed his a.m. blood pain would worsen his history of congestive heart failure. (14) Hypoglycemic episode in patient with diabetes mellitus: Status: Acute Plan: Discontinue glimepiride for now and we will cover the patient with s liding scale regular insulin in case his blood sugar trends up. (15) Hyperkalemia: Status: Acute Plan: His hyperkalemia has now resolved. He has a history of mild hyperkalemia. We will follow his daily potassium levels on his CMPs. (16) Chronic kidney disease, stage 3b: Status: Acute Plan: We will make sure we renally dose all of his medications. (17) Generalized edema: Status: Acute Plan: 25% albumin 100 mL IV x 1 today and tomorrow.
[2023-08-24] MEDS: NovoLIN R (or HumuLIN R) SUBCUT PRN (20:27)
[2023-08-25 05:11] LABS: BASOPHILS % (AUTO) 0.1 % (0.2-1.0); EOSINOPHILS # (AUTO) 0.1 x10^3/uL (0.0-0.2); EOSINOPHILS % (AUTO) 0.8 % (0.9-2.9); HEMATOCRIT 21.8 % (42.0-54.0); HEMOGLOBIN 7.2 g/dL (13.5-18.0); LYMPHOCYTES # (AUTO) 0.4 X10^3/uL (1.3-2.9); LYMPHOCYTES % (AUTO) 4.9 % (21.0-51.0); MEAN CORPUSCULAR HEMOGLOBIN 32.4 pg (27.0-34.0); MEAN CORPUSCULAR HGB CONC 33.2 g/dL (33.0-35.0); MEAN CORPUSCULAR VOLUME 97.4 fL (80.0-100.0); MEAN PLATELET VOLUME 10.6 fL (7.4-11.0); MONOCYTES # (AUTO) 0.4 x10^3/uL (0.3-0.8); MONOCYTES % (AUTO) 4.7 % (0.0-13.0); NEUTROPHILS # (AUTO) 7.6 x10^3/uL (2.2-4.8); NEUTROPHILS % (AUTO) 89.5 % (42.0-75.0); PLATELET COUNT 121 X10^3/uL (150.0-450.0); RED BLOOD COUNT 2.24 X10^6/uL (4.7-6.0); RED CELL DISTRIBUTION WIDTH 15.8 % (11.6-16.5); WHITE BLOOD COUNT 8.5 X10^3/uL (3.6-10.0)
[2023-08-25 05:17] LABS: ALBUMIN 2.4 g/dL (3.4-5.0); CALCIUM 8.3 mg/dL (8.5-10.1); CARBON DIOXIDE 40.8 mmol/L (21-32); COR CA(FOR HYPOALB) 9.6 mg/dL (8.5-10.1); CREATININE 1.51 mg/dL (0.70-1.30); POTASSIUM 4.5 mmol/L (3.5-5.1); TOTAL PROTEIN 5.3 g/dL (6.4-8.2)
[2023-08-25] MEDS: DIFLUCAN 200 MG IV PREMIX* 200 MG/100 ML BAG IV SCH (11:28)
[2023-08-25] MEDS: PROTONIX INJ 40 MG VIAL IVP SCH (20:38)
--- NOTE | 2023-08-25 20:58 | PCM.PROG ---
Progress Note Progress Note for Day of Date of Exam: 08/25/23 Subjective Subjective: The patient states he again is feeling worse than he did on the previous day. He states he felt bad yesterday with more congested in his chest. Today he states that he is more congested in his chest and the previous day. The patient's vital signs are stable however since noon today his O2 sat has been going down. He is currently at 92% on nasal cannula at 8 PM. The patient's hemoglobin has gone down from 7.6-7.2 this morning. Will go ahead and check a Hemoccult today to make sure he is not losing any blood through the GI tract. He does have epigastric tenderness on exam this morning. He denies having any melanotic or bloody stools. I will stop his oral pantoprazole and changing to pantoprazole 40 mg IV twice daily. Regarding the patient's chronic kidney disease, his creatinine is now much improved at 1.51. Past Medical Family Social History Past Med/Fam/Surg Hx: No changes since H&P Allergies: Allergies No Known Drug Allergies Allergy (Verified 08/22/23 18:26) Review of Systems ROS: No change since H&P Vital Signs and I&O's Vital Signs: Vital Signs Temperature 98.4 F Temperature 98.1 F Pulse Rate [Bilateral Radial] 64 Pulse Rate [Bilateral Radial] 62 Respiratory Rate 20 Respiratory Rate 18 Blood Pressure [Left Arm] 126/60 Blood Pressure [Left Arm] 134/64 O2 Sat by Pulse Oximetry 92 O2 Sat by Pulse Oximetry 94 Intake and Output: Intake & Output 08/23/23 08/24/23 08/25/23 08/26/23 11:59 11:59 11:59 11:59 Intake Total 1297 / 1297 3033 / 3033 3084 / 3084 1644 / 1644 Output Total 1360 / 1360 2550 / 2550 1750 / 1750 950 / 950 Balance -63 / -63 483 / 483 1334 / 1334 694 / 694 Physical Exam Oriented: Normal, Time, Person and Place Eyes: Normal Ear: Normal Nose: Normal Throat: Normal Respiratory: Right, Left, Generalized, Diminished and Rhonchi; negative Wheezes Cardiovascular: Normal : Normal Auscultation: Bowel Sounds: Normal Tenderness: Normal Skin: Normal Musculoskeletal: Normal Psychiatric: Normal Mood Description: Calm and Withdrawn Affect: Normal Speech Pattern: Clear and Appropriate Laboratory and Diagnostics 08/25/23 04:34 08/25/23 04:34 Labs: 08/22/23 22:28 Sputum - Expectorated Sputum Sputum Culture - Preliminary 08/22/23 22:28 Sputum - Expectorated Sputum - Final 08/24/23 21:07 Sputum - Expectorated Sputum - Final 08/22/23 18:40 Blood Blood Culture - Preliminary 08/22/23 18:30 Blood Blood Culture - Preliminary Laboratory WBC 8.5 X10^3/uL (3.6-10.0) 08/25/23 04:34 RBC 2.24 X10^6/uL (4.7-6.0) L 08/25/23 04:34 Hgb 7.2 g/dL (13.5-18.0) L 08/25/23 04:34 Hct 21.8 % (42.0-54.0) L 08/25/23 04:34 MCV 97.4 fL (80.0-100.0) 08/25/23 04:34 MCH 32.4 pg (27.0-34.0) 08/25/23 04:34 MCHC 33.2 g/dL (33.0-35.0) 08/25/23 04:34 RDW 15.8 % (11.6-16.5) 08/25/23 04:34 Plt Count 121 X10^3/uL (150.0-450.0) L 08/25/23 04:34 Plt Count Comment Adequate (ADEQUATE) 08/24/23 05:28 MPV 10.6 fL (7.4-11.0) 08/25/23 04:34 Neut % (Auto) 89.5 % (42.0-75.0) H 08/25/23 04:34 Lymph % (Auto) 4.9 % (21.0-51.0) L 08/25/23 04:34 [place] % (Auto) 4.7 % (0.0-13.0) 08/25/23 04:34 Eos % (Auto) 0.8 % (0.9-2.9) L 08/25/23 04:34 Baso % (Auto) 0.1 % (0.2-1.0) L 08/25/23 04:34 Neut # (Auto) 7.6 x10^3/uL (2.2-4.8) H 08/25/23 04:34 Lymph # (Auto) 0.4 X10^3/uL (1.3-2.9) L 08/25/23 04:34 [place] # (Auto) 0.4 x10^3/uL (0.3-0.8) 08/25/23 04:34 Eos # (Auto) 0.1 x10^3/uL (0.0-0.2) 08/25/23 04:34 Baso # (Auto) 0.0 X10^3/uL (0.0-0.1) 08/25/23 04:34 Absolute Nucleated RBC 0.2 /100WBC 08/25/23 04:34 Total Counted 100 08/24/23 05:28 Neutrophils % (Manual) 93 % (39-76) H 08/24/23 05:28 Band Neutrophils % 2 % (0-10) 08/23/23 04:50 Lymphocytes % (Manual) 4 % (13-43) L 08/24/23 05:28 Monocytes % (Manual) 3 % (4-9) L 08/24/23 05:28 Eosinophils % (Manual) 1 % (0-6) 08/23/23 04:50 Plt Morphology Comment Normal (NORMAL) 08/24/23 05:28 RBC Morphology Normal (NORMAL) 08/24/23 05:28 Sodium 139 mmol/L (136-145) 08/25/23 04:34 Corrected Sodium 140 mmol/L (136-145) 08/25/23 04:34 Potassium 4.5 mmol/L (3.5-5.1) 08/25/23 04:34 Chloride 103 mmol/L (98-107) 08/25/23 04:34 Carbon Dioxide 40.8 mmol/L (21-32) H 08/25/23 04:34 BUN 39 mg/dL (7-18) H 08/25/23 04:34 Creatinine 1.51 mg/dL (0.70-1.30) H 08/25/23 04:34 Est GFR (MDRD) Af Amer 57 (>60) L 08/25/23 04:34 Est GFR (MDRD) Non-Af 47 (>60) L 08/25/23 04:34 Glucose 139 mg/dL (65-99) H 08/25/23 04:34 POC Glucose (mg/dL) 112 mg/dL (65-99) H 08/25/23 20:00 Lactic Acid 0.9 mmol/L (0.4-2.0) 08/22/23 18:30 Calcium 8.3 mg/dL (8.5-10.1) L 08/25/23 04:34 Corrected Calcium 9.6 mg/dL (8.5-10.1) 08/25/23 04:34 Magnesium 2.4 mg/dL (2.0-2.9) 08/24/23 05:28 Total Bilirubin 0.50 mg/dL (0.2-1.0) 08/25/23 04:34 AST 21 Units/L (15-37) 08/25/23 04:34 ALT 27 Units/L (12-78) 08/25/23 04:34 Alkaline Phosphatase 91 Units/L (46-116) 08/25/23 04:34 B-Natriuretic Peptide 172 pg/mL (0-79) H 08/24/23 05:28 Total Protein 5.3 g/dL (6.4-8.2) L 08/25/23 04:34 Albumin 2.4 g/dL (3.4-5.0) L 08/25/23 04:34 Globulin 2.9 g/dL (2.5-4.5) 08/25/23 04:34 Albumin/Globulin Ratio 0.8 Ratio (1.1-2.1) L 08/25/23 04:34 Lipase 8 Units/L (16-77) L 08/22/23 18:30 Specimen Type Catherized urine 08/22/23 18:02 Urine Color Yellow (YELLOW) 08/22/23 18:02 Urine Appearance Clear (CLEAR) 08/22/23 18:02 Urine pH 5.0 (5.0 - 8.0) 08/22/23 18:02 Ur Specific [place] 1.015 (1.000-1.030) 08/22/23 18:02 Urine Protein 2+ (NEGATIVE) 08/22/23 18:02 Urine Glucose (UA) Negative (NEGATIVE) 08/22/23 18:02 Urine Ketones Negative (NEGATIVE) 08/22/23 18:02 Urine Blood 5+ (NEGATIVE) 08/22/23 18:02 Urine Nitrite Negative (NEGATIVE) 08/22/23 18:02 Urine Bilirubin Negative (NEGATIVE) 08/22/23 18:02 Urine Urobilinogen Normal (NORMAL) 08/22/23 18:02 Ur Leukocyte Esterase Negative (NEGATIVE) 08/22/23 18:02 Urine RBC 10-20 /HPF (0-3) A 08/22/23 18:02 Urine WBC 0-2 /HPF (0-5) 08/22/23 18:02 Ur Squamous Epith Cells Rare /HPF (NEGATIVE) 08/22/23 18:02 Urine Bacteria Negative /HPF (NEGATIVE) 08/22/23 18:02 Ur Culture Indicated? No/not indicated 08/22/23 18:02 Radiology Reviewed: Yes Plan (1) Bilateral pneumonia due to Escherichia coli: Status: Acute Qualifiers: Lung location: lower lobe of lung Qualified Code(s): J15.5 - Pneumonia due to Escherichia coli Plan: Continue Invanz 500 mg IV daily, daily chest x-rays and daily labs. I will add linezolid 600 mg IV twice daily empirically cover the patient for possible underlying MRSA infection. I am also going to check a sputum AIT on him today. (2) Generalized weakness: Status: Acute Plan: We will continue to treat the patient's pneumonia and start him on iron infusions secondary to his iron deficiency anemia. I will discuss alf placement with the patient on morning rounds tomorrow. (3) Carcinoma, lung: Status: Acute Plan: Treatment per hematology/oncology. (4) Neuroendocrine tumor: Status: Acute Plan: Treatment per hematology/oncology. (5) Chronic respiratory failure: Status: Acute Qualifiers: Respiratory failure complication: hypoxia Qualified Code(s): J96.11 - Chronic respiratory failure with hypoxia Narrative Support Text: Increasing chest congestion today. The patient's sputum culture was also positive for yeast Plan: I asked the respiratory therapist team to start using Mucomyst on the patient every 6 hours. They stated that they would put the order in and start doing that. Continue DuoNeb treatment every 6 hours, IV Invanz for bilateral ESBL E. coli pneumonia. Start Diflucan 200 mg IV daily. (6) Anemia: Status: Chronic Qualifiers: Anemia type: iron deficiency Iron deficiency anemia type: chronic blood loss Qualified Code(s): D50.0 - Iron deficiency anemia secondary to blood loss (chronic) Narrative Support Text: Patient's hemoglobin has gone from 7.6-7.2 this morning. However his vital signs are currently stable as he is normotensive and has a pulse of 64. The patient's platelet count has also going down to 121,000 from 159,000 yesterday. Because of the decrease in platelets and hemoglobin I suspect that he likely has mild bleeding gastric ulcer since he is tender in the epigastric area. Plan: Repeat the CBC in the morning. We are checking a Hemoccult today and will follow up with results when available. We are changing him from oral pantoprazole twice daily to IV pantoprazole every 12 hours for improved GI protection. The patient does have epigastric tenderness now, indicating he may have some underlying gastritis or gastric ulcer. 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 If we need to covering with a sliding scale regular insulin if his blood sugar trends back up we will. (8) CHF (congestive heart failure): Status: Acute Qualifiers: Heart failure type: unspecified Heart failure chronicity: acute Qualified Code(s): I50.9 - Heart failure, unspecified Plan: We will diurese the patient if needed. We will plan on checking daily BNPs and chest x-rays. (9) Pulmonary hypertension, moderate to severe: Status: Chronic Plan: Continue sildenafil 50 mg twice daily. (10) Atrial fibrillation: Status: Chronic Qualifiers: Atrial fibrillation type: unspecified Plan: Continue metoprolol 25 mg daily. (11) CAD (coronary artery disease): Status: Chronic Qualifiers: Coronary Disease-Associated Artery/Lesion type: [place] artery [place] vs. 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 (13) Essential hypertension: Status: Chronic Narrative Support Text: Stable Plan: We will continue the patient's metoprolol extended release 25 mg daily and resume his amlodipine if needed. However, I want to try to find a better antihypertensive for him if needed his a.m. blood pain would worsen his history of congestive heart failure. (14) Hypoglycemic episode in patient with diabetes mellitus: Status: Acute Plan: Discontinue glimepiride for now and we will cover the patient with sliding scale regular insulin in case his blood sugar trends up. (15) Hyperkalemia: Status: Acute Narrative Support Text: The patient's hyperkalemia has resolved as he is potassium level is 4.5 this morning. Plan: His hyperkalemia has now resolved. He has a history of mild hyperkalemia. We will follow his daily potassium levels on his CMPs. (16) Chronic kidney disease, stage 3b: Status: Acute Plan: We will make sure we renally dose all of his medications. (17) Generalized edema: Status: Acute Plan: 25% albumin 100 mL IV x 1 today.
[2023-08-26 04:52] LABS: BLOOD UREA NITROGEN 35 mg/dL (7-18); CALCIUM 8.5 mg/dL (8.5-10.1); CHLORIDE 103 mmol/L (98-107); CREATININE 1.66 mg/dL (0.70-1.30); GLUCOSE 96 mg/dL (65-99); POTASSIUM 4.7 mmol/L (3.5-5.1); SODIUM 142 mmol/L (136-145); eGFR NON BLACK RACES 42 (>60)
[2023-08-26 05:02] LABS: BASOPHILS % (AUTO) 0.1 % (0.2-1.0); EOSINOPHILS # (AUTO) 0.1 x10^3/uL (0.0-0.2); EOSINOPHILS % (AUTO) 1.5 % (0.9-2.9); HEMATOCRIT 20.9 % (42.0-54.0); LYMPHOCYTES # (AUTO) 0.4 X10^3/uL (1.3-2.9); LYMPHOCYTES % (AUTO) 4.5 % (21.0-51.0); MAGNESIUM 2.1 mg/dL (2.0-2.9); MEAN CORPUSCULAR HEMOGLOBIN 32.7 pg (27.0-34.0); MEAN CORPUSCULAR HGB CONC 33.7 g/dL (33.0-35.0); MEAN CORPUSCULAR VOLUME 97.1 fL (80.0-100.0); MONOCYTES # (AUTO) 0.5 x10^3/uL (0.3-0.8); MONOCYTES % (AUTO) 5.2 % (0.0-13.0); NEUTROPHILS # (AUTO) 7.8 x10^3/uL (2.2-4.8); NEUTROPHILS % (AUTO) 88.7 % (42.0-75.0); PLATELET COUNT 124 X10^3/uL (150.0-450.0); RED BLOOD COUNT 2.15 X10^6/uL (4.7-6.0); RED CELL DISTRIBUTION WIDTH 15.7 % (11.6-16.5); WHITE BLOOD COUNT 8.8 X10^3/uL (3.6-10.0)
--- NOTE | 2023-08-26 06:35 | RAD ---
EXAM:Portable AP chestHISTORY:PneumoniaCOMPARISON: 024FINDINGS:Similar cardiomegaly. Extensive bilateral areas of airspace pulmonary involvement are noted, with interval progression since 1 day earlier.IMPRESSION:Slight interval increase in bilateral pneumonia.THIS IS AN ELECTRONICALLY VERIFIED FINAL REPORT08/26/2023 6:31 AM - Electronically signed by Rivas Arenas MD
[2023-08-26] MEDS: DIFLUCAN 100 MG IV (MIX by PHARMACY)* 100 MG/50 ML BAG IV SCH (08:55)
[2023-08-26] MEDS ORDERED: TYLENOL 325 MG TAB PO ONE (09:51)
[2023-08-26] MEDS ORDERED: BENADRYL INJ 50 MG VIAL IVP ONE (09:52)
[2023-08-26] MEDS: MUCOMYST 20% 200 MG/ML NEB SCH (10:08)
--- NOTE | 2023-08-26 16:08 | RAD ---
EXAM: CHEST, 1 VIEW HISTORY: PNEUMONIA; COMPARISON: August 25, 2023 TECHNIQUE: Chest radiographic imaging, AP portable projection, 1 image FINDINGS: Airspace disease in the hilar regions; [id number]; without significant change. Diffuse increased interstitial markings. Mild cardiomegaly. Right PICC tip overlies the right subclavian vein. No pleural effusion. No pneumothorax. No acute osseous abnormality. IMPRESSION: No significant interval acute cardiopulmonary changes. THIS IS AN ELECTRONICALLY VERIFIED FINAL REPORT 08/26/2023 4:05 PM - Electronically signed by Raheem Arteaga MD
[2023-08-26 17:20] LABS: BILIRUBIN,URINE NEGATIVE (NEGATIVE); BLOOD/HEMOGLOBIN,URINE 5+ (NEGATIVE); GLUCOSE, URINE NEGATIVE (NEGATIVE); KETONES,URINE NEGATIVE (NEGATIVE); LEUKOCYTE ESTERASE ,URINE NEGATIVE (NEGATIVE); NITRITES,URINE NEGATIVE (NEGATIVE); PH,URINE 6.5 (5.0 - 8.0); PROTEIN,URINE 3+ (NEGATIVE); UROBILINOGEN,URINE NORMAL (NORMAL)
[2023-08-26 17:44] LABS: APPEARANCE,URINE HAZY (CLEAR); COLOR,URINE YELLOW (YELLOW)
[2023-08-26 17:46] LABS: BACTERIA,URINE TRACE /HPF (NEGATIVE); RBC,URINE TNTC /HPF (0-3); SQUAMOUS EPITHELIAL CELL,UR RARE /HPF (NEGATIVE)
--- NOTE | 2023-08-26 19:53 | PCM.PROG ---
Progress Note Progress Note for Day of Date of Exam: 08/26/23 Subjective Subjective: The patient states he again is feeling better than he did yesterday. His kidney function has improved again. His hemoglobin is dropped to 7.0. We have ordered 2 units of packed red blood cells to be transfused. We will premedicate him with Tylenol and Benadryl before infusion. I will give him furosemide 40 mg IV x 1 between the first and second doses. The patient was found to have antibodies in the blood, so they are having to go farther off to get his blood, so the transfusion will be later on today. The patient's chest x-ray from yesterday shows an increase in the size of his bilateral pneumonia. The patient's chest x-ray today shows no change in the size of the bilateral i nfiltrates he is covered for MRSA with IV linezolid and he is still receiving IV Invanz. The patient is also receiving IV Diflucan because he did have positive yeast in his sputum. He was also started on Mucomyst per respiratory yesterday, it has done an excellent job of improving his dyspnea. Repeat routine labs and chest x-ray tomorrow morning. We will also repeat a BMP. I did discontinue his Norvasc a few days ago as his blood pressure had decreased some, and I figured it would also help prevent any worsening of congestive heart failure. Past Medical Family Social History Past Med/Fam/Surg Hx: No changes since H&P Allergies: Allergies No Known Drug Allergies Allergy (Verified 08/22/23 18:26) Review of Systems ROS: No change since H&P Vital Signs and I&O's Vital Signs: Vital Signs Temperature 98.0 F Temperature 98.3 F Pulse Rate [Bilateral Radial] 61 Pulse Rate [Bilateral Radial] 77 Respiratory Rate 22 Respiratory Rate 20 Respiratory Rate 20 Blood Pressure [Left Arm] 152/68 Blood Pressure [Left Arm] 129/81 O2 Sat by Pulse Oximetry 95 O2 Sat by Pulse Oximetry 96 Intake and Output: Intake & Output 08/24/23 08/25/23 08/26/23 08/27/23 11:59 11:59 11:59 11:59 Intake Total 3033 / 3033 3084 / 3084 2832 / 2832 460 / 460 Output Total 2550 / 2550 1750 / 1750 1850 / 1850 1100 / 1100 Balance 483 / 483 1334 / 1334 982 / 982 -640 / -640 Physical Exam Oriented: Normal, Time, Person and Place Eyes: Normal Ear: Normal Nose: Normal Throat: Normal Respiratory: Right, Left, Generalized, Diminished and Rhonchi; negative Wheezes Cardiovascular: Normal : Normal Auscultation: Bowel Sounds: Normal Tenderness: Normal Skin: Normal Musculoskeletal: Normal Psychiatric: Normal Mood Description: Calm and Withdrawn Affect: Normal Speech Pattern: Clear and Appropriate Laboratory and Diagnostics 08/26/23 04:20 08/26/23 04:20 Labs: 08/24/23 21:07 Sputum - Expectorated Sputum Sputum Culture - Preliminary 08/24/23 21:07 Sputum - Expectorated Sputum - Final 08/22/23 22:28 Sputum - Expectorated Sputum Sputum Culture - Preliminary 08/22/23 22:28 Sputum - Expectorated Sputum - Final 08/22/23 18:40 Blood Blood Culture - Preliminary 08/22/23 18:30 Blood Blood Culture - Preliminary Laboratory WBC 8.8 X10^3/uL (3.6-10.0) 08/26/23 04:20 RBC 2.15 X10^6/uL (4.7-6.0) L 08/26/23 04:20 Hgb 7.0 g/dL (13.5-18.0) L* 08/26/23 04:20 Hct 20.9 % (42.0-54.0) L 08/26/23 04:20 MCV 97.1 fL (80.0-100.0) 08/26/23 04:20 MCH 32.7 pg (27.0-34.0) 08/26/23 04:20 MCHC 33.7 g/dL (33.0-35.0) 08/26/23 04:20 RDW 15.7 % (11.6-16.5) 08/26/23 04:20 Plt Count 124 X10^3/uL (150.0-450.0) L 08/26/23 04:20 Plt Count Comment Adequate (ADEQUATE) 08/24/23 05:28 MPV 10.0 fL (7.4-11.0) 08/26/23 04:20 Neut % (Auto) 88.7 % (42.0-75.0) H 08/26/23 04:20 Lymph % (Auto) 4.5 % (21.0-51.0) L 08/26/23 04:20 [place] % (Auto) 5.2 % (0.0-13.0) 08/26/23 04:20 Eos % (Auto) 1.5 % (0.9-2.9) 08/26/23 04:20 Baso % (Auto) 0.1 % (0.2-1.0) L 08/26/23 04:20 Neut # (Auto) 7.8 x10^3/uL (2.2-4.8) H 08/26/23 04:20 Lymph # (Auto) 0.4 X10^3/uL (1.3-2.9) L 08/26/23 04:20 [place] # (Auto) 0.5 x10^3/uL (0.3-0.8) 08/26/23 04:20 Eos # (Auto) 0.1 x10^3/uL (0.0-0.2) 08/26/23 04:20 Baso # (Auto) 0.0 X10^3/uL (0.0-0.1) 08/26/23 04:20 Absolute Nucleated RBC 0.1 /100WBC 08/26/23 04:20 Total Counted 100 08/24/23 05:28 Neutrophils % (Manual) 93 % (39-76) H 08/24/23 05:28 Band Neutrophils % 2 % (0-10) 08/23/23 04:50 Lymphocytes % (Manual) 4 % (13-43) L 08/24/23 05:28 Monocytes % (Manual) 3 % (4-9) L 08/24/23 05:28 Eosinophils % (Manual) 1 % (0-6) 08/23/23 04:50 Plt Morphology Comment Normal (NORMAL) 08/24/23 05:28 RBC Morphology Normal (NORMAL) 08/24/23 05:28 Sodium 142 mmol/L (136-145) 08/26/23 04:20 Corrected Sodium TNP 08/26/23 04:20 Potassium 4.7 mmol/L (3.5-5.1) 08/26/23 04:20 Chloride 103 mmol/L (98-107) 08/26/23 04:20 Carbon Dioxide 38.0 mmol/L (21-32) H 08/26/23 04:20 BUN 35 mg/dL (7-18) H 08/26/23 04:20 Creatinine 1.66 mg/dL (0.70-1.30) H 08/26/23 04:20 Est GFR (MDRD) Af Amer 51 (>60) L 08/26/23 04:20 Est GFR (MDRD) Non-Af 42 (>60) L 08/26/23 04:20 Glucose 96 mg/dL (65-99) 08/26/23 04:20 POC Glucose (mg/dL) 164 mg/dL (65-99) H 08/26/23 16:22 Lactic Acid 0.9 mmol/L (0.4-2.0) 08/22/23 18:30 Calcium 8.5 mg/dL (8.5-10.1) 08/26/23 04:20 Corrected Calcium 9.6 mg/dL (8.5-10.1) 08/25/23 04:34 Magnesium 2.1 mg/dL (2.0-2.9) 08/26/23 04:20 Total Bilirubin 0.50 mg/dL (0.2-1.0) 08/25/23 04:34 AST 21 Units/L (15-37) 08/25/23 04:34 ALT 27 Units/L (12-78) 08/25/23 04:34 Alkaline Phosphatase 91 Units/L (46-116) 08/25/23 04:34 B-Natriuretic Peptide 172 pg/mL (0-79) H 08/24/23 05:28 Total Protein 5.3 g/dL (6.4-8.2) L 08/25/23 04:34 Albumin 2.4 g/dL (3.4-5.0) L 08/25/23 04:34 Globulin 2.9 g/dL (2.5-4.5) 08/25/23 04:34 Albumin/Globulin Ratio 0.8 Ratio (1.1-2.1) L 08/25/23 04:34 Lipase 8 Units/L (16-77) L 08/22/23 18:30 Specimen Type Catherized urine 08/26/23 17:05 Urine Color Yellow (YELLOW) 08/26/23 17:05 Urine Appearance Hazy (CLEAR) 08/26/23 17:05 Urine pH 6.5 (5.0 - 8.0) 08/26/23 17:05 Ur Specific [place] 1.010 (1.000-1.030) 08/26/23 17:05 Urine Protein 3+ (NEGATIVE) 08/26/23 17:05 Urine Glucose (UA) Negative (NEGATIVE) 08/26/23 17:05 Urine Ketones Negative (NEGATIVE) 08/26/23 17:05 Urine Blood 5+ (NEGATIVE) 08/26/23 17:05 Urine Nitrite Negative (NEGATIVE) 08/26/23 17:05 Urine Bilirubin Negative (NEGATIVE) 08/26/23 17:05 Urine Urobilinogen Normal (NORMAL) 08/26/23 17:05 Ur Leukocyte Esterase Negative (NEGATIVE) 08/26/23 17:05 Urine RBC Tntc /HPF (0-3) A 08/26/23 17:05 Urine WBC 0-2 /HPF (0-5) 08/26/23 17:05 Ur Squamous Epith Cells Rare /HPF (NEGATIVE) 08/26/23 17:05 Urine Bacteria Trace /HPF (NEGATIVE) 08/26/23 17:05 Ur Culture Indicated? No/not indicated 08/26/23 17:05 Stl Occult Blood (IFOB) Positive (NEGATIVE) A 08/25/23 18:40 Blood Type O NEGATIVE 08/26/23 08:45 Blood Type O NEGATIVE 08/26/23 08:45 Antibody Screen Positive 08/26/23 08:45 Crossmatch See Detail 08/26/23 08:45 Plan (1) Bilateral pneumonia due to Escherichia coli: Status: Acute Qualifiers: Lung location: lower lobe of lung Qualified Code(s): J15.5 - Pneumonia due to Escherichia coli Plan: Continue Invanz 500 mg IV daily, daily chest x-rays and daily labs. I will add linezolid 600 mg IV twice daily empirically cover the patient for possible underlying MRSA infection. I am also going to check a sputum AIT on him today. (2) Generalized weakness: Status: Acute Plan: We will continue to treat the patient's pneumonia and start him on iron infusions secondary to his iron deficiency anemia. I will discuss long term placement with the patient on morning rounds tomorrow. (3) Carcinoma, lung: Status: Acute Plan: Treatment per hematology/oncology. (4) Neuroendocrine tumor: Status: Acute Plan: Treatment per hematology/oncology. (5) Chronic respiratory failure: Status: Acute Qualifiers: Respiratory failure complication: hypoxia Qualified Code(s): J96.11 - Chronic respiratory failure with hypoxia Plan: I asked the respiratory therapist team to start using Mucomyst on the patient every 6 hours. They stated that they would put the order in and start doing that. Continue DuoNeb treatment every 6 hours, IV Invanz for bilateral ESBL E. coli pneumonia. Start Diflucan 200 mg IV daily. (6) Anemia: Status: Chronic Qualifiers: Anemia type: iron deficiency Iron deficiency anemia type: chronic blood loss Qualified Code(s): D50.0 - Iron deficiency anemia secondary to blood loss (chronic) Plan: Repeat the CBC in the morning. We are checking a Hemoccult today and will follow up with results when available. We are changing him from oral pantoprazole twice daily to IV pantoprazole every 12 hours for improved GI protection. The patient does have epigastric tenderness now, indicating he may have some underlying gastritis or gastric ulcer. (7) DM II (diabetes mellitus, type II), controlled: Status: Chronic Qualifiers: Diabetes mellitus ux design manager insulin use: with ux design manager use Diabetes mellitus complication status: without complication Qualified Code(s): E11.9 - T ype 2 diabetes mellitus without complications; Z79.4 - [place] (current) use of insulin Plan: We are holding the patient's glimepiride since he had a hypoglycemic episode this morning. If we need to covering with a sliding scale regular insulin if his blood sugar trends back up we will. (8) CHF (congestive heart failure): Status: Acute Qualifiers: Heart failure type: unspecified Heart failure chronicity: acute Qualified Code(s): I50.9 - Heart failure, unspecified Plan: We will diurese the patient if needed. We will plan on checking daily BNPs and chest x-rays. (9) Pulmonary hypertension, moderate to severe: Status: Chronic Plan: Continue sildenafil 50 mg twice daily. (10) Atrial fibrillation: Status: Chronic Qualifiers: Atrial fibrillation type: unspecified Plan: Continue metoprolol 25 mg daily. (11) CAD (coronary artery disease): Status: Chronic Qualifiers: Coronary Disease-Associated Artery/Lesion type: [place] artery [place] vs. transplanted heart: [place] heart Associated angina: unspecified whether angina present Qualified Code(s): I25.10 - Atherosclerotic heart disease of [place] coronary artery without angina pectoris (12) History of non-Hodgkin's lymphoma: Status: Acute Plan: Monitor by his pan devulcanizer helper/oncologist. (13) Essential hypertension: Status: Chronic Plan: We will continue the patient's metoprolol extended release 25 mg daily and resume his amlodipine if needed. However, I want to try to find a better antihypertensive for him if needed his a.m. blood pain would worsen his history of congestive heart failure. (14) Hypoglycemic episode in patient with diabetes mellitus: Status: Acute Plan: Discontinue glimepiride for now and we will cover the patient with sliding scale regular insulin in case his blood sugar trends up. (15) Hyperkalemia: Status: Acute Plan: His hyperkalemia has now resolved. He has a history of mild hyperkalemia. We will follow his daily potassium levels on his CMPs. (16) Chronic kidney disease, stage 3b: Status: Acute Plan: We will make sure we renally dose all of his medications. (17) Generalized edema: Status: Acute Plan: 25% albumin 100 mL IV x 1 today.
[2023-08-27 04:51] LABS: CALCIUM 8.6 mg/dL (8.5-10.1); CARBON DIOXIDE 35.2 mmol/L (21-32); CREATININE 1.84 mg/dL (0.70-1.30); MEAN PLATELET VOLUME 9.9 fL (7.4-11.0); PLATELET COUNT 136 X10^3/uL (150.0-450.0); POTASSIUM 4.7 mmol/L (3.5-5.1); WHITE BLOOD COUNT 8.8 X10^3/uL (3.6-10.0)
[2023-08-27 05:01] LABS: BASOPHILS % (AUTO) 0.1 % (0.2-1.0); EOSINOPHILS # (AUTO) 0.1 x10^3/uL (0.0-0.2); LYMPHOCYTES # (AUTO) 0.4 X10^3/uL (1.3-2.9); LYMPHOCYTES % (AUTO) 4.9 % (21.0-51.0); MEAN CORPUSCULAR HEMOGLOBIN 32.5 pg (27.0-34.0); MEAN CORPUSCULAR HGB CONC 33.7 g/dL (33.0-35.0); MEAN CORPUSCULAR VOLUME 96.5 fL (80.0-100.0); MONOCYTES # (AUTO) 0.5 x10^3/uL (0.3-0.8); MONOCYTES % (AUTO) 6.1 % (0.0-13.0); NEUTROPHILS # (AUTO) 7.7 x10^3/uL (2.2-4.8); NEUTROPHILS % (AUTO) 87.9 % (42.0-75.0); RED BLOOD COUNT 1.99 X10^6/uL (4.7-6.0); RED CELL DISTRIBUTION WIDTH 15.9 % (11.6-16.5)
[2023-08-27 05:08] LABS: HEMOGLOBIN 6.5 g/dL (13.5-18.0)
[2023-08-27 05:09] LABS: HEMATOCRIT 19.2 % (42.0-54.0)
--- NOTE | 2023-08-27 07:23 | RAD ---
EXAM: CHEST, 1 VIEW HISTORY: PNEUMONIA; HTN, DM, CHF, PULMONARY HTN, MELANOMA, NON HODGKINS LYMPHOMA, NEUROENDOCRINE TUMORS, CKD S X: APPY, KATIE, ORTHO, TONSILLECTOMY COMPARISON: 08/26/2023 FINDINGS: The cardiomediastinal silhouette is stable. Right short PICC unchanged. Similar bilateral airspace opacities. No pneumothorax or effusion. No acute osseous abnormality. IMPRESSION: Similar bilateral opacities without significant change. THIS IS AN ELECTRONICALLY VERIFIED FINAL REPORT 08/27/2023 7:20 AM - Electronically signed by Bryan Du MD
[2023-08-27] MEDS: LASIX IVP SCH (08:23)
[2023-08-27] MEDS: PROTONIX INJ 40 MG VIAL 80 MG in NS 100 ML IV 80 ML IV SCH (12:00)
--- NOTE | 2023-08-27 12:25 | PCM.PROG ---
Progress Note Progress Note for Day of Date of Exam: 08/27/23 Subjective Subjective: The patient reports still feeling weak. His hemoglobin has dropped from 7.0-6.5 this morning. Hemoccult came back and was positive for blood. His chest x-ray still shows opacities in the bibasilar areas of his lungs. They are unchanged from previous x-rays. He is still receiving IV antibiotics. We will add a smart vest today and consult gastroenterology, Dr. Rothman for endoscopy studies. Past Medical Family Social History Past Med/Fam/Surg Hx: No changes since H&P Allergies: Allergies No Known Drug Allergies Allergy (Verified 08/22/23 18:26) Review of Systems ROS: No change since H&P Vital Signs and I&O's Vital Signs: Vital Signs Temperature 97.7 F Pulse Rate [Bilateral Radial] 62 Pulse Rate 81 Respiratory Rate 22 Respiratory Rate 18 Respiratory Rate 20 Blood Pressure [Left Arm] 158/71 O2 Sat by Pulse Oximetry 95 O2 Sat by Pulse Oximetry 96 Intake and Output: Intake & Output 08/25/23 08/26/23 08/27/23 08/28/23 11:59 11:59 11:59 11:59 Intake Total 3084 / 3084 2832 / 2832 2025 / 2025 Output Total 1750 / 1750 1850 / 1850 1800 / 1800 Balance 1334 / 1334 982 / 982 226 / 226 Physical Exam Oriented: Normal, Time, Person and Place Eyes: Normal Ear: Normal Nose: Normal Throat: Normal Respiratory: Right, Left, Generalized, Diminished and Rhonchi; negative Wheezes Cardiovascular: Normal : Normal Auscultation: Bowel Sounds: Normal Tenderness: Normal Skin: Normal Musculoskeletal: Normal Psychiatric: Normal Mood Description: Calm and Withdrawn Affect: Normal Speech Pattern: Clear and Appropriate Laboratory and Diagnostics 08/27/23 04:30 08/27/23 04:30 Labs: 08/22/23 22:28 Sputum - Expectorated Sputum Sputum Culture - Preliminary 08/22/23 22:28 Sputum - Expectorated Sputum - Final 08/24/23 21:07 Sputum - Expectorated Sputum Sputum Culture - Preliminary 08/24/23 21:07 Sputum - Expectorated Sputum - Final 08/22/23 18:40 Blood Blood Culture - Preliminary 08/22/23 18:30 Blood Blood Culture - Preliminary Laboratory WBC 8.8 X10^3/uL (3.6-10.0) 08/27/23 04:30 RBC 1.99 X10^6/uL (4.7-6.0) L 08/27/23 04:30 Hgb 6.5 g/dL (13.5-18.0) L* 08/27/23 04:30 Hct 19.2 % (42.0-54.0) L* 08/27/23 04:30 MCV 96.5 fL (80.0-100.0) 08/27/23 04:30 MCH 32.5 pg (27.0-34.0) 08/27/23 04:30 MCHC 33.7 g/dL (33.0-35.0) 08/27/23 04:30 RDW 15.9 % (11.6-16.5) 08/27/23 04:30 Plt Count 136 X10^3/uL (150.0-450.0) L 08/27/23 04:30 Plt Count Comment Adequate (ADEQUATE) 08/24/23 05:28 MPV 9.9 fL (7.4-11.0) 08/27/23 04:30 Neut % (Auto) 87.9 % (42.0-75.0) H 08/27/23 04:30 Lymph % (Auto) 4.9 % (21.0-51.0) L 08/27/23 04:30 [place] % (Auto) 6.1 % (0.0-13.0) 08/27/23 04:30 Eos % (Auto) 1.0 % (0.9-2.9) 08/27/23 04:30 Baso % (Auto) 0.1 % (0.2-1.0) L 08/27/23 04:30 Neut # (Auto) 7.7 x10^3/uL (2.2-4.8) H 08/27/23 04:30 Lymph # (Auto) 0.4 X10^3/uL (1.3-2.9) L 08/27/23 04:30 [place] # (Auto) 0.5 x10^3/uL (0.3-0.8) 08/27/23 04:30 Eos # (Auto) 0.1 x10^3/uL (0.0-0.2) 08/27/23 04:30 Baso # (Auto) 0.0 X10^3/uL (0.0-0.1) 08/27/23 04:30 Absolute Nucleated RBC 0.1 /100WBC 08/27/23 04:30 Total Counted 100 08/24/23 05:28 Neutrophils % (Manual) 93 % (39-76) H 08/24/23 05:28 Band Neutrophils % 2 % (0-10) 08/23/23 04:50 Lymphocytes % (Manual) 4 % (13-43) L 08/24/23 05:28 Monocytes % (Manual) 3 % (4-9) L 08/24/23 05:28 Eosinophils % (Manual) 1 % (0-6) 08/23/23 04:50 Plt Morphology Comment Normal (NORMAL) 08/24/23 05:28 RBC Morphology Normal (NORMAL) 08/24/23 05:28 Sodium 141 mmol/L (136-145) 08/27/23 04:30 Corrected Sodium 143 mmol/L (136-145) 08/27/23 04:30 Potassium 4.7 mmol/L (3.5-5.1) 08/27/23 04:30 Chloride 103 mmol/L (98-107) 08/27/23 04:30 Carbon Dioxide 35.2 mmol/L (21-32) H 08/27/23 04:30 BUN 46 mg/dL (7-18) H 08/27/23 04:30 Creatinine 1.84 mg/dL (0.70-1.30) H 08/27/23 04:30 Est GFR (MDRD) Af Amer 46 (>60) L 08/27/23 04:30 Est GFR (MDRD) Non-Af 38 (>60) L 08/27/23 04:30 Glucose 167 mg/dL (65-99) H 08/27/23 04:30 POC Glucose (mg/dL) 162 mg/dL (65-99) H 08/27/23 05:20 Lactic Acid 0.9 mmol/L (0.4-2.0) 08/22/23 18:30 Calcium 8.6 mg/dL (8.5-10.1) 08/27/23 04:30 Corrected Calcium 9.6 mg/dL (8.5-10.1) 08/25/23 04:34 Magnesium 2.1 mg/dL (2.0-2.9) 08/26/23 04:20 Total Bilirubin 0.50 mg/dL (0.2-1.0) 08/25/23 04:34 AST 21 Units/L (15-37) 08/25/23 04:34 ALT 27 Units/L (12-78) 08/25/23 04:34 Alkaline Phosphatase 91 Units/L (46-116) 08/25/23 04:34 B-Natriuretic Peptide 172 pg/mL (0-79) H 08/24/23 05:28 Total Protein 5.3 g/dL (6.4-8.2) L 08/25/23 04:34 Albumin 2.4 g/dL (3.4-5.0) L 08/25/23 04:34 Globulin 2.9 g/dL (2.5-4.5) 08/25/23 04:34 Albumin/Globulin Ratio 0.8 Ratio (1.1-2.1) L 08/25/23 04:34 Lipase 8 Units/L (16-77) L 08/22/23 18:30 Specimen Type Catherized urine 08/26/23 17:05 Urine Color Yellow (YELLOW) 08/26/23 17:05 Urine Appearance Hazy (CLEAR) 08/26/23 17:05 Urine pH 6.5 (5.0 - 8.0) 08/26/23 17:05 Ur Specific [place] 1.010 (1.000-1.030) 08/26/23 17:05 Urine Protein 3+ (NEGATIVE) 08/26/23 17:05 Urine Glucose (UA) Negative (NEGATIVE) 08/26/23 17:05 Urine Ketones Negative (NEGATIVE) 08/26/23 17:05 Urine Blood 5+ (NEGATIVE) 08/26/23 17:05 Urine Nitrite Negative (NEGATIVE) 08/26/23 17:05 Urine Bilirubin Negative (NEGATIVE) 08/26/23 17:05 Urine Urobilinogen Normal (NORMAL) 08/26/23 17:05 Ur Leukocyte Esterase Negative (NEGATIVE) 08/26/23 17:05 Urine RBC Tntc /HPF (0-3) A 08/26/23 17:05 Urine WBC 0-2 /HPF (0-5) 08/26/23 17:05 Ur Squamous Epith Cells Rare /HPF (NEGATIVE) 08/26/23 17:05 Urine Bacteria Trace /HPF (NEGATIVE) 08/26/23 17:05 Ur Culture Indicated? No/not indicated 08/26/23 17:05 Stl Occult Blood (IFOB) Positive (NEGATIVE) A 08/25/23 18:40 Blood Type O NEGATIVE 08/26/23 08:45 Blood Type O NEGATIVE 08/26/23 08:45 Antibody Screen Positive 08/26/23 08:45 Crossmatch See Detail 08/26/23 08:45 Plan (1) GI bleed: Status: Acute Narrative Support Text: Decreasing hemoglobin from 7.0-6.5 with stable vital signs and positive Hemoccult. Plan: We will change the patient's Protonix from 40 mg IV twice daily to a Protonix drip. I will consult gastroenterology, Dr. Rothman for endoscopy studies. We have ordered blood but the patient has antibodies and his blood would not be available until this afternoon or this evening. (2) Bilateral pneumonia due to Escherichia coli: Status: Acute Qualifiers: Lung location: lower lobe of lung Qualified Code(s): J15.5 - Pneumonia due to Escherichia coli Plan: Continue Invanz 500 mg IV daily, daily chest x-rays and daily labs. I will add linezolid 600 mg IV twice daily empirically cover the patient for possible underlying MRSA infection. I am also going to check a sputum AIT on him today. (3) Generalized weakness: Status: Acute Plan: We will continue to treat the patient's pneumonia and start him on i keegan infusions secondary to his iron deficiency anemia. I will discuss [facility] with the patient on morning rounds tomorrow. (4) Carcinoma, lung: Status: Acute Plan: Treatment per hematology/oncology. (5) Neuroendocrine tumor: Status: Acute Plan: Treatment per hematology/oncology. (6) Chronic respiratory failure: Status: Acute Qualifiers: Respiratory failure complication: hypoxia Qualified Code(s): J96.11 - Chronic respiratory failure with hypoxia Plan: I asked the respiratory therapist team to start using Mucomyst on the patient every 6 hours. They stated that they would put the order in and start doing that. Continue DuoNeb treatment every 6 hours, IV Invanz for bilateral ESBL E. coli pneumonia. Start Diflucan 200 mg IV daily. (7) Anemia: Status: Chronic Qualifiers: Anemia type: iron deficiency Iron deficiency anemia type: chronic blood loss Qualified Code(s): D50.0 - Iron deficiency anemia secondary to blood loss (chronic) Plan: Repeat the CBC in the morning. We are checking a Hemoccult today and will follow up with results when available. We are changing him from oral pantoprazole twice daily to IV pantoprazole every 12 hours for improved GI protection. The patient does have epigastric tenderness now, indicating he may have some underlying gastritis or gastric ulcer. (8) DM II (diabetes mellitus, type II), controlled: Status: Chronic Qualifiers: Diabetes mellitus terminal operations manager insulin use: with terminal operations manager use Diabetes m ellitus complication status: without complication Qualified Code(s): E11.9 - Type 2 diabetes mellitus without complications; Z79.4 - halfway (current) use of insulin Plan: We are holding the patient's glimepiride since he had a hypoglycemic episode this morning. If we need to covering with a sliding scale regular in sulin if his blood sugar trends back up we will. (9) CHF (congestive heart failure): Status: Acute Qualifiers: Heart failure type: unspecified Heart failure chronicity: acute Qualified Code(s): I50.9 - Heart failure, unspecified Plan: We will diurese the patient if needed. We will plan on checking daily BNPs and chest x-rays. (10) Pulmonary hypertension, moderate to severe: Status: Chronic Plan: Continue sildenafil 50 mg twice daily. (11) Atrial fibrillation: Status: Chronic Qualifiers: Atrial fibrillation type: unspecified Plan: Continue metoprolol 25 mg daily. (12) CAD (coronary artery disease): Status: Chronic Qualifiers: Coronary Disease-Associated Artery/Lesion type: [place] artery [place] vs. transplanted heart: [place] heart Associated angina: unspecified whether angina present Qualified Code(s): I25.10 - Atherosclerotic heart disease of [place] coronary artery without angina pectoris (13) History of non-Hodgkin's lymphoma: Status: Acute Plan: Monitor by his aircraft shipping checker/oncologist. (14) Essential hypertension: Status: Chronic Plan: We will continue the patient's metoprolol extended release 25 mg daily and resume his amlodipine if needed. However, I want to try to find a better antihypertensive for him if needed his a.m. blood pain would worsen his history of congestive heart failure. (15) Hypoglycemic episode in patient with diabetes mellitus: Status: Acute Plan: Discontinue glimepiride for now and we will cover the patient with sliding scale regular insulin in case his blood sugar trends up. (16) Hyperkalemia: Status: Acute Plan: His hyperkalemia has now resolved. He has a history of mild hyperkalemia. We will follow his daily potassium levels on his CMPs. (17) Chronic kidney disease, stage 3b: Status: Acute Plan: We will make sure we renally dose all of his medications. (18) Generalized edema: Status: Acute Plan: 25% albumin 100 mL IV x 1 today.
[2023-08-27 13:41] LABS: ALBUMIN 2.8 g/dL (3.4-5.0); COR CA(FOR HYPOALB) 9.6 mg/dL (8.5-10.1); TOTAL PROTEIN 5.6 g/dL (6.4-8.2)
[2023-08-27 14:14] LABS: ALANINE AMINOTRANSFERASE 31 Units/L (12-78); ALBUMIN 2.5 g/dL (3.4-5.0); ALKALINE PHOSPHATASE 98 Units/L (46-116); ASPARTATE AMINO TRANSFERASE 24 Units/L (15-37); COR CA(FOR HYPOALB) 9.7 mg/dL (8.5-10.1); TOTAL PROTEIN 5.4 g/dL (6.4-8.2)
[2023-08-27] MEDS ORDERED: LASIX IVP PRN (19:34)
[2023-08-28 06:31] LABS: BASOPHILS % (AUTO) 0.6 % (0.2-1.0); EOSINOPHILS # (AUTO) 0.1 x10^3/uL (0.0-0.2); EOSINOPHILS % (AUTO) 1.2 % (0.9-2.9); LYMPHOCYTES # (AUTO) 0.4 X10^3/uL (1.3-2.9); LYMPHOCYTES % (AUTO) 5.1 % (21.0-51.0); MEAN CORPUSCULAR HGB CONC 33.9 g/dL (33.0-35.0); MEAN CORPUSCULAR VOLUME 97.2 fL (80.0-100.0); MEAN PLATELET VOLUME 9.7 fL (7.4-11.0); MONOCYTES # (AUTO) 0.6 x10^3/uL (0.3-0.8); MONOCYTES % (AUTO) 7.9 % (0.0-13.0); NEUTROPHILS # (AUTO) 6.7 x10^3/uL (2.2-4.8); NEUTROPHILS % (AUTO) 85.2 % (42.0-75.0); PLATELET COUNT 116 X10^3/uL (150.0-450.0); RED BLOOD COUNT 1.98 X10^6/uL (4.7-6.0); WHITE BLOOD COUNT 7.9 X10^3/uL (3.6-10.0)
[2023-08-28 06:39] LABS: HEMATOCRIT 19.2 % (42.0-54.0); HEMOGLOBIN 6.5 g/dL (13.5-18.0)
[2023-08-28 06:53] LABS: CALCIUM 8.9 mg/dL (8.5-10.1); CARBON DIOXIDE 36.5 mmol/L (21-32); COR CA(FOR HYPOALB) 9.7 mg/dL (8.5-10.1); CREATININE 1.76 mg/dL (0.70-1.30); MAGNESIUM 2.2 mg/dL (2.0-2.9); POTASSIUM 4.7 mmol/L (3.5-5.1); TOTAL PROTEIN 5.8 g/dL (6.4-8.2)
[2023-08-28] MEDS: BACTRIM DS TAB PO SCH (10:23)
[2023-08-28] MEDS: NS 250 ML IV 250 ML IV ONE (10:25)
--- NOTE | 2023-08-28 14:06 | DR.CONSULT ---
Consult - Consultation for Day of: Date: 08/27/23 (GI) - Chief Complaint Chief Complaint: Patient is an 83 y/o who is referred for positive occult stool, low Hgb. Patient has complaints of lower abdominal pain, constipation, nausea, and vomiting. Also reports decreased oral intake. Denies melena, hematochezia. Last EGD was done 11/01/22, and showed ulcerated polyps at cardia of stomach. Patient reports last colonoscopy as done 5+ years ago, reports history of colon polyps. Pt was just recently been in the [facility] for 10 days. During this time, he was treated for ESBL E. coli pneumonia. We had set him up with a PICC line the day before discharge, 08/21/2023. We arranged for him to receive Invanz at home for the next week because he wanted to ensure he kept his hematology/oncology appointment on 08/22/2023. He was adamant that he go to that appointment because of his distant history of non-Hodgkin's lymphoma and partial right lung lobectomy. 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 After the patient got home, he saw his armorer technician/oncologist the following day. They did some lab work only and told him that he was anemic, which we already knew. He recommended that the patient receive iron; however, he was not able to receive any since he had to come back into the hospital for increasing weakness. He sat on the toilet yesterday to use the bathroom and could not get up. His called EMS, and they brought him to the [facility] emergency department for further evaluation and treatment. His chest x-ray was unchanged from the previous ones earlier in the week. He still has bilateral pneumonia. His white blood cell count slowly increased over the last few days to just over 14,000. His hemoglobin has also dropped from 8.5 last week to 7.9 this morning. His BUN and creatinine have improved since last week. Last night, he had an episode of hypoglycemia and, received 50% dextrose IV. We decided to stop his glimepiride at this time, and we will continue to do routine blood checks. - Past Medical History Past Medical History: Hypertension, Diabetes, Arthritis, CHF Additional Medical History: Non-Hodgkins Lymphoma of Right Lung - Past Surgical History Surgical History: Cholecystectomy, Tonsillectomy Additional Surgical History: Spinal Fusion, Lobectomy of Right Upper and Partial Right Lower Lobes, Adenoidectomy, Cardiac Ablation, Cardiac Stent x1 - Family History Family Medical History: Diabetes Mellitus - Social History Does patient currently use any type of tobacco product: No Type of Tobacco Use: None Does any household member use tobacco: No Alcohol Use: Other Drug Use: None - Medications Home Medications: No Known Drug Allergies Allergy (Verified 08/22/23 18:26) - Review of Systems Constitutional: See HPI, Weakness. denies: No Symptoms Reported, Fever, Chills, Sweats, Malaise, Other Eyes: No Symptoms Reported. denies: See HPI, Pain, Vision Change, Conjunctivae Inflammation, Eyelid Inflammation, Redness, Other ENT: No Symptoms Reported. denies: See HPI, Ear Pain, Ear Discharge, Nose Pain, Nose Discharge, Nose Congestion, Mouth Pain, Mouth Swelling, Throat Pain, Throat Swelling, Other Respiratory: See HPI, Cough, Shortness of Breath. denies: No Symptoms Reported, Dry, Hemoptysis, SOB with Excertion, Pleuritic Pain, Sputum, Wheezing, Other Cardiovascular: See HPI. denies: No Symptoms Reported, Chest Pain, Palpitations, Orthopnea, Paroxysmal Noc. Dyspnea, Edema, Light Headedness, Other Gastrointestinal: Nausea, Vomiting, Abdominal Pain (Lower), Constipation. denies: No Symptoms Reported, See HPI, Diarrhea, Melena, Hematochezia, Other Genitourinary: No Symptoms Reported. denies: See HPI, Dysuria, Frequency, Incontinence, Hematuria, Retention, Other Musculoskeletal: See HPI. denies: No Symptoms Reported, Shoulder Pain, Arm Pain, Back Pain, Hand Pain, Leg Pain, Foot Pain, Neck Pain, Other Skin: No Symptoms Reported. denies: See HPI, Rash, Lesions, Jaundice, Bruising, Wound, Ecchymosis, Other Neurological: See HPI. denies: No Symptoms Reported, Weakness, Numbness, Incoordination, Change in Speech, Confusion, Seizures, Other - Physical Exam Vital Signs: Vital Signs Temperature 97.7 F Pulse Rate [Bilateral Radial] 62 Pulse Rate 81 Respiratory Rate 22 Respiratory Rate 18 Respiratory Rate 20 Blood Pressure [Left Arm] 158/71 O2 Sat by Pulse Oximetry 95 O2 Sat by Pulse Oximetry 96 Oriented: Normal. negative: Time, Person, Place, Not Oriented, Unable to test, Other Eyes: Normal. negative: Blurred Vision, Diplopia, Discharge, Pain, Redness, Photophobia, Other Ear: negative: Normal, Right, Left, Swelling, Ecchymosis, Hemotypanum, Abrasion, Laceration Nose: negative: Normal, Injected, Discharge, Blood, Other Throat: Normal. negative: Tonsillar Hypertrophy, Red, Exudate, Dry, Other Respiratory: Diminished Throughout, Rhonchi Throughout. negative: Clear Throughout, Rales Throughout, Wheezes Throughout, RUL Clear, RML Clear, RLL Clear, AV Clear, LML Clear, LLL Clear, RUL Diminished, RML Diminished, RLL Diminished, AV Diminished, LML Diminished, LLL Diminished, RUL Absent, RML Absent, RLL Absent, AV Absent, LML Absent, LLL Absent, RUL Rhonchi, RML Rhonchi, RLL Rhonchi, AV Rhonchi, LML Rhonchi, LLL Rhonchi, RUL Insp. Wheeze, RML Insp. Wheeze, RLL Insp. Wheeze, AV Insp.Wheeze, LML Insp.Wheeze, LLL Insp.Wheeze, RUL Exp. Wheeze, RML Exp. Wheeze, RLL Exp. Wheeze, AV Exp. Wheeze, LML Exp. Wheeze, LLL Exp. Wheeze, RUL Rales, RML Rales, RLL Rales, AV Rales, LML Rales, LLL Rales, RUL Rub, RML Rub, RLL Rub, AV Rub, LML Rub, LLL Rub, RUL Squeak, RML Squeak, RLL Squeak, AV Squeak, LML Squeak, LLL Squeak Cardiovascular: Normal. negative: Tachycardia, Bradycardia, Irregular, S3, S4, Systolic, Diastolic, Murmur, Edema, Other : negative: Normal, Dysuria, Hematuria, Frequency, Discharge, Testicular Pain, Bleeding, , Other Auscultation: Bowel Sounds: Normal. negative: Bruit, Absent, Increased, Decreased, High Pitched, Other Palpation: negative: Normal, Spleen Enlarged, Liver Enlarged, Mass Pulsatile, Other Tenderness: Normal. negative: Diffuse, RUQ, RLQ, LUQ, LLQ, Epigastric, Periumbilical, Suprapubic, Mild, Moderate, Severe, Rebound, Guarding, Rigidity, Other Skin: Normal. negative: Decreased Turgur, Rash, Papular, Macular, Maculopapular, Vesicular, Pustular, Petechial, Red, Tender, Hot, Diaphoresis, Wound, Bruising, Ecchymosis, Other Musculoskeletal: Normal. negative: Right, Left, Shoulder, Clavicle, Arm, Elbow, Forearm, Wrist, Hand, Hip, Thigh, Knee, Leg, Ankle, Foot, Back:Thoracic, Back:Lumbar, Back:Midline, Back:Paraspinous, Pelvis, Swelling, Tender, Deformity, Pulse Deficit, Motor Deficit, Sensory Deficit, Instability, Crepitance Psychiatric: Normal. negative: Anxiety, Depression, Agitation, Other Mood Description: Calm, Appropriate. negative: Angry, Apathetic, Depressed, Fearful, Flat, Happy, Hostile, Sad, Suspicious, Withdrawn, Anxious, Labile Affect: Normal. negative: Angry, Anxious, Depressed, Flat, Hysterical, Quiet, Violent Speech Pattern: Clear, Appropriate. negative: Unclear, Inappropriate, Delayed, Slurred, Excessive, Aphasic, Artificially Ventilated, Trach(not ventilated), Unable to speak - Plan Plan: Assessment. 1. Acute anemia, positive Hemoccult. 2. H/O gastric neuroendocrine tumor. 3. H/O colon polyps. Plan: Monitor Hgb, transfuse as needed. Continue Protonix. Patient will be scheduled for EGD and colonoscopy on . Plan D/W Dr. Rothman - Allergies Allergies/Adverse Reactions: Allergies Allergy/AdvReac Type Severity Reaction Status Date / Time No Known Drug Allergies Allergy Verified 08/22/23 18:26
[2023-08-28] MEDS: MIRALAX POWDER (255 GRAMS BTL) PO NR (18:09)
[2023-08-28] MEDS: DULCOLAX TAB EC 5 MG PO ONE (18:09)
[2023-08-29 06:38] LABS: BASOPHILS % (AUTO) 0.3 % (0.2-1.0); EOSINOPHILS % (AUTO) 0.4 % (0.9-2.9); LYMPHOCYTES # (AUTO) 0.2 X10^3/uL (1.3-2.9); LYMPHOCYTES % (AUTO) 3.8 % (21.0-51.0); MEAN CORPUSCULAR HEMOGLOBIN 32.4 pg (27.0-34.0); MEAN CORPUSCULAR HGB CONC 33.2 g/dL (33.0-35.0); MEAN CORPUSCULAR VOLUME 97.7 fL (80.0-100.0); MEAN PLATELET VOLUME 10.3 fL (7.4-11.0); MONOCYTES # (AUTO) 0.4 x10^3/uL (0.3-0.8); MONOCYTES % (AUTO) 7.2 % (0.0-13.0); NEUTROPHILS # (AUTO) 5.3 x10^3/uL (2.2-4.8); NEUTROPHILS % (AUTO) 88.3 % (42.0-75.0); PLATELET COUNT 77 X10^3/uL (150.0-450.0); RED BLOOD COUNT 1.81 X10^6/uL (4.7-6.0)
[2023-08-29 06:40] LABS: ALBUMIN 2.9 g/dL (3.4-5.0); CALCIUM 8.3 mg/dL (8.5-10.1); CARBON DIOXIDE 34.1 mmol/L (21-32); COR CA(FOR HYPOALB) 9.2 mg/dL (8.5-10.1); CREATININE 1.94 mg/dL (0.70-1.30); POTASSIUM 4.7 mmol/L (3.5-5.1); TOTAL PROTEIN 5.5 g/dL (6.4-8.2)
[2023-08-29 06:44] LABS: HEMOGLOBIN 5.9 g/dL (13.5-18.0)
[2023-08-29 06:45] LABS: HEMATOCRIT 17.7 % (42.0-54.0)
[2023-08-29 07:33] VITALS: BP 148/65; PULSE 58; TEMP 99; O2SAT 94
--- NOTE | 2023-08-29 07:58 | PCM.PROG ---
Progress Note Progress Note for Day of Date of Exam: 08/28/23 Subjective Subjective: The patient reports still feeling weak. His hemoglobin is 6.5 again this morning. I have discussed with the family like yesterday afternoon and they have decided to get the patient transferred to [place] at the hospice house. I think this would be in his best interest since he has not getting any better with medication. The patient is becoming more confused and his family is making decisions for him at this time. I do not really see any further benefit of continue treatment and the family just wants to make him comfortable at this time. I am in agreement with this. We will plan on transferring him tomorrow morning to [facility] in [place], [place]. Past Medical Family Social History Past Med/Fam/Surg Hx: No changes since H&P Allergies: Allergies No Known Drug Allergies Allergy (Verified 08/22/23 18:26) Review of Systems ROS: No change since H&P Vital Signs and I&O's Vital Signs: Vital Signs Temperature 99.0 F Temperature 98.5 F Temperature 97.3 F Pulse Rate [Bilateral Radial] 58 Pulse Rate [Bilateral Radial] 61 Pulse Rate [Bilateral Radial] 63 Respiratory Rate 19 Respiratory Rate 18 Respiratory Rate 20 Respiratory Rate 20 Respiratory Rate 21 Blood Pressure [Left Arm] 148/65 Blood Pressure [Left Arm] 138/62 Blood Pressure [Left Arm] 134/60 O2 Sat by Pulse Oximetry 94 O2 Sat by Pulse Oximetry 98 O2 Sat by Pulse Oximetry 97 Intake and Output: Intake & Output 08/26/23 08/27/23 08/28/23 08/29/23 11:59 11:59 11:59 11:59 Intake Total 2832 / 2832 2025 / 2025 2198 / 2198 1196 / 1196 Output Total 1850 / 1850 1800 / 1800 2099 / 2099 150 / 150 Balance 982 / 982 226 / 226 98 / 98 1046 / 1046 Physical Exam Oriented: Normal; negative Time, Person, Place, Not Oriented, Unable to test or Other Eyes: Normal; negative Blurred Vision, Diplopia, Discharge, Pain, Redness, Photophobia or Other Ear: negative Normal, Right, Left, Swelling, Ecchymosis, Hemotypanum, Abrasion or Laceration Nose: negative Normal, Injected, Discharge, Blood or Other Throat: Normal; negative Tonsillar Hypertrophy, Red, Exudate, Dry or Other Respiratory: Right, Left, Generalized, Diminished and Rhonchi; negative Wheezes Cardiovascular: Normal; negative Tachycardia, Bradycardia, Irregular, S3, S4, Systolic, Diastolic, Murmur, Edema or Other : negative Normal, Dysuria, Hematuria, Frequency, Discharge, Testicular Pain, Bleeding, or Other Auscultation: Bowel Sounds: Normal; negative Bruit, Absent, Increased, Dec reased, High Pitched or Other Tenderness: Normal; negative Diffuse, RUQ, RLQ, LUQ, LLQ, Epigastric, Periumbilical, Suprapubic, Mild, Moderate, Severe, Rebound, Guarding, Rigidity or Other Skin: Normal; negative Decreased Turgur, Rash, Papular, Macular, Maculopapular, Vesicular, Pustular, Petechial, Red, Tender, Hot, Diaphoresis, Wound, Bruising, Ecchymosis or Other Musculoskeletal: Normal; negative Right, Left, Shoulder, Clavicle, Arm, Elbow, Forearm, Wrist, Hand, Hip, Thigh, Knee, Leg, Ankle, Foot, Back:Thoracic, Back:Lumbar, Back:Midline, Back:Paraspinous, Pelvis, Swelling, Tender, Deformity, Pulse Deficit, Motor Deficit, Sensory Deficit, Instability or Crepitance Psychiatric: Normal; negative Anxiety, Depression, Agitation or Other Mood Description: Calm and Appropriate; negative Angry, Apathetic, Depressed, Fearful, Flat, Happy, Hostile, Sad, Suspicious, Withdrawn, Anxious or Labile Affect: Normal; negative Angry, Anxious, Depressed, Flat, Hysterical, Quiet or Violent Speech Pattern: Clear and Appropriate Laboratory and Diagnostics 08/29/23 06:13 08/29/23 06:13 Labs: 08/22/23 18:40 Blood Blood Culture - Final 08/22/23 18:30 Blood Blood Culture - Final 08/24/23 21:07 Sputum - Expectorated Sputum Sputum Culture - Final Stenotrophomonas Maltophilia 08/24/23 21:07 Sputum - Expectorated Sputum - Final 08/22/23 22:28 Sputum - Expectorated Sputum Sputum Culture - Preliminary Stenotrophomonas Maltophilia 08/22/23 22:28 Sputum - Expectorated Sputum - Final Laboratory WBC 6.0 X10^3/uL (3.6-10.0) 08/29/23 06:13 RBC 1.81 X10^6/uL (4.7-6.0) L 08/29/23 06:13 Hgb 5.9 g/dL (13.5-18.0) L* 08/29/23 06:13 Hct 17.7 % (42.0-54.0) L* 08/29/23 06:13 MCV 97.7 fL (80.0-100.0) 08/29/23 06:13 MCH 32.4 pg (27.0-34.0) 08/29/23 06:13 MCHC 33.2 g/dL (33.0-35.0) 08/29/23 06:13 RDW 16.0 % (11.6-16.5) 08/29/23 06:13 Plt Count 77 X10^3/uL (150.0-450.0) L 08/29/23 06:13 Plt Count Comment Adequate (ADEQUATE) 08/24/23 05:28 MPV 10.3 fL (7.4-11.0) 08/29/23 06:13 Neut % (Auto) 88.3 % (42.0-75.0) H 08/29/23 06:13 Lymph % (Auto) 3.8 % (21.0-51.0) L 08/29/23 06:13 Kings % (Auto) 7.2 % (0.0-13.0) 08/29/23 06:13 Eos % (Auto) 0.4 % (0.9-2.9) L 08/29/23 06:13 Baso % (Auto) 0.3 % (0.2-1.0) 08/29/23 06:13 Neut # (Auto) 5.3 x10^3/uL (2.2-4.8) H 08/29/23 06:13 Lymph # (Auto) 0.2 X10^3/uL (1.3-2.9) L 08/29/23 06:13 Kings # (Auto) 0.4 x10^3/uL (0.3-0.8) 08/29/23 06:13 Eos # (Auto) 0.0 x10^3/uL (0.0-0.2) 08/29/23 06:13 Baso # (Auto) 0.0 X10^3/uL (0.0-0.1) 08/29/23 06:13 Absolute Nucleated RBC 0.1 /100WBC 08/29/23 06:13 Total Counted 100 08/24/23 05:28 Neutrophils % (Manual) 93 % (39-76) H 08/24/23 05:28 Band Neutrophils % 2 % (0-10) 08/23/23 04:50 Lymphocytes % (Manual) 4 % (13-43) L 08/24/23 05:28 Monocytes % (Manual) 3 % (4-9) L 08/24/23 05:28 Eosinophils % (Manual) 1 % (0-6) 08/23/23 04:50 Plt Morphology Comment Normal (NORMAL) 08/24/23 05:28 RBC Morphology Normal (NORMAL) 08/24/23 05:28 Sodium 143 mmol/L (136-145) 08/29/23 06:13 Corrected Sodium 144 mmol/L (136-145) 08/29/23 06:13 Potassium 4.7 mmol/L (3.5-5.1) 08/29/23 06:13 Chloride 105 mmol/L (98-107) 08/29/23 06:13 Carbon Dioxide 34.1 mmol/L (21-32) H 08/29/23 06:13 BUN 48 mg/dL (7-18) H 08/29/23 06:13 Creatinine 1.94 mg/dL (0.70-1.30) H 08/29/23 06:13 Est GFR (MDRD) Af Amer 43 (>60) L 08/29/23 06:13 Est GFR (MDRD) Non-Af 35 (>60) L 08/29/23 06:13 Glucose 162 mg/dL (65-99) H 08/29/23 06:13 POC Glucose (mg/dL) 173 mg/dL (65-99) H 08/29/23 05:24 Lactic Acid 0.9 mmol/L (0.4-2.0) 08/22/23 18:30 Calcium 8.3 mg/dL (8.5-10.1) L 08/29/23 06:13 Corrected Calcium 9.2 mg/dL (8.5-10.1) 08/29/23 06:13 Magnesium 2.2 mg/dL (2.0-2.9) 08/28/23 06:20 Total Bilirubin 0.90 mg/dL (0.2-1.0) 08/29/23 06:13 AST 38 Units/L (15-37) H 08/29/23 06:13 ALT 42 Units/L (12-78) 08/29/23 06:13 Alkaline Phosphatase 137 Units/L (46-116) H 08/29/23 06:13 B-Natriuretic Peptide 172 pg/mL (0-79) H 08/24/23 05:28 Total Protein 5.5 g/dL (6.4-8.2) L 08/29/23 06:13 Albumin 2.9 g/dL (3.4-5.0) L 08/29/23 06:13 Globulin 2.6 g/dL (2.5-4.5) 08/29/23 06:13 Albumin/Globulin Ratio 1.1 Ratio (1.1-2.1) 08/29/23 06:13 Lipase 8 Units/L (16-77) L 08/22/23 18:30 Specimen Type Catherized urine 08/26/23 17:05 Urine Color Yellow (YELLOW) 08/26/23 17:05 Urine Appearance Hazy (CLEAR) 08/26/23 17:05 Urine pH 6.5 (5.0 - 8.0) 08/26/23 17:05 Ur Specific [place] 1.010 (1.000-1.030) 08/26/23 17:05 Urine Protein 3+ (NEGATIVE) 08/26/23 17:05 Urine Glucose (UA) Negative (NEGATIVE) 08/26/23 17:05 Urine Ketones Negative (NEGATIVE) 08/26/23 17:05 Urine Blood 5+ (NEGATIVE) 08/26/23 17:05 Urine Nitrite Negative (NEGATIVE) 08/26/23 17:05 Urine Bilirubin Negative (NEGATIVE) 08/26/23 17:05 Urine Urobilinogen Normal (NORMAL) 08/26/23 17:05 Ur Leukocyte Esterase Negative (NEGATIVE) 08/26/23 17:05 Urine RBC Tntc /HPF (0-3) A 08/26/23 17:05 Urine WBC 0-2 /HPF (0-5) 08/26/23 17:05 Ur Squamous Epith Cells Rare /HPF (NEGATIVE) 08/26/23 17:05 Urine Bacteria Trace /HPF (NEGATIVE) 08/26/23 17:05 Ur Culture Indicated? No/not indicated 08/26/23 17:05 Stl Occult Blood (IFOB) Positive (NEGATIVE) A 08/25/23 18:40 Resp Viral Panel (PCR) See scanned report 08/24/23 18:05 Blood Type O NEGATIVE 08/26/23 08:45 Blood Type O NEGATIVE 08/26/23 08:45 Antibody Screen Positive 08/26/23 08:45 Antibody Identification NEGATIVE BY ARC 08/26/23 08:45 Crossmatch See Detail 08/26/23 08:45 Plan (1) Comfort measures only status: Status: Acute Plan: Transfer to hospice house in [place], [place] this morning for comfort measures. (2) GI bleed: Status: Acute Plan: We will change the patient's Protonix from 40 mg IV twice daily to a Protonix drip. I will consult gastroenterology, Dr. Rothman for endoscopy studies. We have ordered blood but the patient has antibodies and his blood would not be available until this afternoon or this evening. (3) Bilateral pneumonia due to Escherichia coli: Status: Acute Qualifiers: Lung location: lower lobe of lung Qualified Code(s): J15.5 - Pneumonia due to Escherichia coli Plan: Continue Invanz 500 mg IV daily, daily chest x-rays and daily labs. I will add linezolid 600 mg IV twice daily empirically cover the patient for possible underlying MRSA infection. I am also going to check a sputum AIT on him today. (4) Generalized weakness: Status: Acute Plan: We will continue to treat the patient's pneumonia and start him on iron infusions secondary to his iron deficiency anemia. I will discuss prison placement with the patient on morning rounds tomorrow. (5) Carcinoma, lung: Status: Acute Plan: Treatment per hematology/oncology. (6) Neuroendocrine tumor: Status: Acute Plan: Treatment per hematology/oncology. (7) Chronic respiratory failure: Status: Acute Qualifiers: Respiratory failure complication: hypoxia Qualified Code(s): J96.11 - Chronic respiratory failure with hypoxia Plan: I asked the respiratory therapist team to start using Mucomyst on the patient every 6 hours. They stated that they would put the order in and start doing that. Continue DuoNeb treatment every 6 hours, IV Invanz for bilateral ESBL E. coli pneumonia. Start Diflucan 200 mg IV daily. (8) Anemia: Status: Chronic Qualifiers: Anemia type: iron deficiency Iron deficiency anemia type: chronic blood loss Qualified Code(s): D50.0 - Iron deficiency anemia secondary to blood loss (chronic) Plan: Repeat the CBC in the morning. We are checking a Hemoccult today and will follow up with results when available. We are changing him from oral pantoprazole twice daily to IV pantoprazole every 12 hours for improved GI protection. The patient does have epigastric tenderness now, indicating he may have some underlying gastritis or gastric ulcer. 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 If we need to covering with a sliding scale regular insulin if his blood sugar trends back up we will. (10) CHF (congestive heart failure): Status: Acute Qualifiers: Heart failure type: unspecified Heart failure chronicity: acute Qualified Code(s): I50.9 - Heart failure, unspecified Plan: We will diurese the patient if needed. We will plan on checking da melinda BNPs and chest x-rays. (11) Pulmonary hypertension, moderate to severe: Status: Chronic Plan: Continue sildenafil 50 mg twice daily. (12) Atrial fibrillation: Status: Chronic Qualifiers: Atrial fibrillation type: unspecified Plan: Continue metoprolol 25 mg daily. (13) CAD (coronary artery disease): Status: Chronic Qualifiers: Coronary Disease-Associated Artery/Lesion type: [place] artery [place] vs. transplanted heart: [place]aja heart Associated angina: unspecified whether angina present Qualified Code(s): I25.10 - Atherosclerotic heart disease of [place] coronary artery without angina pectoris (14) History of non-Hodgkin's lymphoma: Status: Acute Plan: Monitor by his lens inspector/oncologist. (15) Essential hypertension: Status: Chronic Plan: We will continue the patient's metoprolol extended release 25 mg daily and resume his amlodipine if needed. However, I want to try to find a better antihypertensive for him if needed his a.m. blood pain would worsen his history of congestive heart failure. (16) Hypoglycemic episode in patient with diabetes mellitus: Status: Acute Plan: Discontinue glimepiride for now and we will cover the patient with sliding scale regular insulin in case his blood sugar trends up. (17) Hyperkalemia: Status: Acute Plan: His hyperkalemia has now resolved. He has a history of mild hyperkalemia. We will follow his daily potassium levels on his CMPs. (18) Chronic kidney disease, stage 3b: Status: Acute Plan: We will make sure we renally dose all of his medications. (19) Generalized edema: Status: Acute Plan: 25% albumin 100 mL IV x 1 today.
[2023-08-29] MEDS: MILK OF MAGNESIA PO SCH (09:02)
[2023-08-29] MEDS: MORPHINE SULFATE INJ 4 MG IVP PRN (10:12)
--- NOTE | 2023-08-29 10:35 | PCM.DCPLAN ---
DISCHARGE SUMMARY Admission Date Date of Admission: 08/22/23 Discharge Date Discharge Date: 08/29/23 Admission Diagnoses (1) Comfort measures only status: Status: Acute (2) GI bleed: Status: Acute (3) Bilateral pneumonia due to Escherichia coli: Status: Acute (4) Generalized weakness: Status: Acute (5) Carcinoma, lung: Status: Acute (6) Neuroendocrine tumor: Status: Acute (7) Chronic respiratory failure: Status: Acute (8) Anemia: Status: Chronic (9) DM II (diabetes mellitus, type II), controlled: Status: Chronic (10) CHF (congestive heart failure): Status: Acute (11) Pulmonary hypertension, moderate to severe: Status: Chronic (12) Atrial fibrillation: Status: Chronic (13) CAD (coronary artery disease): Status: Chronic (14) History of non-Hodgkin's lymphoma: Status: Acute (15) Essential hypertension: Status: Chronic (16) Hypoglycemic episode in patient with diabetes mellitus: Status: Acute (17) Hyperkalemia: Status: Acute (18) Chronic kidney disease, stage 3b: Status: Acute (19) Generalized edema: Status: Acute Discharge Diagnoses Discharge Diagnosis: 1. Comfort measures status only 2. Metastatic cancer 3. Adult failure to thrive 4. Chronic kidney disease stage IIIb 5. Hyperkalemia resolved 6. Bilateral pneumonia secondary to ESBL E. coli 7. GI bleed 8. History of non-Hodgkin's lymphoma 9. Hypoalbuminemia 10. Generalized edema 11. Chronic respiratory failure Discharge Medications Discharge Medications: Prescriptions: Hospital Course Vital Signs: Vital Signs Temperature 99.0 F Temperature 98.5 F Pulse Rate [Bilateral Radial] 58 Pulse Rate [Bilateral Radial] 61 Respiratory Rate 19 Respiratory Rate 18 Blood Pressure [Left Arm] 148/65 Blood Pressure [Left Arm] 138/62 O2 Sat by Pulse Oximetry 94 O2 Sat by Pulse Oximetry 98 Latest Lab Results: Laboratory Last Values WBC 6.0 X10^3/uL (3.6-10.0) 08/29/23 06:13 RBC 1.81 X10^6/uL (4.7-6.0) L 08/29/23 06:13 Hgb 5.9 g/dL (13.5-18.0) L* 08/29/23 06:13 Hct 17.7 % (42.0-54.0) L* 08/29/23 06:13 MCV 97.7 fL (80.0-100.0) 08/29/23 06:13 MCH 32.4 pg (27.0-34.0) 08/29/23 06:13 MCHC 33.2 g/dL (33.0-35.0) 08/29/23 06:13 RDW 16.0 % (11.6-16.5) 08/29/23 06:13 Plt Count 77 X10^3/uL (150.0-450.0) L 08/29/23 06:13 Plt Count Comment Adequate (ADEQUATE) 08/24/23 05:28 MPV 10.3 fL (7.4-11.0) 08/29/23 06:13 Neut % (Auto) 88.3 % (42.0-75.0) H 08/29/23 06:13 Lymph % (Auto) 3.8 % (21.0-51.0) L 08/29/23 06:13 [place] % (Auto) 7.2 % (0.0-13.0) 08/29/23 06:13 Eos % (Auto) 0.4 % (0.9-2.9) L 08/29/23 06:13 Baso % (Auto) 0.3 % (0.2-1.0) 08/29/23 06:13 Neut # (Auto) 5.3 x10^3/uL (2.2-4.8) H 08/29/23 06:13 Lymph # (Auto) 0.2 X10^3/uL (1.3-2.9) L 08/29/23 06:13 [place] # (Auto) 0.4 x10^3/uL (0.3-0.8) 08/29/23 06:13 Eos # (Auto) 0.0 x10^3/uL (0.0-0.2) 08/29/23 06:13 Baso # (Auto) 0.0 X10^3/uL (0.0-0.1) 08/29/23 06:13 Absolute Nucleated RBC 0.1 /100WBC 08/29/23 06:13 Total Counted 100 08/24/23 05:28 Neutrophils % (Manual) 93 % (39-76) H 08/24/23 05:28 Band Neutrophils % 2 % (0-10) 08/23/23 04:50 Lymphocytes % (Manual) 4 % (13-43) L 08/24/23 05:28 Monocytes % (Manual) 3 % (4-9) L 08/24/23 05:28 Eosinophils % (Manual) 1 % (0-6) 08/23/23 04:50 Plt Morphology Comment Normal (NORMAL) 08/24/23 05:28 RBC Morphology Normal (NORMAL) 08/24/23 05:28 Sodium 143 mmol/L (136-145) 08/29/23 06:13 Corrected Sodium 144 mmol/L (136-145) 08/29/23 06:13 Potassium 4.7 mmol/L (3.5-5.1) 08/29/23 06:13 Chloride 105 mmol/L (98-107) 08/29/23 06:13 Carbon Dioxide 34.1 mmol/L (21-32) H 08/29/23 06:13 BUN 48 mg/dL (7-18) H 08/29/23 06:13 Creatinine 1.94 mg/dL (0.70-1.30) H 08/29/23 06:13 Est GFR (MDRD) Af Amer 43 (>60) L 08/29/23 06:13 Est GFR (MDRD) Non-Af 35 (>60) L 08/29/23 06:13 Glucose 162 mg/dL (65-99) H 08/29/23 06:13 POC Glucose (mg/dL) 173 mg/dL (65-99) H 08/29/23 05:24 Lactic Acid 0.9 mmol/L (0.4-2.0) 08/22/23 18:30 Calcium 8.3 mg/dL (8.5-10.1) L 08/29/23 06:13 Corrected Calcium 9.2 mg/dL (8.5-10.1) 08/29/23 06:13 Magnesium 2.2 mg/dL (2.0-2.9) 08/28/23 06:20 Total Bilirubin 0.90 mg/dL (0.2-1.0) 08/29/23 06:13 AST 38 Units/L (15-37) H 08/29/23 06:13 ALT 42 Units/L (12-78) 08/29/23 06:13 Alkaline Phosphatase 137 Units/L (46-116) H 08/29/23 06:13 B-Natriuretic Peptide 172 pg/mL (0-79) H 08/24/23 05:28 Total Protein 5.5 g/dL (6.4-8.2) L 08/29/23 06:13 Albumin 2.9 g/dL (3.4-5.0) L 08/29/23 06:13 Globulin 2.6 g/dL (2.5-4.5) 08/29/23 06:13 Albumin/Globulin Ratio 1.1 Ratio (1.1-2.1) 08/29/23 06:13 Lipase 8 Units/L (16-77) L 08/22/23 18:30 Specimen Type Catherized urine 08/26/23 17:05 Urine Color Yellow (YELLOW) 08/26/23 17:05 Urine Appearance Hazy (CLEAR) 08/26/23 17:05 Urine pH 6.5 (5.0 - 8.0) 08/26/23 17:05 Ur Specific [place] 1.010 (1.000-1.030) 08/26/23 17:05 Urine Protein 3+ (NEGATIVE) 08/26/23 17:05 Urine Glucose (UA) Negative (NEGATIVE) 08/26/23 17:05 Urine Ketones Negative (NEGATIVE) 08/26/23 17:05 Urine Blood 5+ (NEGATIVE) 08/26/23 17:05 Urine Nitrite Negative (NEGATIVE) 08/26/23 17:05 Urine Bilirubin Negative (NEGATIVE) 08/26/23 17:05 Urine Urobilinogen Normal (NORMAL) 08/26/23 17:05 Ur Leukocyte Esterase Negative (NEGATIVE) 08/26/23 17:05 Urine RBC Tntc /HPF (0-3) A 08/26/23 17:05 Urine WBC 0-2 /HPF (0-5) 08/26/23 17:05 Ur Squamous Epith Cells Rare /HPF (NEGATIVE) 08/26/23 17:05 Urine Bacteria Trace /HPF (NEGATIVE) 08/26/23 17:05 Ur Culture Indicated? No/not indicated 08/26/23 17:05 Stl Occult Blood (IFOB) Positive (NEGATIVE) A 08/25/23 18:40 Resp Viral Panel (PCR) See scanned report 08/24/23 18:05 Blood Type O NEGATIVE 08/26/23 08:45 Blood Type O NEGATIVE 08/26/23 08:45 Antibody Screen Positive 08/26/23 08:45 Antibody Identification NEGATIVE BY [facility] 08/26/23 08:45 Crossmatch See Detail 08/26/23 08:45 Hospital Course: This is a pleasant 83-year-old white male who had just recently been in the [facility] for 10 days. During this time, he was treated for ESBL E. coli pneumonia. We had set him up with a PICC line the day before discharge, 08/21/2023. We arranged for him to receive Invanz at home for the next week because he wanted to ensure he kept his hematology/oncology appointment on 08/22/2023. He was adamant that he go to that appointment because of his distant history of non-Hodgkin's lymphoma and partial right lung lobectomy. 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 After the patient got home, he saw his heating engineer/oncologist the following day. They did some lab work only and told him that he was anemic, which we already knew. He recommended that the patient receive iron; however, he was not able to receive any since he had to come back into the hospital for increasing weakness. He sat on the toilet yesterday to use the bathroom and could not get up. His called EMS, and they brought him to the [facility] emergency department for further evaluation and treatment. His chest x-ray was unchanged from the previous ones earlier in the week. He still has bilateral pneumonia. His white blood cell count slowly increased over the last few days to just over 14,000. His hemoglobin has also dropped from 8.5 last week to 7.9 this morning. His BUN and creatinine have improved since last week. Last night, he had an episode of hypoglycemia and, received 50% dextrose IV. We decided to stop his glimepiride at this time, and we will continue to do routine blood checks. I told the patient we would do an iron infusion since his iron level was low when I checked it last week, and hopefully, we will help correct his underlying anemia. I will speak to him about intermediate placement, given his worsening medical condition and increasing weakness. His is a small lady and under 100 pounds, and she is not able to help him. In the meantime, we will continue his IV Invanz, DuoNebs, and do his iron infusion today. Repeat routine labs and recheck a chest x-ray tomorrow morning. Will continue the patient on IV Invanz for his ESBL E. coli bilateral pneumonia over the next week during this time he did not have any significant improvement of his pneumonia. He also developed a GI bleed in which we ordered him blood and started him on a Protonix drip. This initially stabilized his anemia for a couple of days but unfortunately he has dropped from 6.5 over the last 2 days to 5.9 this morning. He was initially scheduled for EGD and colonoscopy for qasim ogden but since the family wants to stop everything except to make him comfortable we will do that. We will cancel the colonoscopy and EGD and they have arranged for him to be transferred to hospice house in [place], [place]. The bed has already been made for him and we will be discharging there today. We will start him on IV morphine for comfort measures this morning to help with his pain and anxiety and if he needs any thing further such as benzodiazepines we can also order that IV. They have their own standing orders at the hospice house in [place] so they will be taking over the care of his end-of-life needs.
[2023-08-29 10:41] VITALS: RESP 21
[2023-08-29] MEDS ORDERED: COLACE CAP 100 MG PO SCH (21:00)
[2023-09-02] MEDS ORDERED: XOPENEX 1.25 MG/3 ML NEBULE NEB PRN
== END 2023-08-29 11:15 | disposition hospice, inpatient (51) | DRG 178 ==
LOC: ER 18:04 → MED/SURG 18:04
PROVIDERS: ADMIT Obstetrics & Gynecology Obstetrics; ATTEND Internal Medicine
DX: Z85.72 Personal history of non-Hodgkin lymphomas; J15.5 Pneumonia due to Escherichia coli; Z90.2 Acquired absence of lung [part of]; C34.90 Malignant neoplasm of unspecified part of unspecified bronchus or lung; I13.0 Hypertensive heart and chronic kidney disease with heart failure and stage 1 through stage 4 chronic kidney disease, or unspecified chronic kidney disease; J90 Pleural effusion, not elsewhere classified; I25.10 Atherosclerotic heart disease of native coronary artery without angina pectoris; E11.649 Type 2 diabetes mellitus with hypoglycemia without coma; N18.32 Chronic kidney disease, stage 3b; D50.0 Iron deficiency anemia secondary to blood loss (chronic); I27.20 Pulmonary hypertension, unspecified; J96.11 Chronic respiratory failure with hypoxia; R62.7 Adult failure to thrive; B34.8 Other viral infections of unspecified site; R53.1 Weakness; Z16.12 Extended spectrum beta lactamase (ESBL) resistance; E11.65 Type 2 diabetes mellitus with hyperglycemia; I50.9 Heart failure, unspecified; B37.89 Other sites of candidiasis; Z99.81 Dependence on supplemental oxygen; I48.91 Unspecified atrial fibrillation; R60.1 Generalized edema; B96.89 Other specified bacterial agents as the cause of diseases classified elsewhere; E87.5 Hyperkalemia; Z79.4 Long term (current) use of insulin